=== PATIENT | male | born 1945 | race Caucasian/White ===

== ENCOUNTER 2022-12-30 13:59 | Outpatient (CLI) | payer MEDICARE, BC, SELFPAY | END 2022-12-30 14:00 | disposition home or self-care (01) | LOC: AMB 01-01 11:53 | PROVIDERS: PCP Family Medicine; Visit Provider Family Medicine | DX: R53.1 Weakness (principal) | CPT/HCPCS: A0425; A0429 ==

== ENCOUNTER 2022-12-30 14:53 | Inpatient (IN) | payer MEDICARE, BC, SELFPAY ==
[2022-12-30 15:09] VITALS: BP 126/63; PULSE 71; RESP 20; TEMP 37.1; O2SAT 97; BMI 76.0
[2022-12-30 15:23] VITALS: BP 126/63; PULSE 71; RESP 20; TEMP 37.1; O2SAT 97
--- NOTE | 2022-12-30 15:40 | ED.GENADULT ---
HPI - General Adult General Date Seen: 12/30/22 Chief complaint: Weakness Stated complaint: Weakness Time Seen by Provider: 12/30/22 15:21 Source: patient and EMS Mode of arrival: EMS Limitations: no limitations History of Present Illness HPI narrative: Patient is a 77-year-old male who really was not able to get out of bed by himself today. He called a couple of friends to help him when they were not able to get him out of bed 911 was called. He says he was feeling generally weak, did not feel like his legs would support him. He denies any recent illness or injury. He lives independently in a house he built a couple of years ago which is fairly well specialized for him. His weight is 227 kilos. He notes that he is able to walk short distances with his walker but does not get any other exercise. He says he has been having difficulty losing weight. He denies chest pain, difficulty breathing, fevers, vomiting, diarrhea. He does note that he has a little rash underneath his left thigh and gets a rash recurrently underneath his armpits. He notes more frequent urination although no dysuria. Denies prior history of diabetes. Related Data Home Medications Medication Instructions Recorded Confirmed amlodipine 5 mg tablet 5 mg PO DAILY 12/30/22 12/30/22 losartan 100 mg tablet 100 mg PO DAILY 12/30/22 12/30/22 naproxen sodium 220 mg capsule 440 mg PO BID PRN 12/30/22 12/30/22 (Aleve) Review of Systems Status of ROS: Reports: 10 or more systems reviewed and unremarkable except as noted in History and below [facility] Medical History (Updated 12/30/22 @ 19:35 by Natali Velazquez MD) Elevated blood uric acid level ?E79.0 - Hyperuricemia without signs of inflammatory arthritis and tophaceous disease (ICD-10) Impaired fasting glucose ?R73.01 - Impaired fasting glucose (ICD-10) Gout ?M10.9 - Gout, unspecified (ICD-10) Adenomatous colon polyp (~2015) ?D12.6 - Benign neoplasm of colon, unspecified (ICD-10) Ventral hernia ?K43.9 - Ventral hernia without obstruction or gangrene (ICD-10) Incarcerated umbilical hernia (~2014) ?K42.0 - Umbilical hernia with obstruction, without gangrene (ICD-10) Dyslipidemia ?E78.5 - Hyperlipidemia, unspecified (ICD-10) Morbid obesity ?E66.01 - Morbid (severe) obesity due to excess calories (ICD-10) Hernia ?K46.9 - Unspecified abdominal hernia without obstruction or gangrene (ICD-10) Gallbladder attack ?K82.9 - Disease of gallbladder, unspecified (ICD-10) HTN (hypertension) ?I10 - Essential (primary) hypertension (ICD-10) Surgical History (Updated 12/30/22 @ 19:26 by Jennifer Conner MD) H/O hernia repair (~2014) ?Z98.890 - Other specified postprocedural states (ICD-10) ?Z87.19 - Personal history of other diseases of the digestive system (ICD-10) Hx of cholecystectomy (~1985) ?Z90.49 - Acquired absence of other specified parts of digestive tract (ICD-10) H/O colonoscopy ?Z98.890 - Other specified postprocedural states (ICD-10) Family History (Updated 12/30/22 @ 19:27 by Jennifer Conner MD) Father Cardiovascular disease Myocardial infarction Mother High blood pressure Sister Sarcoma Social History Smoking Status: Never smoker How often do you have a drink containing alcohol: never AUDIT-C Alcohol total score: 0 Non-prescribed substance use: denies use service: No Exam Narrative: Exam Narrative: Vital signs as noted above. In general, an alert, nontoxic male. He is significantly overweight. Head: Normocephalic, atraumatic. Eyes: Pupils are equal reactive. Extraocular movements are full. Conjunctivae are normal. ENT: Mucous membranes are moist. Throat is normal. Neck: Supple without lymphadenopathy. Heart: Regular rate and rhythm. No murmur or rub. Lungs: Clear anteriorly. No increased work of breathing, crackles or wheezes. Abdomen: Nontender, exam is significantly limited by body habitus. Extremities: Well perfused. No edema. No calf tenderness. Pulses intact. Neurologic: Patient is alert and oriented to person and place. Speech is fluent. Face is symmetric. Moves all extremities equally. Affect: Normal. Skin: Warm and dry. Well perfused. Underneath both armpits he has bright red erythema and some mild maceration of the skin. This extends out onto the surrounding skin to some degree, is sharply demarcated. On the back of the left thigh there is an area of rash with small patches of erythema, I do not see blistering or hives. At this time it does not look specifically consistent with shingles, though it is possible that with the weight of his leg any blistering would be worn away. He is unsure how long that rash has been there. Const: Vital Signs, click to edit/add: Vital Signs - 24 hr 12/30/22 15:09 12/30/22 15:23 12/30/22 17:30 Temperature 98.7 F 98.7 F Pulse Rate [Right Radial] 71 71 67 Respiratory Rate 20 20 18 Blood Pressure [Ri ght Forearm] 126/63 126/63 135/60 Pulse Oximetry 97 97 97 Oxygen Delivery Me thod Room Air Room Air Room Air Course Reevaluation(s) Reevaluation #1: Patient had an IV established here, had an EKG which was unremarkable, [place] a [place] [address]. Looking back at his records at least from the last time he was here which granted was 810 years ago, his white blood cell count was normal at that time. Hemoglobin is 12.6. He has a left shift with 86% neutrophils. Metabolic panel is notably normal, blood sugar is 114, BUN is 22, creatinine 1. LFTs also normal. CRP is elevated at 6.7. BNP is mildly elevated at 658. TSH was normal. O'clock procalcitonin was added on later and was 0.08. Overall, patient presents with acute on chronic weakness, likely in part due to his weight, but he feels there has been a telephone exchange operator the past couple of days. He does have significant erythema under his armpits, which looks to be primarily fungal, but a superimposed bacterial infection cannot be ruled out. He also has this rash on the back of his leg which at this point I think is indeterminate but shingles could be a possibility. In any case, I think it is reasonable to treat him for possible cellulitis, he will be admitted for observation, antibiotics, PT OT and a determination as to whether not he can return home verses needing group home care. Given 2 g of Ancef here, blood cultures drawn. Vital Signs Vital signs: Initial Vital Signs Temperature 98.7 F 12/30/22 15:09 Temperature Source Temporal Artery Scan 12/30/22 15:09 Pulse Rate 71 12/30/22 15:09 Pulse Rhythm Regular 12/30/22 15:09 Pulse Strength 3+ Normal 12/30/22 15:09 Respiratory Rate 20 12/30/22 15:09 Blood Pressure 126/63 12/30/22 15:09 Blood Pressure Mean 84 12/30/22 15:09 Blood Pressure Position Supine 12/30/22 15:09 Pulse Oximetry 97 12/30/22 15:09 Oxygen Delivery Method Room Air 12/30/22 15:09 Vital Signs Temperature 98.7 F 12/30/22 15:09 Pulse Rate 71 12/30/22 15:09 Respiratory Rate 20 12/30/22 15:09 Blood Pressure 126/63 12/30/22 15:09 Pulse Oximetry 97 12/30/22 15:09 Oxygen Delivery Method Room Air 12/30/22 15:09 Temperature 98.7 F 12/30/22 15:23 Pulse Rate 66 12/30/22 19:12 Respiratory Rate 18 12/30/22 19:12 Blood Pressure 130/64 12/30/22 19:12 Pulse Oximetry 98 12/30/22 19:12 Oxygen Delivery Method Room Air 12/30/22 19:12 Medical Decision Making Lab Data Labs: Lab Results 12/30/22 12/30/22 Range/Units 15:53 15:55 WBC 15.35 H (4.50-11.00) K/uL RBC 4.52 (4.30-5.90) m/uL Hgb 12.6 L (13.5-17.5) gm/dL Hct 40.0 (37.0-53.0) % MCV 89 (80-100) fL MCH 28 (26-34) pg MCHC 32 (32-36) gm/dL RDW Coeff of Rosalee 15.1 (11.5-15.5) % Plt Count 252 (140-440) K/uL Neut % (Auto) 86.6 H (42.0-72.0) % Lymph % (Auto) 5.6 L (20-44) % [place] % (Auto) 6.8 (0.0-11.0) % Eos % (Auto) 0.7 (0.0-7.0) % Baso % (Auto) 0.1 (0.0-3.0) % Neut # (Auto) 13.30 H (1.7-7.0) K/uL Lymph # (Auto) 0.90 (0.90-2.90) K/uL [place] # (Auto) 1.00 H (0.00-0.90) K/UL Eos # (Auto) 0.10 (0.00-0.50) K/uL Baso # (Auto) 0.00 (0.00-0.30) K/uL Sodium 144 (135-149) mmol/L Potassium 3.9 (3.6-5.1) mmol/L Chloride 108 (96-114) mmol/L Carbon Dioxide 29 (20-32) mmol/L BUN 22 (7-30) mg/dL Creatinine 1.0 (0.5-1.5) mg/dL Estimated Creat Clear 60.80 Estimated GFR 78 ml/min Glucose 114 (60-115) mg/dL Lactate 1.4 (0.5-1.9) mmol/L Calcium 9.0 (8.4-10.6) mg/dL Total Bilirubin 1.1 (0.1-1.5) mg/dL Direct Bilirubin 0.2 (0.0-0.5) mg/dL AST 32 (12-35) U/L ALT 22 (4-50) U/L Alkaline Phosphatase 123 (40-150) U/L C-Reactive Protein 6.7 H (0.5-1.0) mg/dL NT-Pro-B Natriuret Pep 658 pg/mL Total Protein 7.6 (6.0-8.3) g/dL Albumin 3.6 (3.3-5.0) g/dL Procalcitonin 0.08 (<0.50) ng/mL TSH 1.150 (0.270-4.200) uIU/mL SARS-CoV-2 (PCR) Negative SARS-CoV-2 (Negative) Influenza Type A (PCR) Negative PCR FLU A (Negative) Influenza Type B (PCR) Negative PCR FLU B (Negative) RSV (PCR) Negative PCR RSV (Negative) POC Troponin I 0.00 L (0.01-0.04) ng/ml Discharge Plan Discharge Clinical Impression: Weakness, Morbid obesity, Cellulitis Patient Disposition: Admitted As Observation
--- NOTE | 2022-12-30 15:49 | PC.NURSE ---
here and Lab. pt has been on the phone since adnit
[2022-12-30 16:05] LABS: Lactate* 1.4 mmol/L (0.5-1.9)
[2022-12-30 16:06] LABS: Basophils Percent Auto 0.1 % (0.0-3.0); Eosinophils Percent Auto 0.7 % (0.0-7.0); Hemoglobin* 12.6 gm/dL (13.5-17.5); Immature Granulocytes Pct Auto 0.2 %; Lymphocytes Percent Auto 5.6 % (20-44); Mean Corpuscular HGB Conc 32 gm/dL (32-36); Mean Corpuscular Hemoglobin 28 pg (26-34); Mean Corpuscular Volume 89 fL (80-100); Monocytes Percent Auto 6.8 % (0.0-11.0); Neutrophils Percent Auto 86.6 % (42.0-72.0); Platelet Count* 252 K/uL (140-440); RDW Coefficient of Variation % 15.1 % (11.5-15.5); Red Blood Count 4.52 m/uL (4.30-5.90); White Blood Count* 15.35 K/uL (4.50-11.00)
[2022-12-30 16:15] LABS: Slide Review Reflex No
[2022-12-30 16:21] LABS: Albumin* 3.6 g/dL (3.3-5.0); Chloride* 108 mmol/L (96-114)
[2022-12-30 16:22] LABS: Potassium* 3.9 mmol/L (3.6-5.1); Sodium* 144 mmol/L (135-149)
[2022-12-30 16:24] LABS: Estimated Glomerular Filt Rate 78 ml/min
[2022-12-30 16:25] LABS: Alanine Aminotransferase* 22 U/L (4-50); Alkaline Phosphatase* 123 U/L (40-150); Aspartate Amino Transferase* 32 U/L (12-35); Bilirubin Direct* 0.2 mg/dL (0.0-0.5); Bilirubin Total* 1.1 mg/dL (0.1-1.5); Blood Urea Nitrogen* 22 mg/dL (7-30); Carbon Dioxide* 29 mmol/L (20-32); Glucose* 114 mg/dL (60-115); Total Protein* 7.6 g/dL (6.0-8.3)
[2022-12-30 16:28] LABS: C Reactive Protein* 6.7 mg/dL (0.5-1.0)
[2022-12-30 16:38] LABS: NT Pro B Type NatriureticPept* 658 pg/mL
[2022-12-30 16:45] LABS: PCR FLU A Negative PCR FLU A (Negative); PCR FLU B Negative PCR FLU B (Negative); PCR RSV Negative PCR RSV (Negative)
[2022-12-30 16:46] LABS: SARS PCR* Negative SARS-CoV-2 (Negative)
[2022-12-30 17:30] VITALS: BP 135/60; PULSE 67; RESP 18; O2SAT 97
[2022-12-30] MEDS: CEFAZOLIN 2 GM in 0.9 % SODIUM CHLORIDE Mini-bag 100 ML IVPB (18:16)
[2022-12-30 18:44] LABS: Procalcitonin* 0.08 ng/mL (<0.50)
--- NOTE | 2022-12-30 18:53 | ED.NURSE ---
given report to M/S and will transfer to room CCU 2 via cart.
[2022-12-30 19:07] VITALS: BP 138/68; PULSE 62; RESP 18; RESP 20; TEMP 36.2; O2SAT 97; O2SAT 98; BMI 77.0
[2022-12-30 19:12] VITALS: BP 130/64; PULSE 66; RESP 18; O2SAT 98
--- NOTE | 2022-12-30 19:45 | P.IMHP_ITS ---
Hospitalist- H&P: HPI History of Present Illness Time Seen by Provider: 19:35 Date Seen: 12/30/22 Chief complaint: Weakness Narrative: Xavier Damon is a 77 year old male who is morbidly obese had difficulty getting out of bed this morning. He weighs just under 500 lbs. Every day sits on side of bed with walker and pushes himself up. This morning he couldn't do it, and he was afraid he'd fall on the floor, so he called a friend to come over. They tried together for several hours, but he was getting worn out, so they ended up calling the police and paramedics around 13:30 to help out. EMS got him standing up, but he couldn't move his legs to walk, so he sat down on the bed. They recommended going to the hospital. A few days ago he hurt his left leg by plopping down into a chair. He felt that this stretched out the muscle of the lower leg. He says his friend noticed he's been having a harder time getting into his truck for the last 3 months. This winter he has been moving less than usual. He says he's been incontinent of urine for the past 3 months or so. He gets the urge to urinate and can control it. He tries to hold it, but it has gotten so difficult to get out of bed or get out of his truck or chair to get to the bathroom, that he ultimately decides to just let the urine flow. He says the incontinence never catches him off guard or is out of his control. He can''t get into the bathtub anymore, for about 5 years. Has been using the walk in shower, but he feels he doesn't get as clean. Review of Systems Status of ROS: Reports: 10 or more systems reviewed and unremarkable except as noted in History and below Integ/Breast: Reports: rash PFSH [facility] Medical History (Updated 12/30/22 @ 21:29 by Jennifer Conner MD) Elevated blood uric acid level ?E79.0 - Hyperuricemia without signs of inflammatory arthritis and tophaceous disease (ICD-10) Impaired fasting glucose ?R73.01 - Impaired fasting glucose (ICD-10) Gout ?M10.9 - Gout, unspecified (ICD-10) Adenomatous colon polyp (~2015) ?D12.6 - Benign neoplasm of colon, unspecified (ICD-10) Ventral hernia ?K43.9 - Ventral hernia without obstruction or gangrene (ICD-10) Incarcerated umbilical hernia (~2014) ?K42.0 - Umbilical hernia with obstruction, without gangrene (ICD-10) Dyslipidemia ?E78.5 - Hyperlipidemia, unspecified (ICD-10) Morbid obesity ?E66.01 - Morbid (severe) obesity due to excess calories (ICD-10) Hernia ?K46.9 - Unspecified abdominal hernia without obstruction or gangrene (ICD- 10) Gallbladder attack ?K82.9 - Disease of gallbladder, unspecified (ICD-10) HTN (hypertension) ?I10 - Essential (primary) hypertension (ICD-10) Surgical History (Updated 12/30/22 @ 19:26 by Jennifer Conner MD) H/O hernia repair (~2014) ?Z98.890 - Other specified postprocedural states (ICD-10) ?Z87.19 - Personal history of other diseases of the digestive system (ICD-10) Hx of cholecystectomy (~1985) ?Z90.49 - Acquired absence of other specified parts of digestive tract (ICD- 10) H/O colonoscopy ?Z98.890 - Other specified postprocedural states (ICD-10) Family History (Updated 12/30/22 @ 19:27 by Jennifer Conner MD) Father Cardiovascular disease Myocardial infarction Mother High blood pressure Sister Sarcoma Social History (Updated 12/30/22 @ 19:58 by Jennifer Conner MD) Narrative: Lives in a newly built house that is accessible. Was in the [employer] business. Worked for [employer] (f. [employer]). Retired 10 years ago. Smoking Status: Never smoker How often do you have a drink containing alcohol: never AUDIT-C Alcohol total score: 0 Non-prescribed substance use: denies use service: No Meds Home Medications and Allergies Home Medications Medication Instructions Recorded Confirmed Type amlodipine 5 mg tablet 5 mg PO DAILY 12/30/22 12/30/22 History losartan 100 mg tablet 100 mg PO DAILY 12/30/22 12/30/22 History naproxen sodium 220 mg capsule 440 mg PO BID PRN 12/30/22 12/30/22 History (Aleve) Exam Narrative: Exam Narrative: General: There is an overwhelmingly pungent yeast odor in the room. Morbidly obese with a massive pannus. No acute distress. Awake alert oriented x3. Pleasant. HEENT: Normocephalic atraumatic, pupils equally round and reactive to light and accommodation. Thick neck and large fatty chin and cheeks which hanging over his neck. Oropharynx clear. Mucous membranes are moist. No cervical lymphadenopathy, thyromegaly or carotid bruits. No JVD. Cardiovascular: Regular rate and rhythm. No murmurs, gallops, or rubs. Chest: No increased work of breathing. Clear to auscultation bilaterally. No crackles or wheezes. Abdomen: Bowel sounds present. Soft, nondistended, nontender. Due to body habitus it is difficult to appreciate if there are any hepatosplenomegaly or masses. Genitourinary: Large scrotum that does not have rash or edema. Due to the size of the pannus, I was unable to visualize his penis. I had 4 nurses holding up the pannus as best they could, but we were unable to visualize under there completely. Extremities: Lymphedema bilaterally, no cyanosis or clubbing. Skin: Left axilla is bright red and raw. Right axilla has a light macular rash consistent with an appearance of tinea. Pannus moist and gooey with beige creamy substance in skin fold. Raw erythema with 2 ulcerations inside the pannus, 1 on the left pannus and 1 on the right pannus. Each ulceration is dime- sized without purulent drainage. He also has folliculitis of the upper inner thighs and what looks like a vasculitis on the left posterior thigh. No jaundice, no pallor. Neuro: There are no focal deficits. Romberg is negative. Unable to ambulate or turn himself in bed. Cranial nerves 2-12 are intact. Extraocular movements are full. No nystagmus. No facial asymmetry. Tongue is midline. Peripheral vision and vision are grossly intact. Strength is 5/5 in upper extremities and 4/5 in both lower extremities. Light touch sensation is intact in face body and extremities. Const: Vital Signs, click to edit/add: Vital Signs - 24 hr 12/30/22 15:09 12/30/22 15:23 12/30/22 17:30 Temperature 98.7 F 98.7 F Pulse Rate [Right Radial] 71 71 67 Respiratory Rate 20 20 18 Blood Pressure [Ri ght Forearm] 126/63 126/63 135/60 Pulse Oximetry 97 97 97 Oxygen Delivery Me thod Room Air Room Air Room Air 12/30/22 19:12 Temperature Pulse Rate [Right Radial] 66 Respiratory Rate 18 Blood Pressure [Ri ght Forearm] 130/64 Pulse Oximetry 98 Oxygen Delivery Me thod Room Air Documenting provider has reviewed patient's vital signs: yes Hospitalist - H&P: Result Labs Labs: Short CBC 12/30/22 Range/Units 15:55 WBC 15.35 H (4.50-11.00) K/uL Hgb 12.6 L (13.5-17.5) gm/dL Hct 40.0 (37.0-53.0) % Plt Count 252 (140-440) K/uL BMP 12/30/22 15:55 Sodium 144 Potassium 3.9 Chloride 108 Carbon Dioxide 29 BUN 22 Creatinine 1.0 Glucose 114 Calcium 9.0 Liver Function 12/30/22 Range/Units 15:55 Total Bilirubin 1.1 (0.1-1.5) mg/dL Direct Bilirubin 0.2 (0.0-0.5) mg/dL AST 32 (12-35) U/L ALT 22 (4-50) U/L Alkaline Phosphatase 123 (40-150) U/L Albumin 3.6 (3.3-5.0) g/dL 12/30/2022 EKG: Normal sinus rhythm, 67 beats per minute, left axis deviation, right bundle- branch block. Assessment and Plan Assessment and plan (1) Weakness: Status: Acute (2) Intertrigo: Status: Acute (3) Leukocytosis: Status: Acute (4) Cellulitis: Status: Acute (5) Impaired fasting glucose: Status: Acute (6) HTN (hypertension): Status: Chronic (7) Morbid obesity: Status: Chronic Plan I suspect this is acute on chronic. It sounds like he has been having difficulty especially over the winter that has gotten worse in last 3 months to the point where he is unable to get to the bathroom and just urinates, rather than true incontinence. Today he is weak enough that he is unable to ambulate. He does have an elevated white count and CRP, but procalcitonin is unremarkable. He has not been febrile and his vital signs are stable, there is no evidence of sepsis. Blood cultures were obtained in the emergency department. He has no other symptoms to direct further investigation. The only identifiable source of infection is the skin folds which have candidal intertrigo and the left axilla may also have an early cellulitis. He was started on Ancef in the emergency department, which I will continue. Treat intertrigo with nystatin cream, daily cleansing and aeration. I have spoken with him about weight loss and he is agreeable, in fact would prefer it. Will start him on a calorie restricted diabetic diet and obtain an hemoglobin A1c. Also have consulted Nutrition. Consult PT and OT to work with him for weakness and consult social work as he may need placement for rehab. This will be challenging given his weight since he me way too much for the equipment available in local nursing homes. Continue home medications.
[2022-12-30] MEDS: NYSTATIN CREAM 30 GM 1 APPLIC TOPICAL (21:27)
[2022-12-30] MEDS: ENOXAPARIN 40 MG/0.4 ML INJ SUBCUT (21:27)
[2022-12-30] MEDS: SODIUM CHLORIDE 0.9 % (FLUSH) 10 ML SYRINGE 5 ML IVF (21:27)
[2022-12-30 22:14] LABS: Appearance Urine Cloudy (Clear); Bilirubin Urine 1+ (Negative); Blood Urine 3+ (Negative); Color Urine Brown (Yellow); Glucose Urine Negative (Negative); Ketones Urine Trace (Negative); Leukocyte Esterase Urine Negative (Negative); Nitrite Urine Negative (Negative); Protein Urine 2+ (Negative); Specific Gravity Urine >= 1.030 (1.000-1.030); pH Urine 5.5 (5.0-8.5)
[2022-12-30 22:38] LABS: Bacteria Urine Many; RBC Urine 0-2 (0-2); WBC Urine >100 (0-5)
[2022-12-30 22:39] LABS: Amorphous Sediment Urine Moderate
[2022-12-30 23:00] VITALS: BP 129/64; PULSE 68; RESP 18; TEMP 35.7; O2SAT 97
[2022-12-30] MEDS: CEFAZOLIN 1 GM in 0.9 % SODIUM CHLORIDE Mini-bag 100 ML IVPB (23:31)
[2022-12-31] VITALS (8 sets, daily range): BP systolic 126–149; BP diastolic 65–80; PULSE 60–77; RESP 16–98; TEMP 36–36.3; O2SAT 94–100; BMI 77.0
[2022-12-31] MEDS: LOSARTAN POTASSIUM 50 MG TABLET 100 MG PO ×2 (00:12→21:20)
[2022-12-31] MEDS: AMLODIPINE 5 MG TABLET PO ×2 (00:13→21:20)
--- NOTE | 2022-12-31 05:48 | PC.NURSE ---
Admitted to unit at 1900 with primary diagnosis of weakness. Patient is alert and oriented x 4. Currently bedbound due to increased weakness/fatigue, at baseline patient is able to ambulate short distances with walker. Denies any chest pain, shortness of breath or dyspnea. Pain to left leg on admission but resolved by end of shift. Lung sounds clear anteriorly, denies cough. Bowel sounds active x 4 quadrants. Requires maximum assist of 2-3 with turning in bed. Left armpit, bilateral groin, posterior left leg and posterior testicles red and excoriated. Several small open areas to left groin which were observed by hospitalist upon admission. Health Services Information Specialist and KANDI completed bed bath and nystatin cream applied to rash areas, patient denies any pain or tenderness to rashes. Voids using a urinal with staff assistance for placement, urine tea colored, cloudy and strong odor present. Specimen obtained and sent for UA. Patient requesting SW visit to discuss health care directive as he feels he may have completed his one on file incorrectly. Patient currently lives alone in his own home, retired.
[2022-12-31 06:32] LABS: Basophils Absolute Auto 0.01 K/uL (0.00-0.30); Basophils Percent Auto 0.1 % (0.0-3.0); Eosinophils Absolute Auto 0.27 K/uL (0.00-0.50); Eosinophils Percent Auto 2.9 % (0.0-7.0); Hematocrit 37.5 % (37.0-53.0); Hemoglobin* 11.7 gm/dL (13.5-17.5); Immature Granulocytes Abs Auto 0.02 K/uL (0.00-0.30); Immature Granulocytes Pct Auto 0.2 %; Lymphocytes Percent Auto 12.1 % (20-44); Mean Corpuscular HGB Conc 31 gm/dL (32-36); Mean Corpuscular Hemoglobin 28 pg (26-34); Mean Corpuscular Volume 90 fL (80-100); Monocytes Percent Auto 7.3 % (0.0-11.0); Neutrophils Percent Auto 77.4 % (42.0-72.0); Platelet Count* 248 K/uL (140-440); RDW Coefficient of Variation % 15.2 % (11.5-15.5); Red Blood Count 4.19 m/uL (4.30-5.90); White Blood Count* 9.28 K/uL (4.50-11.00)
[2022-12-31 06:34] LABS: Slide Review Reflex No
[2022-12-31 06:42] LABS: Chloride* 109 mmol/L (96-114)
[2022-12-31 06:43] LABS: Potassium* 3.9 mmol/L (3.6-5.1); Sodium* 144 mmol/L (135-149)
[2022-12-31 06:44] LABS: Hemoglobin A1C* 5.39 % (0-5.6)
[2022-12-31 06:45] LABS: Creatinine* 0.9 mg/dL (0.5-1.5); Estimated Glomerular Filt Rate 89 ml/min
[2022-12-31 06:46] LABS: Blood Urea Nitrogen* 21 mg/dL (7-30); Carbon Dioxide* 29 mmol/L (20-32); Glucose* 99 mg/dL (60-115)
[2022-12-31 06:47] LABS: Calcium* 8.7 mg/dL (8.4-10.6)
[2022-12-31] MEDS: CEFAZOLIN 1 GM in 0.9 % SODIUM CHLORIDE Mini-bag 100 ML IVPB (06:48)
[2022-12-31 06:49] LABS: C Reactive Protein* 6.9 mg/dL (0.5-1.0)
[2022-12-31] MEDS: NYSTATIN POWDER 1 APPLIC TOPICAL ×2 (10:00→21:21)
[2022-12-31] MEDS: FLUCONAZOLE 100 MG TABLET 200 MG PO (10:36)
[2022-12-31] MEDS: SODIUM CHLORIDE 0.9 % (FLUSH) 10 ML SYRINGE 5 ML IVF ×2 (10:37→21:21)
[2022-12-31] MEDS: ACETAMINOPHEN 325 MG TABLET 650 MG PO ×2 (12:06→21:20)
--- NOTE | 2022-12-31 13:03 | PM.IMPN1 ---
Progress Note: A&P Assessment and plan (1) Cellulitis: Problem details: Fairly severe cellulitis under his abdominal pannus in and in his groin associated with substantial skin ulceration. With leukocytosis this is likely explanation for his acute on chronic weakness and inability to walk. Continue treatment for candidiasis and bacterial cellulitis with IV antibiotics, nystatin and Diflucan. Good skin hygiene will be needed as well. Status: Acute (2) Intertrigo: Problem details: Diflucan and nystatin Status: Acute (3) Weakness: Problem details: Due to acute illness. Assess for ability to return to independent living. Status: Acute (4) Morbid obesity: Problem details: Discussed approach to weight loss. Status: Chronic Plan Admit to the hospital for management of cellulitis and skin breakdown. Assess mobility. Assess for ability to return home. Time Spent With Patient Total time spent: Total time spent today is 45 minutes, 30 minutes in coordination of care discussing with patient and other providers management of cellulitis and skin problems. Subjective Date Seen: 12/31/22 Interval history: 77-year-old morbidly obese male admitted to the hospital with profound weakness. Patient has had longstanding obesity and progressive decline in his ability to ambulate. He reports over the last month he has had increasing troubles ambulating due to a feeling of leg weakness. He does get some dyspnea but reports leg weakness is primary limiting factor. He otherwise does not know knee significant symptoms of illness. Yesterday he fell and was unable to get up. He called his neighbor who could not get him up. The police came and were unable to get him up. EMS was called and they were able to get him to standing but he was too weak to walk so they brought him to the emergency room. In the emergency room he was found to have marked ulcerations and erythema under his abdominal pannus, involving his scrotum and in his left axilla. He had elevated white blood count as well. He was started on treatment for cellulitis with Ancef and intertrigo from [place] with nystatin. Patient lives independently in his own home. This is a new home for him which she has been designed to be assessable for him with his walker. He has a walk-in shower with a bench. He is unable to do personal hygiene in his skin folds. Previously he had a bathtub in his home but he found it very difficult to get in and out so now he is taking his shower while he is sitting on the bench. He is normally able to get around with a walker with gradual worsening of his mobility over the last month. Yesterday's profound weakness was an acute change for him. He is not aware of having a fever. Nursing staff note that he still too weak to stand on his own today. He reports generally feeling better but acknowledges his leg weakness. Exam Narrative: Exam Narrative: He is alert and appears in no distress. Speech is normal. Oropharynx with small airway. Neck is supple without mass or adenopathy. Respirations are clear to auscultation. Cardiovascular: S1, S2, regular rate and rhythm. No murmur gallop or rub. Abdomen: Bowel sounds are active. Abdomen is soft without tenderness. Large abdominal pannus noted. Underneath his abdominal pannus he has fairly severe erythema which is can fluent over the entire underside of the pannus extending into the inguinal folds involving the entire scrotum and associated with numerous skin ulcers proximally 1 cm in size. Left axilla has moderate erythema without ulceration. Right axilla is unremarkable. No other skin rashes. Moderate lower extremity edema. Intact capillary refill in his feet. Const: Vital Signs, click to edit/add: Vital Signs - 24 hr 12/30/22 15:09 12/30/22 15:23 12/30/22 17:30 Temperature 98.7 F 98.7 F Pulse Rate [Left P ulse Oximeter] Pulse Rate [Right Radial] 71 71 67 Respiratory Rate 20 20 18 Blood Pressure [Le ft Arm] Blood Pressure [Ri ght Forearm] 126/63 126/63 135/60 Pulse Oximetry 97 97 [address] [facility] Room Air 12/30/22 19:07 12/30/22 19:07 12/30/22 19:12 Temperature 97.1 F L Pulse Rate [Left P ulse Oximeter] 62 Pulse Rate [Right Radial] 66 Respiratory Rate 20 18 18 Blood Pressure [Le ft Arm] 138/68 Blood Pressure [Ri ght Forearm] 130/64 Pulse Oximetry [address] thod Room Air Room Air Room Air 12/30/22 23:00 12/31/22 03:00 12/31/22 07:00 Temperature 96.2 F L 97.3 F L 96.8 F L Pulse Rate [Left P ulse Oximeter] 68 60 64 Pulse Rate [Right Radial] Respiratory Rate 18 18 18 Blood Pressure [Le ft Arm] 129/64 126/66 137/73 Blood Pressure [Ri ght Forearm] Pulse Oximetry 97 95 99 Oxygen Delivery Me thod Room Air Room Air Room Air 12/31/22 10:00 12/31/22 11:00 Temperature 96.8 F L Pulse Rate [Left P ulse Oximeter] 63 63 Pulse Rate [Right Radial] Respiratory Rate 18 18 Blood Pressure [Le ft Arm] 144/65 H Blood Pressure [Ri ght Forearm] Pulse Oximetry 97 Oxygen Delivery Me thod Room Air Documenting provider has reviewed patient's vital signs: yes Labs Labs: Laboratory Results - last 24 hr 12/30/22 12/30/22 12/30/22 15:53 15:55 22:08 WBC 15.35 H RBC 4.52 Hgb 12.6 L Hct 40.0 MCV 89 MCH 28 MCHC 32 RDW Coeff of [place] 15.1 Plt Count 252 Neut % (Auto) 86.6 H Lymph % (Auto) 5.6 L [place] % (Auto) 6.8 Eos % (Auto) 0.7 Baso % (Auto) 0.1 Neut # (Auto) 13.30 H Lymph # (Auto) 0.90 [place] # (Auto) 1.00 H Eos # (Auto) 0.10 Baso # (Auto) 0.00 Sodium 144 Potassium 3.9 Chloride 108 Carbon Dioxide 29 BUN 22 Creatinine 1.0 Estimated Creat Clear 60.80 Estimated GFR 78 Glucose 114 Hemoglobin A1c Lactate 1.4 Calcium 9.0 Total Bilirubin 1.1 Direct Bilirubin 0.2 AST 32 ALT 22 Alkaline Phosphatase 123 C-Reactive Protein 6.7 H NT-Pro-B Natriuret Pep 658 Total Protein 7.6 Albumin 3.6 Procalcitonin 0.08 TSH 1.150 Urine Color Brown A Urine Appearance Cloudy A Urine pH 5.5 Ur Specific [place] >= 1.030 Urine Protein 2+ A Urine Glucose (UA) Negative Urine Ketones Trace A Urine Blood 3+ A Urine Nitrite Negative Urine Bilirubin 1+ A Urine Urobilinogen 2.0 A Ur Leukocyte Esterase Negative Urine RBC 0-2 Urine WBC >100 A Ur Squamous Epith Cells None Amorphous Sediment Moderate A Urine Bacteria Many A SARS-CoV-2 (PCR) Negative SARS-CoV-2 Influenza Type A (PCR) Negative PCR FLU A Influenza Type B (PCR) Negative PCR FLU B RSV (PCR) Negative PCR RSV POC Troponin I 0.00 L 12/31/22 06:10 WBC 9.28 RBC 4.19 L Hgb 11.7 L Hct 37.5 MCV 90 MCH 28 MCHC 31 L RDW Coeff of [place] 15.2 Plt Count 248 Neut % (Auto) 77.4 H Lymph % (Auto) 12.1 L [place] % (Auto) 7.3 Eos % (Auto) 2.9 Baso % (Auto) 0.1 Neut # (Auto) 7.20 H Lymph # (Auto) 1.10 [place] # (Auto) 0.70 Eos # (Auto) 0.27 Baso # (Auto) 0.01 Sodium 144 Potassium 3.9 Chloride 109 Carbon Dioxide 29 BUN 21 Creatinine 0.9 Estimated Creat Clear 60.80 Estimated GFR 89 Glucose 99 Hemoglobin A1c 5.39 Lactate Calcium 8.7 Total Bilirubin Direct Bilirubin AST ALT Alkaline Phosphatase C-Reactive Protein 6.9 H NT-Pro-B Natriuret Pep Total Protein Albumin Procalcitonin TSH Urine Color Urine Appearance Urine pH Ur Specific [place] Urine Protein Urine Glucose (UA) Urine Ketones Urine Blood Urine Nitrite Urine Bilirubin Urine Urobilinogen Ur Leukocyte Esterase Urine RBC Urine WBC Ur Squamous Epith Cells Amorphous Sediment Urine Bacteria SARS-CoV-2 (PCR) Influenza Type A (PCR) Influenza Type B (PCR) RSV (PCR) POC Troponin I
--- NOTE | 2022-12-31 14:33 | PC.SOCIAL ---
Met with pt. to discuss discharge plans. Pt. agrees he needs a SNF for rehab and understands due to his weight no local nursing homes can accept. [facility] SNF can only accept under 450lb. data services developer will work on finding a SNF for rehab that can accommodate pt.'s weight. Pt. states he has a HCD on file he wants to update. No HCD can be found inpt.'s chart. Will complete a new HCD with pt. during this hospital stay.
[2022-12-31] MEDS: CEFAZOLIN 2 GM in 0.9 % SODIUM CHLORIDE Mini-bag 100 ML IVPB ×2 (14:51→23:06)
--- NOTE | 2022-12-31 18:06 | PC.NURSE ---
[id number] Shift Summary? CCU2 D.R. 76 STATUS UNKNOWN Cellulitis (Weakness, Intertrigo, Leukocytosis)? Hx: Obesity, Elevated blood uric acid level, Gout, Adenomatous colon polyp, Ventral hernia, Incarcerated umbilical hernia, Gallbladder attack, HTN, cholecystectomy? Very busy day for pt and did not sleep much last evening. Not diabetic, A1c= 5.39. Diabetic diet to restrict calories. Good appetit with no nausea. WBCs trending down 15.35 -> 9.28. UA cultures pending but signs of UTI. Pt stated that at home he urinates himself while sitting in his car and in bed without cleaning for hours. Education provided on UTIs, araseli cares, prevention etc. Needs AO2 to void in urinal for placement.?Washed reddened folds with wound cleanser, applied nystatin powder, and placed interdry to groin, pannus, scrotum, and L axilla. Culture swab done of scrotum wounds.?BM x2 soft formed incontinent d/t urgency and function. Worked with therapies but unable to stand at EOB. Bariatric commode and recliner in room. Utilizing ceiling lift for wound cleansing and is recommended for transferring.? On room air. IV SLed, IV abx given. C/o 3/10 pain to scrotum and L leg, given Tylenol with no relief. Pt stated he feels motivated to lose weight (quit drinking pop) and improve araseli-care habits. Pt explained he used to utilize a bathtub but now just uses his shower head without soap to cleanse daily. Digital Director and health and social care teacher also came by. ??
[2022-12-31] MEDS: ENOXAPARIN 40 MG/0.4 ML INJ SUBCUT (21:19)
[2022-12-31] MEDS: MELATONIN 3 MG TABLET PO (21:20)
[2023-01-01] VITALS (8 sets, daily range): BP systolic 134–158; BP diastolic 59–80; PULSE 56–66; RESP 16–26; TEMP 35.9–36.3; O2SAT 94–97
--- NOTE | 2023-01-01 06:21 | PC.NURSE ---
Pleasant and cooperative with cares. Pain to left lower extremity reported, discomfort well managed with PRN tylenol. Continent of urine with urinal and staff assist. Left armpit, bilateral groin, under pannus and scrotum cleansed and nystatin applied. Denies any shortness of breath or cough. Bowel sounds active x 4.
[2023-01-01 07:11] LABS: Basophils Absolute Auto 0.02 K/uL (0.00-0.30); Basophils Percent Auto 0.2 % (0.0-3.0); Eosinophils Absolute Auto 0.38 K/uL (0.00-0.50); Eosinophils Percent Auto 4.6 % (0.0-7.0); Hematocrit 37.6 % (37.0-53.0); Hemoglobin* 11.6 gm/dL (13.5-17.5); Immature Granulocytes Abs Auto 0.02 K/uL (0.00-0.30); Immature Granulocytes Pct Auto 0.2 %; Mean Corpuscular HGB Conc 31 gm/dL (32-36); Mean Corpuscular Hemoglobin 28 pg (26-34); Mean Corpuscular Volume 90 fL (80-100); Neutrophils Absolute Auto 5.96 K/uL (1.7-7.0); Platelet Count* 243 K/uL (140-440); RDW Coefficient of Variation % 14.9 % (11.5-15.5); White Blood Count* 8.29 K/uL (4.50-11.00)
[2023-01-01] MEDS: CEFAZOLIN 2 GM in 0.9 % SODIUM CHLORIDE Mini-bag 100 ML IVPB ×3 (07:15→22:14)
[2023-01-01 07:18] LABS: Slide Review Reflex No
[2023-01-01 07:23] LABS: Albumin* 3.3 g/dL (3.3-5.0)
[2023-01-01 07:26] LABS: Bilirubin Total* 0.5 mg/dL (0.1-1.5)
[2023-01-01 07:27] LABS: Alanine Aminotransferase* 16 U/L (4-50); Alkaline Phosphatase* 105 U/L (40-150); Aspartate Amino Transferase* 28 U/L (12-35); Total Protein* 7.1 g/dL (6.0-8.3)
[2023-01-01 07:29] LABS: C Reactive Protein* 5.4 mg/dL (0.5-1.0)
[2023-01-01] MEDS: SODIUM CHLORIDE 0.9 % (FLUSH) 10 ML SYRINGE 5 ML IVF (07:57)
[2023-01-01] MEDS: FLUCONAZOLE 100 MG TABLET 200 MG PO (07:58)
[2023-01-01] MEDS: NYSTATIN POWDER 1 APPLIC TOPICAL ×2 (10:24→21:33)
[2023-01-01] MEDS: ACETAMINOPHEN 325 MG TABLET 650 MG PO ×2 (11:49→17:45)
--- NOTE | 2023-01-01 14:02 | PC.SOCIAL ---
Completed a POLST form and an [employer] short-form with pt. Sent to Medical Records to be scanned.
--- NOTE | 2023-01-01 14:12 | PC.SOCIAL ---
[facility]ursing [facility] Called for ST rehab for pt. 1. [facility]- [phone], Declined, Takes 500 lb but only if pt. does not require a lift 2. [facility] @ [phone], - No bariatric bed available 3. [facility]- Wt. Limit is 450lb 4. [facility] @ [phone]- Declined wt limit is 350lb 5. [facility] @ [phone] wt limit is 450lb 6. [facility]- [phone]- Wt. limit is 500lb and would consider pt. if goes under 500lb. 7. [facility] @ [phone] Wt limit is 500lb-Message left on availability 8. [facility]-@ [phone]. Wt limit is 500lb. Message left on availability 9. [facility]-@ [phone]. Wt. limit is 500lb. Message left on availability. 10. [facility] [place]-Wt Limit is 450lb [facility]. [facility] @ [phone]. Message left on availability. 12. [facility] @ [phone]. Message left on availability.
--- NOTE | 2023-01-01 14:57 | P.IMPN_ITS ---
Progress Note: A&P Assessment and plan (1) Cellulitis: Problem details: Fairly severe cellulitis under his abdominal pannus in and in his groin associated with substantial skin ulceration. With leukocytosis this is likely explanation for his acute on chronic weakness and inability to walk. Continue treatment for candidiasis and bacterial cellulitis with IV antibiotics, nystatin and Diflucan. Good skin hygiene will be needed as well. Will need assistance of 2 to provide skin care and hygiene under his abdominal pannus in the future Status: Acute (2) Intertrigo: Problem details: Diflucan and nystatin Status: Acute (3) Weakness: Problem details: Due to acute illness. Ongoing assessment and treatment of disability/immobility Status: Acute (4) Morbid obesity: Problem details: Discussed approach to weight loss. Recommend outpatient semaglutide Status: Chronic Plan Continue in-hospital for IV antibiotics, skin care, therapy to address mobility. Probably will need residential facility for rehab. Time Spent With Patient Total time spent: Total time spent today is 40 minutes, 30 minutes in coordination of care discussing with patient, other providers management of disability, obesity and cellulitis Subjective Date Seen: 01/01/23 Interval history: 77-year-old morbidly obese male admitted to the hospital with profound weakness. Patient has had longstanding obesity and progressive decline in his ability to ambulate. He reports over the last month he has had increasing troubles ambulating due to a feeling of leg weakness. He does get some dyspnea but reports leg weakness is primary limiting factor. He otherwise does not know knee significant symptoms of illness. Yesterday he fell and was unable to get up. He called his neighbor who could not get him up. The police came and were unable to get him up. EMS was called and they were able to get him to standing but he was too weak to walk so they brought him to the emergency room. In the emergency room he was found to have marked ulcerations and erythema under his abdominal pannus, involving his scrotum and in his left axilla. He had elevated white blood count as well. He was started on treatment for cellulitis with Ancef and intertrigo from [place] with nystatin. Patient lives independently in his own home. This is a new home for him which she has been designed to be assessable for him with his walker. He has a walk- in shower with a bench. He is unable to do personal hygiene in his skin folds. Previously he had a bathtub in his home but he found it very difficult to get in and out so now he is taking his shower while he is sitting on the bench. He is normally able to get around with a walker with gradual worsening of his mobility over the last month. Yesterday's profound weakness was an acute change for him. He is not aware of having a fever. Nursing staff note that he still too weak to stand on his own today. He reports generally feeling better but acknowledges his leg weakness. Patient reports generally feeling well but still indicates his legs he too weak and he has not yet been able to ambulate or even stand on his feet. Exam Narrative: Exam Narrative: He is alert and appears in no distress. He gives his own history. Breathing is unlabored. He has not yet been able to stand on his feet. Abdomen is soft without tenderness. Inspection under his pannus shows moderate improvement in the erythema. Ulcerations are still present. Lower extremities without obvious infection or trauma. Const: Vital Signs, click to edit/add: Vital Signs - 24 hr 12/31/22 15:00 12/31/22 19:00 12/31/22 23:00 Temperature 97.4 F L 97.2 F L Pulse Rate [Left P ulse Oximeter] 60 77 61 Respiratory Rate 20 16 18 Blood Pressure [Le ft Arm] 143/80 H 146/71 H Pulse Oximetry 94 95 Oxygen Delivery Me thod Room Air Room Air 01/01/23 03:00 01/01/23 07:00 01/01/23 08:02 Temperature 97.1 F L 96.8 F L Pulse Rate [Left P ulse Oximeter] 60 63 63 Respiratory Rate 18 18 18 Blood Pressure [Le ft Arm] 138/80 151/66 H Pulse Oximetry 96 94 Oxygen Delivery Me thod Room Air Room Air 01/01/23 11:00 01/01/23 11:41 Temperature 97.0 F L Pulse Rate [Left P ulse Oximeter] 66 Respiratory Rate 20 Blood Pressure [Le ft Arm] 158/59 H 156/67 H Pulse Oximetry 97 Oxygen Delivery Me od Room Air Documenting provider has reviewed patient's vital signs: yes Labs Labs: Laboratory Results - last 24 hr 01/01/23 06:51 WBC 8.29 RBC 4.20 L Hgb 11.6 L Hct 37.6 MCV 90 MCH 28 MCHC 31 L RDW Coeff of Rosalee 14.9 Plt Count 243 Neut % (Auto) 72.0 Lymph % (Auto) 16.0 L [place] % (Auto) 7.0 Eos % (Auto) 4.6 Baso % (Auto) 0.2 Neut # (Auto) 5.96 Lymph # (Auto) 1.30 [place] # (Auto) 0.60 Eos # (Auto) 0.38 Baso # (Auto) 0.02 Total Bilirubin 0.5 Direct Bilirubin 0.0 AST 28 ALT 16 Alkaline Phosphatase 105 C-Reactive Protein 5.4 H Total Protein 7.1 Albumin 3.3
--- NOTE | 2023-01-01 15:17 | CRLHL7_ITS ---
For Patients: As a result of the Century Cures Act, medical imaging exams and procedure reports are released immediately into your electronic medical record. You may view this report before your referring provider. If you have questions, please contact your health care provider. Indication: Trauma. Technique: Two views left knee Comparison: None. Findings: Bones and joint: Advanced arthrosis with severe narrowing of the medial femorotibial compartment joint space with chronic appearing osseous remodeling of the near femoral condyle. Ossific density projecting over the anterior recess, likely a chronic intra-articular body. Advanced patellofemoral arthrosis. Small joint effusion. Soft tissues: Unremarkable. Impression: Advanced knee arthrosis with chronic appearing osseous remodeling of the medial femoral condyle and chronic appearing ossification projecting over the anterior joint recess. No definite superimposed acute fracture. However, if there is persistent concern, consider CT. Dictated by Bossman Da Silva MD @ 01/02/2023 7:27:28 AM (Electronically Signed)
--- NOTE | 2023-01-01 15:17 | CRLHL7_ITS ---
For Patients: As a result of the Century Cures Act, medical imaging exams and procedure reports are released immediately into your electronic medical record. You may view this report before your referring provider. If you have questions, please contact your health care provider. Indication: Trauma. Technique: Two views left tibia and fibula Comparison: None. Findings: Bones: Alignment is normal. No fractures or bone lesions. Joint spaces: Advanced knee arthrosis, partially included in the imaging field of view. Soft tissues: Soft tissue calcifications appears associated with the skin. Impression: No sign of acute injury. Dictated by Bossman Da Silva MD @ 01/02/2023 7:29:09 AM (Electronically Signed)
[2023-01-01] MEDS: TORSEMIDE 20 MG TABLET PO (17:03)
--- NOTE | 2023-01-01 19:41 | PC.NURSE ---
[id number] Shift Summary? CCU2 D.R. 76 STATUS UNKNOWN Cellulitis (Weakness, Intertrigo, Leukocytosis)? Hx: Obesity, Elevated blood uric acid level, Gout, Adenomatous colon polyp, Ventral hernia, Incarcerated umbilical hernia, Gallbladder attack, HTN, cholecystectomy? Pt worked with therapies today. OT did oral cares. PT stood at edge of recliner with walker and AO2for several seconds. Ceiling lifted to recliner for several hours. XRay done to L leg d/t consistent pain to extremity while weight bearing. Given Tylenol with relief. Voiding light yellow/clear frequently by end of shift (diuretics given). Needs AO2 for using urinal. Cleaned abdomen, scrotum, and L axillary with cleanser, applied powder nystatin, and interdry. Sup aware we are out of interdry. Nystatin in pt basked (out of powder). SW working on placement. Patent Prosecution Paralegal came by to answer questions. On 1500 kcal restriction. Sheets for meals filled out, on chart for chassis wirer. On room air. No nausea/vomiting. PIV to R hand SLed, IV abx given.?
[2023-01-01] MEDS: ENOXAPARIN 40 MG/0.4 ML INJ SUBCUT (21:32)
[2023-01-01] MEDS: LOSARTAN POTASSIUM 50 MG TABLET 100 MG PO (21:32)
[2023-01-01] MEDS: AMLODIPINE 5 MG TABLET PO (21:32)
[2023-01-01] MEDS: MELATONIN 3 MG TABLET PO (22:13)
[2023-01-02 03:00] VITALS: BP 138/68; PULSE 61; RESP 20; TEMP 36.3; O2SAT 93
--- NOTE | 2023-01-02 06:26 | PC.NURSE ---
Pleasant and cooperative with cares. Denies any pain this shift. Left armpit, bilateral groin, left thigh and scrotum cleansed well, dried and nystatin applied. Areas remain dark pink in color, left groin has multiple open areas. Utilized urinal in bed, coninues to have large amount of output due to torsemide. Urine is clear, pale yellow with moderate odor. Denies any chest pain or dyspnea. Turns with assist of 2, able to hold himself onto his side with assist.
[2023-01-02] MEDS: CEFAZOLIN 2 GM in 0.9 % SODIUM CHLORIDE Mini-bag 100 ML IVPB ×3 (06:37→22:49)
[2023-01-02 07:00] VITALS: BP 141/67; PULSE 61; RESP 20; TEMP 36.3; O2SAT 93
[2023-01-02] MEDS: TORSEMIDE 20 MG TABLET PO (07:50)
[2023-01-02] MEDS: FLUCONAZOLE 100 MG TABLET 200 MG PO (08:37)
[2023-01-02] MEDS: NYSTATIN POWDER 1 APPLIC TOPICAL ×2 (08:37→21:48)
--- NOTE | 2023-01-02 10:47 | P.IMPN_ITS ---
Progress Note: A&P Assessment and plan (1) Cellulitis: Problem details: Fairly severe cellulitis under his abdominal pannus in and in his groin associated with substantial skin ulceration. With leukocytosis this is likely explanation for his acute on chronic weakness and inability to walk. Continue treatment for candidiasis and bacterial cellulitis with IV antibiotics, nystatin and Diflucan. Good skin hygiene will be needed as well. Will need assistance of 2 to provide skin care and hygiene under his abdominal pannus in the future. Status: Acute (2) Intertrigo: Problem details: Diflucan and nystatin Status: Acute (3) Weakness: Problem details: Due to acute illness. Ongoing assessment and treatment of disability/immobility Status: Acute (4) Morbid obesity: Problem details: Discussed approach to weight loss. Recommend outpatient semaglutide. In the hospital will initiate calorie restricted diet. Status: Chronic (5) HTN (hypertension): Problem details: Add torsemide for hypertension and edema. Follow electrolytes closely Status: Chronic (6) Anasarca: Problem details: Generalized edema. Initiate torsemide and follow electrolytes closely Status: Acute (7) Arthritis of knee, left: Problem details: Chronic knee arthritis with acute on chronic injury prior to admission. Status: Acute (8) Urinary retention: Problem details: Postvoid residual of 450 mL. Catheter placed to help with hygiene and healing of groin wounds. Start Flomax with a goal of removing catheter. Status: Acute (9) Advanced directives, counseling/discussion: Problem details: Patient has clarified his POLST. He is DNR and DNI but would like aggressive treatment and hospitalization for other medical illnesses short of cardiac arrest or respiratory failure. Status: Acute Plan Continue in hospital for treatment of cellulitis, urinary retention, morbid obesity, disabilities. Pending plan for intermediate facility Time Spent With Patient Total time spent: Total time spent today is 40 minutes, 30 minutes in coordination of care discussing with patient other providers ongoing evaluation management of multiple medical problems. Subjective Date Seen: 01/02/23 Interval history: 77-year-old morbidly obese male admitted to the hospital with profound weakness. Patient has had longstanding obesity and progressive decline in his ability to ambulate. He reports over the last month he has had increasing troubles ambulating due to a feeling of leg weakness. He does get some dyspnea but reports leg weakness is primary limiting factor. He otherwise does not know knee significant symptoms of illness. The day prior to admission he fell and was unable to get up. He called his neighbor who could not get him up. The police came and were unable to get him up. EMS was called and they were able to get him to standing but he was too weak to walk so they brought him to the emergency room. In the emergency room he was found to have marked ulcerations and erythema under his abdominal pannus, involving his scrotum and in his left axilla. He had elevated white blood count as well. He was started on treatment for cellulitis with Ancef and intertrigo from [facility] with nystatin. Patient lives independently in his own home. This is a new home for him which she has been designed to be assessable for him with his walker. He has a walk- in shower with a bench. He is unable to do personal hygiene in his skin folds. Previously he had a bathtub in his home but he found it very difficult to get in and out so now he is taking his shower while he is sitting on the bench. He is normally able to get around with a walker with gradual worsening of his mobility over the last month. The profound weakness on admission was an acute change for him. He is not aware of having a fever. Nursing staff note that he still too weak to stand on his own. He reports generally feeling better but acknowledges his leg weakness. He fell a week prior to admission and hurt his left knee and calf. Radiographs of those were obtained and show advanced degenerative changes in the left knee. Patient reports generally feeling well but still indicates his legs he too weak and he has not yet been able to ambulate or even stand on his feet. Urinary incontinence has been a problem. He has skin breakdown in the groin area so Sanders catheter was placed. He had 450 ml postvoid residual. Exam Narrative: Exam Narrative: He is alert and appears in no distress. Skin under the abdominal pannus continues to improve with diminishing erythema. Multiple ulcers are still present. Significant problems with moisture and odor are improved. Catheter draining a relatively clear urine is noted. Const: Vital Signs, click to edit/add: Vital Signs - 24 hr 01/01/23 11:00 01/01/23 11:41 01/01/23 15:00 Temperature 97.0 F L 96.6 F L Pulse Rate [Left P ulse Oximeter] 66 56 L Respiratory Rate 20 26 H Blood Pressure [Le ft Arm] 158/59 H 156/67 H 152/61 H Pulse Oximetry 97 96 Oxygen Delivery Me thod Room Air Room Air 01/01/23 15:00 01/01/23 19:00 01/01/23 23:00 Temperature 97.4 F L 97.0 F L Pulse Rate [Left P ulse Oximeter] 56 L 62 59 L Respiratory Rate 24 18 16 Blood Pressure [Le ft Arm] 154/66 H 134/60 Pulse Oximetry 95 94 Oxygen Delivery Me thod Room Air Room Air 01/02/23 03:00 01/02/23 07:00 01/02/23 07:00 Temperature 97.3 F L 97.3 F L Pulse Rate [Left P ulse Oximeter] 61 61 61 Respiratory Rate 20 20 20 Blood Pressure [Le ft Arm] 138/68 141/67 H Pulse Oximetry 93 93 Oxygen Delivery Me thod Room Air Room Air Documenting provider has reviewed patient's vital signs: yes
[2023-01-02 11:00] VITALS: BP 142/64; PULSE 63; RESP 20; TEMP 36.3; O2SAT 95
[2023-01-02] MEDS: SODIUM CHLORIDE 0.9 % (FLUSH) 10 ML SYRINGE 5 ML IVF ×2 (15:24→21:48)
--- NOTE | 2023-01-02 15:29 | PC.NURSE ---
End of Shift note: Patient is pleasant and cooperative with cares.? Alert and oriented x4. Patient denies any pain this shift.? Left armpit, bilateral groin, left thigh and scrotum cleansed well, dried and nystatin powder applied.? Areas remain dark pink in color, left groin has multiple open areas as well as underside of scrotum.? Utilized urinal in bed this morning but groin area and folds stayed wet and moist, patient is getting Torsemide and urinates quite frequently. Supervisor Maintenance discussed the need for a temp Sanders catheter and the benefits of keeping the area dry while trying to heal and suspicion of bladder not fully emptying d/t his obesity and possible pressure on his bladder from Pannus, and his inability to stand to urinate. okayed catheter use for this purpose. Inserted successfully at 1000. Urine is clear, pale yellow with moderate odor.? Denies any chest pain or dyspnea.? Turns with assist of 3, able to hold himself onto his side with assist of 2.
[2023-01-02 15:31] VITALS: BP 139/57; PULSE 62; RESP 18; TEMP 36.2; O2SAT 94
[2023-01-02] MEDS: ACETAMINOPHEN 325 MG TABLET 650 MG PO (17:33)
[2023-01-02 19:01] VITALS: BP 137/55; PULSE 64; RESP 18; TEMP 36.6; O2SAT 95
[2023-01-02] MEDS: TAMSULOSIN HCL 0.4 MG CAPSULE PO (21:47)
[2023-01-02] MEDS: AMLODIPINE 5 MG TABLET PO (21:47)
[2023-01-02] MEDS: LOSARTAN POTASSIUM 50 MG TABLET 100 MG PO (21:47)
[2023-01-02] MEDS: ENOXAPARIN 40 MG/0.4 ML INJ SUBCUT (21:47)
[2023-01-02] MEDS: MELATONIN 3 MG TABLET PO (22:48)
[2023-01-02] MEDS: NAPROXEN 250 MG TABLET 220 MG PO (22:48)
--- NOTE | 2023-01-02 22:59 | PC.NURSE ---
Shift [id number]- Patient in bed- repositioned. He declines to get back up to chair. He complains of leg pain this evening, reports relief from PRN pain medication. Pericares provided for incontinent stool episodes, patient states he was unaware of urge before it was too late. Patient is also washed and dried, nystatin applied under pannus, appears healing. Appetite intact.
[2023-01-02 23:00] VITALS: BP 143/61; PULSE 64; RESP 20; TEMP 36.8; O2SAT 92
[2023-01-03 03:00] VITALS: BP 135/57; PULSE 58; RESP 18; TEMP 36.4; O2SAT 92
[2023-01-03] MEDS: SODIUM CHLORIDE 0.9 % (FLUSH) 10 ML SYRINGE 5 ML IVF ×2 (06:34→21:30)
[2023-01-03] MEDS: CEFAZOLIN 2 GM in 0.9 % SODIUM CHLORIDE Mini-bag 100 ML IVPB (06:34)
[2023-01-03 07:00] VITALS: BP 114/58; PULSE 66; RESP 20; TEMP 36.6; O2SAT 93
[2023-01-03 08:02] LABS: Chloride* 102 mmol/L (96-114); Sodium* 143 mmol/L (135-149)
[2023-01-03 08:03] LABS: Potassium* 3.9 mmol/L (3.6-5.1)
[2023-01-03 08:05] LABS: Estimated Glomerular Filt Rate 78 ml/min
[2023-01-03 08:06] LABS: Blood Urea Nitrogen* 25 mg/dL (7-30); Calcium* 8.8 mg/dL (8.4-10.6); Carbon Dioxide* 35 mmol/L (20-32); Glucose* 107 mg/dL (60-115)
[2023-01-03] MEDS: LACTOBACILLUS ACIDOPHILUS 1 TABLET 1 TAB PO ×3 (08:34→20:24)
[2023-01-03] MEDS: FLUCONAZOLE 100 MG TABLET 200 MG PO (08:34)
[2023-01-03] MEDS: TORSEMIDE 20 MG TABLET PO (08:35)
[2023-01-03] MEDS: NYSTATIN POWDER 1 APPLIC TOPICAL ×2 (08:35→21:30)
[2023-01-03] MEDS: NAPROXEN 250 MG TABLET PO ×2 (08:37→20:24)
--- NOTE | 2023-01-03 09:48 | NUTR.NU ---
Pt with questions follow-up to RD visit on 01/01. Pt now on kcal restricted diet 1500 kcal for purposes of weight loss. Pt in agreement. Pt asked questions about best strategies to lose weight and he suggested his ideas. Pt has had success in past losing weight when stopped all soda and decreased portion size of fast food purchases. Those ideas were affirmed as good strategy to return to. Also, encouraged pt to increase protein. Pt will consider adding a hard boiled egg to his diet regularly, or 1 cup 1% milk. Discussed measuring portions and tracking his calorie and protein intake. Pt open to this. Also, suggested follow-up with weight loss program for additional support. Phone number provided for nutrition outpatient follow-up.
[2023-01-03 11:00] VITALS: BP 110/54; PULSE 73; RESP 18; TEMP 36.7; O2SAT 91
[2023-01-03] MEDS: cephALEXin 500 MG CAPSULE PO ×3 (12:55→21:29)
[2023-01-03 15:00] VITALS: BP 143/63; PULSE 62; RESP 18; TEMP 36.6; O2SAT 92
--- NOTE | 2023-01-03 15:04 | P.IMPN_ITS ---
Progress Note: A&P Assessment and plan (1) Cellulitis: Problem details: Fairly severe cellulitis under his abdominal pannus in and in his groin associated with substantial skin ulceration. With leukocytosis this is likely explanation for his acute on chronic weakness and inability to walk. Has been treated for candidiasis and bacterial cellulitis with IV antibiotics, nystatin and Diflucan. Discontinue Ancef and Diflucan. Continue good skin care with nystatin and good hygiene. Will need assistance of 2 to provide skin care and hygiene under his abdominal pannus in the future. Status: Acute (2) Intertrigo: Problem details: Continue nystatin. Stop Diflucan. Status: Acute (3) Weakness: Problem details: Due to acute illness. Ongoing assessment and treatment of disability/immobility with therapy Status: Acute (4) Morbid obesity: Problem details: Discussed approach to weight loss. Recommend outpatient semaglutide. In the hospital will initiate calorie restricted diet. Status: Chronic (5) HTN (hypertension): Problem details: Add torsemide for hypertension and edema. Follow electrolytes closely Status: Chronic (6) Anasarca: Problem details: Generalized edema. Initiate torsemide and follow electrolytes closely. He is developing a contraction alkalosis so will reduce his torsemide dose from 20-10 mg Status: Acute (7) Arthritis of knee, left: Problem details: Chronic knee arthritis with acute on chronic injury prior to admission. Status: Acute (8) Urinary retention: Problem details: Postvoid residual of 450 mL. Catheter placed to help with hygiene and healing of groin wounds. Start Flomax with a goal of removing catheter. Status: Acute (9) Advanced directives, counseling/discussion: Problem details: Patient has clarified his POLST. He is DNR and DNI but would like aggressive treatment and hospitalization for other medical illnesses short of cardiac arrest or respiratory failure. Status: Acute (10) Lymphedema: Status: Acute Plan Continue in-hospital for therapy to improve strength and mobility. Continue to provide good wound care and temporarily Sanders catheter for skin care. Continue to look for facility to take patient for ongoing rehabilitation and skin care. Time Spent With Patient Total time spent: Total time spent today is 30 minutes, 20 minutes in coordination of care dis cussing with patient and other providers management of edema, skin care, mobility Subjective Date Seen: 01/03/23 Interval history: 77-year-old morbidly obese male admitted to the hospital with profound weakness. Patient has had longstanding obesity and progressive decline in his ability to ambulate. He reports over the last month he has had increasing troubles ambulating due to a feeling of leg weakness. He does get some dyspnea but reports leg weakness is primary limiting factor. He otherwise does not know knee significant symptoms of illness. The day prior to admission he fell and was unable to get up. He called his neighbor who could not get him up. The police came and were unable to get him up. EMS was called and they were able to get him to standing but he was too weak to walk so they brought him to the emergency room. In the emergency room he was found to have marked ulcerations and erythema under his abdominal pannus, involving his scrotum and in his left axilla. He had elevated white blood count as well. He was started on treatment for cellulitis with Ancef and intertrigo from [facility] with nystatin. Patient lives independently in his own home. This is a new home for him which she has been designed to be assessable for him with his walker. He has a walk- in shower with a bench. He is unable to do personal hygiene in his skin folds. Previously he had a bathtub in his home but he found it very difficult to get in and out so now he is taking his shower while he is sitting on the bench. He is normally able to get around with a walker with gradual worsening of his mobility over the last month. The profound weakness on admission was an acute change for him. He is not aware of having a fever. Nursing staff note that he still too weak to stand on his own. He reports generally feeling better but acknowledges his leg weakness. He fell a week prior to admission and hurt his left knee and calf. Radiographs of those were obtained and show advanced degenerative changes in the left knee. Patient reports generally feeling well but still indicates his legs he too weak and he has not yet been able to ambulate or even stand on his feet. Urinary incontinence has been a problem. He has skin breakdown in the groin area so Sanders catheter was placed. He had 450 ml postvoid residual. Patient made modest progress with standing with a specially designed lift for bariatric patients. He is able to bear partial weight and transfer bed to chair. He reports otherwise feeling well. He did have an episode of diarrhea last night but has not subsequently had a more diarrhea. C diff test was ordered but not yet completed. He is not have any abdominal pain. He is tolerating his calorie restricted diet reporting that is not particularly hungry. Exam Narrative: Exam Narrative: Abdomen is soft without tenderness. The skin under his abdominal pannus continues to improve. Still has small ulcers that are slowly healing. Malodorous discharge is much better. Lower extremities still with prominent edema as well as edema in the pannus. Const: Vital Signs, click to edit/add: Vital Signs - 24 hr 01/02/23 15:31 01/02/23 19:01 01/02/23 23:00 Temperature 97.2 F L 98 F Pulse Rate [Left P ulse Oximeter] 62 64 Respiratory Rate 18 18 20 Blood Pressure [Le ft Arm] 139/57 L 137/55 L Pulse Oximetry 94 95 Oxygen Delivery Me thod Room Air 01/02/23 23:00 01/03/23 03:00 01/03/23 07:00 Temperature 98.2 F 97.5 F L Pulse Rate [Left P ulse Oximeter] 64 58 L 66 Respiratory Rate 20 18 20 Blood Pressure [Le ft Arm] 143/61 H 135/57 L Pulse Oximetry 92 92 Oxygen Delivery Me thod Room Air Room Air 01/03/23 07:00 01/03/23 11:00 Temperature 97.8 F 98.1 F Pulse Rate [Left P ulse Oximeter] 66 73 Respiratory Rate 20 18 Blood Pressure [Le ft Arm] 114/58 L 110/54 L Pulse Oximetry 93 91 Oxygen Delivery Me thod Room Air Room Air Documenting provider has reviewed patient's vital signs: yes Labs Labs: Laboratory Results - last 24 hr 01/03/23 07:09 Sodium 143 Potassium 3.9 Chloride 102 Carbon Dioxide 35 H BUN 25 Creatinine 1.0 Estimated Creat Clear 60.80 Estimated GFR 78 Glucose 107 Calcium 8.8
[2023-01-03 19:00] VITALS: BP 130/65; PULSE 67; RESP 18; TEMP 36.8; O2SAT 93
--- NOTE | 2023-01-03 19:40 | PC.NURSE ---
Nursing Care Hours: 8415-2020 Pt this shift calm and cooperative with cares. Attempt to use walking pants to get up to chair but was not able to bear weight through legs and arms. Pt feels encouraged by staff to keep trying and pt states feeling motivated to stick to healthy diet and increasing activity. Wounds on L and R stomach folds open to air, towel used between skin folds for moisture wicking. No redness or yeast noted. Sanders patent, clear light yellow. No BM. VSS, afebrile. C/o generalized ache relieved per eMAR and bilat LE pain in morning and evening but stated they felt fine during the day.
[2023-01-03] MEDS: ENOXAPARIN 40 MG/0.4 ML INJ SUBCUT (21:29)
[2023-01-03] MEDS: TAMSULOSIN HCL 0.4 MG CAPSULE PO (21:29)
[2023-01-03] MEDS: AMLODIPINE 5 MG TABLET PO (21:30)
[2023-01-03] MEDS: LOSARTAN POTASSIUM 50 MG TABLET 100 MG PO (21:30)
--- NOTE | 2023-01-03 22:23 | PC.NURSE ---
End of Shift ([id number]): Patient pleasant and cooperative. Afebrile. Rating pain in bilateral legs 3/10, PRN Naproxen given x1. Sanders patent. 2-3 assist to turn and reposition in bed and provide hygiene cares.
[2023-01-04] VITALS (7 sets, daily range): BP systolic 120–144; BP diastolic 54–67; PULSE 65–76; RESP 16–18; TEMP 36.6–36.8; O2SAT 92–96
--- NOTE | 2023-01-04 06:51 | PC.NURSE ---
Shift note: The pt has been pleasant and cooperative. Denied chest pain and short of breath. Spo2 has been in the 90s in RA. Redness noted to the groin area, lower abdominal folds, and under the breast folds. Sanders is patent and draining dark mateus urine. The Pt C/O mild pain - stated the pain was not bothersome. No BM this shift. No fever noted. The pt had uneventful night.
[2023-01-04 08:13] LABS: Hematocrit 41.3 % (37.0-53.0); Hemoglobin* 12.8 gm/dL (13.5-17.5); Mean Corpuscular HGB Conc 31 gm/dL (32-36); Mean Corpuscular Hemoglobin 27 pg (26-34); Mean Corpuscular Volume 88 fL (80-100); Platelet Count* 257 K/uL (140-440); Red Blood Count 4.68 m/uL (4.30-5.90); White Blood Count* 8.75 K/uL (4.50-11.00)
[2023-01-04 08:16] LABS: Slide Review Reflex No
[2023-01-04 08:27] LABS: Albumin* 1.9 g/dL (3.3-5.0); Chloride* 100 mmol/L (96-114)
[2023-01-04 08:28] LABS: Sodium* 139 mmol/L (135-149)
[2023-01-04 08:30] LABS: Blood Urea Nitrogen* 27 mg/dL (7-30); Carbon Dioxide* 35 mmol/L (20-32); Estimated Glomerular Filt Rate 78 ml/min
[2023-01-04 08:31] LABS: Calcium* 8.9 mg/dL (8.4-10.6); Glucose* 115 mg/dL (60-115); Phosphorus* 3.4 mg/dL (2.5-4.5)
[2023-01-04] MEDS: LACTOBACILLUS ACIDOPHILUS 1 TABLET 1 TAB PO ×3 (09:39→20:35)
[2023-01-04] MEDS: cephALEXin 500 MG CAPSULE PO ×4 (09:39→20:35)
[2023-01-04] MEDS: NAPROXEN 250 MG TABLET PO ×2 (09:45→20:43)
[2023-01-04] MEDS: TORSEMIDE 20 MG TABLET 10 MG PO (09:45)
[2023-01-04 11:36] LABS: C.Difficile Negative (Negative); CDIFFEPI 027 PRESUMPTIVE NEGATIVE (Negative)
--- NOTE | 2023-01-04 12:31 | PM.IMPN1 ---
Progress Note: A&P Assessment and plan (1) Cellulitis: Problem details: Fairly severe cellulitis under his abdominal pannus and in his groin associated with substantial skin ulceration. With leukocytosis this is likely explanation for his acute on chronic weakness and inability to walk. Has been treated for candidiasis and bacterial cellulitis with IV antibiotics, nystatin and Diflucan. Discontinue Ancef and Diflucan. Continue good skin care with nystatin and good hygiene. Will need assistance of 2 to provide skin care and hygiene under his abdominal pannus in the future. Status: Acute Assessment and Plan: Continue with current efforts. (2) Intertrigo: Problem details: Continue nystatin. Stop Diflucan. Status: Acute Assessment and Plan: Continue with current efforts. (3) Weakness: Problem details: Due to acute illness. Ongoing assessment and treatment of disability/immobility with therapy, PT and OT Status: Acute (4) Morbid obesity: Problem details: Discussed approach to weight loss. Recommend outpatient semaglutide. In the hospital will initiate calorie restricted diet. Status: Chronic Assessment and Plan: In-hospital has already lost over 10 kilos, over 20 lb. (5) HTN (hypertension): Problem details: Add torsemide for hypertension and edema. Follow electrolytes closely Status: Chronic (6) Anasarca: Problem details: Generalized edema. Initiate torsemide and follow electrolytes closely. He is developing a contraction alkalosis so will reduce his torsemide dose from 20-10 mg Status: Acute Assessment and Plan: Continue current efforts. (7) Arthritis of knee, left: Problem details: Chronic knee arthritis with acute on chronic injury prior to admission. Status: Acute Assessment and Plan: Continue current efforts. (8) Urinary retention: Problem details: Postvoid residual of 450 mL. Catheter placed to help with hygiene and healing of groin wounds. Start Flomax with a goal of removing catheter. Status: Acute Assessment and Plan: Consider trial of removing catheter as early as tomorrow. (9) Advanced directives, counseling/discussion: Problem details: Patient has clarified his POLST. He is DNR and DNI but would like aggressive treatment and hospitalization for other medical illnesses short of cardiac arrest or respiratory failure. Status: Acute (10) Lymphedema: Problem details: Improving. Status: Acute Plan 1. Reviewed impression with patient. 2. Answered his questions. 3. Continue with plans as specified above. 4. Continue with discharge disposition planning. For now where anticipating if at all possible a transitional care unit may be needed. Time Spent With Patient Total time spent: 40 minutes Subjective Time Seen by Provider: 07:30 Date Seen: 01/04/23 Interval history: 77-year-old morbidly obese man admitted to the hospital with profound weakness. Patient has longstanding obesity and progressive decline in his ability to ambulate. Over the last month he has had increasing troubles ambulating due to a feeling of bilateral leg weakness. He does report some dyspnea with exertion but indicates that leg weakness is the primary limiting factor. He otherwise denies significant symptoms of illness. He fell a week prior to admission and hurt his left knee and calf - radiographs of those were obtained during this hospitalization and show advanced degenerative changes in the left knee. The day prior to current admission he fell and was unable to get up on his own. He called his neighbor who could not get him up. The police came and were unable to get him up. EMS was called and they were able to get him to standing but he was too weak to walk so they brought him to the emergency room. Patient lives independently in his own new single level, accessible home. He has a walk-in shower with a bench. He is unable to do personal hygiene in his skin folds. Previously he had a bathtub in his home but he found it very difficult to get in and out so now he is taking his shower while he is sitting on the bench. He is normally able to get around with a walker with gradual worsening of his mobility over the last month. The profound weakness on admission was an acute change for him. He is not aware of having a fever. In the emergency room he was found to have marked ulcerations and erythema under his abdominal pannus, involving his scrotum and in his left axilla. He had elevated white blood count as well. He was started on treatment for cellulitis with Ancef and intertrigo from [facility] with nystatin. Nursing staff note that he still too weak to stand on his own. A ceiling lift is required to transfer him. He reports generally feeling better but acknowledges his leg weakness. Patient reports generally feeling well but still indicates his legs he too weak and he has not yet been able to ambulate or even stand on his feet. Urinary incontinence has been a problem. He has skin breakdown in the groin area so Sanders catheter was placed. He had 450 ml postvoid residual. Patient made modest progress with standing with a specially designed lift for bariatric patients. He is able to bear partial weight and transfer bed to chair. He reports otherwise feeling generally improved. He did have an episode of diarrhea but has not subsequently had a more diarrhea. C diff test was ordered but not yet completed. He is not have any abdominal pain. He is tolerating his calorie restricted diet reporting that is not particularly hungry. Exam Narrative: Exam Narrative: Laying in his bed he appears comfortable and in no acute distress. Alert and oriented times 3 and to situation. Friendly, articulate, cooperative. Mood and affect are congruent. Vision and hearing are grossly normal. Buccal mucosa is moist. Dentition in fair repair. Appears morbidly obese. Weight today is 218.4 kg (480.5 lb), 172.72 cm tall, BMI 73.2 kg per meters squared. On admission his weight was 229.8 kg (505 lb). No adenopathy in head and neck. Lungs are clear to auscultation. Heart tones with regular rhythm. Abdomen is morbidly obese with active bowel sounds. Large abdominal wall pannus. Trace edema pretibially bilaterally still. Palpable pulses upper extremities and lower extremities. Capillary refill less than 3 seconds in upper and lower extremities. Const: Vital Signs, click to edit/add: Vital Signs - 24 hr 01/03/23 15:00 01/03/23 15:00 01/03/23 19:00 Temperature 98 F 98.3 F Pulse Rate [Left P ulse Oximeter] 62 62 67 Respiratory Rate 18 18 18 Blood Pressure [Le ft Arm] 143/63 H 130/65 Pulse Oximetry 92 93 Oxygen Delivery Me thod Room Air Room Air 01/04/23 00:00 01/04/23 00:00 01/04/23 03:00 Temperature 98 F 97.9 F Pulse Rate [Left P ulse Oximeter] 67 65 66 Respiratory Rate 18 18 18 Blood Pressure [Le ft Arm] 122/54 L 120/54 L Pulse Oximetry 92 95 Oxygen Delivery Me thod Room Air Room Air 01/04/23 07:00 Temperature Pulse Rate [Left P ulse Oximeter] 76 Respiratory Rate 18 Blood Pressure [Le ft Arm] Pulse Oximetry Oxygen Delivery Me thod Documenting provider has reviewed patient's vital signs: yes Labs Labs: Laboratory Results - last 24 hr 01/02/23 01/04/23 21:30 08:04 WBC 8.75 RBC 4.68 Hgb 12.8 L Hct 41.3 MCV 88 MCH 27 MCHC 31 L Plt Count 257 Sodium 139 Potassium 4.0 Chloride 100 Carbon Dioxide 35 H BUN 27 Creatinine 1.0 Estimated Creat Clear 60.80 Estimated GFR 78 Glucose 115 Calcium 8.9 Phosphorus 3.4 Albumin 1.9 L Stl C. diff Tox B Gene Negative Stl C. diff [id number] PRESUMPTIVE NEGATIVE
[2023-01-04] MEDS: NYSTATIN POWDER 1 APPLIC TOPICAL ×2 (14:11→20:40)
[2023-01-04] MEDS: SODIUM CHLORIDE 0.9 % (FLUSH) 10 ML SYRINGE 5 ML IVF ×2 (14:11→20:37)
--- NOTE | 2023-01-04 19:30 | PC.NURSE ---
Nursing Care Hours: 1157-2140 Pt this shift calm and cooperative, alert and oriented. BM x2 on BSC, first soft and second was loose. Stool sample sent to lab. Eating and drinking sufficiently. VSS. Redness noted under L breast. Nystatin applied. Wounds under stomach fold remain open and clear from SS of infection. Wound on scrotum slightly more pink from yesterday. No drainage. IV patent.
[2023-01-04] MEDS: TAMSULOSIN HCL 0.4 MG CAPSULE PO (20:35)
[2023-01-04] MEDS: ENOXAPARIN 40 MG/0.4 ML INJ SUBCUT (20:36)
[2023-01-04] MEDS: LOSARTAN POTASSIUM 50 MG TABLET 100 MG PO (22:10)
[2023-01-04] MEDS: AMLODIPINE 5 MG TABLET PO (22:10)
[2023-01-05 05:30] VITALS: BP 138/58; PULSE 57; RESP 16; TEMP 36.4; O2SAT 93
--- NOTE | 2023-01-05 05:42 | PC.NURSE ---
Shift note: The pt has been pleasant and cooperative. The redness to the lower abdominal folds, groin, and under left breast folds were washed with soapy water at HS and Nystatin powder was applied at the site. Denied chest pain and short of breath at rest; Spo2 has been in the 90s in RA. Sandres is patent and draining light mateus urine. The pt stated that he slept well without any acute distress.
[2023-01-05 07:01] LABS: Chloride* 98 mmol/L (96-114); Potassium* 4.2 mmol/L (3.6-5.1); Sodium* 139 mmol/L (135-149)
[2023-01-05 07:04] LABS: Blood Urea Nitrogen* 30 mg/dL (7-30); Carbon Dioxide* 36 mmol/L (20-32); Creatinine* 1.1 mg/dL (0.5-1.5); Est. Creatinine Clearance* 55.27; Estimated Glomerular Filt Rate 70 ml/min; Glucose* 105 mg/dL (60-115)
[2023-01-05 07:05] LABS: Calcium* 8.8 mg/dL (8.4-10.6)
[2023-01-05] MEDS: LACTOBACILLUS ACIDOPHILUS 1 TABLET 1 TAB PO ×3 (08:15→17:46)
[2023-01-05 08:18] VITALS: BP 129/66; PULSE 65; RESP 14; TEMP 36.6; O2SAT 95
[2023-01-05] MEDS: NYSTATIN POWDER 1 APPLIC TOPICAL ×2 (08:54→20:51)
[2023-01-05] MEDS: cephALEXin 500 MG CAPSULE PO ×4 (08:55→21:08)
[2023-01-05] MEDS: SODIUM CHLORIDE 0.9 % (FLUSH) 10 ML SYRINGE 5 ML IVF ×2 (08:55→21:10)
[2023-01-05 11:00] VITALS: BP 123/61; PULSE 64; RESP 16; TEMP 36.6; O2SAT 92
[2023-01-05 11:34] LABS: Appearance Urine Clear (Clear); Bilirubin Urine Negative (Negative); Blood Urine 2+ (Negative); Color Urine Yellow (Yellow); Glucose Urine Negative (Negative); Ketones Urine Negative (Negative); Leukocyte Esterase Urine Trace (Negative); Nitrite Urine Negative (Negative); Protein Urine 1+ (Negative); Urobilinogen Urine 0.2 (0.2-1.0)
[2023-01-05 11:45] LABS: Bacteria Urine Few; Mucus Urine Few; RBC Urine 25-50 (0-2); Squamous Epithelial Cell Urine Few (None-Few)
--- NOTE | 2023-01-05 12:30 | P.IMPN_ITS ---
Progress Note: A&P Assessment and plan (1) Cellulitis: Problem details: Fairly severe cellulitis under his abdominal pannus and in his groin associated with substantial skin ulceration. With leukocytosis this is likely explanation for his acute on chronic weakness and inability to walk. Has been treated for candidiasis and bacterial cellulitis with IV antibiotics, nystatin and Diflucan. Discontinue Ancef and Diflucan. Continue good skin care with nystatin and good hygiene. Will need assistance of 2 to provide skin care and hygiene under his abdominal pannus in the future. Status: Acute (2) Intertrigo: Problem details: Continue nystatin. Stop Diflucan. Status: Acute (3) Weakness: Problem details: Due to acute illness and longstanding inactivity. Ongoing assessment and treatment of disability/immobility with therapy, PT and OT Status: Acute (4) Morbid obesity: Problem details: Discussed approach to weight loss. Did discuss the possibility of outpatient semaglutide. In the hospital will initiate calorie restricted diet. Status: Chronic (5) HTN (hypertension): Problem details: Early in hospital [facility] we did add torsemide for hypertension and edema. Presently he is trending toward pre renal azotemia. Will hold torsemide at this juncture and monitor weight, pressures, and renal function biomarkers. Status: Chronic (6) Anasarca: Problem details: Generalized edema. Initiate torsemide and follow electrolytes closely. He developed a contraction alkalosis, thus we reduced his torsemide dose from 20-10 mg, and now I will hold the torsemide altogether. Status: Acute (7) Arthritis of knee, left: Problem details: Chronic knee arthritis with acute on chronic injury prior to admission. Status: Acute (8) Urinary retention: Problem details: Postvoid residual of 450 mL. Catheter placed to help with hygiene and healing of groin wounds. Flomax was initiated with a goal of removing catheter. Consider possibly removing the catheter in the next 1-2 days and monitor his ability to void without catheter. Status: Acute (9) Advanced directives, counseling/discussion: Problem details: Patient has clarified his POLST. He is DNR and DNI but would like aggressive treatment and hospitalization for other medical illnesses short of cardiac arrest or respiratory failure. Status: Acute (10) Lymphedema: Problem details: Improving. Status: Acute Plan 1. Reviewed my impression and plans with the patient. 2. Answered his questions. 3. Patient continues to agree to moved to [facility] at this juncture when such services become available in our community. 4. Encourage patient to continue to work with physical and occupational therapy. Time Spent With Patient Total time spent: 40 minutes Subjective Time Seen by Provider: 07:30 Date Seen: 01/05/23 Interval history: 77-year-old morbidly obese man admitted to the hospital with profound weakness. Patient has longstanding obesity and progressive decline in his ability to ambulate. Over the last month he has had increasing troubles ambulating due to a feeling of bilateral leg weakness. He does report some dyspnea with exertion but indicates that leg weakness is the primary limiting factor. He otherwise denies significant symptoms of illness. He fell a week prior to admission and hurt his left knee and calf - radiographs of those were obtained during this hospitalization and show advanced degenerative changes in the left knee. The day prior to current admission he fell and was unable to get up on his own. He called his neighbor who could not get him up. The police came and were unable to get him up. EMS was called and they were able to get him to standing but he was too weak to walk so they brought him to the emergency room. Patient lives independently in his own new single level, accessible home. He has a walk-in shower with a bench. He is unable to do personal hygiene in his skin folds. Previously he had a bathtub in his home but he found it very difficult to get in and out so now he is taking his shower while he is sitting on the bench. He is normally able to get around with a walker with gradual worsening of his mobility over the last month. The profound weakness on admission was an acute change for him. He is not aware of having a fever. In the emergency room he was found to have marked ulcerations and erythema under his abdominal pannus, involving his scrotum and in his left axilla. He had elevated white blood count as well. He was started on treatment for cellulitis with Ancef and intertrigo from [facility] with nystatin. Nursing and physical therapy staff note that he still too weak to stand on his own. Not only is a ceiling lift is required to transfer him, but he is still not able to stand without the harness to support his weight. He reports generally feeling better but acknowledges his ongoing bilateral leg weakness. Patient reports generally feeling well but still indicates his legs he too weak and he has not yet been able to ambulate or even stand on his feet. Urinary incontinence has been a problem, which he acknowledges predates his current admission to the hospital by several weeks. He presented with skin breakdown in the groin area so Sanders catheter was placed. He had 450 ml postvoid residual. Patient has made only modest progress with standing with a specially designed lift for bariatric patients. He is able to bear partial weight and transfer bed to chair. He reports otherwise feeling generally improved. He has had no more diarrhea. C diff test was ordered but not yet completed because the diarrhea has resolved. He is not have any abdominal pain. He is tolerating his calorie restricted diet and reports that he is not hungry. Exam Narrative: Exam Narrative: He appears comfortable and in no acute distress, laying in his bariatric bed with head of bed elevated about 45?. Alert, oriented to self, place, time, situation. Anxious, but friendly, cooperative, articulate. Mood and affect are congruent. He tells me he wishes he could get stronger faster. Upon my very direct questioning he acknowledges that he has been exerting himself only minimally 4 months in his home, only sufficiently to get up and move about in his home and then sit or lay down again. Vision and hearing are grossly normal. Heart tones with regular rhythm, normal S1-S2, without murmur, gallop, rub. Lungs are clear to auscultation without wheezing, rhonchi, or rales. Abdomen is obese with active bowel sounds, soft, nontender nondistended. Only trace bilateral pretibial edema. Const: Vital Signs, click to edit/add: Vital Signs - 24 hr 01/04/23 16:50 01/04/23 16:50 01/04/23 19:40 Temperature 97.9 F Pulse Rate [Left P ulse Oximeter] 65 65 73 Respiratory Rate 16 16 16 Blood Pressure [Le ft Arm] 144/67 H 135/61 Blood Pressure [Le ft forearm] Pulse Oximetry 96 94 Oxygen Delivery Me thod Room Air Room Air 01/04/23 23:00 01/04/23 23:00 01/05/23 05:30 Temperature 98.2 F 97.6 F Pulse Rate [Left P ulse Oximeter] 70 72 57 L Respiratory Rate 16 16 16 Blood Pressure [Le ft Arm] 132/61 138/58 L Blood Pressure [Le ft forearm] Pulse Oximetry 92 93 Oxygen Delivery Me thod Room Air Room Air 01/05/23 08:18 01/05/23 08:18 01/05/23 11:00 Temperature 97.8 F 98 F Pulse Rate [Left P ulse Oximeter] 65 65 64 Respiratory Rate 14 14 16 Blood Pressure [Le ft Arm] Blood Pressure [Le ft forearm] 129/66 123/61 Pulse Oximetry 95 92 Oxygen Delivery Me thod Room Air Room Air Documenting provider has reviewed patient's vital signs: yes Labs Labs: Laboratory Results - last 24 hr 01/05/23 01/05/23 06:25 10:26 Sodium 139 Potassium 4.2 Chloride 98 Carbon Dioxide 36 H BUN 30 Creatinine 1.1 Estimated Creat Clear 55.27 Estimated GFR 70 Glucose 105 Calcium 8.8 Urine Color Yellow Urine Appearance Clear Urine pH 7.0 Ur Specific [place] 1.020 Urine Protein 1+ A Urine Glucose (UA) Negative Urine Ketones Negative Urine Blood 2+ A Urine Nitrite Negative Urine Bilirubin Negative Urine Urobilinogen 0.2 Ur Leukocyte Esterase Trace A Urine RBC 25-50 A Urine WBC 2-5 Ur Squamous Epith Cells Few Urine Bacteria Few A Urine Mucus Few A
[2023-01-05 16:05] VITALS: BP 133/67; PULSE 60; RESP 14; TEMP 36.6; O2SAT 93
--- NOTE | 2023-01-05 18:04 | PC.NURSE ---
End of Shift: Patient pleasant and cooperative. Patient vitally stable, lungs clear, BS WNL, IV intact. Patient rates pain in right arm and legs 3-4/10 but tolerable, no pain medication given. Patient washed with soapy water this morning and nystatin applied. Affected areas are improving well. Patient has been up to the chair x3 today. Patient vital intact and draining. Patient tolerating regular diet.
[2023-01-05 19:30] VITALS: BP 142/57; PULSE 68; RESP 16; TEMP 36.6; O2SAT 95
[2023-01-05] MEDS: TAMSULOSIN HCL 0.4 MG CAPSULE PO (21:08)
[2023-01-05] MEDS: ENOXAPARIN 40 MG/0.4 ML INJ SUBCUT (21:08)
[2023-01-05] MEDS: AMLODIPINE 5 MG TABLET PO (22:26)
[2023-01-05] MEDS: LOSARTAN POTASSIUM 50 MG TABLET 100 MG PO (22:26)
[2023-01-05] MEDS: ACETAMINOPHEN 325 MG TABLET 650 MG PO (23:19)
[2023-01-05 23:35] VITALS: BP 138/60; PULSE 60; RESP 16; TEMP 36.7; O2SAT 96
[2023-01-06] VITALS (7 sets, daily range): BP systolic 119–146; BP diastolic 52–66; PULSE 61–67; RESP 12–20; TEMP 36.4–36.8; O2SAT 91–95
[2023-01-06] MEDS: NAPROXEN 250 MG TABLET PO (03:21)
[2023-01-06] MEDS: ACETAMINOPHEN 325 MG TABLET 650 MG PO ×3 (05:09→22:44)
[2023-01-06 06:29] LABS: Creatinine* 0.9 mg/dL (0.5-1.5); Estimated Glomerular Filt Rate 89 ml/min
--- NOTE | 2023-01-06 06:49 | PC.NURSE ---
Pt alert and oriented x3. Afebrile. Pt reports 6/10 pain in both legs, pain managed with PRN medications and elevation of legs. Pt denies chest pain, SOB, N/V. Pt has vital catheter that is patent and draining. Pt received bed bath, pt stated the areas under his folds ?feel better?. Pt?s skin fold wounds under pannus and sides of pannus are clean with scant amount of?serosanguinous drainage, pt?s scrotum wound is open to air, CDI, with no drainage. Pt is up with ceiling lift.?Pt tolerating a 1.5K calorie?diet. Pt slept throughout most of night.
[2023-01-06] MEDS: LACTOBACILLUS ACIDOPHILUS 1 TABLET 1 TAB PO ×3 (09:38→18:31)
[2023-01-06] MEDS: NYSTATIN POWDER 1 APPLIC TOPICAL ×2 (09:38→22:16)
[2023-01-06] MEDS: SODIUM CHLORIDE 0.9 % (FLUSH) 10 ML SYRINGE 5 ML IVF ×2 (09:38→22:17)
--- NOTE | 2023-01-06 13:18 | P.IMPN_ITS ---
Progress Note: A&P Assessment and plan (1) Cellulitis: Problem details: Fairly severe cellulitis under his abdominal pannus and in his groin associated with substantial skin ulceration. With leukocytosis this is likely explanation for his acute on chronic weakness and inability to walk. Has been treated for candidiasis and bacterial cellulitis with IV antibiotics, nystatin and Diflucan. Discontinue Ancef and Diflucan. Continue good skin care with nystatin and good hygiene. Will need assistance of 2 to provide skin care and hygiene under his abdominal pannus in the future. Status: Acute (2) Intertrigo: Problem details: Continue nystatin. Stop Diflucan. Status: Acute (3) Weakness: Problem details: Due to acute illness and longstanding inactivity. Ongoing assessment and treatment of disability/immobility with therapy, PT and OT Status: Acute (4) Morbid obesity: Problem details: Discussed approach to weight loss. Did discuss the possibility of outpatient semaglutide. In the hospital he is tolerating a calorie restricted diet. Status: Chronic (5) HTN (hypertension): Problem details: Early in hospital course, we did add torsemide for hypertension and edema. Presently he is trending toward pre renal azotemia. Will continue to hold torsemide at this juncture and monitor weight, pressures, and renal function biomarkers. Status: Chronic (6) Anasarca: Problem details: Generalized edema on presentation to the hospital. Initiated torsemide and following electrolytes. He developed a contraction alkalosis, thus we reduced his torsemide dose from 20-10 mg, and are now holding torsemide altogether. Status: Acute (7) Arthritis of knee, left: Problem details: Chronic knee arthritis with acute on chronic injury prior to admission. Status: Acute (8) Urinary retention: Problem details: Postvoid residual of 450 mL. Catheter placed to help with hygiene and healing of groin wounds. Flomax was initiated with a goal of removing catheter. Given his known urinary incontinence and cellulitis of his abdominal pannus unfolds, will continue with catheter for now to allow for continued healing of the skin. Status: Acute (9) Advanced directives, counseling/discussion: Problem details: Patient has clarified his POLST. He is DNR and DNI but would like aggressive treatment and hospitalization for other medical illnesses short of cardiac arrest or respiratory failure. Status: Acute (10) Lymphedema: Problem details: Improving. Status: Acute Plan 1. Reviewed impression with patient. 2. Patient agreeable with above stated plans and recommendations. 3. Continue with efforts to try to find a nursing home facility that is willing to accept him. 4. Continue to work with physical therapy and occupational therapy. Time Spent With Patient Total time spent: 35 minutes Subjective Time Seen by Provider: 07:30 Date Seen: 01/06/23 Interval history: Admision date: 12/30/2022 (12/31/2022) Hospital day #: 8 (7) 77-year-old morbidly obese man admitted to the hospital with profound weakness. Patient has longstanding obesity and progressive decline in his ability to ambulate. Over the last month he has had increasing troubles ambulating due to a feeling of bilateral leg weakness. He does report some dyspnea with exertion but indicates that leg weakness is the primary limiting factor. He otherwise denies significant symptoms of illness. He fell a week prior to admission and hurt his left knee and calf - radiographs of those were obtained during this hospitalization and show advanced degenerative changes in the left knee. The day prior to current admission he fell and was unable to get up on his own. He called his neighbor who could not get him up. The police came and were unable to get him up. EMS was called and they were able to get him to standing but he was too weak to walk so they brought him to the emergency room. Patient lives independently in his own new single level, accessible home. He has a walk-in shower with a bench. He is unable to do personal hygiene in his skin folds. Previously he had a bathtub in his home but he found it very difficult to get in and out so now he is taking his shower while he is sitting on the bench. He is normally able to get around with a walker with gradual worsening of his mobility over the last month. The profound weakness on admission was an acute change for him. He is not aware of having a fever. In the emergency room he was found to have marked ulcerations and erythema under his abdominal pannus, involving his scrotum and in his left axilla. He had elevated white blood count as well. He was started on treatment for cellulitis with Ancef and intertrigo from [facility] with nystatin. Nursing and physical therapy staff note that he still too weak to stand on his own. Not only is a ceiling lift is required to transfer him, but he is still not able to stand without the harness to support his weight. He reports generally feeling better but acknowledges his ongoing bilateral leg weakness. Patient reports generally feeling well but still indicates his legs he too weak and he has not yet been able to ambulate or even stand on his feet. Urinary incontinence has been a problem, which he acknowledges predates his current admission to the hospital by several weeks. He presented with skin breakdown in the groin area so Sanders catheter was placed. He had 450 ml postvoid residual. Patient has made only modest progress with standing efforts with the use of a specially designed lift for bariatric patients. He is only able to bear partial weight and transfer bed to chair. He reports otherwise feeling generally improved. He has had no more diarrhea. C diff test was ordered but not completed because the diarrhea resolved. He denies abdominal pain. He is tolerating his calorie restricted diet and reports that he is not hungry. More than anything, he seems anxious about not gaining his strength as he desires. Exam Narrative: Exam Narrative: Weight 217.7 kg today, 219 kg yesterday, 229.8 kg on admission. Alert, oriented to self, place, time, situation. Vision and hearing are grossly normal. Friendly, cooperative, articulate. Anxious disposition. Mood and affect are congruent. Neck is supple. Lungs are clear to auscultation, without wheezing, rhonchi, or rales. Heart tones with regular rhythm, normal S1-S2, without murmur, gallop, or rub. Abdomen is obese with active bowel sounds, soft, nontender. Can move his toes, ankles, knees, hips. Can even straight leg raise both legs. No focal motor neurologic deficits. Const: Vital Signs, click to edit/add: Vital Signs - 24 hr 01/05/23 16:05 01/05/23 16:05 01/05/23 19:30 Temperature 98 F 97.9 F Pulse Rate [Left P ulse Oximeter] 60 60 68 Respiratory Rate 14 14 16 Blood Pressure [Le ft Arm] 142/57 H Blood Pressure [Le ft forearm] 133/67 Pulse Oximetry 93 95 Oxygen Delivery Me thod Room Air Room Air 01/05/23 23:35 01/05/23 23:35 01/06/23 03:15 Temperature 98.0 F 98.2 F Pulse Rate [Left P ulse Oximeter] 60 60 63 Respiratory Rate 16 16 12 Blood Pressure [Le ft Arm] Blood Pressure [Le ft forearm] 138/60 146/66 H Pulse Oximetry 96 94 Oxygen Delivery Me thod Room Air Room Air 01/06/23 08:32 01/06/23 11:18 Temperature 98.0 F 97.6 F Pulse Rate [Left P ulse Oximeter] 61 64 Respiratory Rate 18 20 Blood Pressure [Le ft Arm] 119/58 L Blood Pressure [Le ft forearm] 137/57 L Pulse Oximetry 91 93 Oxygen Delivery Me thod Room Air Room Air Documenting provider has reviewed patient's vital signs: yes Labs Labs: Laboratory Results - last 24 hr 01/06/23 05:40 Creatinine 0.9 Estimated Creat Clear 60.80 Estimated GFR 89
--- NOTE | 2023-01-06 18:57 | PC.NURSE ---
VSS on RA, Pt has been motivated to do therapies, up to the chair 2x this shift, doing exercises in the chair/bed as well. PRN tylenol given 1x for pain rating of 2/10 for LLE pain, and R shoulder pain. Two large BM this shift, prior to 2nd BM patient was nauseous, but after BM felt better. 2nd BM had mucus in it and some undigested food in it as well. Skin folds were washed with water and soap, with nystatin applied. 1500 [address] restriction remains in place.
[2023-01-06] MEDS: ENOXAPARIN 40 MG/0.4 ML INJ SUBCUT (22:14)
[2023-01-06] MEDS: LOSARTAN POTASSIUM 50 MG TABLET 100 MG PO (22:15)
[2023-01-06] MEDS: TAMSULOSIN HCL 0.4 MG CAPSULE PO (22:15)
[2023-01-06] MEDS: AMLODIPINE 5 MG TABLET PO (22:16)
[2023-01-07 04:30] VITALS: BP 134/59; PULSE 59; RESP 18; TEMP 36.6
--- NOTE | 2023-01-07 05:10 | PC.NURSE ---
Pt pleasant and cooperative. VSS. LSCTA, BT+, ceiling lift used to move pt out of bed. Used the inflatable slider to reposition in bed. Sanders is patent and draining well within normal limits. Sanders with clear yellow urine. Had 1400 out on evening shift and has 600 out this shift. underneath panus is red with some small open areas, Area cleansed and nystatin applied along with disposible wash clothes to keep skin from touching., Pt did complain of pain in his left calf. He had taken tylenol a little earlier so raised calf up on a pillow. He is doing his exercises.
[2023-01-07 07:30] VITALS: BP 133/64; PULSE 61; RESP 18; TEMP 36.5; O2SAT 94
[2023-01-07] MEDS: LACTOBACILLUS ACIDOPHILUS 1 TABLET 1 TAB PO ×3 (08:06→18:05)
--- NOTE | 2023-01-07 09:35 | P.IMPN_ITS ---
Progress Note: A&P Assessment and plan (1) Cellulitis: Problem details: Fairly severe cellulitis under his abdominal pannus and in his groin associated with substantial skin ulceration. With leukocytosis this is likely explanation for his acute on chronic weakness and inability to walk. Was treated for concurrent candidiasis and bacterial cellulitis with IV antibiotics, nystatin and Diflucan. Discontinued Ancef and Diflucan. Continue good skin care with nystatin and good hygiene. Will need assistance of 2 to provide skin care and hygiene under his abdominal pannus for the foreseeable future. Status: Acute (2) Intertrigo: Problem details: Continue nystatin. Status: Acute (3) Weakness: Problem details: Due to acute illness and longstanding inactivity. Ongoing assessment and treatment of disability/immobility with therapy, PT and OT. Unable to live independently at this juncture. Requires care home support. Status: Acute (4) Morbid obesity: Problem details: Discussed approach to weight loss. Did discuss the possibility of outpatient semaglutide. In the hospital he is tolerating a calorie restricted diet. Admission weight 229.5 kg. Today's weight 214.1 kg. Status: Chronic (5) HTN (hypertension): Problem details: Early in hospital course, we did add torsemide for hypertension and edema. Was trending toward pre renal azotemia. Torsemide dose initially decreased and then subsequently stopped. Status: Chronic (6) Anasarca: Problem details: Generalized edema on presentation to the hospital. Initiated torsemide and following electrolytes. He developed a contraction alkalosis, thus we reduced his torsemide dose from 20-10 mg, and are now holding torsemide altogether. Status: Acute (7) Arthritis of knee, left: Problem details: Chronic knee arthritis with acute on chronic injury prior to admission. Status: Acute (8) Urinary retention: Problem details: Postvoid residual of 450 mL. Catheter placed to help with hygiene and healing of groin wounds. Flomax was initiated with a goal of removing catheter. Given his known urinary incontinence and cellulitis of his abdominal pannus unfolds, will continue with catheter for now to allow for continued healing of the skin. Status: Acute (9) Advanced directives, counseling/discussion: Problem details: Patient has clarified his POLST. He is DNR and DNI but would like aggressive treatment and hospitalization for other medical illnesses short of cardiac arrest or respiratory failure. Status: Acute (10) Lymphedema: Problem details: Improving. Status: Acute (11) Acute diarrhea: Problem details: In hospitalize setting on antibiotics for cellulitis, will check for C diff. Status: Acute Plan 1. Reviewed above with patient. 2. Patient agreeable. 3. Continue to work toward discharge to care home facility. 4. Should C diff come back positive then will initiate oral vancomycin. Time Spent With Patient Total time spent: 30 minutes Subjective Time Seen by Provider: 07:30 Date Seen: 01/07/23 Interval history: Admision date: 12/30/2022 (12/31/2022) Hospital day #: 9 (8) 77-year-old morbidly obese man (on admission 229.5 kg/505 lb/BMI 76.9) admitted to the hospital with profound weakness. Patient has longstanding obesity and progressive decline in his ability to ambulate over months and years. Over the last month he has had increasing troubles ambulating due to a feeling of bilateral leg weakness. He does report some dyspnea with exertion but indicates that leg weakness is the primary limiting factor. He otherwise denies significant symptoms of illness. He fell a week prior to admission and hurt his left knee and calf - radiographs of those were obtained during this hospitalization and show advanced degenerative changes in the left knee. The day prior to current admission he fell and was unable to get up on his own. He called his neighbor who could not get him up. The police came and were unable to get him up. EMS was called and they were able to get him to standing but he was too weak to walk so they brought him to the emergency room. Patient lives independently in his own new single level, accessible home. He has a walk-in shower with a bench. He is unable to do personal hygiene in his skin folds. Previously he had a bathtub in his home but he found it very difficult to get in and out so now he is taking his shower while he is sitting on the bench. He is normally able to get around with a walker with gradual worsening of his mobility over the last month. The profound weakness on admission was an acute change for him. He is not aware of having a fever. In the emergency room he was found to have marked ulcerations and erythema under his abdominal pannus, involving his scrotum and in his left axilla. He had elevated white blood count as well. He was started on treatment for cellulitis with Ancef and intertrigo from [facility] with nystatin. Nursing and physical therapy staff note that he still too weak to stand on his own. Not only is a ceiling lift is required to transfer him, but he is still not able to stand without the harness to support his weight. He reports generally feeling better but acknowledges ongoing bilateral leg weakness. Patient has made only modest progress with standing efforts. With use of EZ stand yesterday he was able to bear weight for an entire minute. This is a marked improvement for him. Urinary incontinence has been a problem, which he acknowledges predates his current admission to the hospital by several months. He presented with skin breakdown in the groin area so Sanders catheter was placed. He had 450 ml postvoid residual. Early in hospitalization he had transient diarrhea. C diff test was ordered but not completed because the diarrhea resolved. Today he has had a couple of diarrhea episodes. C Diff test ordered again. He denies abdominal pain. He is tolerating his calorie restricted diet and reports that he is not hungry. More than anything, he continues to be anxious about not gaining his strength as he desires. We continue to wait for social science professor to find suitable care home facility for him to transfer to from the hospital at this time. Presently he is not in a position to safely move back to his private residence. Exam Narrative: Exam Narrative: Appears comfortable in his bed. No acute distress. Vision and hearing are grossly normal. Alert, oriented to self, place, time, situation. Anxious. Talkative and cooperative. Weight today 214.1 kg. Yesterday was weight was 217.7 kg. He has been off of diuretics now for the last couple of days. Admission weight 229.5 kg. Initially weight loss was occurring in consequence of diuresis. Lungs remain clear to auscultation. Heart tones with regular rhythm, normal S1-S2. Abdomen obese with active bowel sounds, soft, nontender. Skin in pannus is much improved. Still has Sanders catheter in place, mainly because he has urinary incontinence in association with his urinary retention and is not able to care for his skin. Only trace pretibial edema bilaterally. Moves all 4 extremities. Const: Vital Signs, click to edit/add: Vital Signs - 24 hr 01/06/23 11:18 01/06/23 16:15 07/03/23 19:07 Temperature 97.6 F 98.1 F 97.6 F Pulse Rate [Left P ulse Oximeter] 64 67 62 Respiratory Rate 20 18 20 Blood Pressure [Le ft Arm] 119/58 L Blood Pressure [Le ft forearm] 125/60 125/60 Pulse Oximetry 93 94 95 Oxygen Delivery Me thod Room Air Room Air Room Air 01/06/23 23:00 01/06/23 23:29 01/07/23 04:30 Temperature 97.7 F 97.8 F Pulse Rate [Left P ulse Oximeter] 65 65 59 L Respiratory Rate 20 18 Blood Pressure [Le ft Arm] Blood Pressure [Le ft forearm] 128/52 L 134/59 L Pulse Oximetry 95 Oxygen Delivery Me thod Room Air Documenting provider has reviewed patient's vital signs: yes
[2023-01-07] MEDS: ACETAMINOPHEN 325 MG TABLET 650 MG PO ×2 (09:37→18:03)
[2023-01-07] MEDS: NYSTATIN POWDER 1 APPLIC TOPICAL ×2 (09:37→21:15)
[2023-01-07] MEDS: SODIUM CHLORIDE 0.9 % (FLUSH) 10 ML SYRINGE 5 ML IVF ×2 (09:37→21:13)
[2023-01-07 10:49] LABS: C.Difficile Negative (Negative); CDIFFEPI 027 PRESUMPTIVE NEGATIVE (Negative)
[2023-01-07 12:00] VITALS: BP 131/78; PULSE 67; RESP 20; TEMP 36.8; O2SAT 94
[2023-01-07] MEDS: LOPERAMIDE HCL 2 MG CAPSULE PO (13:05)
[2023-01-07 15:00] VITALS: BP 129/88; PULSE 61; PULSE 70; RESP 18; RESP 20; TEMP 36.6; O2SAT 93
--- NOTE | 2023-01-07 18:51 | PC.NURSE ---
VSS AND AFEBRILE. PATIENT DOES REPORT INTERMITTENT PAIN TO LEFT CALF AND RIGHT SHOULDER THAT IS WORSE WITH ACTIVITY AND IMPROVED WITH TYLENOL. PATIENT STATES THIS IS CHRONIC PAIN. PATIENT HAD 2 INCONTINENT LOOSE STOOLS IN BED AFTER BREAKFAST. C-DIFF SAMPLE SENT AGAIN WHICH WAS NEGATIVE. LOPERAMIDE ADMINISTERED AT LUNCH TIME. PATIENT TOLERATING REGULAR DIET WITH NO C/O N/V. CLEANSED ABDOMINAL FOLDS AND GROIN THIS AM AND NYSTATIN POWDER APPLIED. UP WITH CEILING LIFT TO RECLINER AND TOLERATED ACTIVITY WELL. ROQUE IN PLACE AND DRAINING ADEQUATE URINE. PATIENT PLEASANT AND COOPERATIVE.
[2023-01-07 19:00] VITALS: BP 120/74; PULSE 67; RESP 18; TEMP 36.6; O2SAT 94
[2023-01-07] MEDS: NAPROXEN 250 MG TABLET PO (21:14)
[2023-01-07] MEDS: LOSARTAN POTASSIUM 50 MG TABLET 100 MG PO (21:14)
[2023-01-07] MEDS: ENOXAPARIN 40 MG/0.4 ML INJ SUBCUT (21:14)
[2023-01-07] MEDS: TAMSULOSIN HCL 0.4 MG CAPSULE PO (21:14)
[2023-01-07] MEDS: AMLODIPINE 5 MG TABLET PO (21:15)
[2023-01-08] VITALS (8 sets, daily range): BP systolic 130–155; BP diastolic 59–67; PULSE 55–71; RESP 18–20; TEMP 36.4–36.7; O2SAT 93–95
--- NOTE | 2023-01-08 05:40 | PC.NURSE ---
Pt pleasant and cooperative. Needs assist with T&R, going to the BR. Area under pannis is improving. It is not so red and excoriated. Needs short term rehab. SS assisting with this.
[2023-01-08 07:21] LABS: Hematocrit 39.7 % (37.0-53.0); Hemoglobin* 12.2 gm/dL (13.5-17.5); Mean Corpuscular HGB Conc 31 gm/dL (32-36); Mean Corpuscular Hemoglobin 28 pg (26-34); Mean Corpuscular Volume 89 fL (80-100); Platelet Count* 274 K/uL (140-440); Red Blood Count 4.44 m/uL (4.30-5.90); White Blood Count* 7.29 K/uL (4.50-11.00)
[2023-01-08 07:25] LABS: Slide Review Reflex No
[2023-01-08 07:39] LABS: Albumin* 3.4 g/dL (3.3-5.0); Chloride* 102 mmol/L (96-114); Potassium* 4.4 mmol/L (3.6-5.1); Sodium* 139 mmol/L (135-149)
[2023-01-08 07:42] LABS: Estimated Glomerular Filt Rate 78 ml/min
[2023-01-08 07:43] LABS: Blood Urea Nitrogen* 27 mg/dL (7-30); Calcium* 9.1 mg/dL (8.4-10.6); Carbon Dioxide* 34 mmol/L (20-32); Glucose* 107 mg/dL (60-115); Phosphorus* 3.9 mg/dL (2.5-4.5)
[2023-01-08 07:46] LABS: C Reactive Protein* 2.2 mg/dL (0.5-1.0)
[2023-01-08] MEDS: SODIUM CHLORIDE 0.9 % (FLUSH) 10 ML SYRINGE 5 ML IVF ×2 (08:28→22:00)
[2023-01-08] MEDS: LACTOBACILLUS ACIDOPHILUS 1 TABLET 1 TAB PO ×3 (08:28→17:14)
[2023-01-08] MEDS: NYSTATIN POWDER 1 APPLIC TOPICAL ×2 (11:11→22:00)
--- NOTE | 2023-01-08 11:19 | PC.NURSE ---
Was in with assistance of nursing informatics clinical analyst. Helped with holding over the pannus so she was able to wash the area thoroughly. Did note a couple of small open areas. Right side looks good only pink did apply soft cloths in the area to keep dry. Left side and scrotum is more red and applied nystatin powder to areas and applied soft cloths. Did note a small odor but after washing up its better.
--- NOTE | 2023-01-08 13:43 | P.IMPN_ITS ---
Progress Note: A&P Assessment and plan (1) Cellulitis: Problem details: Fairly severe cellulitis under his abdominal pannus and in his groin associated with substantial skin ulceration. With leukocytosis this is likely explanation for his acute on chronic weakness and inability to walk. Was treated for concurrent candidiasis and bacterial cellulitis with IV antibiotics, nystatin and Diflucan. Discontinued Ancef and Diflucan. Continue good skin care with nystatin and good hygiene. Will need assistance of 2 to provide skin care and hygiene under his abdominal pannus for the foreseeable future. Status: Acute (2) Intertrigo: Problem details: Continue nystatin. Status: Acute (3) Weakness: Problem details: Due to acute illness and longstanding inactivity. Ongoing assessment and treatment of disability/immobility with therapy, PT and OT. Unable to live independently at this juncture. Requires fpc support. Modest improvement Status: Acute (4) Morbid obesity: Problem details: Discussed approach to weight loss. Did discuss the possibility of outpatient semaglutide. In the hospital he is tolerating a calorie restricted diet. Admission weight 229.5 kg. Today's weight 214.1 kg. Status: Chronic (5) HTN (hypertension): Problem details: Early in hospital course, we did add torsemide for hypertension and edema. Was trending toward pre renal azotemia. Continued low-dose torsemide 5 mg for blood pressure and volume control Status: Chronic (6) Anasarca: Problem details: Generalized edema on presentation to the hospital. Initiated torsemide and following electrolytes. He developed a contraction alkalosis, torsemide decreased to 5 mg daily for blood pressure and volume control Status: Acute (7) Arthritis of knee, left: Problem details: Chronic knee arthritis with acute on chronic injury prior to admission. Status: Acute (8) Urinary retention: Problem details: Postvoid residual of 450 mL. Catheter placed to help with hygiene and healing of groin wounds. Flomax was initiated with a goal of removing catheter. Given his known urinary incontinence and cellulitis of his abdominal pannus unfolds, will continue with catheter for now to allow for continued healing of the skin. Once his ulcers have healed would like to try discontinuing the catheter to see if he can better manage his urinary function. Status: Acute (9) Advanced directives, counseling/discussion: Problem details: Patient has clarified his POLST. He is DNR and DNI but would like aggressive treatment and hospitalization for other medical illnesses short of cardiac arrest or respiratory failure. Status: Acute (10) Lymphedema: Problem details: Improving. Low-dose torsemide, elevation and compression as tolerated Status: Acute (11) Acute diarrhea: Problem details: In hospitalize setting on antibiotics for cellulitis, will check for C diff. Status: Acute Plan Continue in hospital with plan for therapy to manage his weakness and immobility. Continue good skin hygiene and wound care under his abdominal pannus. Discharge to group home when available bed. Time Spent With Patient Total time spent: Total time spent today is 40 minutes, 25 minutes in coordination of care and discussing with patient other providers ongoing evaluation management of weakness, disability, hypertension, urinary incontinence, wound care Subjective Date Seen: 01/08/23 Interval history: Admision date: 12/30/2022 (12/31/2022) Hospital day #: 9 (8) 77-year-old morbidly obese man (on admission 229.5 kg/505 lb/BMI 76.9) admitted to the hospital with profound weakness. Patient has longstanding obesity and progressive decline in his ability to ambulate over months and years. Over the last month he has had increasing troubles ambulating due to a feeling of bilateral leg weakness. He does report some dyspnea with exertion but indicates that leg weakness is the primary owens iting factor. He otherwise denies significant symptoms of illness. He fell a week prior to admission and hurt his left knee and calf - radiographs of those were obtained during this hospitalization and show advanced degenerative changes in the left knee. The day prior to current admission he fell and was unable to get up on his own. He called his neighbor who could not get him up. The police came and were unable to get him up. EMS was called and they were able to get him to standing but he was too weak to walk so they brought him to the emergency room. Patient lives independently in his own new single level, accessible home. He has a walk-in shower with a bench. He is unable to do personal hygiene in his skin folds. Previously he had a bathtub in his home but he found it very dif ficult to get in and out so now he is taking his shower while he is sitting on the bench. He is normally able to get around with a walker with gradual worsening of his mobility over the last month. The profound weakness on admission was an acute change for him. He is not aware of having a fever. In the emergency room he was found to have marked ulcerations and erythema under his abdominal pannus, involving his scrotum and in his left axilla. He had elevated white blood count as well. He was started on treatment for cellulitis with Ancef and intertrigo from [facility] with nystatin. Nursing and physical therapy staff note that he still too weak to stand on his own. Not only is a ceiling lift is required to transfer him, but he is still not able to stand without the harness to support his weight. He reports generally feeling better but acknowledges ongoing bilateral leg weakness. Patient has made only modest progress with standing efforts. With use of EZ stand yesterday he was able to bear weight for an entire minute. This is a marked improvement for him. Urinary incontinence has been a problem, which he acknowledges predates his current admission to the hospital by several months. He presented with skin breakdown in the groin area so Sanders catheter was placed. He had 450 ml postvoid residual. Early in hospitalization he had transient diarrhea. C diff test was ordered but not completed because the diarrhea resolved. Today he has had a couple of diarrhea episodes. C Diff test ordered again. He denies abdominal pain. He is tolerating his calorie restricted diet and reports that he is not hungry. More than anything, he continues to be anxious about not gaining his strength as he desires. We continue to wait for social media analyst to find suitable skilled n ursing facility for him to transfer to from the hospital at this time. Presently he is not in a position to safely move back to his private residence. Exam Narrative: Exam Narrative: He is alert and appears in no distress. Breathing is unlabored. Skin under the abdominal pannus is examined. He continues to have improvement. Still significant small ulcers which are healing including a 1 x 2 and 0.5 cm ulcer on his scrotum and multiple other less than 1 cm ulcers. Legs are examined. No redness or tenderness to palpation. Const: Vital Signs, click to edit/add: Vital Signs - 24 hr 01/07/23 15:00 01/07/23 15:00 01/07/23 19:00 Temperature 97.9 F 98 F Pulse Rate [Left P ulse Oximeter] 70 61 67 Respiratory Rate 20 18 18 Blood Pressure [Le ft Arm] 129/88 Blood Pressure [Le ft forearm] 120/74 Pulse Oximetry 93 94 Oxygen Delivery Me thod Room Air Room Air 01/08/23 00:47 01/08/23 01:06 01/08/23 04:12 Temperature 97.9 F 97.6 F Pulse Rate [Left P ulse Oximeter] 63 63 55 L Respiratory Rate 18 18 Blood Pressure [Le ft Arm] Blood Pressure [Le ft forearm] 155/63 H 140/62 H Pulse Oximetry 95 93 Oxygen Delivery Me thod Room Air Room Air 01/08/23 07:00 01/08/23 07:00 01/08/23 11:00 Temperature 97.7 F 98.1 F Pulse Rate [Left P ulse Oximeter] 64 64 66 Respiratory Rate 20 20 Blood Pressure [Le ft Arm] Blood Pressure [Le ft forearm] 137/67 142/59 H Pulse Oximetry 95 94 Oxygen Delivery Me thod Room Air Room Air Documenting provider has reviewed patient's vital signs: yes Labs Labs: Laboratory Results - last 24 hr 01/08/23 06:52 WBC 7.29 RBC 4.44 Hgb 12.2 L Hct 39.7 MCV 89 MCH 28 MCHC 31 L Plt Count 274 Sodium 139 Potassium 4.4 Chloride 102 Carbon Dioxide 34 H BUN 27 Creatinine 1.0 Estimated Creat Clear 60.80 Estimated GFR 78 Glucose 107 Calcium 9.1 Phosphorus 3.9 C-Reactive Protein 2.2 H Albumin 3.4
--- NOTE | 2023-01-08 14:11 | PC.SOCIAL ---
[facility] has a bed and is assessing pt.
--- NOTE | 2023-01-08 16:43 | PC.NURSE ---
End of Shift Note: Patient has had a good day. Was up in the chair x2 so far this shift using the ceiling lift. Did have am cares in bed and were able to get his pannus washed well nystatin power applied to left side and scrotum area. Have strongly enc him to drink fluids as he has only 200 cc up to 3 pm. Had no complaints of pain did state this am that he had a leg cramp during the night but that has resolved. Will continue to monitor until next shift takes over.
[2023-01-08] MEDS: TORSEMIDE 5 MG TABLET PO (17:14)
[2023-01-08] MEDS: TAMSULOSIN HCL 0.4 MG CAPSULE PO (21:58)
[2023-01-08] MEDS: ENOXAPARIN 40 MG/0.4 ML INJ SUBCUT (21:59)
[2023-01-08] MEDS: LOSARTAN POTASSIUM 50 MG TABLET 100 MG PO (21:59)
[2023-01-08] MEDS: ACETAMINOPHEN 325 MG TABLET 650 MG PO (21:59)
[2023-01-08] MEDS: AMLODIPINE 5 MG TABLET PO (21:59)
[2023-01-09 03:00] VITALS: BP 135/55; PULSE 61; RESP 16; TEMP 36.6; O2SAT 94
--- NOTE | 2023-01-09 06:40 | PC.NURSE ---
Alert and oriented x 4, pleasant and cooperative with cares. Pain reported to left leg, prn tylenol administered at 2200 and was effective. Bowel sounds active x 4 quadrants. Denies any shortness of breath or cough. Sanders catheter patent draining clear, pale yellow urine.
[2023-01-09 07:00] VITALS: BP 125/56; PULSE 61; RESP 16; TEMP 36.8; O2SAT 96
[2023-01-09] MEDS: LACTOBACILLUS ACIDOPHILUS 1 TABLET 1 TAB PO ×3 (08:34→17:35)
[2023-01-09] MEDS: TORSEMIDE 5 MG TABLET PO (08:35)
[2023-01-09 11:00] VITALS: BP 123/64; PULSE 67; RESP 16; TEMP 36.2; O2SAT 96
[2023-01-09] MEDS: NYSTATIN POWDER 1 APPLIC TOPICAL ×2 (11:00→22:08)
[2023-01-09] MEDS: SODIUM CHLORIDE 0.9 % (FLUSH) 10 ML SYRINGE 5 ML IVF ×2 (14:52→22:06)
[2023-01-09 15:00] VITALS: BP 117/66; PULSE 67; PULSE 68; RESP 16; TEMP 36.4; O2SAT 95
--- NOTE | 2023-01-09 15:19 | P.IMPN_ITS ---
Progress Note: A&P Assessment and plan (1) Cellulitis: Problem details: Fairly severe cellulitis under his abdominal pannus and in his groin associated with substantial skin ulceration on admission. With leukocytosis this is likely explanation for his acute on chronic weakness and inability to walk. Was treated for concurrent candidiasis and bacterial cellulitis with IV antibiotics, nystatin and Diflucan. Much improved. Discontinued Ancef and Diflucan. Continue good skin care with nystatin and good hygiene. Will need assistance of 2 to provide skin care and hygiene under his abdominal pannus for the foreseeable future. Status: Acute (2) Intertrigo: Problem details: Continue nystatin. Status: Acute (3) Weakness: Problem details: Due to acute illness and longstanding inactivity. Ongoing assessment and treatment of disability/immobility with therapy, PT and OT. Unable to live independently at this juncture. Requires jail support. Modest improvement Status: Acute (4) Morbid obesity: Problem details: Discussed approach to weight loss. Did discuss the possibility of outpatient semaglutide. In the hospital he is tolerating a calorie restricted diet. Admission weight 229.5 kg. Today's weight 214.1 kg. Status: Chronic (5) HTN (hypertension): Problem details: Early in hospital course, we did add torsemide for hypertension and edema. Was trending toward pre renal azotemia. Continued low-dose torsemide 5 mg for blood pressure and volume control Status: Chronic (6) Anasarca: Problem details: Generalized edema on presentation to the hospital. Initiated torsemide and fol lowing electrolytes. He developed a contraction alkalosis, torsemide decreased to 5 mg daily for blood pressure and volume control Status: Acute (7) Arthritis of knee, left: Problem details: Chronic knee arthritis with acute on chronic injury prior to admission. Status: Acute (8) Urinary retention: Problem details: Postvoid residual of 450 mL. Catheter placed to help with hygiene and healing of groin wounds. Flomax was initiated with a goal of removing catheter. Given his known urinary incontinence and cellulitis of his abdominal pannus unfolds, will continue with catheter for now to allow for continued healing of the skin. Once his ulcers have healed would like to try discontinuing the catheter to see if he can better manage his urinary function. Status: Acute (9) Advanced directives, counseling/discussion: Problem details: Patient has clarified his POLST. He is DNR and DNI but would like aggressive treatment and hospitalization for other medical illnesses short of cardiac arrest or respiratory failure. Status: Acute (10) Lymphedema: Problem details: Improving. Low-dose torsemide, elevation and compression as tolerated Status: Acute (11) Acute diarrhea: Problem details: In hospitalize setting on antibiotics for cellulitis, will check for C diff. Status: Acute Plan Continue in hospital pending discharge plan. Time Spent With Patient Total time spent: Total time spent today is 25 minutes, 20 minutes in coordination of care with other providers about discharge planning and discussing with patient ongoing plan of care Subjective Date Seen: 01/09/23 Interval history: Admision date: 12/30/2022 (12/31/2022) Hospital day #: 9 (8) 77-year-old morbidly obese man (on admission 229.5 kg/505 lb/BMI 76.9) admitted to the hospital with profound weakness. Patient has longstanding obesity and progressive decline in his ability to ambulate over months and years. Over the last month he has had increasing troubles ambulating due to a feeling of bilateral leg weakness. He does report some dyspnea with exertion but indicates that leg weakness is the primary limiting factor. He otherwise denies significant symptoms of illness. He fell a week prior to admission and hurt his left knee and calf - radiographs of those were obtained during this hospitalization and show advanced degenerative changes in the left knee. The day prior to current admission he fell and was unable to get up on his own. He called his neighbor who could not get him up. The police came and were unable to get him up. EMS was called and they were able to get him to standing but he was too weak to walk so they brought him to the emergency room. Patient lives independently in his own new single level, accessible home. He has a walk-in shower with a bench. He is unable to do personal hygiene in his skin folds. Previously he had a bathtub in his home but he found it very difficult to get in and out so now he is taking his shower while he is sitting on the bench. He is normally able to get around with a walker with gradual worsening of his mobility over the last month. The profound weakness on admission was an acute change for him. He is not aware of having a fever. In the emergency room he was found to have marked ulcerations and erythema under his abdominal pannus, involving his scrotum and in his left axilla. He had elevated white blood count as well. He was started on treatment for cellulitis with Ancef and intertrigo from [facility] with nystatin. Nursing and physical therapy staff note that he still too weak to stand on his own. Not only is a ceiling lift is required to transfer him, but he is still not able to stand without the harness to support his weight. He reports generally feeling better but acknowledges ongoing bilateral leg weakness. Patient has made only modest progress with standing efforts. With use of EZ st and yesterday he was able to bear weight for an entire minute. This is a marked improvement for him. Urinary incontinence has been a problem, which he acknowledges predates his current admission to the hospital by several months. He presented with skin breakdown in the groin area so Sanders catheter was placed. He had 450 ml postvoid residual. Early in hospitalization he had transient diarrhea. C diff test was ordered but not completed because the diarrhea resolved. Today he has had a couple of diarrhea episodes. C Diff test ordered again. He denies abdominal pain. He is tolerating his calorie restricted diet and reports that he is not hungry. More than anything, he continues to be anxious about not gaining his strength as he desires. We continue to wait for high school social studies teacher to find suitable jail facility for him to transfer to from the hospital at this time. Presently he is not in a position to safely move back to his private residence. No noon concerns today. Restarted low-dose diuresis which he is tolerating. No diarrhea for 2 days. Exam Narrative: Exam Narrative: He is alert and appears in no distress. Inspection under the abdominal pannus shows continued improvement of the diffuse erythema and maceration of the skin. Multiple small ulcers over the inguinal folds and scrotum are not significantly changed from yesterday. Const: Vital Signs, click to edit/add: Vital Signs - 24 hr 01/08/23 19:00 01/08/23 23:00 01/09/23 03:00 Temperature 97.8 F 97.9 F 97.9 F Pulse Rate [Left P ulse Oximeter] 71 68 61 Respiratory Rate 20 18 16 Blood Pressure [Le ft Arm] 130/62 Blood Pressure [Le ft forearm] 134/63 135/55 L Pulse Oximetry 94 93 94 Oxygen Delivery Me thod Room Air Room Air Room Air 01/09/23 07:00 01/09/23 07:00 01/09/23 11:00 Temperature 98.2 F 97.2 F L Pulse Rate [Left P ulse Oximeter] 61 61 67 Respiratory Rate 16 16 16 Blood Pressure [Le ft Arm] 125/56 L 123/64 Blood Pressure [Le ft forearm] Pulse Oximetry 96 96 Oxygen Delivery Me thod Room Air Room Air Documenting provider has reviewed patient's vital signs: yes
[2023-01-09 19:00] VITALS: BP 134/74; PULSE 66; RESP 18; TEMP 36.4; O2SAT 95
[2023-01-09] MEDS: AMLODIPINE 5 MG TABLET PO (22:06)
[2023-01-09] MEDS: LOSARTAN POTASSIUM 50 MG TABLET 100 MG PO (22:06)
[2023-01-09] MEDS: ACETAMINOPHEN 325 MG TABLET 650 MG PO (22:06)
[2023-01-09] MEDS: TAMSULOSIN HCL 0.4 MG CAPSULE PO (22:06)
[2023-01-09] MEDS: ENOXAPARIN 40 MG/0.4 ML INJ SUBCUT (22:07)
[2023-01-09 23:00] VITALS: BP 117/59; PULSE 59; RESP 18; TEMP 36.4; O2SAT 92
[2023-01-10] VITALS (7 sets, daily range): BP systolic 109–145; BP diastolic 61–71; PULSE 58–74; RESP 16–20; TEMP 36.2–36.6; O2SAT 94–97; BMI 72.5
[2023-01-10] MEDS: ACETAMINOPHEN 325 MG TABLET 650 MG PO ×3 (03:54→21:56)
--- NOTE | 2023-01-10 06:00 | PC.NURSE ---
Left armpit, bilateral groin cleansed and powder applied. Left groin continues to have several small open areas, no drainage noted. Posterior scrotum open area cleansed and barrier cream applied. While marketing copywriter was cleaning area there was 2 more small open areas identified, both are superior to known open area and appear to be due to pressure from catheter tubing. Areas cleansed and barrier cream applied, catheter tubing adjusted to help prevent pressure. Xavier reporting pain to right shoulder, pain well managed with PRN tylenol. Slept well this shift. Sanders catheter patent and draining clear, yellow urine with moderate odor.
[2023-01-10 07:08] LABS: Chloride* 102 mmol/L (96-114); Potassium* 4.3 mmol/L (3.6-5.1); Sodium* 139 mmol/L (135-149)
[2023-01-10 07:11] LABS: Blood Urea Nitrogen* 28 mg/dL (7-30); Carbon Dioxide* 32 mmol/L (20-32); Creatinine* 0.9 mg/dL (0.5-1.5); Estimated Glomerular Filt Rate 89 ml/min; Glucose* 106 mg/dL (60-115)
[2023-01-10 07:12] LABS: Calcium* 9.1 mg/dL (8.4-10.6)
[2023-01-10] MEDS: TORSEMIDE 5 MG TABLET PO (08:44)
[2023-01-10] MEDS: SODIUM CHLORIDE 0.9 % (FLUSH) 10 ML SYRINGE 5 ML IVF ×2 (08:44→20:41)
[2023-01-10] MEDS: LACTOBACILLUS ACIDOPHILUS 1 TABLET 1 TAB PO ×3 (08:44→18:01)
[2023-01-10] MEDS: NYSTATIN POWDER 1 APPLIC TOPICAL ×2 (09:24→20:41)
--- NOTE | 2023-01-10 14:50 | PC.SOCIAL ---
Discharge Plan: As suggested by team in med/surg morning meeting, this screen writer [phone] to see if they would have any openings for patient. [place] did call back and stated TCU is not an option for him, however they may consider him for acute Rehab and could possibly have openings mid week. They will look at his paperwork on Saturday 01/13 and get back to us. This screen writer will fax information to . This screen writer met with patient to update plan. Patient in good spirits feeling he is progressing everyday. He feels his biggest barrier to getting up was in his head and now he is past that. Social work to follow up.
--- NOTE | 2023-01-10 15:23 | P.IMPN_ITS ---
Progress Note: A&P Assessment and plan (1) Cellulitis: Problem details: - Fairly severe cellulitis under his abdominal pannus and in his groin associated with substantial skin ulceration on admission. With leukocytosis this is likely explanation for his acute on chronic weakness and inability to walk. Was treated for concurrent candidiasis and bacterial cellulitis with IV antibiotics, nystatin and Diflucan. Much improved. Discontinued Ancef and Diflucan. Continue good skin care with nystatin and good hygiene. Will need assistance of 2 to provide skin care and hygiene under his abdominal pannus for the foreseeable future. Status: Resolved (2) Intertrigo: Problem details: Continue nystatin and skin cares. Status: Acute (3) Weakness: Problem details: Due to acute illness and longstanding inactivity. Ongoing assessment and treatment of disability/immobility with therapy, PT and OT. Unable to live independently at this juncture. [facility]quires [place] [facility] support. Modest improvement. Seeking SNF placement or possibly LTAC for intensive rehab, if available. Status: Acute (4) Morbid obesity: Problem details: (Tyson) discussed approach to weight loss. Did discuss the possibility of out patient semaglutide. In the hospital he is tolerating a calorie restricted diet. Admission weight 229.5 kg. Today's weight 216.4 kg. Status: Chronic (5) HTN (hypertension): Problem details: - Early in hospital course, we did add torsemide for hypertension and edema. Was trending toward pre renal azotemia. Continued low-dose torsemide 5 mg for blood pressure and volume control. - Cr stable at 0.9-1. Continue current low-dose torsemide blood pressure and volume control. Status: Chronic (6) Anasarca: Problem details: Generalized edema on presentation to the hospital. Initiated torsemide and following electrolytes. He developed a contraction alkalosis, torsemide decreased to 5 mg daily for blood pressure and volume control Status: Acute (7) Arthritis of knee, left: Problem details: Chronic knee arthritis with acute on chronic injury prior to admission. Status: Acute (8) Urinary retention: Problem details: Postvoid residual of 450 mL. Catheter placed to help with hygiene and healing of groin wounds. Flomax was initiated with a goal of removing catheter. Given his known urinary incontinence and cellulitis of his abdominal pannus unfolds, will continue with catheter for now to allow for continued healing of the skin. Once his ulcers have healed would like to try discontinuing the catheter to see if he can better manage his urinary function. Status: Acute (9) Advanced directives, counseling/discussion: Problem details: Patient has clarified his POLST. He is DNR and DNI but would like aggressive treatment and hospitalization for other medical illnesses short of cardiac arrest or respiratory failure. Status: Acute (10) Lymphedema: Problem details: Improving. Continue low-dose torsemide, elevation and compression as tolerated Status: Acute (11) Acute diarrhea: Problem details: C diff negative 01/07/23, use Imodium as needed Status: Acute Plan Continue in hospital pending discharge plan. Subjective Time Seen by Provider: 13:25 Date Seen: 01/10/23 Interval history: Royce remembered me from his admission. He said he has been doing well and feels much better than when I last saw him. He notes that he was able to ambulate with the walker about 10 ft this morning. He says he's lost about 20 lbs, but wishes it were more. He remains motivated to lose weight. Exam Narrative: Exam Narrative: General: No acute distress. Awake, alert, oriented. No pallor. No jaundice. Oropharynx: Clear. Mucous membranes moist. Cardiovascular: Regular rate and rhythm. No murmurs, gallops, or rubs. Respiratory: Clear to auscultation bilaterally. No wheezes or crackles. Abdomen: Bowel sounds present. Inspection under the sides of the pannus show improvement of diffuse erythema and maceration from when I saw him on admission. Multiple small ulcers remain, but are improving from admission. I was unable to see directly under the pannus due to the massive weight of his pannus while he was sitting in his WC. Extremities: Trace bilateral pretibial edema. Skin: Dry. Const: Vital Signs, click to edit/add: Vital Signs - 24 hr 01/09/23 19:00 01/09/23 23:00 01/10/23 03:00 Temperature 97.6 F 97.6 F 97.5 F L Pulse Rate [Left P ulse Oximeter] 66 59 L 64 Respiratory Rate 18 18 16 Blood Pressure [Le ft forearm] 134/74 117/59 L 143/66 H Pulse Oximetry 95 92 97 Oxygen Delivery Me thod Room Air Room Air Room Air 01/10/23 07:00 01/10/23 07:00 01/10/23 11:00 Temperature 97.2 F L 97.9 F Pulse Rate [Left P ulse Oximeter] 64 58 L 71 Respiratory Rate 16 16 16 Blood Pressure [Le ft forearm] 145/65 H 109/71 Pulse Oximetry 94 94 Oxygen Delivery Me thod Room Air Room Air Documenting provider has reviewed patient's vital signs: yes Labs Labs: Laboratory Results - last 24 hr 01/10/23 06:35 Sodium 139 Potassium 4.3 Chloride 102 Carbon Dioxide 32 BUN 28 Creatinine 0.9 Estimated Creat Clear 60.80 Estimated GFR 89 Glucose 106 Calcium 9.1
--- NOTE | 2023-01-10 18:52 | PC.NURSE ---
[id number]: Patient had an uneventful day. Patient worked hard with PT/OT today. Per PT, patient was able to ambulate 10 feet in room. Patient remains a cody lift with nursing staff. Patient remains vitally stable. Patient continues with sores to scrotum, abdominal folds, and folds of back of leg are discolored. Patient with great appetite. Denies n/v. Patient able to verbalize needs. Patient with no incontinent episodes today and has 1 BM that was soft and formed. Patient remains with vital in place. Patient able to turn in bed with minimal assist and using trapeze well to mobilize self in bed.
[2023-01-10] MEDS: ENOXAPARIN 40 MG/0.4 ML INJ SUBCUT (20:41)
[2023-01-10] MEDS: TAMSULOSIN HCL 0.4 MG CAPSULE PO (20:42)
[2023-01-10] MEDS: AMLODIPINE 5 MG TABLET PO (21:56)
[2023-01-10] MEDS: LOSARTAN POTASSIUM 50 MG TABLET 100 MG PO (21:56)
[2023-01-11] VITALS (10 sets, daily range): BP systolic 116–140; BP diastolic 63–78; PULSE 78–85; RESP 16–18; TEMP 36.6–36.9; O2SAT 91–95
--- NOTE | 2023-01-11 05:55 | PC.NURSE ---
[id number] Pt pleasant and cooperative, slept well during night.
[2023-01-11] MEDS: TORSEMIDE 5 MG TABLET PO (09:30)
[2023-01-11] MEDS: LACTOBACILLUS ACIDOPHILUS 1 TABLET 1 TAB PO ×3 (09:30→19:16)
[2023-01-11] MEDS: SODIUM CHLORIDE 0.9 % (FLUSH) 10 ML SYRINGE 5 ML IVF (09:31)
[2023-01-11] MEDS: NYSTATIN POWDER 1 APPLIC TOPICAL ×2 (09:32→21:53)
--- NOTE | 2023-01-11 14:47 | PM.IMPN1 ---
Progress Note: A&P Assessment and plan (1) Cellulitis: Problem details: - Fairly severe cellulitis under his abdominal pannus and in his groin associated with substantial skin ulceration on admission. With leukocytosis this is likely explanation for his acute on chronic weakness and inability to walk. Was treated for concurrent candidiasis and bacterial cellulitis with IV antibiotics, nystatin and Diflucan. Much improved. Discontinued Ancef and Diflucan. Continue good skin care with nystatin and good hygiene. Will need assistance of 2 to provide skin care and hygiene under his abdominal pannus for the foreseeable future. Status: Resolved (2) Intertrigo: Problem details: Continue nystatin and skin cares. Status: Acute (3) Weakness: Problem details: Due to acute illness and longstanding inactivity. Ongoing assessment and treatment of disability/immobility with therapy, PT and OT. Unable to live independently at this juncture. Requires retirement support. Modest improvement. Seeking SNF placement or possibly LTAC for intensive rehab. Status: Acute (4) Morbid obesity: Problem details: (Tyson) discussed approach to weight loss. Did discuss the possibility of outpatient semaglutide. In the hospital he is tolerating a calorie restricted diet. Admission weight 229.5 kg. Today's weight 217 kg. Check BMP in am and may need to increase torsemide again. Status: Chronic (5) HTN (hypertension): Problem details: - Early in hospital course, we did add torsemide for hypertension and edema. Was trending toward pre renal azotemia. Continued low-dose torsemide 5 mg for blood pressure and volume control. - Cr stable at 0.9-1. Continue current low-dose torsemide blood pressure and volume control. Status: Chronic (6) Anasarca: Problem details: Generalized edema on presentation to the hospital. Initiated torsemide and following electrolytes. He developed a contraction alkalosis, torsemide decreased to 5 mg daily for blood pressure and volume control Status: Acute (7) Arthritis of knee, left: Problem details: Chronic knee arthritis with acute on chronic injury prior to admission. Status: Acute (8) Urinary retention: Problem details: Postvoid residual of 450 mL. Catheter placed to help with hygiene and healing of groin wounds. Flomax was initiated with a goal of removing catheter. Given his known urinary incontinence and cellulitis of his abdominal pannus unfolds, will continue with catheter for now to allow for continued healing of the skin. Once his ulcers have healed would like to try discontinuing the catheter to see if he can better manage his urinary function. Status: Acute (9) Lymphedema: Problem details: Improving. Continue low-dose torsemide, elevation and compression as tolerated Status: Acute (10) Acute diarrhea: Problem details: C diff negative 01/07/23, use Imodium as needed Status: Acute Plan No safe discharge plan at present. Subjective Time Seen by Provider: 12:12 Date Seen: 01/11/23 Interval history: Royce is doing well. His friend, Yo, was in the room when I arrived. Yo left before Royce and I started talking. Royce celebrated that he was able to walk with his walker around the room today. He is still unable to transfer without significants amount of help. We discussed other barriers to homegoing which include ability to get to the bathroom to urinate, bathing and skin cares. Exam Narrative: Exam Narrative: General: No acute distress. Awake, alert, oriented. Oropharynx: Clear. Mucous membranes moist. Abdomen: Inspection under the sides of the pannus show improvement of diffuse erythema and maceration. Multiple small ulcers remain, but are improving. Today he was laying down and I was able to live his pannus enough to visualize his scrotum. There is a 3mm diameter weepy ulcer on the anterior left scrotum without erythema or inflammation. Const: Vital Signs, click to edit/add: Vital Signs - 24 hr 01/10/23 15:00 01/10/23 15:00 01/10/23 19:00 Temperature 97.7 F 97.4 F L Pulse Rate [Left P ulse Oximeter] 71 64 74 Respiratory Rate 16 16 20 Blood Pressure [Le ft Arm] 125/69 Blood Pressure [Le ft forearm] 131/61 Pulse Oximetry 96 95 Oxygen Delivery Me thod Room Air Room Air 01/10/23 23:00 01/10/23 23:00 01/10/23 23:30 Temperature Pulse Rate [Left P ulse Oximeter] Respiratory Rate 20 18 18 Blood Pressure [Le ft Arm] Blood Pressure [Le ft forearm] Pulse Oximetry Oxygen Delivery Me thod 01/11/23 02:08 01/11/23 05:54 01/11/23 07:00 Temperature Pulse Rate [Left P ulse Oximeter] Respiratory Rate 16 18 18 Blood Pressure [Le ft Arm] Blood Pressure [Le ft forearm] Pulse Oximetry Oxygen Delivery Me thod 01/11/23 07:00 Temperature 97.8 F Pulse Rate [Left P ulse Oximeter] 82 Respiratory Rate 18 Blood Pressure [Le ft Arm] 136/63 Blood Pressure [Le ft forearm] Pulse Oximetry 92 Oxygen Delivery Me thod Room Air Documenting provider has reviewed patient's vital signs: yes
[2023-01-11] MEDS: ACETAMINOPHEN 325 MG TABLET 650 MG PO (14:51)
[2023-01-11] MEDS: TAMSULOSIN HCL 0.4 MG CAPSULE PO (21:09)
[2023-01-11] MEDS: ENOXAPARIN 40 MG/0.4 ML INJ SUBCUT (21:09)
[2023-01-11] MEDS: LOSARTAN POTASSIUM 50 MG TABLET 100 MG PO (21:09)
[2023-01-11] MEDS: AMLODIPINE 5 MG TABLET PO (21:09)
[2023-01-11] MEDS: NAPROXEN 250 MG TABLET PO (21:11)
[2023-01-11] MEDS: MELATONIN 3 MG TABLET PO (21:11)
[2023-01-12] VITALS (8 sets, daily range): BP systolic 120–128; BP diastolic 61–64; PULSE 61–79; RESP 16–18; TEMP 36.1–36.7; O2SAT 93–96
--- NOTE | 2023-01-12 06:26 | PC.NURSE ---
Pt rested comfortably this night. Remains confused, Up A2 to Commode and Chair. Incontinent of urine. Complains of leg pain. Pleasant
--- NOTE | 2023-01-12 06:29 | PC.NURSE ---
Pt rested well this night. Sanders patent and draining. Pt able to assist with repo in bed.
[2023-01-12 07:06] LABS: Chloride* 101 mmol/L (96-114); Sodium* 138 mmol/L (135-149)
[2023-01-12 07:09] LABS: Blood Urea Nitrogen* 30 mg/dL (7-30); Carbon Dioxide* 33 mmol/L (20-32); Estimated Glomerular Filt Rate 78 ml/min
[2023-01-12 07:10] LABS: Calcium* 9.1 mg/dL (8.4-10.6); Glucose* 105 mg/dL (60-115)
[2023-01-12] MEDS: TORSEMIDE 5 MG TABLET PO (07:55)
[2023-01-12] MEDS: NAPROXEN 250 MG TABLET PO (07:56)
[2023-01-12] MEDS: NYSTATIN POWDER 1 APPLIC TOPICAL ×2 (07:56→21:16)
[2023-01-12] MEDS: LACTOBACILLUS ACIDOPHILUS 1 TABLET 1 TAB PO ×3 (07:56→18:36)
--- NOTE | 2023-01-12 12:01 | PM.IMPN1 ---
Progress Note: A&P Assessment and plan (1) Weakness: Problem details: Due to acute illness (cellulitis, now resolved) and longstanding inactivity. Ongoing assessment and treatment of disability/immobility with therapy, PT and OT. Unable to live independently at this juncture. Requires fpc support. Modest improvement. Seeking SNF placement or possibly LTAC for intensive rehab. Status: Acute (2) Intertrigo: Problem details: Continue nystatin and skin cares. Status: Acute (3) Morbid obesity: Problem details: (Tyson) discussed approach to weight loss. Did discuss the possibility of outpatient semaglutide. In the hospital he is tolerating a calorie restricted diet. Admission weight 229.5 kg. Today's weight 216.3kg. Cr stable. K stable. Increase torsemide, add KCl, and recheck BMP in 3 days. Status: Chronic (4) HTN (hypertension): Problem details: - Early in hospital course, we did add torsemide for hypertension and edema. Was trending toward pre renal azotemia. Continued low-dose torsemide 5 mg for blood pressure and volume control. Status: Chronic (5) Anasarca: Problem details: Generalized edema on presentation to the hospital. Initiated torsemide and following electrolytes. He developed a contraction alkalosis, torsemide decreased to 5 mg daily for blood pressure and volume control - Wt fluctuating and increased over last few days. Increase torsemide to 10mg/day and recheck BMP in 3 days. Status: Acute (6) Arthritis of knee, left: Problem details: Chronic knee arthritis with acute on chronic injury prior to admission. Status: Acute (7) Urinary retention: Problem details: Postvoid residual of 450 mL. Catheter placed to help with hygiene and healing of groin wounds. Flomax was initiated with a goal of removing catheter. Given his known urinary incontinence and cellulitis of his abdominal pannus unfolds, will continue with catheter for now to allow for continued healing of the skin. Once his ulcers have healed would like to try discontinuing the catheter to see if he can better manage his urinary function. Status: Acute (8) Lymphedema: Problem details: Improving. Continue low-dose torsemide, elevation and compression as tolerated Status: Acute (9) Acute diarrhea: Problem details: C diff negative 01/07/23, use Imodium as needed Status: Acute (10) Right shoulder pain: Problem details: Suspect rotator cuff strain/injury. Not a surgical candidate at present due to weight. Would not fit in our MRI scanner. Monitor. Continue PT/OT. Status: Acute Plan No safe discharge plan at present. Subjective Time Seen by Provider: 08:30 Date Seen: 01/12/23 Interval history: Royce is doing well and happily notes that he ambulated with a walker 6 times yesterday. He continues to have pain his anterior right shoulder. This pain occurs when he is using that arm to shift in the bed or get up from the bed. Using the walker does not exacerbate his pain. He complains of restless legs and cramping at night, this is gone by morning. Exam Narrative: Exam Narrative: General: No acute distress. Awake, alert, oriented. He was balancing his checkbook and paying bills when I walked in. No pallor. No jaundice. Oropharynx: Clear. Mucous membranes moist. Right shoulder: tender to palpation in anterior shoulder. Yergason test negative. Endorsed pain at insertion of deltoid on upper arm with abduction of right arm after completing cross adduction test. Cardiovascular: Regular rate and rhythm. No murmurs, gallops, or rubs. Respiratory: Clear to auscultation bilaterally. No wheezes or crackles. Const: Vital Signs, click to edit/add: Vital Signs - 24 hr 01/11/23 15:00 01/11/23 15:00 01/11/23 15:31 Temperature 98.3 F 98 F Pulse Rate [Left P ulse Oximeter] 82 78 Respiratory Rate 18 18 Blood Pressure [Le ft Arm] 136/78 Blood Pressure [Le ft forearm] Pulse Oximetry 92 Oxygen Delivery Me thod Room Air 01/11/23 21:00 01/11/23 22:28 01/11/23 22:30 Temperature 98 F 98.4 F Pulse Rate [Left P ulse Oximeter] 85 84 84 Respiratory Rate 16 16 16 Blood Pressure [Le ft Arm] Blood Pressure [Le ft forearm] 125/66 116/78 Pulse Oximetry 95 91 Oxygen Delivery Me thod Room Air 01/11/23 22:31 01/12/23 02:42 01/12/23 05:25 Temperature Pulse Rate [Left P ulse Oximeter] Respiratory Rate 16 18 18 Blood Pressure [Le ft Arm] Blood Pressure [Le ft forearm] Pulse Oximetry Oxygen Delivery Me thod 01/12/23 07:00 01/12/23 07:00 Temperature 97.7 F Pulse Rate [Left P ulse Oximeter] 61 61 Respiratory Rate 16 16 Blood Pressure [Le ft Arm] Blood Pressure [Le ft forearm] 126/64 Pulse Oximetry 93 Oxygen Delivery Co thod Room Air Documenting provider has reviewed patient's vital signs: yes Labs Labs: Laboratory Results - last 24 hr 01/12/23 06:30 Sodium 138 Potassium 4.0 Chloride 101 Carbon Dioxide 33 H BUN 30 Creatinine 1.0 Estimated Creat Clear 60.80 Estimated GFR 78 Glucose 105 Calcium 9.1
--- NOTE | 2023-01-12 17:44 | PC.NURSE ---
End of Shift: Patient pleasant and cooperative. Afebrile. C/o pain in right arm, PRN Naproxen given x1. Up to chair and commode with 1-2 assist, walker and gait belt. Tolerating regular diet with no nausea. Sanders patent, draining dark mateus urine with some sediment at the start of shift, updated MD, cleared to straw color by the end of the shift.
[2023-01-12] MEDS: ENOXAPARIN 40 MG/0.4 ML INJ SUBCUT (21:15)
[2023-01-12] MEDS: MAGNESIUM OXIDE 400 MG TABLET PO (21:15)
[2023-01-12] MEDS: TAMSULOSIN HCL 0.4 MG CAPSULE PO (21:17)
[2023-01-12] MEDS: AMLODIPINE 5 MG TABLET PO (21:32)
[2023-01-12] MEDS: LOSARTAN POTASSIUM 50 MG TABLET 100 MG PO (21:32)
[2023-01-12] MEDS: ACETAMINOPHEN 325 MG TABLET 650 MG PO (21:34)
[2023-01-13] VITALS (8 sets, daily range): BP systolic 110–142; BP diastolic 55–78; PULSE 66–75; RESP 16–18; TEMP 36.6–36.7; O2SAT 92–97
--- NOTE | 2023-01-13 05:03 | PC.NURSE ---
End of Shift: Pt pleasant and cooperative throughout shift, AOx3. Ambulatory in room with SBA, walker, and gait belt. Pt reports not knowing he was ordering beyond the caloric restriction and requested he be informed if his meal is beyond the MD order. HS cares carried out by RN, abdominal folds appear to be healing well, nystatin powder applied, pt tolerated well, denied pain. Sanders catheter draining dark and mateus in color. Pt brought larger water mug and encouraged to drink fluids. No BM.
[2023-01-13] MEDS: NYSTATIN POWDER 1 APPLIC TOPICAL ×2 (07:49→21:44)
[2023-01-13] MEDS: TORSEMIDE 5 MG TABLET 10 MG PO (07:49)
[2023-01-13] MEDS: LACTOBACILLUS ACIDOPHILUS 1 TABLET 1 TAB PO ×3 (07:49→17:58)
[2023-01-13] MEDS: NAPROXEN 250 MG TABLET PO (08:54)
[2023-01-13] MEDS: POTASSIUM CHLORIDE 10 MEQ CAPSULE ER PO (09:41)
--- NOTE | 2023-01-13 11:43 | NUTR.NU ---
RDN met with patient to discuss his concerns regarding diet order. RDN reviewed menu and went over lower calorie/healthier menu items. RDN provided menu with crossed off items that are not recommended for weight loss. Patient in agreement with this plan. RDN also reviewed the [employer]. Handouts were previously given. Patient's questions and concerns were addressed. RDN will discuss diet order with kitchen staff. RDN will provide a copy of the menu with items crossed off to culinary services. Patient encouraged to call RDN with any questions or concerns. RDN will continue to monitor PRN.
--- NOTE | 2023-01-13 12:36 | PM.IMPN1 ---
Progress Note: A&P Assessment and plan (1) Weakness: Problem details: Due to acute illness (cellulitis, now resolved) and longstanding inactivity. Ongoing assessment and treatment of disability/immobility with therapy, PT and OT. Unable to live independently at this juncture. Requires group home support. Modest improvement. Seeking SNF placement or possibly LTAC for intensive rehab. Status: Acute (2) Intertrigo: Problem details: Continue nystatin and skin cares. Status: Acute (3) Morbid obesity: Problem details: (Tyson) discussed approach to weight loss. Did discuss the possibility of outpatient semaglutide. In the hospital he is tolerating a calorie restricted diet. Admission weight 229.5 kg. Today's weight 216.9kg. Increased torsemide, add KCl, and recheck BMP in 3 days. - calorie restricted diet: I spoke with Nutrition who will go in see him talk with him about his diet further and nursing staff will help him understand the calorie restriction at his meals. Status: Chronic (4) HTN (hypertension): Problem details: - Early in hospital course, we did add torsemide for hypertension and edema. Was trending toward pre renal azotemia. Continued low-dose torsemide 10 mg for blood pressure and volume control. Blood pressure now fairly well controlled. Status: Chronic (5) Anasarca: Problem details: Generalized edema on presentation to the hospital. Initiated torsemide and following electrolytes. He developed a contraction alkalosis, torsemide decreased to 5 mg daily for blood pressure and volume control - Wt fluctuating and increased over last few days. Increased torsemide to 10mg/day 01/12/23. Status: Acute (6) Arthritis of knee, left: Problem details: Chronic knee arthritis with acute on chronic injury prior to admission. Status: Acute (7) Urinary retention: Problem details: Postvoid residual of 450 mL. Catheter placed to help with hygiene and healing of groin wounds. Flomax was initiated with a goal of removing catheter. Given his known urinary incontinence and cellulitis of his abdominal pannus unfolds, will continue with catheter for now to allow for continued healing of the skin. Once his ulcers have healed would like to try discontinuing the catheter to see if he can better manage his urinary function. Status: Acute (8) Lymphedema: Problem details: Improving. Continue low-dose torsemide, elevation and compression as tolerated Status: Acute (9) Acute diarrhea: Problem details: C diff negative 01/07/23, use Imodium as needed Status: Acute (10) Right shoulder pain: Problem details: Suspect rotator cuff strain/injury. Not a surgical candidate at present due to weight. Would not fit in our MRI scanner. Monitor. Continue PT/OT. Status: Acute Plan No safe discharge plan at present. Subjective Time Seen by Provider: 07:55 Date Seen: 01/13/23 Interval history: Royce tells me that he has been doing shoulder exercises with PT, but is having trouble doing them when PT is gone because he can not do them from bed and cannot sit in the chair to do them. I spoke with PT about this and they had previously recommended to him that he do these from his wheelchair and will recommend that to him again. Royce also complains of about understanding are calorie restriction. He wants to follow it, but is not clear how many calories are in the food that he orders. Exam Narrative: Exam Narrative: General: No acute distress. Awake, alert, oriented. Oropharynx: Clear. Mucous membranes moist. Abdomen: Skin and ulcers under pannus unchanged from my exam 2 days ago. Const: Vital Signs, click to edit/add: Vital Signs - 24 hr 01/12/23 15:00 01/12/23 15:00 01/12/23 19:00 Temperature 98.0 F 97 F L Pulse Rate [Left P ulse Oximeter] 65 65 79 Respiratory Rate 18 18 18 Blood Pressure [Le ft forearm] 127/62 128/61 Pulse Oximetry 96 96 Oxygen Delivery Me thod Room Air Room Air 01/12/23 23:00 01/12/23 23:30 01/13/23 03:00 Temperature 98.1 F Pulse Rate [Left P ulse Oximeter] 68 Respiratory Rate 18 16 18 Blood Pressure [Le ft forearm] 110/69 Pulse Oximetry 92 Oxygen Delivery Me thod Room Air 01/13/23 05:59 01/13/23 07:00 01/13/23 07:00 Temperature 97.8 F Pulse Rate [Left P ulse Oximeter] 66 66 Respiratory Rate 18 16 16 Blood Pressure [Le ft forearm] 134/67 Pulse Oximetry 96 Oxygen Delivery Me thod Room Air Documenting provider has reviewed patient's vital signs: yes
--- NOTE | 2023-01-13 13:18 | PC.SOCIAL ---
Addendum entered by ERIN De Leon 01/13/23 15:35: 4. [facility] [phone]-Another message left on availability. 5. [facility]-[phone] Another message left on availability. 6. [phone]-Another message left on availability. 7. [facility]- email sent to [email or web address] on their sites availability. 8. [facility] declined pt. again, even though pt. is not requiring a lift, due to their lifts not being large enough if pt. fell. 9. [facility] [phone]. Still has no bariatric bed available. 10. [facility] declined [facility] for [facility] program due to pt. being a SBA. All other nursing homes that take bariatric weights are 350-450lb. Original Note: 1.[facility] is unable to take pt. as they filled with ten of their own at their hospital. They may have another bed at the end of the week if pt. still needs rehab. 2. A message was left with [facility] to see if they can accept pt. with his weight and a referral was sent. , fax#[phone] 3. Another message and updated notes was sent to the [facility] for rehab. ,
--- NOTE | 2023-01-13 14:02 | PC.SOCIAL ---
[facility] declined pt. since they do not accept anyone who is a SBA for ambulation unless he has two other therapies he needs.
[2023-01-13] MEDS: ACETAMINOPHEN 325 MG TABLET 650 MG PO ×2 (14:36→22:02)
--- NOTE | 2023-01-13 18:58 | PC.NURSE ---
Nursing Care Hours: [id number] Pt this shift calm and cooperative, alert and oriented. VSS. C/o not sleeping well NOC, for unknown reason. Rates pain to R shoulder/arm 6/10, treated per eMAR. Decline heat or ice. SB assist with walker. Pt nervous and requests 2 person assist but has shown to only require 1 assist. BM after dinner on BSC. Pt heard straining aggressively. Passed a medium, very hard formed stool. Appeared to be building up aeb stool looking like a bunch of small formed large pebble sized stools clumped together to form one medium. Computer Applications Engineer advised pt throughout day to drink plenty of fluids, keep increasing activity, and eat fiber rich foods to promote easy BM. Also recommend stool softener for next couple days until desired consistency is met. Barrier cream applied to upper bilat glutes d/t redness. No wounds observed to R abdomen fold, healing on the left. Open sore to scrotum pink, no drainage. Sanders patent, sediment and blood clots noted.
[2023-01-13] MEDS: MAGNESIUM OXIDE 400 MG TABLET PO (21:44)
[2023-01-13] MEDS: AMLODIPINE 5 MG TABLET PO (21:44)
[2023-01-13] MEDS: LOSARTAN POTASSIUM 50 MG TABLET 100 MG PO (21:44)
[2023-01-13] MEDS: ENOXAPARIN 40 MG/0.4 ML INJ SUBCUT (21:44)
[2023-01-13] MEDS: TAMSULOSIN HCL 0.4 MG CAPSULE PO (21:44)
[2023-01-13] MEDS: SENNOSIDES/DOCUSATE TABLET 1 TAB PO (22:00)
[2023-01-14 02:55] VITALS: RESP 18
--- NOTE | 2023-01-14 04:59 | PC.NURSE ---
End of Shift: Pt AOx3 throughout shift, reports pain between 4-6/10 in right shoulder, well-controlled with tylenol. Pt requested stool softener d/t hard stool requiring straining yesterday, senna administered with HS meds. Abdominal folds cleaned, dried, and nystatin powder applied. Pt slept well throughout the night. Sanders catheter remained in place, patent and draining well.
[2023-01-14] MEDS: ACETAMINOPHEN 325 MG TABLET 650 MG PO ×2 (08:38→21:26)
[2023-01-14] MEDS: LACTOBACILLUS ACIDOPHILUS 1 TABLET 1 TAB PO ×3 (08:39→17:59)
[2023-01-14] MEDS: POTASSIUM CHLORIDE 10 MEQ CAPSULE ER PO (08:39)
[2023-01-14] MEDS: TORSEMIDE 5 MG TABLET 10 MG PO (08:39)
[2023-01-14] MEDS: NYSTATIN POWDER 1 APPLIC TOPICAL ×2 (08:41→21:27)
[2023-01-14 08:42] VITALS: BP 146/57; PULSE 61; RESP 20; TEMP 36.5; O2SAT 99
[2023-01-14 11:00] VITALS: BP 110/58; PULSE 81; RESP 20; TEMP 36.7; O2SAT 93
--- NOTE | 2023-01-14 12:42 | P.IMPN_ITS ---
Progress Note: A&P Assessment and plan (1) Weakness: Problem details: - 2/2 acute illness (cellulitis on admission, now resolved) longstanding inactivity - continue working with therapies - will require SNF upon discharge; appreciate assistance from SW regarding placement Status: Acute (2) Intertrigo: Problem details: - continue nystatin and skin cares, also has catheter in place to limit mo isture in groin Status: Acute (3) Morbid obesity: Problem details: - admission weight 229.5; down to 216-218 at this time - calorie restricted diet: working with multidisciplinary team regarding this Status: Chronic (4) HTN (hypertension): Problem details: - Has been on Torsemide for this (held for a few days 2/2 contraction alkalosis, restarted given stability) - currently tolerating Torsemide 10 mg for blood pressure and volume control, follow BMP Status: Chronic (5) Anasarca: Problem details: Generalized edema on presentation to the hospital. Initiated torsemide and following electrolytes. He developed a contraction alkalosis, torsemide decreased to 5 mg daily for blood pressure and volume control - Wt fluctuating and increased over last few days. Increased torsemide to 10mg/day 01/12/23. Status: Acute (6) Arthritis of knee, left: Problem details: Chronic knee arthritis with acute on chronic injury prior to admission. Status: Acute (7) Urinary retention: Problem details: Postvoid residual of 450 mL. Catheter placed to help with hygiene and healing of groin wounds. Flomax was initiated with a goal of removing catheter. Given his known urinary incontinence and cellulitis of his abdominal pannus unfolds, will continue with catheter for now to allow for continued healing of the skin. Once his ulcers have healed would like to try discontinuing the catheter to see if he can better manage his urinary function. Status: Acute (8) Lymphedema: Problem details: Improving. Continue low-dose torsemide, elevation and compression as tolerated Status: Acute (9) Acute diarrhea: Problem details: C diff negative 01/07/23, use Imodium as needed Status: Acute (10) Right shoulder pain: Problem details: Suspect rotator cuff strain/injury. Not a surgical candidate at present due to weight. Would not fit in our MRI scanner. Monitor. Continue PT/OT. Status: Acute Plan - per above - Lovenox for ppx - await SNF availability Subjective Date Seen: 01/14/23 Interval history: Royce has no concerns for hospitalist team. He is working with therapies, awaiting SNF placement. He is tolerating diuresis and working on calorie restriction, down 10+ pounds from admission. No further diarrhea, normal BM today. Exam Narrative: Exam Narrative: Gen: Alert and oriented, sitting in bedside chair HEENT: EOMIs bilaterally, oropharynx moist and clear CV: RRR, no concerning murmurs R: LCTA bilaterally without wheezing Skin: cellulitis/pannus not formally examined today Neuro: no focal deficits Const: Vital Signs, click to edit/add: Vital Signs - 24 hr 01/13/23 15:00 01/13/23 15:00 01/13/23 19:00 Temperature 97.8 F Pulse Rate [Left P ulse Oximeter] 66 75 66 Respiratory Rate 18 18 18 Blood Pressure [Le ft Arm] 136/78 Blood Pressure [Le ft forearm] 129/68 131/58 L Pulse Oximetry 95 97 Oxygen Delivery Me thod Room Air Room Air 01/13/23 23:00 01/13/23 23:23 01/14/23 02:55 Temperature Pulse Rate [Left P ulse Oximeter] Respiratory Rate 16 18 18 Blood Pressure [Le ft Arm] Blood Pressure [Le ft forearm] Pulse Oximetry Oxygen Delivery Me thod 01/14/23 08:42 01/14/23 08:42 01/14/23 11:00 Temperature 97.7 F 98.1 F Pulse Rate [Left P ulse Oximeter] 61 61 81 Respiratory Rate 20 20 20 Blood Pressure [Le ft Arm] 146/57 H Blood Pressure [Le ft forearm] 110/58 L Pulse Oximetry 99 93 Oxygen Delivery Ut thod Room Air Room Air
[2023-01-14 15:00] VITALS: BP 145/61; PULSE 60; RESP 24; TEMP 36.7; O2SAT 97
[2023-01-14 19:42] VITALS: BP 138/53; PULSE 70; RESP 20; TEMP 36.9; O2SAT 97
--- NOTE | 2023-01-14 19:53 | PC.NURSE ---
End of Shift: Patient pleasant and cooperative. Patient vitally stable, lungs clear, BS WNL, IV intact and SL. Patient had 1 large formed BM, vital intact and draining. Patient SBA/walker. Patient rates right shoulder/arm pain at most 6/10, tylenol given. Patient walked with therapies in the plasencia and spent a little more time up in the chair today. Patient tolerating regular diet.
[2023-01-14] MEDS: TAMSULOSIN HCL 0.4 MG CAPSULE PO (21:26)
[2023-01-14] MEDS: ENOXAPARIN 40 MG/0.4 ML INJ SUBCUT (21:26)
[2023-01-14] MEDS: LOSARTAN POTASSIUM 50 MG TABLET 100 MG PO (21:26)
[2023-01-14] MEDS: AMLODIPINE 5 MG TABLET PO (21:27)
[2023-01-14] MEDS: MAGNESIUM OXIDE 400 MG TABLET PO (21:27)
[2023-01-14 22:44] VITALS: RESP 20
[2023-01-15] VITALS (7 sets, daily range): BP systolic 119–136; BP diastolic 54–72; PULSE 58–72; RESP 16–20; TEMP 36.6–36.8; O2SAT 92–98
--- NOTE | 2023-01-15 06:22 | PC.NURSE ---
[id number]: Patient talkative and cooperative during shift. A1/walker. Tylenol administered for R. shoulder discomfort. Sanders cath patient. Appeared to rest well during noc.
[2023-01-15] MEDS: POTASSIUM CHLORIDE 10 MEQ CAPSULE ER PO (07:54)
[2023-01-15] MEDS: LACTOBACILLUS ACIDOPHILUS 1 TABLET 1 TAB PO ×3 (07:54→18:23)
[2023-01-15] MEDS: TORSEMIDE 5 MG TABLET 10 MG PO (07:54)
[2023-01-15] MEDS: ACETAMINOPHEN 325 MG TABLET 650 MG PO ×2 (11:42→18:23)
[2023-01-15] MEDS: NYSTATIN POWDER 1 APPLIC TOPICAL ×2 (11:43→21:23)
--- NOTE | 2023-01-15 12:30 | P.IMPN_ITS ---
Progress Note: A&P Assessment and plan (1) Weakness: Problem details: - 2/2 acute illness (cellulitis on admission, now resolved) longstanding inactivity - working with therapies - will require SNF upon discharge; appreciate assistance from SW regarding placement Status: Acute (2) Intertrigo: Problem details: - continue nystatin and skin cares, also has catheter in place to limit moisture in groin Status: Acute (3) Morbid obesity: Problem details: - admission weight 229.5; down to 216-218 at this time - calorie restricted diet: working with multidisciplinary team regarding this Status: Chronic (4) HTN (hypertension): Problem details: - Has been on Torsemide for this (held for a few days 2/2 contraction alkalosis, restarted given stability) - currently tolerating Torsemide 10 mg for blood pressure and volume control, follow BMP Status: Chronic (5) Anasarca: Problem details: - noted upon presentation to the hospital, improved with Torsemide dosing Status: Acute (6) Arthritis of knee, left: Problem details: - chronic knee arthritis with acute on chronic injury prior to admission, no acute findings on imaging Status: Acute (7) Urinary retention: Problem details: - Flomax has been initiated with a goal of removing catheter - given urinary incontinence and cellulitis of his abdominal pannus continue vital for now to allow for continued healing of the skin - once ulcers have healed, try to discontinue catheter to see if he can better manage his urinary function Status: Acute (8) Lymphedema: Problem details: - improving; continue low-dose torsemide, elevation and compression as tolerat ed Status: Acute (9) Right shoulder pain: Problem details: - suspect rotator cuff strain/injury, not a surgical candidate at present due to weight. Would not fit in our MRI scanner. Monitor. Continue PT/OT. Status: Acute Time Spent With Patient Total time spent: - per above - Lovenox for ppx Subjective Date Seen: 01/15/23 Interval history: Royce has no concerns for hospitalist team today - we discussed diet changes, weight loss, calorie restriction. He is working with therapies, awaiting SNF placement. Exam Narrative: Exam Narrative: Gen: Alert and oriented, sitting in bedside chair and speaking in full sentences HEENT: EOMIs bilaterally, oropharynx moist and clear CV: Pulse palpates and RRR R: LCTA bilaterally Skin: No skin concerns from patient, pannus not formally examined Neuro: No focal deficits, no resting tremor Psych: Normal affect Const: Vital Signs, click to edit/add: Vital Signs - 24 hr 01/14/23 15:00 01/14/23 15:00 01/14/23 19:42 Temperature 98.1 F 98.5 F Pulse Rate [Left P ulse Oximeter] 60 60 70 Respiratory Rate 24 24 20 Blood Pressure [Le ft Arm] Blood Pressure [Le ft forearm] 145/61 H 138/53 L Pulse Oximetry 97 97 Oxygen Delivery Me thod Room Air Room Air 01/14/23 22:44 01/15/23 06:00 01/15/23 07:00 Temperature 97.8 F Pulse Rate [Left P ulse Oximeter] 58 L Respiratory Rate 20 16 20 Blood Pressure [Le ft Arm] Blood Pressure [Le ft forearm] 123/62 Pulse Oximetry 98 Oxygen Delivery Me thod Room Air 01/15/23 07:00 01/15/23 11:45 Temperature 97.9 F Pulse Rate [Left P ulse Oximeter] 58 L 72 Respiratory Rate 20 20 Blood Pressure [Le ft Arm] 135/72 Blood Pressure [Le ft forearm] Pulse Oximetry 92 Oxygen Delivery Me thod Room Air
--- NOTE | 2023-01-15 16:17 | NUTR.NU ---
RDN visited with patient in room to discuss calorie restriction per MD and patient's request. Patient is on a 1500 calorie restricted diet per MD order. Calorie counts initiated today per MD order. RDN went through menu for supper this evening and all 3 meals for tomorrow. RDN planned balanced meals that fit within his diet order. Culinary services is aware of the planned meals for the patient. Patient was accepting of trying this plan. RDN will continue to monitor and follow-up tomorrow.
--- NOTE | 2023-01-15 18:39 | PC.NURSE ---
End of Shift: Patient pleasant and cooperative. Patient vitally stable, lungs clear, BS WNL, IV SL. Patient rates right arm/shoulder pain 6-7/10, tylenol given twice. Patient SBA/walker. Patient vital intact and draining, no BM. Patient's body fold washed today. Patient tolerating regular diet. Patient up in chair today and walked the halls with therapy.
[2023-01-15] MEDS: LOSARTAN POTASSIUM 50 MG TABLET 100 MG PO (21:22)
[2023-01-15] MEDS: NAPROXEN 250 MG TABLET PO (21:22)
[2023-01-15] MEDS: TAMSULOSIN HCL 0.4 MG CAPSULE PO (21:22)
[2023-01-15] MEDS: MAGNESIUM OXIDE 400 MG TABLET PO (21:22)
[2023-01-15] MEDS: ENOXAPARIN 40 MG/0.4 ML INJ SUBCUT (21:22)
[2023-01-15] MEDS: AMLODIPINE 5 MG TABLET PO (21:23)
[2023-01-16] VITALS (8 sets, daily range): BP systolic 122–140; BP diastolic 58–69; PULSE 58–84; RESP 16–28; TEMP 36.5–36.7; O2SAT 91–98
--- NOTE | 2023-01-16 06:23 | PC.NURSE ---
End of shift: Pt A&O, pleasant and cooperative. VSS w/ sats >90% on RA. Complained of 6/10 shoulder pain, PRN Naproxen given w/ stated relief. Sanders patent and draining. Nystatin powered placed in left arm pit and body folds. Restful vitals overnight.
[2023-01-16] MEDS: LACTOBACILLUS ACIDOPHILUS 1 TABLET 1 TAB PO ×3 (07:34→17:56)
[2023-01-16] MEDS: TORSEMIDE 5 MG TABLET 10 MG PO (07:34)
[2023-01-16 07:36] LABS: Chloride* 100 mmol/L (96-114); Potassium* 3.8 mmol/L (3.6-5.1); Sodium* 137 mmol/L (135-149)
[2023-01-16 07:39] LABS: Blood Urea Nitrogen* 27 mg/dL (7-30); Carbon Dioxide* 31 mmol/L (20-32); Creatinine* 0.9 mg/dL (0.5-1.5); Estimated Glomerular Filt Rate 89 ml/min; Glucose* 94 mg/dL (60-115)
[2023-01-16] MEDS: POTASSIUM CHLORIDE 10 MEQ CAPSULE ER PO (08:53)
[2023-01-16] MEDS: NYSTATIN POWDER 1 APPLIC TOPICAL ×2 (08:53→21:44)
--- NOTE | 2023-01-16 10:48 | NUTR.NU ---
RDN followed up with patient to discuss calorie restriction and planning meals. Patient is currently on a 1500 calorie restricted diet per MD order. Calorie counts initiated yesterday per MD order. RDN went through menu for all meals tomorrow (Friday, January 16). RDN planned balanced meals that fit within his diet order. RDN plans to visit with patient tomorrow to plan meals through weekend. Patient is in agreement to this plan and reported that he is very interested in following his current diet. Culinary services is aware of the planned meals for the patient. Patient did express desire to have dessert more often - RDN encouraged patient to talk with this to MD. RDN will continue to monitor and follow-up tomorrow.
--- NOTE | 2023-01-16 11:44 | PM.IMPN1 ---
Progress Note: A&P Assessment and plan (1) Weakness: Problem details: - 2/2 acute illness (cellulitis on admission, now resolved) longstanding inactivity - working with therapies - will require SNF upon discharge; appreciate assistance from SW regarding placement Status: Acute (2) Intertrigo: Problem details: - continue nystatin and skin cares, also has catheter in place to limit moisture in groin Status: Acute (3) Morbid obesity: Problem details: - admission weight 229.5; down to 216 at this time (01/16) - calorie restricted diet: working with multidisciplinary team regarding this Status: Chronic (4) HTN (hypertension): Problem details: - Has been on Torsemide for this (held for a few days 2/2 contraction alkalosis, restarted given stability) - currently tolerating Torsemide 10 mg for blood pressure and volume control, BMPs stable Status: Chronic (5) Anasarca: Problem details: - noted upon presentation to the hospital, significantly improved with Torsemide dosing Status: Acute (6) Arthritis of knee, left: Problem details: - chronic knee arthritis with acute on chronic injury prior to admission, no acute findings on imaging Status: Acute (7) Urinary retention: Problem details: - Flomax has been initiated with a goal of removing catheter - given urinary incontinence and cellulitis of his abdominal pannus continue vital for now to allow for continued healing of the skin - when medically appropriate, will remove catheter to see if he can better manage his urinary function Status: Acute (8) Lymphedema: Problem details: - improving; continue low-dose torsemide, elevation and compression as tolerated Status: Acute (9) Right shoulder pain: Problem details: - suspect rotator cuff strain/injury, not a surgical candidate at present due to weight. Would not fit in our MRI scanner. Monitor. Continue PT/OT. Status: Acute Plan - per above - Lovenox for ppx - to SNF when bed available Subjective Date Seen: 01/16/23 Interval history: Xavier was admitted on 12/30 for weakness in the setting of cellulitis/yeast dermatitis. He has lost >10 kg since admission, continues to work with Nutrition and therapy teams. We continue to await SNF placement for rehab - bed availability is limited at this time. Exam Narrative: Exam Narrative: GEN: Alert and oriented, speaking in full sentences without dyspnea HEENT: Normal external ears, EOMIs bilaterally, no scleral icterus CV: RRR, No concerning murmurs R: LCTA bilaterally without concerning wheezing, rales, or rhonchi Ab: No erythema noted, some skin changes noted of distal pannus, multiple open comedones noted. No ttp Ext: No concerning edema Skin: Intertrigo in abdominal skin folds, improved from admission Neuro: No focal deficits, no resting tremor Psych: Appropriate Const: Vital Signs, click to edit/add: Vital Signs - 24 hr 01/15/23 11:45 01/15/23 15:49 01/15/23 15:49 Temperature 97.9 F 97.9 F Pulse Rate [Left P ulse Oximeter] 72 62 62 Respiratory Rate 20 20 20 Blood Pressure [Le ft Arm] 135/72 Blood Pressure [Le ft forearm] 131/54 L Pulse Oximetry 92 96 Oxygen Delivery Me thod Room Air Room Air 01/15/23 20:18 01/15/23 23:10 01/15/23 23:30 Temperature 98.3 F 97.9 F Pulse Rate [Left P ulse Oximeter] 64 62 Respiratory Rate 20 18 18 Blood Pressure [Le ft Arm] Blood Pressure [Le ft forearm] 136/61 119/57 L Pulse Oximetry 95 96 Oxygen Delivery Ri thod Room Air Room Air 01/16/23 03:00 01/16/23 06:23 01/16/23 07:36 Temperature 97.7 F Pulse Rate [Left P ulse Oximeter] 59 L Respiratory Rate 18 20 Blood Pressure [Le ft Arm] Blood Pressure [Le ft forearm] 126/65 Pulse Oximetry 96 Oxygen Delivery Ri thod Room Air 01/16/23 07:36 01/16/23 11:39 Temperature 97.8 F Pulse Rate [Left P ulse Oximeter] 59 L 84 Respiratory Rate 20 28 H Blood Pressure [Le ft Arm] Blood Pressure [Le ft forearm] 122/69 Pulse Oximetry 91 Oxygen Delivery Me thod Room Air Labs Labs: Laboratory Results - last 24 hr 01/16/23 06:19 Sodium 137 Potassium 3.8 Chloride 100 Carbon Dioxide 31 BUN 27 Creatinine 0.9 Estimated Creat Clear 60.80 Estimated GFR 89 Glucose 94 Calcium 9.0
[2023-01-16] MEDS: NAPROXEN 250 MG TABLET PO (14:13)
[2023-01-16] MEDS: ACETAMINOPHEN 325 MG TABLET 650 MG PO ×2 (14:13→21:43)
--- NOTE | 2023-01-16 19:45 | PC.NURSE ---
End of Shift: Patient pleasant and cooperative. Patient vitally stable, lungs clear, BS WNL, IV intact, No IV. Patient reports right arm/shoulder pain 6-7/10, tylenol and naproxen given. Patient SBA/walker, up in chair for meal. Patient tolerating regular diet. Sanders intact and draining. Patient had 2 BMs today. Patient skin folds cleaned and Nystatin applied. Patient meals are organized by nutrition and are ordered in advanced.
[2023-01-16] MEDS: TAMSULOSIN HCL 0.4 MG CAPSULE PO (21:43)
[2023-01-16] MEDS: LOSARTAN POTASSIUM 50 MG TABLET 100 MG PO (21:43)
[2023-01-16] MEDS: MAGNESIUM OXIDE 400 MG TABLET PO (21:43)
[2023-01-16] MEDS: AMLODIPINE 5 MG TABLET PO (21:43)
[2023-01-16] MEDS: ENOXAPARIN 40 MG/0.4 ML INJ SUBCUT (21:44)
[2023-01-17] VITALS (7 sets, daily range): BP systolic 121–136; BP diastolic 54–70; PULSE 59–77; RESP 17–18; TEMP 36.5–36.9; O2SAT 92–96
--- NOTE | 2023-01-17 05:11 | PC.NURSE ---
Shift note: Pt has been in bed throughout the shift. Abdominal skin folds were cleaned and nystatin powder applied. Redness at the groin has subsided. Alert and oriented. Vitally stable.Minimal pain of 4 reported and managed with tylenol.
[2023-01-17] MEDS: TORSEMIDE 5 MG TABLET 10 MG PO (07:42)
[2023-01-17] MEDS: NAPROXEN 250 MG TABLET PO (07:43)
[2023-01-17] MEDS: LACTOBACILLUS ACIDOPHILUS 1 TABLET 1 TAB PO ×3 (07:43→18:27)
[2023-01-17] MEDS: NYSTATIN POWDER 1 APPLIC TOPICAL ×2 (08:48→20:58)
[2023-01-17] MEDS: POTASSIUM CHLORIDE 10 MEQ CAPSULE ER PO (08:48)
--- NOTE | 2023-01-17 11:12 | PC.SOCIAL ---
Discharge planning: Called [facility] [phone] that now states that they are experiencing some bed opening issues but might have something available next mid week. They suggest calling back on , 01/22/2023.
--- NOTE | 2023-01-17 11:35 | P.IMPN_ITS ---
Progress Note: A&P Assessment and plan (1) Weakness: Problem details: - 2/2 acute illness (cellulitis on admission, now resolved) longstanding inactivity - working with therapies - will require SNF upon discharge; appreciate assistance from SW regarding placement Status: Acute (2) Intertrigo: Problem details: - continue nystatin and skin cares, also has catheter in place to limit moisture in groin Status: Acute (3) Morbid obesity: Problem details: - admission weight 229.5; down to 215 at this time (01/17) - calorie restricted diet: working with multidisciplinary team regarding this Status: Chronic (4) HTN (hypertension): Problem details: - Has been on Torsemide for this (held for a few days 2/2 contraction alkalosis, restarted given stability) - currently tolerating Torsemide 10 mg for blood pressure and volume control, BMPs stable Status: Chronic (5) Anasarca: Problem details: - noted upon presentation to the hospital, significantly improved with Torsemide dosing Status: Acute (6) Arthritis of knee, left: Problem details: - chronic knee arthritis with acute on chronic injury prior to admission, no acute findings on imaging Status: Acute (7) Urinary retention: Problem details: - Flomax has been initiated with a goal of removing catheter - given urinary incontinence and cellulitis of his abdominal pannus continue vital for now to allow for continued healing of the skin - when medically appropriate, will remove catheter to see if he can better manage his urinary function (patient not ready as of 01/17) Status: Acute (8) Lymphedema: Problem details: - improving; continue low-dose torsemide, elevation and compression as tolerated Status: Acute (9) Right shoulder pain: Problem details: - suspect rotator cuff strain/injury, not a surgical candidate at present due to weight. Would not fit in our MRI scanner. Monitor. Continue PT/OT. Status: Acute Plan - per above - Lovenox for prophylaxis Subjective Date Seen: 01/17/23 Interval history: Xavier was admitted on 12/30 for weakness in the setting of cellulitis/yeast dermatitis. He continues to work with Nutrition and therapy teams, ambulating further dis tances daily. We discussed his diet, weight loss, and progress. He is not yet ready to remove his Vital given history of incontinence and fear of cellulitis recurrence. We continue to await SNF placement for rehab. Exam Narrative: Exam Narrative: Patient is sitting comfortably in bedside chair. He is alert and oriented, nontoxic in appearance. Formal exam deferred today given stability. Const: Vital Signs, click to edit/add: Vital Signs - 24 hr 01/16/23 11:39 01/16/23 15:40 01/16/23 15:40 Temperature 97.8 F 97.9 F Pulse Rate [Left P ulse Oximeter] 84 65 65 Respiratory Rate 28 H 16 16 Blood Pressure [Le ft Arm] 127/62 Blood Pressure [Le ft forearm] 122/69 Pulse Oximetry 91 98 Oxygen Delivery Me thod Room Air Room Air 01/16/23 19:00 01/16/23 23:00 01/16/23 23:30 Temperature 97.9 F 98.1 F Pulse Rate [Left P ulse Oximeter] 60 58 L Respiratory Rate 16 16 18 Blood Pressure [Le ft Arm] Blood Pressure [Le ft forearm] 140/60 H 127/58 L Pulse Oximetry 97 93 Oxygen Delivery Me thod Room Air Room Air 01/17/23 05:42 01/17/23 07:35 01/17/23 11:29 Temperature 97.8 F 97.8 F Pulse Rate [Left P ulse Oximeter] 59 L 77 Respiratory Rate 18 18 18 Blood Pressure [Le ft Arm] Blood Pressure [Le ft forearm] 121/54 L 136/70 Pulse Oximetry 96 92 Oxygen Delivery Me thod Room Air Room Air
--- NOTE | 2023-01-17 14:13 | PC.NURSE ---
shift note: pt up to recliner and ambulated in plasencia 1/walker. pt received prn naproxen for rt shoulder pain /10 and stated relief an hour after admin. pt tolerated diet. groin creases flesh color with small breaks in the skin. Area cleansed with warm/soup water then nystantin applied with dry cloth applied into creases. scrotum with small open area. araseli care preformed with soap/warm water. Dr. Brito updated on pt's skin/wounds. LS clr. vss stable.
--- NOTE | 2023-01-17 14:29 | NUTR.NU ---
Nutrition follow up: Patient is currently on a 1500 calorie restricted diet per MD order. Patient reports that he feels like his diet plan is going well. He is not feeling hungry. We reviewed his menu through Saturday 01/20. We were able to balance in some small portions of desserts within his calorie level. He also had questions regarding fat and how this plays a role in his diet. He was educated on the different types of fat including animal fat sources. Discussed importance of choosing plant fats (unsaturated fats) most often. Calorie counts were initiated on 01/15 per MD order. RDN reviewed these today. Patient is eating 100% of a calorie controlled diet. Recommend to D/C calorie counts at this time. Patient continues to be in agreement with this diet plan. Culinary services is aware of the planned meals for the patient. RDN will continue to monitor and follow up on 01/20.
[2023-01-17] MEDS: LOSARTAN POTASSIUM 50 MG TABLET 100 MG PO (20:57)
[2023-01-17] MEDS: TAMSULOSIN HCL 0.4 MG CAPSULE PO (20:57)
[2023-01-17] MEDS: MAGNESIUM OXIDE 400 MG TABLET PO (20:57)
[2023-01-17] MEDS: AMLODIPINE 5 MG TABLET PO (20:57)
[2023-01-17] MEDS: ACETAMINOPHEN 325 MG TABLET 650 MG PO (20:57)
[2023-01-17] MEDS: ENOXAPARIN 40 MG/0.4 ML INJ SUBCUT (20:58)
[2023-01-18 03:00] VITALS: RESP 18
[2023-01-18 06:00] VITALS: RESP 18
--- NOTE | 2023-01-18 06:53 | PC.NURSE ---
Shift note: Pt has been in bed throughout the shift. Alert and oriented and denied any pain. Groin and abdominal folds cleaned, mild redness not at the right groin. Urinary catheter patent with sediment in urine. Normal urine odor.
[2023-01-18 07:46] VITALS: BP 119/62; PULSE 55; RESP 18; TEMP 36.7; O2SAT 99
[2023-01-18] MEDS: LACTOBACILLUS ACIDOPHILUS 1 TABLET 1 TAB PO ×3 (08:15→17:24)
[2023-01-18] MEDS: TORSEMIDE 5 MG TABLET 10 MG PO (08:15)
[2023-01-18] MEDS: NAPROXEN 250 MG TABLET PO (08:15)
[2023-01-18] MEDS: POTASSIUM CHLORIDE 10 MEQ CAPSULE ER PO (09:01)
[2023-01-18] MEDS: NYSTATIN POWDER 1 APPLIC TOPICAL ×2 (11:51→20:33)
--- NOTE | 2023-01-18 12:34 | PM.IMPN1 ---
Progress Note: A&P Assessment and plan (1) Weakness: Problem details: - 2/2 acute illness (cellulitis on admission, now resolved) longstanding inactivity - completed course of IV Ancef for cellulitis - working with therapies - will require SNF upon discharge; appreciate assistance from TIFFANIE regarding placement Status: Acute (2) Intertrigo: Problem details: - continue nystatin and skin cares, also has catheter in place to limit moisture in groin Status: Acute (3) Morbid obesity: Problem details: - admission weight 229.5; down to 215-216 - calorie restricted diet: working with multidisciplinary team regarding this Status: Chronic (4) HTN (hypertension): Problem details: - Has been on Torsemide for this (held for a few days 2/2 contraction alkalosis, restarted given stability) - currently tolerating Torsemide 10 mg for blood pressure and volume control, following BMPs Status: Chronic (5) Anasarca: Problem details: - noted upon presentation to the hospital, significantly improved with Torsemide dosing Status: Acute (6) Arthritis of knee, left: Problem details: - chronic knee arthritis with acute on chronic injury prior to admission, no acute findings on imaging Status: Acute (7) Urinary retention: Problem details: - Flomax has been initiated with a goal of removing catheter - given urinary incontinence and cellulitis of his abdominal pannus continue vital for now to allow for continued healing of the skin - when medically appropriate, will remove catheter to see if he can better manage his urinary function (patient not ready as of 01/18) Status: Acute (8) Lymphedema: Problem details: - improving; continue low-dose torsemide, elevation and compression as tolerated Status: Acute (9) Right shoulder pain: Problem details: - suspect rotator cuff strain/injury, not a surgical candidate at present due to weight. Would not fit in our MRI scanner. Monitor. Continue PT/OT. Status: Acute (10) Neck mass: Problem details: - will obtain ultrasound to better characterize - no red flag symptoms Status: Acute Plan - per above - Lovenox for ppx - dispo: to SNF when bed available; may be able to discharge home with [facility] next week if we are still unable to place Subjective Date Seen: 01/18/23 Interval history: Xavier was admitted on 12/30 for weakness in the setting of cellulitis/yeast dermatitis. His wound culture grew E Coli and he has completed a course of IV Ancef. He continues to work with Nutrition and therapy teams and is following a 1500 mateusz/d diet. Today, he notes a lump in his R neck. No significant ttp, no trismus, no ear pain. We continue to await SNF placement for rehab. Exam Narrative: Exam Narrative: GEN: Alert and oriented, nontoxic, sitting comfortably in bed HEENT: Normal external ears, EOMIs bilaterally, no scleral icterus. Mass R cervical region, firm and nontender, >1cm in diameter R: Breathing comfortably without tachypnea Ext: LE edema continues to improve Skin: Formal exam of perineum not performed today Neuro: Nonfocal Psych: Appropriate Const: Vital Signs, click to edit/add: Vital Signs - 24 hr 01/17/23 15:00 01/17/23 19:00 01/17/23 23:00 Temperature 98.5 F 97.9 F 97.7 F Pulse Rate [Left P ulse Oximeter] 67 67 63 Respiratory Rate 18 17 18 Blood Pressure [Le ft forearm] 128/68 125/59 L 133/59 L Pulse Oximetry 96 95 92 Oxygen Delivery Me thod Room Air Room Air Room Air 01/17/23 23:30 01/18/23 03:00 01/18/23 06:00 Temperature Pulse Rate [Left P ulse Oximeter] Respiratory Rate 18 18 18 Blood Pressure [Le ft forearm] Pulse Oximetry Oxygen Delivery Me thod 01/18/23 07:46 Temperature 98.1 F Pulse Rate [Left P ulse Oximeter] 55 L Respiratory Rate 18 Blood Pressure [Le ft forearm] 119/62 Pulse Oximetry 99 Oxygen Delivery Me thod
--- NOTE | 2023-01-18 15:06 | PC.NURSE ---
shift note: pt up 1/walker amb in plasencia x2. pt medicated for 5/10 rt shoulder pain this a.m with relief. vital patent. Urine cloudy and light mateus. LS clr. HR reg. vss stable. No redness in groin. area cleaned with soap & water then nystantin applied.
[2023-01-18 15:38] VITALS: BP 117/52; PULSE 62; RESP 18; TEMP 36.8; O2SAT 95
[2023-01-18] MEDS: ACETAMINOPHEN 325 MG TABLET 650 MG PO ×2 (15:42→22:01)
[2023-01-18] MEDS: ENOXAPARIN 40 MG/0.4 ML INJ SUBCUT (20:32)
[2023-01-18] MEDS: MAGNESIUM OXIDE 400 MG TABLET PO (20:33)
[2023-01-18] MEDS: TAMSULOSIN HCL 0.4 MG CAPSULE PO (20:33)
[2023-01-18 20:50] VITALS: RESP 18
[2023-01-18] MEDS: LOSARTAN POTASSIUM 50 MG TABLET 100 MG PO (21:59)
[2023-01-18] MEDS: AMLODIPINE 5 MG TABLET PO (22:00)
[2023-01-19 06:00] VITALS: RESP 20
--- NOTE | 2023-01-19 06:51 | PC.NURSE ---
END OF SHIFT NOTE: PT PLEASANT AND COOPERATIVE WITH CARES. A&Ox4. DENIES CP, SOB, N/V. PT DID NOT AMBULATE THIS SHIFT. PT WAS OFFLOADED WITH PILLOWS PRN. VSS ON RA; AFEBRILE. PT RATED PAIN TO RIGHT SHOULDER/ARM 5/10 WITH RELIEF FROM PRN TYLENOL. ROQUE INTACT AND DRAINING SHANNON COLORED URINE. RESTFUL NIGHT VS IN PLACE. PT SLEPT WELL. UNEVENTFUL SHIFT. CALL LIGHT WITHIN PT?S REACH.?
[2023-01-19 07:56] LABS: Chloride* 101 mmol/L (96-114)
[2023-01-19 07:57] LABS: Potassium* 3.7 mmol/L (3.6-5.1); Sodium* 138 mmol/L (135-149)
[2023-01-19 07:59] LABS: Estimated Glomerular Filt Rate 78 ml/min
[2023-01-19 08:00] LABS: Blood Urea Nitrogen* 27 mg/dL (7-30); Carbon Dioxide* 33 mmol/L (20-32); Glucose* 92 mg/dL (60-115)
[2023-01-19 08:28] VITALS: BP 140/74; PULSE 68; RESP 18; TEMP 36.4; O2SAT 96
[2023-01-19] MEDS: TORSEMIDE 5 MG TABLET 10 MG PO (09:06)
[2023-01-19] MEDS: POTASSIUM CHLORIDE 10 MEQ CAPSULE ER PO (09:06)
[2023-01-19] MEDS: LACTOBACILLUS ACIDOPHILUS 1 TABLET 1 TAB PO ×3 (09:07→17:25)
[2023-01-19] MEDS: NYSTATIN POWDER 1 APPLIC TOPICAL ×2 (09:07→20:17)
--- NOTE | 2023-01-19 14:11 | PM.IMPN1 ---
Progress Note: A&P Assessment and plan (1) Weakness: Problem details: - 2/2 acute illness (cellulitis on admission, now resolved) longstanding inactivity - completed course of IV Ancef for cellulitis - working with therapies - will require SNF upon discharge; appreciate assistance from SW regarding placement Status: Acute (2) Intertrigo: Problem details: - continue nystatin and skin cares, also has catheter in place to limit moisture in groin Status: Acute (3) Morbid obesity: Problem details: - admission weight 229.5; down to 215-216. 24 lb. - calorie restricted diet: working with multidisciplinary team regarding this Status: Chronic (4) HTN (hypertension): Problem details: - Has been on Torsemide for this (held for a few days 2/2 contraction alkalosis, restarted given stability) - currently tolerating Torsemide 10 mg for blood pressure and volume control, following BMPs Status: Chronic (5) Anasarca: Problem details: - noted upon presentation to the hospital, significantly improved with Torsemide dosing Status: Acute (6) Arthritis of knee, left: Problem details: - chronic knee arthritis with acute on chronic injury prior to admission, no acute findings on imaging Status: Acute (7) Urinary retention: Problem details: - Flomax has been initiated with a goal of removing catheter - given urinary incontinence and cellulitis of his abdominal pannus continue vital for now to allow for continued healing of the skin - when medically appropriate, will remove catheter to see if he can better manage his urinary function (patient not ready as of 01/18) Status: Acute (8) Lymphedema: Problem details: - improving; continue low-dose torsemide, elevation and compression as tolerated Status: Acute (9) Right shoulder pain: Problem details: - suspect rotator cuff strain/injury, not a surgical candidate at present due to weight. Would not fit in our MRI scanner. Monitor. Continue PT/OT. Status: Acute (10) Neck mass: Problem details: - will obtain ultrasound to better characterize - no red flag symptoms Status: Acute Subjective Date Seen: 01/19/23 Interval history: Daily Progress Note - Hospital Medicine Day #: 21 CC: cellulitis, morbid obesity, poor self care OVERNIGHT UPDATES FROM STAFF & MED, LAB, IMAGING UPDATES Medically stable. No new concerns from hospital medicine staff. Continues to work with PT/OT. weight loss 24.2lbs. Transitioned from IV antibiotics on oral abx and topical yeast care for massive panniculitis. His wound culture grew E Coli and he has completed a course of IV Ancef. He continues to work with Nutrition and therapy teams and is following a 1500 mateusz/d diet. Today, he notes a lump in his R neck. No significant ttp, no trismus, no ear pain. We continue to await SNF placement for rehab. Objective: Alert. Interactive. Vitals: see above Lungs: Clear. Cardiac: S1S2. Pannus not directly observed today Disposition/Potential discharge - Likely to return to previous living situation. Exam Const: Vital Signs, click to edit/add: Vital Signs - 24 hr 01/18/23 15:38 01/18/23 20:50 01/19/23 06:00 Temperature 98.2 F Pulse Rate [Left P ulse Oximeter] 62 Respiratory Rate 18 18 20 Blood Pressure [Le ft forearm] 117/52 L Pulse Oximetry 95 Oxygen Delivery Me thod Room Air 01/19/23 08:28 Temperature 97.5 F L Pulse Rate [Left P ulse Oximeter] 68 Respiratory Rate 18 Blood Pressure [Le ft forearm] 140/74 H Pulse Oximetry 96 Oxygen Delivery Me thod Room Air Labs Labs: Laboratory Results - last 24 hr 01/19/23 06:42 Sodium 138 Potassium 3.7 Chloride 101 Carbon Dioxide 33 H BUN 27 Creatinine 1.0 Estimated Creat Clear 60.80 Estimated GFR 78 Glucose 92 Calcium 9.0
[2023-01-19] MEDS: ACETAMINOPHEN 325 MG TABLET 650 MG PO (16:09)
[2023-01-19] MEDS: ENOXAPARIN 40 MG/0.4 ML INJ SUBCUT (20:15)
[2023-01-19] MEDS: NAPROXEN 250 MG TABLET PO (20:16)
[2023-01-19] MEDS: MAGNESIUM OXIDE 400 MG TABLET PO (20:16)
[2023-01-19] MEDS: TAMSULOSIN HCL 0.4 MG CAPSULE PO (20:16)
[2023-01-19 21:30] VITALS: BP 123/59; PULSE 64; RESP 18; TEMP 36.7; O2SAT 94
[2023-01-19] MEDS: LOSARTAN POTASSIUM 50 MG TABLET 100 MG PO (22:05)
[2023-01-19] MEDS: AMLODIPINE 5 MG TABLET PO (22:06)
[2023-01-20] VITALS (7 sets, daily range): BP systolic 125–134; BP diastolic 51–60; PULSE 58–61; RESP 16–20; TEMP 36.5–36.7; O2SAT 93–96
--- NOTE | 2023-01-20 05:39 | PC.NURSE ---
END OF SHIFT NOTE: PT PLEASANT AND COOPERATIVE WITH CARES. A&Ox4. ON RESTFUL NIGHT VS. DENIES CP, SOB, N/V. PT REMAINED IN BED THIS SHIFT. VSS ON RA; AFEBRILE. PT RATES RIGHT ARM/SHOULDER PAIN 5/10 WITH RELIEF FROM NAPROXEN. CALL LIGHT WITHIN PT?S REACH. PT AWAITING PLACEMENT OR ALL CLEAR BY PT TO RETURN HOME.
--- NOTE | 2023-01-20 07:00 | CRLHL7_ITS ---
For Patients: As a result of the Century Cures Act, medical imaging exams and procedure reports are released immediately into your electronic medical record. You may view this report before your referring provider. If you have questions, please contact your health care provider. INDICATION: Palpable lump inferior to the right mandible. TECHNIQUE: Directed soft tissue ultrasound of the superior lateral right neck inferior to the mandibular angle. FINDINGS: There is a well-circumscribed slightly lobulated 1.5 x 1.2 x 1.4 cm hypoechoic solid nodule with increased through transmission of sound with only minimal vascularity at one edge. While this is in a location typical for lymph nodes, this is not a normal-appearing lymph node. It is uncertain if this is within or adjacent to the parotid gland or not. Its appearance is indeterminate. Consider a contrast enhanced CT of the neck as a first step. Fine-needle aspiration/biopsy may be required depending on the results of those additional images. IMPRESSION: Lobulated solid hypoechoic 1.5 x 1.2 x 1.4 cm nodule near the right mandibular angle for which additional imaging is recommended. Dictated by Alex Love MD @ 01/20/2023 8:54:32 AM (Electronically Signed)
[2023-01-20] MEDS: TORSEMIDE 5 MG TABLET 10 MG PO (08:13)
[2023-01-20] MEDS: LACTOBACILLUS ACIDOPHILUS 1 TABLET 1 TAB PO ×3 (08:13→17:59)
[2023-01-20] MEDS: NYSTATIN POWDER 1 APPLIC TOPICAL ×2 (09:03→21:08)
[2023-01-20] MEDS: POTASSIUM CHLORIDE 10 MEQ CAPSULE ER PO (09:03)
--- NOTE | 2023-01-20 09:24 | CRLHL7_ITS ---
For Patients: As a result of the Century Cures Act, medical imaging exams and procedure reports are released immediately into your electronic medical record. You may view this report before your referring provider. If you have questions, please contact your health care provider. INDICATION: Right neck mass seen on ultrasound TECHNIQUE: CT of the neck with 150 ml iodinated contrast agent. Coronal and sagittal reconstructions are included. COMPARISON: Soft tissue neck ultrasound from same day, CT neck 07/10/2012 FINDINGS: There is an ovoid enhancing soft tissue structure along the lateral aspect of the superficial lobe right parotid gland, measuring approximately 1.5 cm maximal dimension. This appears to correspond to the abnormality noted on earlier same-day ultrasound. On review of the 07/10/2012 exam, multiple nodular foci are present throughout the bilateral parotid glands, typical of intra parotid lymph nodes, including the above-noted ovoid nodule which measured 1.0 cm at that time. No pathologically enlarged cervical chain lymph nodes identified. The oral cavity, pharyngeal mucosal spaces, and laryngeal structures are unremarkable. Visualized airway is grossly patent. Bilateral parotid and submandibular glands are otherwise unremarkable. Thyroid gland is unremarkable. Vascular structures of the neck opacify normally with contrast. Scattered spondylosis, with bulky anterolateral projecting osteophytes/bridging syndesmophytes throughout the cervical and included upper thoracic spine. No suspicious lytic or blastic osseous lesions identified. Degenerative changes are noted at the bilateral sternoclavicular and glenohumeral joints. Included orbits and intracranial structures are unremarkable for technique. No focal mass or consolidation identified within the included lung apices. IMPRESSION: 1. Nonspecific 1.5 cm ovoid enhancing nodule within the superficial lobe of the right parotid gland. Multiple small ovoid nodules were present in the bilateral parotid glands on a 2013 CT neck exam, suggestive of incidental intra parotid lymph nodes. However the above-noted nodule has increased in size over the interval. Clinical correlation and potential soft tissue sampling advised for further characterization. 2. No other focal neck mass or suspicious cervical lymphadenopathy identified. No evidence of airway compromise. Please note that all CT scans at this facility use dose modulation, iterative reconstruction, and/or weight-based dosing when appropriate to reduce radiation dose to as low as reasonably achievable. Dictated by Mili Avitia MD @ 01/20/2023 12:41:15 PM (Electronically Signed)
--- NOTE | 2023-01-20 10:28 | PM.IMPN1 ---
Progress Note: A&P Assessment and plan (1) Weakness: Problem details: - 2/2 acute illness (cellulitis on admission, now resolved) longstanding inactivity - completed course of IV Ancef for cellulitis - working with therapies - will require SNF upon discharge vs home with HH; appreciate assistance from SW regarding placement Status: Acute (2) Intertrigo: Problem details: - continue nystatin and skin cares - will remove Vital on 01/20 Status: Acute (3) Morbid obesity: Problem details: - admission weight 229.5; down to 209kg on 01/20 - calorie restricted diet: working with multidisciplinary team regarding this Status: Chronic (4) HTN (hypertension): Problem details: - Continue home doses of Amlodipine and Losartan - Torsemide added (held for a few days 2/2 contraction alkalosis, restarted given stability) - currently tolerating Torsemide 10 mg for blood pressure and volume control, BMPs have been stable Status: Chronic (5) Anasarca: Problem details: - noted upon presentation to the hospital, significantly improved with Torsemide dosing Status: Acute (6) Arthritis of knee, left: Problem details: - chronic knee arthritis with acute on chronic injury prior to admission, no acute findings on imaging Status: Acute (7) Urinary retention: Problem details: - given urinary incontinence and cellulitis of his abdominal pannus, vital placed on admission to assist with skin healing and therapies - Flomax initiated upon admission with goal of removing Vital - Patient amenable to removal of Vital on 01/20 Status: Acute (8) Lymphedema: Problem details: - improving; continue low-dose torsemide, elevation and compression as tolerated Status: Acute (9) Right shoulder pain: Problem details: - suspect rotator cuff strain/injury, not a surgical candidate at present due to weight. Would not fit in our MRI scanner. Monitor. Continue PT/OT. Status: Acute (10) Neck mass: Problem details: - no red flag symptoms - Ultrasound nondiagnostic, CT neck recommended and ordered 01/20 Status: Acute Plan - per above - Lovenox for ppx - dispo: pending SNF availability Subjective Date Seen: 01/20/23 Interval history: Xavier was admitted on 12/30 for acute on chronic weakness in the setting of cellulitis and severe intertrigo. He has completed a course of IV Ancef and is medically stable at this time, working with nutrition for weight loss (tolerating calorie restriction and continues to lose weight). Therapies and Social Work are assisting in discharge planning; we continue to await a SNF bed. 2 days ago, he noted a mass in his R neck; ultrasound completed this morning and CT recommended to further characterize mass. He is amenable to removal of Vital catheter today, as continence and araseli care will be a large part of his discharge plan. Exam Narrative: Exam Narrative: GEN: Alert, oriented, answering questions appropriately HEENT: EOMIs bilaterally, no scleral icterus CV: RRR, No concerning murmurs R: No tachypnea, no wheezing Ext: No concerning edema Skin: No concerning skin lesions or rashes on exposed skin, pannus not formally examined today Neuro: Nonfocal Psych: Appropriate Const: Vital Signs, click to edit/add: Vital Signs - 24 hr 01/19/23 21:30 01/19/23 21:30 01/20/23 05:37 Temperature 98.0 F Pulse Rate [Left P ulse Oximeter] 64 Respiratory Rate 18 18 20 Blood Pressure [Le ft forearm] 123/59 L Pulse Oximetry 94 Oxygen Delivery Me thod Room Air 01/20/23 08:29 01/20/23 08:30 Temperature 98.0 F Pulse Rate [Left P ulse Oximeter] 58 L 58 L Respiratory Rate 20 20 Blood Pressure [Le ft forearm] 127/60 Pulse Oximetry 96 Oxygen Delivery Me thod Room Air
--- NOTE | 2023-01-20 10:40 | NUTR.NU ---
Nutrition follow up: Patient is currently on a 1500 calorie restricted diet per MD order. Patient reports that he feels like his diet plan is going well and has no questions or concerns at this time. He continues to not feel hungry. RDN and patient reviewed his menu through Friday01/22/23. We were able to balance in some small portions of desserts within his calorie level. Per molecular genetic pathologist, patient has been eating 100% of meals the past ~3 days. Patient continues to be in agreement with this diet plan. Culinary services is aware of the planned meals for the patient. RDN will continue to monitor and follow up on 01/22.
--- NOTE | 2023-01-20 14:24 | PC.SOCIAL ---
Met with pt. again to discuss discharge plans. The [facility] that can accept pt.'s weight still do not have openings except for [facility] at fax# [phone]. [facility] has been attempted 2x before for pt. and they never respond back after a referral is sent. Spoke with admissions again at [facility] and they have bariatric bed openings and requested pt.'s information be sent. Gave pt. a list of area home management supervisor agencies to call and get prices and availability from if SNF' continue to not have beds. Pt. will then discharge home with home care and home management supervisor care.
[2023-01-20] MEDS: ACETAMINOPHEN 325 MG TABLET 650 MG PO (17:02)
--- NOTE | 2023-01-20 18:27 | PC.NURSE ---
End of shift: patient pleasant and cooperative w/cares. Patient alert and oriented x4. Patient c/o right arm pain from working w/Therapy all day, PRN tylenol administered. Sanders catheter DC'd today at 1030. Tip intact, patient tolerated well and has been ambulating to bedside commode Q2 hrs to retrain bladder. Patient up to chair for meals. VSS on RA, afebrile this shift. Plan for patient is DC home with homecare and home visits nurse.
[2023-01-20] MEDS: ENOXAPARIN 40 MG/0.4 ML INJ SUBCUT (21:06)
[2023-01-20] MEDS: TAMSULOSIN HCL 0.4 MG CAPSULE PO (21:07)
[2023-01-20] MEDS: NAPROXEN 250 MG TABLET PO (21:07)
[2023-01-20] MEDS: MAGNESIUM OXIDE 400 MG TABLET PO (21:07)
[2023-01-20] MEDS: LOSARTAN POTASSIUM 50 MG TABLET 100 MG PO (21:59)
[2023-01-20] MEDS: AMLODIPINE 5 MG TABLET PO (21:59)
--- NOTE | 2023-01-20 22:41 | PC.NURSE ---
End of shift nursing note, care provided from [id number]: Pt alert and oriented x4, pleasant and conversational. Vitals checked prior to scheduled BP meds at HS, vitals stable. WOC completed per order, pt assisted with elevating pannus and tolerated well. Using urinal about q1hr while in bed during NOC to promote more restful night, but pt is in agreement during the day he will need to walk to commode, not use urinal in bed. PRN Naproxen admin for continued known R shoulder discomfort, pt comfortable at rest, states discomfort with certain movements, declines further need for additional PRN at this time. Pt takes meds whole with water. 20g IV to R hand patent, flushed and saline locked. Pt has call light within reach and able to make needs known appropriately.
[2023-01-21] MEDS: ACETAMINOPHEN 325 MG TABLET 650 MG PO (02:26)
[2023-01-21 05:46] VITALS: RESP 18
--- NOTE | 2023-01-21 06:03 | PC.NURSE ---
End of shift: Pt A&O, pleasant and cooperative. VSS w/ sats >90% on RA. Tylenol givenx1 for right shoulder pain. Pt resting and appears comfortable in bed. Pt using urinal in bed overnight with assist.
[2023-01-21] MEDS: TORSEMIDE 5 MG TABLET 10 MG PO (08:55)
[2023-01-21] MEDS: NYSTATIN POWDER 1 APPLIC TOPICAL (08:55)
[2023-01-21] MEDS: POTASSIUM CHLORIDE 10 MEQ CAPSULE ER PO (08:55)
[2023-01-21] MEDS: LACTOBACILLUS ACIDOPHILUS 1 TABLET 1 TAB PO ×2 (08:55→11:46)
[2023-01-21 09:00] VITALS: PULSE 60; RESP 18
[2023-01-21 09:11] VITALS: BP 136/69; PULSE 72; RESP 20; TEMP 36.6; O2SAT 96
--- NOTE | 2023-01-21 09:40 | PM.IMPN1 ---
Progress Note: A&P Assessment and plan (1) Weakness: Problem details: - 2/2 acute illness (cellulitis on admission, now resolved) and deconditioning - has completed course of IV Ancef for cellulitis - working with therapies - will require SNF upon discharge vs home with HH; appreciate assistance from SW regarding placement Status: Acute (2) Intertrigo: Problem details: - continue nystatin and skin cares - Vital removed 01/20 Status: Acute (3) Morbid obesity: Problem details: - admission weight 229.5; down to 209kg on 01/20 - calorie restricted diet: working with multidisciplinary team regarding this Status: Chronic (4) HTN (hypertension): Problem details: - Continue home doses of Amlodipine and Losartan - Torsemide added (held for a few days 2/2 contraction alkalosis, restarted given stability) - currently tolerating Torsemide 10 mg for blood pressure and volume control, BMPs have been stable Status: Chronic (5) Anasarca: Problem details: - noted upon presentation to the hospital, significantly improved with Torsemide dosing Status: Acute (6) Arthritis of knee, left: Problem details: - chronic knee arthritis with acute on chronic injury prior to admission, no acute findings on imaging Status: Acute (7) Urinary retention: Problem details: - given urinary incontinence and cellulitis of his abdominal pannus, vital placed on admission to assist with skin healing and therapies - Flomax initiated upon admission with goal of removing Vital - Vital removed on 01/20, working on Status: Acute (8) Lymphedema: Problem details: - improving; continue low-dose torsemide, elevation and compression as tolerated Status: Acute (9) Right shoulder pain: Problem details: - suspect rotator cuff strain/injury, not a surgical candidate at present due to weight. Would not fit in our MRI scanner. Monitor. Continue PT/OT. Status: Acute (10) Neck mass: Problem details: - no red flag symptoms - Ultrasound nondiagnostic, CT neck recommended and ordered 01/20 Status: Acute Subjective Interval history: Xavier was admitted on 12/30 for acute on chronic weakness in the setting of cellulitis and severe intertrigo. He has completed a course of IV Ancef and is medically stable at this time, working with nutrition for weight loss (tolerating calorie restriction and continues to lose weight). Therapies and Social Work are assisting in discharge planning; we continue to await a SNF bed. 2 days ago, he noted a mass in his R neck; ultrasound completed this morning and CT recommended to further characterize mass. He is amenable to removal of Vital catheter today, as continence and araseli care will be a large part of his discharge plan. Exam Const: Vital Signs, click to edit/add: Vital Signs - 24 hr 01/20/23 21:10 01/20/23 21:58 01/20/23 23:11 Temperature 97.7 F 97.7 F Pulse Rate [Left P ulse Oximeter] 61 60 Respiratory Rate 16 18 Blood Pressure [Le ft forearm] 125/51 L 134/60 133/55 L Pulse Oximetry 94 93 Oxygen Delivery Me thod Room Air Room Air 01/20/23 23:43 01/21/23 05:46 01/21/23 09:00 Temperature Pulse Rate [Left P ulse Oximeter] 60 Respiratory Rate 18 18 18 Blood Pressure [Le ft forearm] Pulse Oximetry Oxygen Delivery Me thod 01/21/23 09:11 Temperature 97.9 F Pulse Rate [Left P ulse Oximeter] 72 Respiratory Rate 20 Blood Pressure [Le ft forearm] 136/69 Pulse Oximetry 96 Oxygen Delivery Me thod Room Air
--- NOTE | 2023-01-21 09:49 | PM.DS1 ---
DS: Providers Provider Date Seen: 01/21/23 Date of admission: 12/31/22 09:44 Primary care physician: Maile Fuentes MD Admitting Clinician: Jennifer Conner MD Consults: PT, OT, Nutrition, Social Work Attending Physician on discharge: Selam Brito MD Date of Discharge: 01/21/23 DS: Diagnosis Discharge Diagnosis (1) Weakness: Status: Acute Problem details: - 2/2 acute illness (cellulitis on admission, now resolved) and deconditioning - has completed course of IV Ancef for cellulitis - working with therapies - will require SNF upon discharge, appreciate assistance from regarding placement. Patient accepted at [facility] on 01/21 (2) Intertrigo: Status: Acute Problem details: - continue nystatin and skin cares - Vital removed 01/20 (3) Morbid obesity: Status: Chronic Problem details: - admission weight 229.5; down to 211kg on 01/21 - 1500/day calorie restricted diet: working with multidisciplinary team regarding this, tolerating well (4) HTN (hypertension): Status: Chronic Problem details: - Continued home doses of Amlodipine and Losartan during stay - Torsemide added (held for a few days 2/2 contraction alkalosis, restarted given stability) - currently tolerating Torsemide 10 mg for blood pressure and volume control, BMPs have been stable (5) Anasarca: Status: Acute Problem details: - noted upon presentation to the hospital, significantly improved with Torsemide dosing (6) Arthritis of knee, left: Status: Acute Problem details: - chronic knee arthritis with acute on chronic injury prior to admission, no acute findings on imaging (7) Urinary retention: Status: Acute Problem details: - given urinary incontinence and cellulitis of his abdominal pannus, vital placed on admission to assist with skin healing and therapies - Flomax initiated upon admission with goal of removing Vital - Ivtal removed on 01/20 (8) Lymphedema: Status: Acute Problem details: - improving; continue low-dose torsemide, elevation and compression as tolerated (9) Right shoulder pain: Status: Acute Problem details: - suspect rotator cuff strain/injury, not a surgical candidate at present due to weight. Would not fit in our MRI scanner. Monitor. Continue PT/OT, outpatient Ortho f/u (10) Neck mass: Status: Acute Problem details: - palpated during stay - Ultrasound performed, CT followup with results below: - patient will f/u with Dr. Barron (ENT) as an outpatient IMPRESSION: 1. Nonspecific 1.5 cm ovoid enhancing nodule within the superficial lobe of the right parotid gland. Multiple small ovoid nodules were present in the bilateral parotid glands on a 2012 CT neck exam, suggestive of incidental intra parotid lymph nodes. However the above-noted nodule has increased in size over the interval. Clinical correlation and potential soft tissue sampling advised for further characterization. 2. No other focal neck mass or suspicious cervical lymphadenopathy identified. No evidence of airway compromise. Please note that all CT scans at this facility use dose modulation, iterative reconstruction, and/or weight-based dosing when appropriate to reduce radiation dose to as low as reasonably achievable. Dictated by Mili Avitia MD @ 01/20/2023 12:41:15 PM DS: Summary Hospital Course Hospital Course: Xavier is a pleasant 77-year-old male who was admitted to the hospital after a fall at home. He had been having progressive weakness and upon admission, was noted to have cellulitis of his abdominal pannus in addition to fungal dermatitis. Notable findings and comorbidities with details above. He completed a course of IV Ancef and intertrigo was treated with topical Nystatin. He worked with therapies for his weakness, expressed interest in losing weight and met with our nutrition team, tolerated a 1500 calorie per day diet. He had a Vital placed for skin integrity and moisture upon admission; removed 01/20. Therapy teams recommended SNF stay upon discharge; he was medically appropriate for discharge to [facility] on 01/21. Status at Discharge Functional status at discharge: uses cane/walker Time Spent with Patient Time attestation: Total time spent providing and/or coordinating discharge services: Time spent: Greater than 30 minutes Specific discharge activities: Care coordination, appt and f/u recommendations, medication reconciliation Exam Narrative: Exam Narrative: GEN: Alert and oriented, sitting comfortably in bedside chair and nontoxic in appearance CV: RRR, No concerning murmurs R: No tachypnea or wheezing, breathing comfortably Ab: No tenderness to palpation Ext: wwp, edema from admission is much Neuro: Nonfocal Psych: Appropriate Const: Vital Signs, click to edit/add: Vital Signs - 24 hr 01/20/23 21:10 01/20/23 21:58 01/20/23 23:11 Temperature 97.7 F 97.7 F Pulse Rate [Left P ulse Oximeter] 61 60 Respiratory Rate 16 18 Blood Pressure [Le ft forearm] 125/51 L 134/60 133/55 L Pulse Oximetry 94 93 Oxygen Delivery Me thod Room Air Room Air 01/20/23 23:43 01/21/23 05:46 01/21/23 09:00 Temperature Pulse Rate [Left P ulse Oximeter] 60 Respiratory Rate 18 18 18 Blood Pressure [Le ft forearm] Pulse Oximetry Oxygen Delivery Me thod 01/21/23 09:11 Temperature 97.9 F Pulse Rate [Left P ulse Oximeter] 72 Respiratory Rate 20 Blood Pressure [Le ft forearm] 136/69 Pulse Oximetry 96 Oxygen Delivery Me thod Room Air Discharge Plan Discharge Disposition: [facility] Date of Admission: 12/31/22 09:44 Attending Provider on Discharge: Selam Brito Primary Care Provider: Maile Fuentes Condition: Stable Anticipated Discharge Date/Time: 01/21/23 09:50 Discharge Medications: New potassium chloride 10 mEq Capsule, Extended Release 10 meq PO DAILY Qty: 30 0RF sennosides-docusate sodium [Stool Softener-Laxative] 8.6-50 mg Tablet 1 tab PO DAILY PRNQty: 60 0RF naproxen 250 mg Tablet 250 mg PO BID PRNQty: 60 0RF melatonin 3 mg Tablet 3 mg PO HS PRNQty: 30 0RF magnesium oxide 400 mg (241.3 mg magnesium) Tablet 400 mg PO HS Qty: 30 0RF tamsulosin 0.4 mg Capsule 0.4 mg PO HS Qty: 30 0RF torsemide 5 mg Tablet 10 mg PO DAILY@0800 Qty: 60 0RF nystatin 100,000 unit/gram Powder 1 applic topical BID Qty: 60 0RF Lactobacillus acidophilus 0.5 mg (100 million cell) Tablet 1,000 mmu cells PO TIDWM Qty: 90 0RF Continued amlodipine 5 mg tablet 5 mg PO DAILY losartan 100 mg tablet 100 mg PO DAILY naproxen sodium [Aleve] 220 mg capsule 440 mg PO BID PRN Discharge Orders: Discharge Order (Routine); Ordered 01/21/23 Ordered By: Selam Brito Additional Instructions: After your rehab stay, here are the appointments you'll need: 1. Dr. Barron of ENT to discuss your PAROTID GLAND mass (1.5cm) - this may need a biopsy. 2. Primary care at [facility]: consider Dr. Narayanan or Dr. Michaels for followup. Activity Level: Activity as Tolerated Discharge Diet: Regular Diet Detail: 1500 mateusz diet has been tolerated well while inpatient Follow Up Appointments: Maile Fuentes MD [Primary Care Provider] - Wound Care: skin checks daily for intertrigo Ostomy Care: n/a Admit to: SNF Discharge Potential: Good Length of Stay: 30-90 days Can use facility standing orders?: Yes Code Status: DNR/DNI TEDs: N/A Rehab Potential: Good Therapy: Physical Therapy and Occupational Therapy Therapy Orders: Evaluate and Treat and Gait Training Oxygen: No Urinary Catheter: No Glucose Checks: n/a Next INR: n/a Lab Orders: BMP on Friday, January 27 Orders are good >30 days: Yes Signature: Selam Brito MD
--- NOTE | 2023-01-21 11:08 | PC.SOCIAL ---
Spoke with Lexii in admissions at the [facility] in [place] @ [phone], they can accept pt. today for rehab and want pt. to arrive at 4pm. Non-emergency EMS has been set up for 3pm transport. PAS completed# [id number].
--- NOTE | 2023-01-21 12:13 | PC.NURSE ---
Patient will be discharging to the [facility] later this afternoon. Called [phone] gave nurse to nurse report all questions have been answered.
--- NOTE | 2023-01-21 13:50 | PC.NURSE ---
End of Shift Note: Patient has been accepted to the [facility] for continued rehab. He is doing better since admission but need to continue to work with PT & OT before he can go home. He has not had any complaints today. Did call and gave nurse to nurse report and EMS should be here between 2:15-3:00 for his depature.
== END 2023-01-21 14:50 | DRG 603 ==
LOC: ED 16:26 → MEDSURG 19:03
PROVIDERS: Family Medicine; Internal Medicine; Admitting Provider Family Medicine; Emergency Provider Emergency Medicine; PCP Family Medicine; Visit Provider Family Medicine
DX: L03.311 Cellulitis of abdominal wall (principal); Z68.45 Body mass index [BMI] 70 or greater, adult; L03.112 Cellulitis of left axilla; L03.314 Cellulitis of groin; I89.0 Lymphedema, not elsewhere classified; L98.499 Non-pressure chronic ulcer of skin of other sites with unspecified severity; R53.1 Weakness; M79.3 Panniculitis, unspecified; B37.2 Candidiasis of skin and nail; E66.01 Morbid (severe) obesity due to excess calories; L30.4 Erythema intertrigo; L73.8 Other specified follicular disorders; R19.7 Diarrhea, unspecified; D37.030 Neoplasm of uncertain behavior of the parotid salivary glands; R26.2 Difficulty in walking, not elsewhere classified; Z91.81 History of falling; R32 Unspecified urinary incontinence; I10 Essential (primary) hypertension; M25.511 Pain in right shoulder; I45.10 Unspecified right bundle-branch block; M10.9 Gout, unspecified; R73.01 Impaired fasting glucose; M17.12 Unilateral primary osteoarthritis, left knee
CPT/HCPCS: 36415; 51701; 70491; 73560; 73590; 76536; 80048; 80069; 80076; 81001; 82565; 83036; 83605; 83880; 84145; 84443; 84484; 85025; 85027; 86140; 87040; 87070; 87077; 87086; 87186; 87493; 87631; 93005; 94761; 97110; 97112; 97116; 97162; 97165; 97530; 97535; 99284; A9270; G0378; J0690; J1650; Q9967

== ENCOUNTER 2023-01-21 14:28 | Outpatient (CLI) | payer MEDICARE, BC, SELFPAY | END 2023-01-21 14:29 | disposition home or self-care (01) | LOC: AMB 02-02 19:21 | PROVIDERS: PCP Family Medicine; Visit Provider Student in an Organized Health Care Education/Training Program | DX: M79.601 Pain in right arm (principal) | CPT/HCPCS: A0425; A0428 ==

== ENCOUNTER 2023-06-10 02:17 | Outpatient (CLI) | payer MEDICARE, BC, SELFPAY | END 2023-06-10 02:18 | disposition home or self-care (01) | LOC: AMB 06-11 11:20 | PROVIDERS: PCP Student in an Organized Health Care Education/Training Program; Visit Provider Family Medicine | DX: R53.1 Weakness (principal) | CPT/HCPCS: A0998 ==

== ENCOUNTER 2023-06-10 09:47 | Inpatient (IN) | payer MEDICARE, BC, SELFPAY ==
[2023-06-10] VITALS (49 sets, daily range): BP systolic 93–154; BP diastolic 34–104; PULSE 83–125; RESP 20–26; TEMP 36.9–38.9; O2SAT 71–99; BMI 68.9; BMI 67.7
--- NOTE | 2023-06-10 10:20 | ED_ITS ---
HPI - General Adult General Time Seen by Provider: 10:20 <Marry Ybarra Filed: 06/10/23 13:43> Date Seen: 06/10/23 <Marry Ybarra Filed: 06/10/23 13:43> Chief complaint: Unspecified Complaint, Adult <Marry Ybarra Filed: 06/10/23 13:43> Stated complaint: low blood pressure,chills <Marry Ybarra Filed: 06/10/23 13:43> Time Seen by Provider: 06/10/23 10:01 <Marry Ybarra Filed: 06/10/23 13:43> Source: patient <Marry Ybarra Filed: 06/10/23 13:43> Mode of arrival: ambulatory <Marry Ybarra Filed: 06/10/23 13:43> Limitations: no limitations <Marry Ybarra Filed: 06/10/23 13:43> History of Present Illness HPI narrative: Patient presents via EMS with intermittent chills beginning approximately 3 weeks ago, which has since worsened with fatigue and left-sided intermittent flank pain beginning 2-3 days ago. He rates this flank pain as a 3/10 and notes it is waxing and waning in nature. Patient has had urinary incontinence for many months. Patient explains last night he was attempting to get into bed when he slipped and fell onto his bottom. He did not hit his head or lose consciousness. He states he did not injure himself during this fall. Due to patient's body habitus he was unable to get up off of the floor for multiple hours and had to call EMS for assistance. Upon EMS arrival they took his vitals and noted patient's blood pressure to be approximately 70/50. They urged the patient to come in to the ED last night, but patient wanted to spend the night at home. Patient is now here to have his blood pressure assessed and this ongoing flank pain. He has not taken anything for his pain. He has shortness of breath with exertion at baseline. Patient denies any chest pain, fevers, abdominal pain, nausea, vomiting, hematuria, hematochezia, diarrhea, constipation, lower extremity swelling, or any other complaints at this time. No known ill contacts. Patient takes losartan, tamsulosin, amlodipine. Patient was recently seen by his PCP at [facility] a a month or 2 ago and all of his labs were unremarkable, per patient. Patient denies any personal history of kidney stones, but notes his sister has had them. <Marry Uri Last Filed: 06/10/23 13:43> Related Data Home medications: Home Medications Medication Instructions Recorded Confirmed amlodipine 5 mg tablet 5 mg PO DAILY 12/30/22 06/10/23 losartan 100 mg tablet 100 mg PO DAILY 12/30/22 06/10/23 naproxen sodium 220 mg capsule 440 mg PO BID PRN 12/30/22 06/10/23 (Aleve) mupirocin 2 % topical ointment 1 applic topical 3XD 06/10/23 06/10/23 magnesium oxide 400 mg PO HS 06/11/23 06/11/23 melatonin 3 mg tablet 3 mg PO HS PRN 06/11/23 06/11/23 sennosides 8.6 mg-docusate sodium 1 tab-cap PO DAILY PRN 06/11/23 06/11/23 50 mg tablet (Senna-S) Previous Rx's Medication Instructions Recorded Lactobacillus acidophilus 0.5 mg 1,000 mmu cells PO TIDWM #90 tabs 01/21/23 (100 million cell) tablet nystatin 100,000 unit/gram topical 1 applic topical BID #60 grams 01/21/23 powder potassium chloride 10 mEq 10 meq PO DAILY #30 caps 01/21/23 capsule,extended release tamsulosin 0.4 mg capsule 0.4 mg PO HS #30 caps 01/21/23 torsemide 5 mg tablet 10 mg (2 x 5 mg) PO DAILY@0800 #60 01/21/23 tabs <Marry Uri Filed: 06/10/23 13:43> Allergies/adverse reactions: Allergies Allergy/AdvReac Type Severity Reaction Status Date / Time No Known Drug Allergies Allergy Verified 06/10/23 10:00 <Marry Uri Proformative Filed: 06/10/23 13:43> Review of Systems Status of ROS: Reports: 10 or more systems reviewed and unremarkable except as noted in History and below <Marry Uri Last Filed: 06/10/23 13:43> Const: Reports: chills and fatigue; Denies: fever, change in weight, night sweats or change in sleep pattern <Marry Vastari Last Filed: 06/10/23 13:43> Eyes: Denies: change in vision or blurry vision <Marry [facility] Last Filed: 06/10/23 13:43> ENMT: Denies: throat pain, neck pain, throat swelling, difficulty swallowing or nasal congestion <[facility] Last Filed: 06/10/23 13:43> Cardio: Reports: shortness of breath with exertion (at baseline); Denies: chest pain, palpitations, edema, swelling of feet/ankles, lightheadedness, shortness of breath when lying down or leg pain with exertion <Marry [facility] Last Filed: 06/10/23 13:43> Resp: Reports: shortness of breath (at baseline); Denies: cough, wheezing, pain on inspiration, coughing up blood or chest congestion <[facility] Last Filed: 06/10/23 13:43> GI: Denies: difficulty swallowing <Marry Vastari Last Filed: 06/10/23 13:43> : Reports: difficulty urinating (incontinence); Denies: painful urination, urinary frequency, urinary urgency, blood in urine or decreased urine ouput <Marry Vastari Filed: 06/10/23 13:43> Musculo: Reports: back pain (L flank pain) and limited range of motion; Denies: neck pain, extremity pain, extremity swelling, joint pain, joint swelling or muscle weakness <Marry Vastari Last Filed: 06/10/23 13:43> Integ/Breast: Denies: rash <Marry Vastari Filed: 06/10/23 13:43> Neuro: Denies: headache, numbness in extremities or weakness in extremities <Marry Joroto Last Filed: 06/10/23 13:43> Endo: Reports: fatigue <Marry Joroto Last Filed: 06/10/23 13:43> Allergy/Immuno: Denies: throat swelling or wheezing <Marry Joroto Last Filed: 06/10/23 13:43> [facility] Medical History: Medical History (Updated 06/11/23 @ 11:26 by Silvina Gamez MD) Advanced directives, counseling/discussion ?Z71.89 - Other specified counseling (ICD-10) Morbid obesity ?E66.01 - Morbid (severe) obesity due to excess calories (ICD-10) Right shoulder pain ?M25.511 - Pain in right shoulder (ICD-10) Leukocytosis ?D72.829 - Elevated white blood cell count, unspecified (ICD-10) Intertrigo ?L30.4 - Erythema intertrigo (ICD-10) Weakness ?R53.1 - Weakness (ICD-10) Lymphedema ?I89.0 - Lymphedema, not elsewhere classified (ICD-10) Urinary retention ?R33.9 - Retention of urine, unspecified (ICD-10) Arthritis of knee, left ?M17.12 - Unilateral primary osteoarthritis, left knee (ICD-10) Anasarca ?R60.1 - Generalized edema (ICD-10) Durable power of deputy attorney general for healthcare POLST (Physician Orders for Life-Sustaining Treatment) ?Z78.9 - Other specified health status (ICD-10) BRANDY (obstructive sleep apnea) ?G47.33 - Obstructive sleep apnea (adult) (pediatric) (ICD-10) Elevated blood uric acid level ?E79.0 - Hyperuricemia without signs of inflammatory arthritis and tophaceous disease (ICD-10) Impaired fasting glucose ?R73.01 - Impaired fasting glucose (ICD-10) Gout ?M10.9 - Gout, unspecified (ICD-10) Adenomatous colon polyp (~2015) ?D12.6 - Benign neoplasm of colon, unspecified (ICD-10) Ventral hernia ?K43.9 - Ventral hernia without obstruction or gangrene (ICD-10) Incarcerated umbilical hernia (~2014) ?K42.0 - Umbilical hernia with obstruction, without gangrene (ICD-10) Dyslipidemia ?E78.5 - Hyperlipidemia, unspecified (ICD-10) Hernia ?K46.9 - Unspecified abdominal hernia without obstruction or gangrene (ICD- 10) Gallbladder attack ?K82.9 - Disease of gallbladder, unspecified (ICD-10) HTN (hypertension) ?I10 - Essential (primary) hypertension (ICD-10) <Marry Uri - Last Filed: 06/10/23 13:43> Surgical History: Surgical History H/O hernia repair (~2014) ?Z98.890 - Other specified postprocedural states (ICD-10) ?Z87.19 - Personal history of other diseases of the digestive system (ICD-10) Hx of cholecystectomy (~1985) ?Z90.49 - Acquired absence of other specified parts of digestive tract (ICD- 10) H/O colonoscopy ?Z98.890 - Other specified postprocedural states (ICD-10) <Marry Grewal - Last Filed: 06/10/23 13:43> Family History: Family History Father Cardiovascular disease Myocardial infarction Mother High blood pressure Sister Sarcoma <Marry Grewal - Last Filed: 06/10/23 13:43> Social History: Social History Narrative: Lives in a newly built house that is accessible. Was in the [employer] business. Worked for [employer]. Retired 10 years ago. What is your current living situation?: I presently have a place to live Problems where you live: no known problems Problems where you live details: NA In the past 12 months, utilities in danger of being shut off: no In past 12 months, lack of transportation kept you from medical appts, meetings, work, or getting things needed for daily living: yes In the past 12 mos, have been you worried that your food would run out before you had money to buy more?: never true In the past 12 mos, the food you bought just didn't last and you didn't have money to buy more?: never true Highest level of school completed/degree received: Associate degree: occupational, technical, vocational program Smoking Status: Never smoker Do you use any of these nicotine containing products: None Second hand tobacco smoke exposure: No How often do you have a drink containing alcohol: never How often do you have six or more drinks on one occasion: Never AUDIT-C Alcohol total score: 0 Non-prescribed substance use: denies use Caffeine: No How often does anyone, including family, friends and others, physically hurt you : rarely How often does anyone, including family, friends and others, insult or talk down to you: rarely How often does anyone, including family, friends and others, threaten you with harm: rarely How often does anyone, including family, friends and others, scream or curse at you: rarely service: No <Marry Ybarra Filed: 06/10/23 13:43> Exam Narrative: Exam Narrative: General: Ill-appearing, obese (BMI 68.9), in no apparent distress. Answers questions appropriately and without difficulty. HENMT: Normocephalic, atraumatic. Moist mucous membranes. Eye: PERRL. EOMs intact bilaterally. Conjunctivae normal. Neck: Supple, no lymphadenopathy. Chest/cardio: Inspection normal. No tenderness to palpation. Regular rate and rhythm, S1-S2. No clicks, gallops, or murmurs. Lung: Symmetric rise bilaterally. Lungs clear to auscultation bilaterally. Increased effort and tachypneic, could be due to patient's body habitus. No use of accessory muscles. GI: Normoactive bowel sounds. Soft, obese, nontender. No rebound tenderness or guarding. : Unknown CVA tenderness, unable to perform due to patient's body habitus. Extremities: Limited range of motion due to physical disability due to weight. Decreased capillary refill. No calf tenderness. Neuro: Alert and oriented x3. No focal motor or sensory deficits noted. Psych: Cooperative. Thought process is normal. Insight and judgment good. <Marry Ybarra Filed: 06/10/23 13:43> Const: Vital Signs, click to edit/add: Vital Signs - 24 hr 06/10/23 09:52 06/10/23 10:06 06/10/23 10:07 Temperature 99.3 F Pulse Rate 83 85 Pulse Rate [Right Pulse Oximeter] 98 Respiratory Rate 26 H Blood Pressure 110/46 L Blood Pressure [Le ft Upper Arm] 145/49 H Pulse Oximetry 99 94 95 Oxygen Delivery Me thod Room Air 06/10/23 10:15 06/10/23 10:30 06/10/23 10:32 Temperature Pulse Rate 84 84 86 Pulse Rate [Right Pulse Oximeter] Respiratory Rate Blood Pressure 98/83 Blood Pressure [Le ft Upper Arm] Pulse Oximetry 96 94 71 L Oxygen Delivery Me thod 06/10/23 10:45 06/10/23 11:00 06/10/23 11:04 Temperature Pulse Rate 85 125 H 83 Pulse Rate [Right Pulse Oximeter] Respiratory Rate Blood Pressure Blood Pressure [Le ft Upper Arm] Pulse Oximetry 96 84 L 97 Oxygen Delivery Md thod 06/10/23 11:26 06/10/23 11:30 06/10/23 11:32 Temperature Pulse Rate 86 83 83 Pulse Rate [Right Pulse Oximeter] Respiratory Rate Blood Pressure 119/51 L Blood Pressure [Le ft Upper Arm] Pulse Oximetry 95 94 93 Oxygen Delivery Md thod 06/10/23 12:05 06/10/23 12:15 06/10/23 12:31 Temperature Pulse Rate 86 90 87 Pulse Rate [Right Pulse Oximeter] Respiratory Rate Blood Pressure Blood Pressure [Le ft Upper Arm] Pulse Oximetry 94 94 94 Oxygen Delivery Md thod 06/10/23 12:43 06/10/23 12:45 06/10/23 13:00 Temperature Pulse Rate 87 89 83 Pulse Rate [Right Pulse Oximeter] Respiratory Rate Blood Pressure 138/67 Blood Pressure [Le ft Upper Arm] Pulse Oximetry 93 94 92 Oxygen Delivery Md thod 06/10/23 13:02 06/10/23 13:05 06/10/23 13:06 Temperature Pulse Rate 91 91 92 Pulse Rate [Right Pulse Oximeter] Respiratory Rate Blood Pressure 122/76 Blood Pressure [Le ft Upper Arm] Pulse Oximetry 93 94 [facility] 06/10/23 13:15 06/10/23 13:30 06/10/23 13:31 Temperature Pulse Rate 91 89 90 Pulse Rate [Right Pulse Oximeter] Respiratory Rate Blood Pressure 154/77 H Blood Pressure [Le ft Upper Arm] Pulse Oximetry 93 95 94 Oxygen Delivery Md thod 06/10/23 13:45 06/10/23 14:00 06/10/23 14:02 Temperature Pulse Rate 90 87 89 Pulse Rate [Right Pulse Oximeter] Respiratory Rate Blood Pressure 153/85 H Blood Pressure [Le ft Upper Arm] Pulse Oximetry 92 94 91 Oxygen Delivery Md thod 06/10/23 14:03 06/10/23 14:15 06/10/23 14:30 Temperature Pulse Rate 91 92 91 Pulse Rate [Right Pulse Oximeter] Respiratory Rate Blood Pressure Blood Pressure [Le ft Upper Arm] Pulse Oximetry 92 90 91 Oxygen Delivery Md thod 06/10/23 14:32 06/10/23 14:33 06/10/23 15:17 Temperature Pulse Rate 94 94 Pulse Rate [Right Pulse Oximeter] Respiratory Rate Blood Pressure 120/104 H Blood Pressure [Le ft Upper Arm] Pulse Oximetry 96 93 80 L Oxygen Delivery Me thod 06/10/23 15:18 06/10/23 15:18 06/10/23 15:32 Temperature 101.3 F H Pulse Rate Pulse Rate [Right Pulse Oximeter] Respiratory Rate Blood Pressure 119/40 L 127/55 L Blood Pressure [Le ft Upper Arm] Pulse Oximetry Oxygen Delivery Me thod 06/10/23 16:01 06/10/23 16:04 06/10/23 16:16 Temperature 101.3 F H Pulse Rate 93 Pulse Rate [Right Pulse Oximeter] Respiratory Rate Blood Pressure 114/61 Blood Pressure [Le ft Upper Arm] Pulse Oximetry 89 Oxygen Delivery Me thod 06/10/23 16:17 06/10/23 16:31 06/10/23 17:01 Temperature Pulse Rate 89 Pulse Rate [Right Pulse Oximeter] Respiratory Rate Blood Pressure 106/45 L 100/39 L 105/87 Blood Pressure [Le ft Upper Arm] Pulse Oximetry 90 Oxygen Delivery Me thod 06/10/23 17:31 06/10/23 18:01 06/10/23 18:01 Temperature 98.5 F Pulse Rate Pulse Rate [Right Pulse Oximeter] 83 Respiratory Rate 20 Blood Pressure 96/40 L 93/34 L Blood Pressure [Le ft Upper Arm] 105/87 Pulse Oximetry 91 Oxygen Delivery Me thod Room Air 06/10/23 18:28 06/10/23 18:32 06/10/23 19:29 Temperature 98.8 F Pulse Rate Pulse Rate [Right Pulse Oximeter] Respiratory Rate Blood Pressure 130/47 L 123/34 L Blood Pressure [Le ft Upper Arm] Pulse Oximetry Oxygen Delivery Me thod 06/10/23 23:10 06/10/23 23:11 Temperature Pulse Rate 100 Pulse Rate [Right Pulse Oximeter] 100 Respiratory Rate 20 Blood Pressure Blood Pressure [Le ft Upper Arm] 106/48 L Pulse Oximetry 86 L 97 Oxygen Delivery Me thod <Marry Grewal - Last Filed: 06/10/23 13:43> Vital Signs, click to edit/add: Vital Signs - 24 hr 06/10/23 09:52 06/10/23 10:06 06/10/23 10:07 Temperature 99.3 F Pulse Rate 83 85 Pulse Rate [Right Pulse Oximeter] 98 Respiratory Rate 26 H Blood Pressure 110/46 L Blood Pressure [Le ft Upper Arm] 145/49 H Pulse Oximetry 99 94 95 Oxygen Delivery Me thod Room Air 06/10/23 10:15 06/10/23 10:30 06/10/23 10:32 Temperature Pulse Rate 84 84 86 Pulse Rate [Right Pulse Oximeter] Respiratory Rate Blood Pressure 98/83 Blood Pressure [Le ft Upper Arm] Pulse Oximetry 96 94 71 L Oxygen Delivery Me thod 06/10/23 10:45 06/10/23 11:00 06/10/23 11:04 Temperature Pulse Rate 85 125 H 83 Pulse Rate [Right Pulse Oximeter] Respiratory Rate Blood Pressure Blood Pressure [Le ft Upper Arm] Pulse Oximetry 96 84 L 97 Oxygen Delivery Me thod 06/10/23 11:26 06/10/23 11:30 06/10/23 11:32 Temperature Pulse Rate 86 83 83 Pulse Rate [Right Pulse Oximeter] Respiratory Rate Blood Pressure 119/51 L Blood Pressure [Le ft Upper Arm] Pulse Oximetry 95 94 93 Oxygen Delivery Me thod 06/10/23 12:05 06/10/23 12:15 06/10/23 12:31 Temperature Pulse Rate 86 90 87 Pulse Rate [Right Pulse Oximeter] Respiratory Rate Blood Pressure Blood Pressure [Le ft Upper Arm] Pulse Oximetry 94 94 94 Oxygen Delivery Me thod 06/10/23 12:43 06/10/23 12:45 06/10/23 13:00 Temperature Pulse Rate 87 89 83 Pulse Rate [Right Pulse Oximeter] Respiratory Rate Blood Pressure 138/67 Blood Pressure [Le ft Upper Arm] Pulse Oximetry 93 94 92 Oxygen Delivery Me thod 06/10/23 13:02 06/10/23 13:05 06/10/23 13:06 Temperature Pulse Rate 91 91 92 Pulse Rate [Right Pulse Oximeter] Respiratory Rate Blood Pressure 122/76 Blood Pressure [Le ft Upper Arm] Pulse Oximetry 93 94 92 Oxygen Delivery Me thod 06/10/23 13:15 06/10/23 13:30 06/10/23 13:31 Temperature Pulse Rate 91 89 90 Pulse Rate [Right Pulse Oximeter] Respiratory Rate Blood Pressure 154/77 H Blood Pressure [Le ft Upper Arm] Pulse Oximetry 93 95 94 Oxygen Delivery Me thod 06/10/23 13:45 06/10/23 14:00 06/10/23 14:02 Temperature Pulse Rate 90 87 89 Pulse Rate [Right Pulse Oximeter] Respiratory Rate Blood Pressure 153/85 H Blood Pressure [Le ft Upper Arm] Pulse Oximetry 92 94 91 Oxygen Delivery Me thod 06/10/23 14:03 06/10/23 14:15 06/10/23 14:30 Temperature Pulse Rate 91 92 91 Pulse Rate [Right Pulse Oximeter] Respiratory Rate Blood Pressure Blood Pressure [Le ft Upper Arm] Pulse Oximetry 92 90 91 Oxygen Delivery Me thod 06/10/23 14:32 06/10/23 14:33 06/10/23 15:17 Temperature Pulse Rate 94 94 Pulse Rate [Right Pulse Oximeter] Respiratory Rate Blood Pressure 120/104 H Blood Pressure [Le ft Upper Arm] Pulse Oximetry 96 93 80 L Oxygen Delivery Me thod 06/10/23 15:18 06/10/23 15:18 06/10/23 15:32 Temperature 101.3 F H Pulse Rate Pulse Rate [Right Pulse Oximeter] Respiratory Rate Blood Pressure 119/40 L 127/55 L Blood Pressure [Le ft Upper Arm] Pulse Oximetry Oxygen Delivery Me thod 06/10/23 16:01 06/10/23 16:04 06/10/23 16:16 Temperature 101.3 F H Pulse Rate 93 Pulse Rate [Right Pulse Oximeter] Respiratory Rate Blood Pressure 114/61 Blood Pressure [Le ft Upper Arm] Pulse Oximetry 89 Oxygen Delivery Me thod 06/10/23 16:17 06/10/23 16:31 06/10/23 17:01 Temperature Pulse Rate 89 Pulse Rate [Right Pulse Oximeter] Respiratory Rate Blood Pressure 106/45 L 100/39 L 105/87 Blood Pressure [Le ft Upper Arm] Pulse Oximetry 90 Oxygen Delivery Me thod 06/10/23 17:31 06/10/23 18:01 06/10/23 18:01 Temperature 98.5 F Pulse Rate Pulse Rate [Right Pulse Oximeter] 83 Respiratory Rate 20 Blood Pressure 96/40 L 93/34 L Blood Pressure [Le ft Upper Arm] 105/87 Pulse Oximetry 91 Oxygen Delivery Me thod Room Air 06/10/23 18:28 06/10/23 18:32 06/10/23 19:29 Temperature 98.8 F Pulse Rate Pulse Rate [Right Pulse Oximeter] Respiratory Rate Blood Pressure 130/47 L 123/34 L Blood Pressure [Le ft Upper Arm] Pulse Oximetry Oxygen Delivery Me thod 06/10/23 23:10 06/10/23 23:11 Temperature Pulse Rate 100 Pulse Rate [Right Pulse Oximeter] 100 Respiratory Rate 20 Blood Pressure Blood Pressure [Le ft Upper Arm] 106/48 L Pulse Oximetry 86 L 97 Oxygen Delivery Me thod <Hector Blackman MD - Last Filed: 06/11/23 23:58> Vital Signs, click to edit/add: Vital Signs - 24 hr 06/10/23 09:52 06/10/23 10:06 06/10/23 10:07 Temperature 99.3 F Pulse Rate 83 85 Pulse Rate [Right Pulse Oximeter] 98 Respiratory Rate 26 H Blood Pressure 110/46 L Blood Pressure [Le ft Upper Arm] 145/49 H Pulse Oximetry 99 94 95 Oxygen Delivery Me thod Room Air 06/10/23 10:15 06/10/23 10:30 06/10/23 10:32 Temperature Pulse Rate 84 84 86 Pulse Rate [Right Pulse Oximeter] Respiratory Rate Blood Pressure 98/83 Blood Pressure [Le ft Upper Arm] Pulse Oximetry 96 94 71 L Oxygen Delivery Me thod 06/10/23 10:45 06/10/23 11:00 06/10/23 11:04 Temperature Pulse Rate 85 125 H 83 Pulse Rate [Right Pulse Oximeter] Respiratory Rate Blood Pressure Blood Pressure [Le ft Upper Arm] Pulse Oximetry 96 84 L 97 Oxygen Delivery Me thod 06/10/23 11:26 06/10/23 11:30 06/10/23 11:32 Temperature Pulse Rate 86 83 83 Pulse Rate [Right Pulse Oximeter] Respiratory Rate Blood Pressure 119/51 L Blood Pressure [Le ft Upper Arm] Pulse Oximetry 95 94 93 Oxygen Delivery Me thod 06/10/23 12:05 06/10/23 12:15 06/10/23 12:31 Temperature Pulse Rate 86 90 87 Pulse Rate [Right Pulse Oximeter] Respiratory Rate Blood Pressure Blood Pressure [Le ft Upper Arm] Pulse Oximetry 94 94 94 Oxygen Delivery Me thod 06/10/23 12:43 06/10/23 12:45 06/10/23 13:00 Temperature Pulse Rate 87 89 83 Pulse Rate [Right Pulse Oximeter] Respiratory Rate Blood Pressure 138/67 Blood Pressure [Le ft Upper Arm] Pulse Oximetry 93 94 92 Oxygen Delivery Me thod 06/10/23 13:02 06/10/23 13:05 06/10/23 13:06 Temperature Pulse Rate 91 91 92 Pulse Rate [Right Pulse Oximeter] Respiratory Rate Blood Pressure 122/76 Blood Pressure [Le ft Upper Arm] Pulse Oximetry 93 94 92 Oxygen Delivery Me thod 06/10/23 13:15 06/10/23 13:30 06/10/23 13:31 Temperature Pulse Rate 91 89 90 Pulse Rate [Right Pulse Oximeter] Respiratory Rate Blood Pressure 154/77 H Blood Pressure [Le ft Upper Arm] Pulse Oximetry 93 95 94 Oxygen Delivery Me thod 06/10/23 13:45 06/10/23 14:00 06/10/23 14:02 Temperature Pulse Rate 90 87 89 Pulse Rate [Right Pulse Oximeter] Respiratory Rate Blood Pressure 153/85 H Blood Pressure [Le ft Upper Arm] Pulse Oximetry 92 94 91 Oxygen Delivery Me thod 06/10/23 14:03 06/10/23 14:15 06/10/23 14:30 Temperature Pulse Rate 91 92 91 Pulse Rate [Right Pulse Oximeter] Respiratory Rate Blood Pressure Blood Pressure [Le ft Upper Arm] Pulse Oximetry 92 90 91 Oxygen Delivery Md thod 06/10/23 14:32 06/10/23 14:33 06/10/23 15:17 Temperature Pulse Rate 94 94 Pulse Rate [Right Pulse Oximeter] Respiratory Rate Blood Pressure 120/104 H Blood Pressure [Le ft Upper Arm] Pulse Oximetry 96 93 80 L Oxygen Delivery Md thod 06/10/23 15:18 06/10/23 15:18 06/10/23 15:32 Temperature 101.3 F H Pulse Rate Pulse Rate [Right Pulse Oximeter] Respiratory Rate Blood Pressure 119/40 L 127/55 L Blood Pressure [Le ft Upper Arm] Pulse Oximetry Oxygen Delivery Me thod 06/10/23 16:01 06/10/23 16:04 06/10/23 16:16 Temperature 101.3 F H Pulse Rate 93 Pulse Rate [Right Pulse Oximeter] Respiratory Rate Blood Pressure 114/61 Blood Pressure [Le ft Upper Arm] Pulse Oximetry 89 Oxygen Delivery Me thod 06/10/23 16:17 06/10/23 16:31 06/10/23 17:01 Temperature Pulse Rate 89 Pulse Rate [Right Pulse Oximeter] Respiratory Rate Blood Pressure 106/45 L 100/39 L 105/87 Blood Pressure [Le ft Upper Arm] Pulse Oximetry 90 Oxygen Delivery Me thod 06/10/23 17:31 06/10/23 18:01 06/10/23 18:01 Temperature 98.5 F Pulse Rate Pulse Rate [Right Pulse Oximeter] 83 Respiratory Rate 20 Blood Pressure 96/40 L 93/34 L Blood Pressure [Le ft Upper Arm] 105/87 Pulse Oximetry 91 Oxygen Delivery Me thod Room Air 06/10/23 18:28 06/10/23 18:32 06/10/23 19:29 Temperature 98.8 F Pulse Rate Pulse Rate [Right Pulse Oximeter] Respiratory Rate Blood Pressure 130/47 L 123/34 L Blood Pressure [Le ft Upper Arm] Pulse Oximetry Oxygen Delivery Me thod 06/10/23 23:10 06/10/23 23:11 Temperature Pulse Rate 100 Pulse Rate [Right Pulse Oximeter] 100 Respiratory Rate 20 Blood Pressure Blood Pressure [Le ft Upper Arm] 106/48 L Pulse Oximetry 86 L 97 Oxygen Delivery Me thod <Natali Velazquez MD - Last Filed: 06/11/23 00:01> Documenting provider has reviewed patient's vital signs: yes <Marry Ybarra Filed: 06/10/23 13:43> Course Reevaluation(s) Time of Reevaluation #1: 13:10 <Marry Ybarra Filed: 06/10/23 13:43> Reevaluation #1: Patient is still feeling chilled and diaphoretic at this point in time. Updated the patient on lab and imaging results. Discussed the possibility of needing admission. However, patient's pain is well controlled and he rates it as a 3/10 at this point in time. <Marry Ybarra Filed: 06/10/23 13:43> Reevaluation #2: Patient was signed out to me primarily for disposition. I made multiple phone calls relating to his care, ultimately was able to talk to Dr. Vincent at the [facility], who was on-call for Urology. Patient remained he modynamically stable here. I gave him an additional g of Rocephin, repeated labs which were largely unchanged, [place] [address] down from 32,000 two thousand, lactate was stable at 2, procalcitonin significantly elevated at 37. Urology felt that given the absence of hydronephrosis and large size of the stone patient did not need a procedure today. He recommended admission for IV antibiotics for 2-3 days and then 2 weeks of oral antibiotics. Recommended urology follow-up within 1-2 weeks for discussion of removal of the stone. Patient will be admitted to the hospitalist service. <Natali Velazquez MD - Last Filed: 06/11/23 00:01> Vital Signs Vital signs: Initial Vital Signs Temperature 99.3 F 06/10/23 09:52 Temperature Source Temporal Artery Scan 06/10/23 09:52 Pulse Rate 98 06/10/23 09:52 Pulse Rhythm Regular 06/10/23 09:52 Respiratory Rate 26 H 06/10/23 09:52 Blood Pressure 145/49 H 06/10/23 09:52 Blood Pressure Mean 81 06/10/23 09:52 Blood Pressure Position Supine 06/10/23 09:52 Pulse Oximetry 99 06/10/23 09:52 Oxygen Delivery Method Room Air 06/10/23 09:52 Vital Signs Temperature 99.3 F 06/10/23 09:52 Pulse Rate 98 06/10/23 09:52 Respiratory Rate 26 H 06/10/23 09:52 Blood Pressure 145/49 H 06/10/23 09:52 Pulse Oximetry 99 06/10/23 09:52 Oxygen Delivery Method Room Air 06/10/23 09:52 Temperature 99.2 F 06/11/23 19:57 Pulse Rate 80 06/11/23 19:57 Respiratory Rate 28 H 06/11/23 19:57 Blood Pressure 107/53 L 06/11/23 19:57 Pulse Oximetry 94 06/11/23 19:57 Oxygen Delivery Method Nasal Cannula 06/11/23 19:57 Oxygen Flow Rate 1 06/11/23 19:57 <Marry Grewal - Last Filed: 06/10/23 13:43> Initial Vital Signs Temperature 99.3 F 06/10/23 09:52 Temperature Source Temporal Artery Scan 06/10/23 09:52 Pulse Rate 98 06/10/23 09:52 Pulse Rhythm Regular 06/10/23 09:52 Respiratory Rate 26 H 06/10/23 09:52 Blood Pressure 145/49 H 06/10/23 09:52 Blood Pressure Mean 81 06/10/23 09:52 Blood Pressure Position Supine 06/10/23 09:52 Pulse Oximetry 99 06/10/23 09:52 Oxygen Delivery Method Room Air 06/10/23 09:52 Vital Signs Temperature 99.3 F 06/10/23 09:52 Pulse Rate 98 06/10/23 09:52 Respiratory Rate 26 H 06/10/23 09:52 Blood Pressure 145/49 H 06/10/23 09:52 Pulse Oximetry 99 06/10/23 09:52 Oxygen Delivery Method Room Air 06/10/23 09:52 Temperature 99.2 F 06/11/23 19:57 Pulse Rate 80 06/11/23 19:57 Respiratory Rate 28 H 06/11/23 19:57 Blood Pressure 107/53 L 06/11/23 19:57 Pulse Oximetry 94 06/11/23 19:57 Oxygen Delivery Method Nasal Cannula 06/11/23 19:57 Oxygen Flow Rate 1 06/11/23 19:57 <Hector Blackman MD - Last Filed: 06/11/23 23:58> Initial Vital Signs Temperature 99.3 F 06/10/23 09:52 Temperature Source Temporal Artery Scan 06/10/23 09:52 Pulse Rate 98 06/10/23 09:52 Pulse Rhythm Regular 06/10/23 09:52 Respiratory Rate 26 H 06/10/23 09:52 Blood Pressure 145/49 H 06/10/23 09:52 Blood Pressure Mean 81 06/10/23 09:52 Blood Pressure Position Supine 06/10/23 09:52 Pulse Oximetry 99 06/10/23 09:52 Oxygen Delivery Method Room Air 06/10/23 09:52 Vital Signs Temperature 99.3 F 06/10/23 09:52 Pulse Rate 98 06/10/23 09:52 Respiratory Rate 26 H 06/10/23 09:52 Blood Pressure 145/49 H 06/10/23 09:52 Pulse Oximetry 99 06/10/23 09:52 Oxygen Delivery Method Room Air 06/10/23 09:52 Temperature 99.2 F 06/11/23 19:57 Pulse Rate 80 06/11/23 19:57 Respiratory Rate 28 H 06/11/23 19:57 Blood Pressure 107/53 L 06/11/23 19:57 Pulse Oximetry 94 06/11/23 19:57 Oxygen Delivery Method Nasal Cannula 06/11/23 19:57 Oxygen Flow Rate 1 06/11/23 19:57 <Natali Velazquez MD - Last Filed: 06/11/23 00:01> Medications Administered Medications: Generic Name Dose Route Start Last Admin Trade Name Freq PRN Reason Stop Dose Admin Acetaminophen 650 mg 06/11/23 00:37 06/11/23 09:04 Acetaminophen 325 Mg Tablet PO 650 mg Q6H PRN Administration Amlodipine Besylate 5 mg 06/11/23 09:00 06/11/23 09:02 Amlodipine 5 Mg Tablet PO 5 mg DAILY CLARE Administration Enoxaparin Sodium 30 mg 06/11/23 09:00 06/11/23 09:03 Enoxaparin 30 Mg/0.3ml Inj SUBCUT 30 mg DAILY CLARE Administration Piperacillin Sod/Tazobactam 100 mls @ 200 mls/hr 06/11/23 02:00 06/11/23 21:29 Sod 2.25 gm/ Sodium Chloride IVPB Infused Q6H CLARE Infusion Lactobacillus Acidophilus 1 tab 06/11/23 08:00 06/11/23 17:46 Lactobacillus Acidophilus 1 Tablet PO 1 tab TIDWM CLARE Administration Losartan Potassium 100 mg 06/11/23 09:00 06/11/23 09:03 Losartan Potassium 50 Mg Tablet PO 100 mg DAILY CLARE Administration Magnesium Oxide 400 mg 06/11/23 21:00 06/11/23 21:26 Magnesium Oxide 400 Mg Tablet PO 400 mg HS CLARE Administration Mupirocin 1 applic 06/11/23 00:37 06/11/23 21:26 Mupirocin 1 Gm Packet TOPICAL 1 applic TID CLARE Administration Nystatin 1 applic 06/11/23 00:37 06/11/23 21:27 Nystatin Powder TOPICAL Not Given BID CLARE Nystatin 1 applic 06/11/23 21:00 06/11/23 21:26 Nystatin Cream 30 Gm TOPICAL 1 applic BID CLARE Administration Oxycodone HCl 2.5 - 5 mg 06/11/23 00:37 06/11/23 09:05 Oxycodone 5 Mg Tablet PO 5 mg Q4H PRN Administration MODERATE Pain Potassium Chloride 10 meq 06/11/23 09:00 06/11/23 09:08 Potassium Chloride 10 Meq Capsule Er PO 10 meq DAILY CLARE Administration Sodium Chloride 5 ml 06/11/23 00:37 06/11/23 21:27 Sodium Chloride 0.9 % (Flush) 10 Ml Syringe IVF 5 ml BID CLARE Administration Sodium Chloride 250 ml 06/11/23 01:00 06/11/23 01:58 0.9 % Sodium Chloride 250 Ml IV 250 ml Q24H CLARE Administration Tamsulosin HCl 0.4 mg 06/11/23 00:37 06/11/23 21:26 Tamsulosin Hcl 0.4 Mg Capsule PO 0.4 mg HS CLARE Administration Torsemide 10 mg 06/11/23 08:00 06/11/23 09:01 Torsemide 5 Mg Tablet PO 10 mg DAILY@0800 CLARE Administration Discontinued Medications Generic Name Dose Route Start Last Admin Trade Name Freq PRN Reason Stop Dose Admin Acetaminophen 1,000 mg 06/10/23 15:51 06/10/23 16:04 Acetaminophen 500 Mg Tablet PO 06/10/23 15:52 1,000 mg ONCE ONE Administration Ceftriaxone Sodium 1 gm/ 100 mls @ 200 mls/hr 06/10/23 12:09 06/10/23 14:01 Sodium Chloride IVPB 06/10/23 12:10 Infused ONCE ONE Infusion Sodium Chloride 1,000 mls @ 1,000 mls/hr 06/10/23 16:00 06/10/23 17:04 0.9 % Sodium Chloride 1000 Ml IV 06/10/23 16:59 Infused .Q1H CLARE Infusion Sodium Chloride 1,000 mls @ 1,000 mls/hr 06/10/23 16:00 06/10/23 19:29 0.9 % Sodium Chloride 1000 Ml IV 06/10/23 16:59 Infused .Q1H CLARE Infusion Ceftriaxone Sodium 1 gm/ 100 mls @ 200 mls/hr 06/10/23 17:15 06/10/23 19:30 Sodium Chloride IVPB 06/10/23 17:16 Infused ONCE ONE Infusion Piperacillin Sod/Tazobactam 100 mls @ 200 mls/hr 06/11/23 00:37 06/11/23 10:01 Sod 3.375 gm/ Sodium Chloride IVPB Not Given Q6H CLARE Piperacillin Sod/Tazobactam 100 mls @ 200 mls/hr 06/11/23 01:24 06/11/23 10:01 Sod 2.25 gm/ Sodium Chloride IVPB Not Given Q6H CLARE Sodium Chloride 1,000 mls @ 500 mls/hr 06/11/23 11:30 06/11/23 15:10 0.9 % Sodium Chloride 1000 Ml IV 06/11/23 13:29 Infused .Q2H CLARE Infusion Sodium Chloride 1,000 mls @ 125 mls/hr 06/11/23 11:28 06/11/23 20:22 0.9 % Sodium Chloride 1000 Ml IV Not Given .Q8H CLARE <Marry Uri - Last Filed: 06/10/23 13:43> Generic Name Dose Route Start Last Admin Trade Name Freq PRN Reason Stop Dose Admin Acetaminophen 650 mg 06/11/23 00:37 06/11/23 09:04 Acetaminophen 325 Mg Tablet PO 650 mg Q6H PRN Administration Amlodipine Besylate 5 mg 06/11/23 09:00 06/11/23 09:02 Amlodipine 5 Mg Tablet PO 5 mg DAILY CLARE Administration Enoxaparin Sodium 30 mg 06/11/23 09:00 06/11/23 09:03 Enoxaparin 30 Mg/0.3ml Inj SUBCUT 30 mg DAILY CLARE Administration Piperacillin Sod/Tazobactam 100 mls @ 200 mls/hr 06/11/23 02:00 06/11/23 21:29 Sod 2.25 gm/ Sodium Chloride IVPB Infused Q6H CLARE Infusion Lactobacillus Acidophilus 1 tab 06/11/23 08:00 06/11/23 17:46 Lactobacillus Acidophilus 1 Tablet PO 1 tab TIDWM CLARE Administration Losartan Potassium 100 mg 06/11/23 09:00 06/11/23 09:03 Losartan Potassium 50 Mg Tablet PO 100 mg DAILY CLARE Administration Magnesium Oxide 400 mg 06/11/23 21:00 06/11/23 21:26 Magnesium Oxide 400 Mg Tablet PO 400 mg HS CLARE Administration Mupirocin 1 applic 06/11/23 00:37 06/11/23 21:26 Mupirocin 1 Gm Packet TOPICAL 1 applic TID CLARE Administration Nystatin 1 applic 06/11/23 00:37 06/11/23 21:27 Nystatin Powder TOPICAL Not Given BID CLARE Nystatin 1 applic 06/11/23 21:00 06/11/23 21:26 Nystatin Cream 30 Gm TOPICAL 1 applic BID CLARE Administration Oxycodone HCl 2.5 - 5 mg 06/11/23 00:37 06/11/23 09:05 Oxycodone 5 Mg Tablet PO 5 mg Q4H PRN Administration MODERATE Pain Potassium Chloride 10 meq 06/11/23 09:00 06/11/23 09:08 Potassium Chloride 10 Meq Capsule Er PO 10 meq DAILY CLARE Administration Sodium Chloride 5 ml 06/11/23 00:37 06/11/23 21:27 Sodium Chloride 0.9 % (Flush) 10 Ml Syringe IVF 5 ml BID CLARE Administration Sodium Chloride 250 ml 06/11/23 01:00 06/11/23 01:58 0.9 % Sodium Chloride 250 Ml IV 250 ml Q24H CLARE Administration Tamsulosin HCl 0.4 mg 06/11/23 00:37 06/11/23 21:26 Tamsulosin Hcl 0.4 Mg Capsule PO 0.4 mg HS CLARE Administration Torsemide 10 mg 06/11/23 08:00 06/11/23 09:01 Torsemide 5 Mg Tablet PO 10 mg DAILY@0800 CLARE Administration Discontinued Medications Generic Name Dose Route Start Last Admin Trade Name Freq PRN Reason Stop Dose Admin Acetaminophen 1,000 mg 06/10/23 15:51 06/10/23 16:04 Acetaminophen 500 Mg Tablet PO 06/10/23 15:52 1,000 mg ONCE ONE Administration Ceftriaxone Sodium 1 gm/ 100 mls @ 200 mls/hr 06/10/23 12:09 06/10/23 14:01 Sodium Chloride IVPB 06/10/23 12:10 Infused ONCE ONE Infusion Sodium Chloride 1,000 mls @ 1,000 mls/hr 06/10/23 16:00 06/10/23 17:04 0.9 % Sodium Chloride 1000 Ml IV 06/10/23 16:59 Infused .Q1H CL[facility] Infusion Sodium Chloride 1,000 mls @ 1,000 mls/hr 06/10/23 16:00 06/10/23 19:29 0.9 % Sodium Chloride 1000 Ml IV 06/10/23 16:59 Infused .Q1H [facility] Infusion Ceftriaxone Sodium 1 gm/ 100 mls @ 200 mls/hr 06/10/23 17:15 06/10/23 19:30 Sodium Chloride IVPB 06/10/23 17:16 Infused ONCE ONE Infusion Piperacillin Sod/Tazobactam 100 mls @ 200 mls/hr 06/11/23 00:37 06/11/23 10:01 Sod 3.375 gm/ Sodium Chloride IVPB Not Given Q6H CLARE Piperacillin Sod/Tazobactam 100 mls @ 200 mls/hr 06/11/23 01:24 06/11/23 10:01 Sod 2.25 gm/ Sodium Chloride IVPB Not Given Q6H CLARE Sodium Chloride 1,000 mls @ 500 mls/hr 06/11/23 11:30 06/11/23 15:10 0.9 % Sodium Chloride 1000 Ml IV 06/11/23 13:29 Infused .Q2H CL[facility] Infusion Sodium Chloride 1,000 mls @ 125 mls/hr 06/11/23 11:28 06/11/23 20:22 0.9 % Sodium Chloride 1000 Ml IV Not Given .Q8H CLARE <Hector Blackman MD - Last Filed: 06/11/23 23:58> Generic Name Dose Route Start Last Admin Trade Name Freq PRN Reason Stop Dose Admin Acetaminophen 650 mg 06/11/23 00:37 06/11/23 09:04 Acetaminophen 325 Mg Tablet PO 650 mg Q6H PRN Administration Amlodipine Besylate 5 mg 06/11/23 09:00 06/11/23 09:02 Amlodipine 5 Mg Tablet PO 5 mg DAILY CLARE Administration Enoxaparin Sodium 30 mg 06/11/23 09:00 06/11/23 09:03 Enoxaparin 30 Mg/0.3ml Inj SUBCUT 30 mg DAILY CLARE Administration Piperacillin Sod/Tazobactam 100 mls @ 200 mls/hr 06/11/23 02:00 06/11/23 21:29 Sod 2.25 gm/ Sodium Chloride IVPB Infused Q6H CL[facility] Infusion Lactobacillus Acidophilus 1 tab 06/11/23 08:00 06/11/23 17:46 Lactobacillus Acidophilus 1 Tablet PO 1 tab TIDWM CLARE Administration Losartan Potassium 100 mg 06/11/23 09:00 06/11/23 09:03 Losartan Potassium 50 Mg Tablet PO 100 mg DAILY CLARE Administration Magnesium Oxide 400 mg 06/11/23 21:00 06/11/23 21:26 Magnesium Oxide 400 Mg Tablet PO 400 mg HS CLARE Administration Mupirocin 1 applic 06/11/23 00:37 06/11/23 21:26 Mupirocin 1 Gm Packet TOPICAL 1 applic TID CLARE Administration Nystatin 1 applic 06/11/23 00:37 06/11/23 21:27 Nystatin Powder TOPICAL Not Given BID CLARE Nystatin 1 applic 06/11/23 21:00 06/11/23 21:26 Nystatin Cream 30 Gm TOPICAL 1 applic BID CLARE Administration Oxycodone HCl 2.5 - 5 mg 06/11/23 00:37 06/11/23 09:05 Oxycodone 5 Mg Tablet PO 5 mg Q4H PRN Administration MODERATE Pain Potassium Chloride 10 meq 06/11/23 09:00 06/11/23 09:08 Potassium Chloride 10 Meq Capsule Er PO 10 meq DAILY CLARE Administration Sodium Chloride 5 ml 06/11/23 00:37 06/11/23 21:27 Sodium Chloride 0.9 % (Flush) 10 Ml Syringe IVF 5 ml BID CLARE Administration Sodium Chloride 250 ml 06/11/23 01:00 06/11/23 01:58 0.9 % Sodium Chloride 250 Ml IV 250 ml Q24H CLARE Administration Tamsulosin HCl 0.4 mg 06/11/23 00:37 06/11/23 21:26 Tamsulosin Hcl 0.4 Mg Capsule PO 0.4 mg HS CLARE Administration Torsemide 10 mg 06/11/23 08:00 06/11/23 09:01 Torsemide 5 Mg Tablet PO 10 mg DAILY@0800 CLARE Administration Discontinued Medications Generic Name Dose Route Start Last Admin Trade Name Freq PRN Reason Stop Dose Admin Acetaminophen 1,000 mg 06/10/23 15:51 06/10/23 16:04 Acetaminophen 500 Mg Tablet PO 06/10/23 15:52 1,000 mg ONCE ONE Administration Ceftriaxone Sodium 1 gm/ 100 mls @ 200 mls/hr 06/10/23 12:09 06/10/23 14:01 Sodium Chloride IVPB 06/10/23 12:10 Infused ONCE ONE Infusion Sodium Chloride 1,000 mls @ 1,000 mls/hr 06/10/23 16:00 06/10/23 17:04 0.9 % Sodium Chloride 1000 Ml IV 06/10/23 16:59 Infused .Q1H [facility] Infusion Sodium Chloride 1,000 mls @ 1,000 mls/hr 06/10/23 16:00 06/10/23 19:29 0.9 % Sodium Chloride 1000 Ml IV 06/10/23 16:59 Infused .Q1H CL[facility] Infusion Ceftriaxone Sodium 1 gm/ 100 mls @ 200 mls/hr 06/10/23 17:15 06/10/23 19:30 Sodium Chloride IVPB 06/10/23 17:16 Infused ONCE ONE Infusion Piperacillin Sod/Tazobactam 100 mls @ 200 mls/hr 06/11/23 00:37 06/11/23 10:01 Sod 3.375 gm/ Sodium Chloride IVPB Not Given Q6H CLARE Piperacillin Sod/Tazobactam 100 mls @ 200 mls/hr 06/11/23 01:24 06/11/23 10:01 Sod 2.25 gm/ Sodium Chloride IVPB Not Given Q6H CLARE Sodium Chloride 1,000 mls @ 500 mls/hr 06/11/23 11:30 06/11/23 15:10 0.9 % Sodium Chloride 1000 Ml IV 06/11/23 13:29 Infused .Q2H CLARE Infusion Sodium Chloride 1,000 mls @ 125 mls/hr 06/11/23 11:28 06/11/23 20:22 0.9 % Sodium Chloride 1000 Ml IV Not Given .Q8H CLARE <Natali Velazquez MD - Last Filed: 06/11/23 00:01> Medical Decision Making MDM Narrative Medical decision making narrative: Patient is a pleasant 77-year-old male presenting with ongoing chills for the past 3 weeks, which has since worsened with intermittent left-sided flank pain beginning 2-3 days ago. He also notes associated fatigue and shortness of breath with exertion at baseline. Patient has had urinary incontinence for many weeks, but denies any hematuria or dysuria. Last night patient was attempting to get into bed when he slipped and fell landing on his bottom. He notes he did not injure himself during this fall. He did not hit his head or lose consciousness. Due to patient's body habitus he was unable to get up off of the floor for multiple hours. He ended up calling EMS to help assist him. On exam patient is afebrile and tachypneic, no hypoxia. Regular rate and rhythm. Increased effort, but no retractions or use of accessory muscles. Lungs are clear to auscultation bilaterally. Moist mucous membranes. Abdomen is obese, soft, nontender. Unable to perform CVA tenderness due to patient's body habitus. Workup will include UA, CBC, BMP, creatinine kinase, UA, COVID/flu/RSV, and CT abdomen without contrast. Differential diagnosis includes, but is not limited to, upper respiratory infection, rhabdomyolysis, muscle strain, urinary tract infection, pyelonephritis, renal colic, nephrolithiasis, or testicular torsion. Patient notes he has spoiled himself. Nurse is aware and they will change him at this time and collect/send urine. IV placed. UA is significant with positive nitrites and 3+ leukocyte esterase with >100 WBCs. There is also urine blood 3+ and 5-10 RBCs. There is an obvious urinary tract infection, will treat with IV Rochepin. CBC is remarkable for white count of 32, elevated neutrophils and decrease lymphocytes. Patient's hemoglobin is decreased at 11.5. Metabolic panel shows a mildly elevated potassium, an elevated nonfasting glucose, and a creatinine of 2.7. Patient's creatinine kinase is at 698, therefore low suspicion for rhabdomyolysis. CT pelvis does show a large radio-opaque stone in the left renal pelvis. Trouble swab is negative. On repeat exam, patient is still feeling chilled and he is now diaphoretic. Patient is pallor. Repeat vitals show patient is still tachypneic. His blood pressure has returned to 122/76. He is not tachycardic, but he is mildly febrile with a low-grade fever of 99.3. O2 saturation on room air is 94 which is slightly lower than his original O2 sat at 99, which could be a result of the patient lying nearly flat in the hospital bed. Patient's pain is well controlled at this time with no pain management. <Marry Ybarra Filed: 06/10/23 13:43> Medical Records Medical records reviewed: Yes I reviewed the patient's medical records <Marry Ybarra Filed: 06/10/23 13:43> Lab Data Lab results reviewed: Yes I reviewed the patient's lab results <Marry Ybarra Filed: 06/10/23 13:43> Labs: Lab Results 06/10/23 06/10/23 06/10/23 Range/Units 12:05 14:00 15:15 WBC 32.03 H* 20.06 H (4.50-11.00) K/uL RBC 4.29 L 3.78 L (4.30-5.90) m/uL Hgb 11.5 L 10.2 L (13.5-17.5) gm/dL Hct 37.8 33.0 L (37.0-53.0) % MCV 88 87 (80-100) fL MCH 27 27 (26-34) pg MCHC 30 L 31 L (32-36) gm/dL RDW Coeff of Rosalee 14.4 14.4 (11.5-15.5) % Plt Count 352 297 (140-440) K/uL Neut % (Auto) 92.1 H 92.3 H (42.0-72.0) % Lymph % (Auto) 2.1 L 3.4 L (20-44) % Coles % (Auto) 4.1 3.7 (0.0-11.0) % Eos % (Auto) 0.0 0.1 (0.0-7.0) % Baso % (Auto) 0.0 0.0 (0.0-3.0) % Neut # (Auto) 29.50 H 18.50 H (1.7-7.0) K/uL Lymph # (Auto) 0.70 L 0.70 L (0.90-2.90) K/uL Coles # (Auto) 1.30 H 0.70 (0.00-0.90) K/UL Eos # (Auto) 0.00 0.00 (0.00-0.50) K/uL Baso # (Auto) 0.00 0.00 (0.00-0.30) K/uL Abs Immat Gran (auto) 0.50 H 0.10 (0.00-0.30) K/uL Imm/Tot Granulo (auto) 1.7 0.5 % Diff Slide Review Acceptable Review (Acceptable) Sodium 139 139 (135-149) mmol/L Potassium 5.3 H 4.2 (3.6-5.1) mmol/L Chloride 105 108 (96-114) mmol/L Carbon Dioxide 26 25 (20-32) mmol/L Anion Gap 8 6 L (7-15) mEq/L BUN 24 25 (7-30) mg/dL Creatinine 2.7 H 2.5 H (0.5-1.5) mg/dL Estimated Creat Clear 21.76 23.50 Estimated GFR 24 26 ml/min Glucose 157 H 123 H (60-115) mg/dL Lactate 1.9 2.1 H (0.5-1.9) mmol/L Calcium 8.7 7.7 L (8.4-10.6) mg/dL Total Creatine Kinase 698 H (54-186) U/L Procalcitonin 37.70 H (<0.50) ng/mL Urine Color (Yellow) Urine Appearance (Clear) Urine pH (5.0-8.5) Ur Specific [place] (1.000-1.030) Urine Protein (Negative) Urine Glucose (UA) (Negative) Urine Ketones (Negative) Urine Blood (Negative) Urine Nitrite (Negative) Urine Bilirubin (Negative) Urine Urobilinogen (0.2-1.0) Ur Leukocyte Esterase (Negative) Urine RBC (0-2) Urine WBC (0-5) Ur Squamous Epith Cells (None-Few) Urine Bacteria (None) SARS-CoV-2 (PCR) Negative SARS-CoV-2 (Negative) Influenza Type A (PCR) Negative PCR FLU A (Negative) Influenza Type B (PCR) Negative PCR FLU B (Negative) RSV (PCR) Negative PCR RSV (Negative) 06/10/23 06/10/23 Range/Units 20:41 Unknown WBC (4.50-11.00) K/uL RBC (4.30-5.90) m/uL Hgb (13.5-17.5) gm/dL Hct (37.0-53.0) % MCV (80-100) fL MCH (26-34) pg MCHC (32-36) gm/dL RDW Coeff of Rosalee (11.5-15.5) % Plt Count (140-440) K/uL Neut % (Auto) (42.0-72.0) % Lymph % (Auto) (20-44) % Coles % (Auto) (0.0-11.0) % Eos % (Auto) (0.0-7.0) % Baso % (Auto) (0.0-3.0) % Neut # (Auto) (1.7-7.0) K/uL Lymph # (Auto) (0.90-2.90) K/uL Coles # (Auto) (0.00-0.90) K/UL Eos # (Auto) (0.00-0.50) K/uL Baso # (Auto) (0.00-0.30) K/uL Abs Immat Gran (auto) (0.00-0.30) K/uL Imm/Tot Granulo (auto) % Diff Slide Review (Acceptable) Sodium (135-149) mmol/L Potassium (3.6-5.1) mmol/L Chloride (96-114) mmol/L Carbon Dioxide (20-32) mmol/L Anion Gap (7-15) mEq/L BUN (7-30) mg/dL Creatinine (0.5-1.5) mg/dL Estimated Creat Clear Estimated GFR ml/min Glucose (60-115) mg/dL Lactate 1.7 (0.5-1.9) mmol/L Calcium (8.4-10.6) mg/dL Total Creatine Kinase (54-186) U/L Procalcitonin (<0.50) ng/mL Urine Color Yellow (Yellow) Urine Appearance Cloudy A (Clear) Urine pH 5.0 (5.0-8.5) Ur Specific [place] 1.020 (1.000-1.030) Urine Protein 2+ A (Negative) Urine Glucose (UA) Negative (Negative) Urine Ketones Negative (Negative) Urine Blood 3+ A (Negative) Urine Nitrite Positive A (Negative) Urine Bilirubin 1+ A (Negative) Urine Urobilinogen 0.2 (0.2-1.0) Ur Leukocyte Esterase 3+ A (Negative) Urine RBC 5-10 A (0-2) Urine WBC >100 A (0-5) Ur Squamous Epith Cells Few (None-Few) Urine Bacteria Many A (None) SARS-CoV-2 (PCR) (Negative) Influenza Type A (PCR) (Negative) Influenza Type B (PCR) (Negative) RSV (PCR) (Negative) <Marry Grewal - Last Filed: 06/10/23 13:43> Lab Results 06/10/23 06/10/23 06/10/23 Range/Units 12:05 14:00 15:15 WBC 32.03 H* 20.06 H (4.50-11.00) K/uL RBC 4.29 L 3.78 L (4.30-5.90) m/uL Hgb 11.5 L 10.2 L (13.5-17.5) gm/dL Hct 37.8 33.0 L (37.0-53.0) % MCV 88 87 (80-100) fL MCH 27 27 (26-34) pg MCHC 30 L 31 L (32-36) gm/dL RDW Coeff of Rosalee 14.4 14.4 (11.5-15.5) % Plt Count 352 297 (140-440) K/uL Neut % (Auto) 92.1 H 92.3 H (42.0-72.0) % Lymph % (Auto) 2.1 L 3.4 L (20-44) % Coles % (Auto) 4.1 3.7 (0.0-11.0) % Eos % (Auto) 0.0 0.1 (0.0-7.0) % Baso % (Auto) 0.0 0.0 (0.0-3.0) % Neut # (Auto) 29.50 H 18.50 H (1.7-7.0) K/uL Lymph # (Auto) 0.70 L 0.70 L (0.90-2.90) K/uL Coles # (Auto) 1.30 H 0.70 (0.00-0.90) K/UL Eos # (Auto) 0.00 0.00 (0.00-0.50) K/uL Baso # (Auto) 0.00 0.00 (0.00-0.30) K/uL Abs Immat Gran (auto) 0.50 H 0.10 (0.00-0.30) K/uL Imm/Tot Granulo (auto) 1.7 0.5 % Diff Slide Review Acceptable Review (Acceptable) Sodium 139 139 (135-149) mmol/L Potassium 5.3 H 4.2 (3.6-5.1) mmol/L Chloride 105 108 (96-114) mmol/L Carbon Dioxide 26 25 (20-32) mmol/L Anion Gap 8 6 L (7-15) mEq/L BUN 24 25 (7-30) mg/dL Creatinine 2.7 H 2.5 H (0.5-1.5) mg/dL Estimated Creat Clear 21.76 23.50 Estimated GFR 24 26 ml/min Glucose 157 H 123 H (60-115) mg/dL Lactate 1.9 2.1 H (0.5-1.9) mmol/L Calcium 8.7 7.7 L (8.4-10.6) mg/dL Total Creatine Kinase 698 H (54-186) U/L Procalcitonin 37.70 H (<0.50) ng/mL Urine Color (Yellow) Urine Appearance (Clear) Urine pH (5.0-8.5) Ur Specific [place] (1.000-1.030) Urine Protein (Negative) Urine Glucose (UA) (Negative) Urine Ketones (Negative) Urine Blood (Negative) Urine Nitrite (Negative) Urine Bilirubin (Negative) Urine Urobilinogen (0.2-1.0) Ur Leukocyte Esterase (Negative) Urine RBC (0-2) Urine WBC (0-5) Ur Squamous Epith Cells (None-Few) Urine Bacteria (None) SARS-CoV-2 (PCR) Negative SARS-CoV-2 (Negative) Influenza Type A (PCR) Negative PCR FLU A (Negative) Influenza Type B (PCR) Negative PCR FLU B (Negative) RSV (PCR) Negative PCR RSV (Negative) 06/10/23 06/10/23 Range/Units 20:41 Unknown WBC (4.50-11.00) K/uL RBC (4.30-5.90) m/uL Hgb (13.5-17.5) gm/dL Hct (37.0-53.0) % MCV (80-100) fL MCH (26-34) pg MCHC (32-36) gm/dL RDW Coeff of Rosalee (11.5-15.5) % Plt Count (140-440) K/uL Neut % (Auto) (42.0-72.0) % Lymph % (Auto) (20-44) % Coles % (Auto) (0.0-11.0) % Eos % (Auto) (0.0-7.0) % Baso % (Auto) (0.0-3.0) % Neut # (Auto) (1.7-7.0) K/uL Lymph # (Auto) (0.90-2.90) K/uL Coles # (Auto) (0.00-0.90) K/UL Eos # (Auto) (0.00-0.50) K/uL Baso # (Auto) (0.00-0.30) K/uL Abs Immat Gran (auto) (0.00-0.30) K/uL Imm/Tot Granulo (auto) % Diff Slide Review (Acceptable) Sodium (135-149) mmol/L Potassium (3.6-5.1) mmol/L Chloride (96-114) mmol/L Carbon Dioxide (20-32) mmol/L Anion Gap (7-15) mEq/L BUN (7-30) mg/dL Creatinine (0.5-1.5) mg/dL Estimated Creat Clear Estimated GFR ml/min Glucose (60-115) mg/dL Lactate 1.7 (0.5-1.9) mmol/L Calcium (8.4-10.6) mg/dL Total Creatine Kinase (54-186) U/L Procalcitonin (<0.50) ng/mL Urine Color Yellow (Yellow) Urine Appearance Cloudy A (Clear) Urine pH 5.0 (5.0-8.5) Ur Specific [place] 1.020 (1.000-1.030) Urine Protein 2+ A (Negative) Urine Glucose (UA) Negative (Negative) Urine Ketones Negative (Negative) Urine Blood 3+ A (Negative) Urine Nitrite Positive A (Negative) Urine Bilirubin 1+ A (Negative) Urine Urobilinogen 0.2 (0.2-1.0) Ur Leukocyte Esterase 3+ A (Negative) Urine RBC 5-10 A (0-2) Urine WBC >100 A (0-5) Ur Squamous Epith Cells Few (None-Few) Urine Bacteria Many A (None) SARS-CoV-2 (PCR) (Negative) Influenza Type A (PCR) (Negative) Influenza Type B (PCR) (Negative) RSV (PCR) (Negative) <Hector Blackman MD - Last Filed: 06/11/23 23:58> Lab Results 06/10/23 06/10/23 06/10/23 Range/Units 12:05 14:00 15:15 WBC 32.03 H* 20.06 H (4.50-11.00) K/uL RBC 4.29 L 3.78 L (4.30-5.90) m/uL Hgb 11.5 L 10.2 L (13.5-17.5) gm/dL Hct 37.8 33.0 L (37.0-53.0) % MCV 88 87 (80-100) fL MCH 27 27 (26-34) pg MCHC 30 L 31 L (32-36) gm/dL RDW Coeff of Rosalee 14.4 14.4 (11.5-15.5) % Plt Count 352 297 (140-440) K/uL Neut % (Auto) 92.1 H 92.3 H (42.0-72.0) % Lymph % (Auto) 2.1 L 3.4 L (20-44) % Coles % (Auto) 4.1 3.7 (0.0-11.0) % Eos % (Auto) 0.0 0.1 (0.0-7.0) % Baso % (Auto) 0.0 0.0 (0.0-3.0) % Neut # (Auto) 29.50 H 18.50 H (1.7-7.0) K/uL Lymph # (Auto) 0.70 L 0.70 L (0.90-2.90) K/uL Coles # (Auto) 1.30 H 0.70 (0.00-0.90) K/UL Eos # (Auto) 0.00 0.00 (0.00-0.50) K/uL Baso # (Auto) 0.00 0.00 (0.00-0.30) K/uL Abs Immat Gran (auto) 0.50 H 0.10 (0.00-0.30) K/uL Imm/Tot Granulo (auto) 1.7 0.5 % Diff Slide Review Acceptable Review (Acceptable) Sodium 139 139 (135-149) mmol/L Potassium 5.3 H 4.2 (3.6-5.1) mmol/L Chloride 105 108 (96-114) mmol/L Carbon Dioxide 26 25 (20-32) mmol/L Anion Gap 8 6 L (7-15) mEq/L BUN 24 25 (7-30) mg/dL Creatinine 2.7 H 2.5 H (0.5-1.5) mg/dL Estimated Creat Clear 21.76 23.50 Estimated GFR 24 26 ml/min Glucose 157 H 123 H (60-115) mg/dL Lactate 1.9 2.1 H (0.5-1.9) mmol/L Calcium 8.7 7.7 L (8.4-10.6) mg/dL Total Creatine Kinase 698 H (54-186) U/L Procalcitonin 37.70 H (<0.50) ng/mL Urine Color (Yellow) Urine Appearance (Clear) Urine pH (5.0-8.5) Ur Specific [place] (1.000-1.030) Urine Protein (Negative) Urine Glucose (UA) (Negative) Urine Ketones (Negative) Urine Blood (Negative) Urine Nitrite (Negative) Urine Bilirubin (Negative) Urine Urobilinogen (0.2-1.0) Ur Leukocyte Esterase (Negative) Urine RBC (0-2) Urine WBC (0-5) Ur Squamous Epith Cells (None-Few) Urine Bacteria (None) SARS-CoV-2 (PCR) Negative SARS-CoV-2 (Negative) Influenza Type A (PCR) Negative PCR FLU A (Negative) Influenza Type B (PCR) Negative PCR FLU B (Negative) RSV (PCR) Negative PCR RSV (Negative) 06/10/23 06/10/23 Range/Units 20:41 Unknown WBC (4.50-11.00) K/uL RBC (4.30-5.90) m/uL Hgb (13.5-17.5) gm/dL Hct (37.0-53.0) % MCV (80-100) fL MCH (26-34) pg MCHC (32-36) gm/dL RDW Coeff of Rosalee (11.5-15.5) % Plt Count (140-440) K/uL Neut % (Auto) (42.0-72.0) % Lymph % (Auto) (20-44) % Coles % (Auto) (0.0-11.0) % Eos % (Auto) (0.0-7.0) % Baso % (Auto) (0.0-3.0) % Neut # (Auto) (1.7-7.0) K/uL Lymph # (Auto) (0.90-2.90) K/uL Coles # (Auto) (0.00-0.90) K/UL Eos # (Auto) (0.00-0.50) K/uL Baso # (Auto) (0.00-0.30) K/uL Abs Immat Gran (auto) (0.00-0.30) K/uL Imm/Tot Granulo (auto) % Diff Slide Review (Acceptable) Sodium (135-149) mmol/L Potassium (3.6-5.1) mmol/L Chloride (96-114) mmol/L Carbon Dioxide (20-32) mmol/L Anion Gap (7-15) mEq/L BUN (7-30) mg/dL Creatinine (0.5-1.5) mg/dL Estimated Creat Clear Estimated GFR ml/min Glucose (60-115) mg/dL Lactate 1.7 (0.5-1.9) mmol/L Calcium (8.4-10.6) mg/dL Total Creatine Kinase (54-186) U/L Procalcitonin (<0.50) ng/mL Urine Color Yellow (Yellow) Urine Appearance Cloudy A (Clear) Urine pH 5.0 (5.0-8.5) Ur Specific [place] 1.020 (1.000-1.030) Urine Protein 2+ A (Negative) Urine Glucose (UA) Negative (Negative) Urine Ketones Negative (Negative) Urine Blood 3+ A (Negative) Urine Nitrite Positive A (Negative) Urine Bilirubin 1+ A (Negative) Urine Urobilinogen 0.2 (0.2-1.0) Ur Leukocyte Esterase 3+ A (Negative) Urine RBC 5-10 A (0-2) Urine WBC >100 A (0-5) Ur Squamous Epith Cells Few (None-Few) Urine Bacteria Many A (None) SARS-CoV-2 (PCR) (Negative) Influenza Type A (PCR) (Negative) Influenza Type B (PCR) (Negative) RSV (PCR) (Negative) <Natali Velazquez MD - Last Filed: 06/11/23 00:01> Imaging Data CT scan - abdomen: Radiologist's impression: 1. There is an 11 millimeter renal calculus at the interpolar region of the left kidney without appreciable hydronephrosis. <Hector Blackman MD - Last Filed: 06/11/23 23:58> Discharge Plan Discharge Patient Disposition: Admitted As Observation <Marry Grewal - Last Filed: 06/10/23 13:43> Discharge Location: [facility] <Marry Grewal - Last Filed: 06/10/23 13:43>
--- NOTE | 2023-06-10 10:48 | CRLHL7_ITS ---
For Patients: As a result of the Cures Act, medical imaging exams and procedure reports are released immediately into your electronic medical record. You may view this report before your referring provider. If you have questions, please contact your health care provider. INDICATION: Left flank pain TECHNIQUE: CT abdomen and pelvis without contrast. COMPARISON: CT abdomen/pelvis on October 21, 2014 FINDINGS: Visualized lower thorax shows mild cardiomegaly; otherwise, unremarkable. The liver, spleen, pancreas, and bilateral adrenal glands are within normal limits. Status post cholecystectomy. There is an 11 millimeter stone at the interpolar region of the left kidney without appreciable hydronephrosis. The right kidney is unremarkable in appearance. The bladder is decompressed with no appreciable bladder wall masses or lesions. No evidence of bowel obstruction or inflammation. Colonic diverticulosis without CT evidence of acute diverticulitis. No free fluid or free air. No pathologically enlarged lymph nodes throughout the abdomen or pelvis. No abdominal aortic aneurysm. Status post midline hernia repair with likely small chronic seroma. There are multilevel degenerative changes throughout the spine. No suspicious osseous lesions. IMPRESSION: 1. There is an 11 millimeter renal calculus at the interpolar region of the left kidney without appreciable hydronephrosis. 2. Additional incidental findings as detailed above. Please note that all CT scans at this facility use dose modulation, iterative reconstruction, and/or weight-based dosing when appropriate to reduce radiation dose to as low as reasonably achievable. Dictated by Seth Pelletier MD @ 06/10/2023 1:43:46 PM (Electronically Signed)
[2023-06-10 11:35] LABS: Appearance Urine Cloudy (Clear); Bilirubin Urine 1+ (Negative); Blood Urine 3+ (Negative); Color Urine Yellow (Yellow); Glucose Urine Negative (Negative); Ketones Urine Negative (Negative); Leukocyte Esterase Urine 3+ (Negative); Nitrite Urine Positive (Negative); Protein Urine 2+ (Negative); Urobilinogen Urine 0.2 (0.2-1.0)
[2023-06-10 11:48] LABS: Bacteria Urine Many; Squamous Epithelial Cell Urine Few (None-Few); WBC Urine >100 (0-5)
[2023-06-10 12:21] LABS: Hematocrit 37.8 % (37.0-53.0); Hemoglobin* 11.5 gm/dL (13.5-17.5); Immature Granulocytes Pct Auto 1.7 %; Lymphocytes Percent Auto 2.1 % (20-44); Mean Corpuscular HGB Conc 30 gm/dL (32-36); Mean Corpuscular Hemoglobin 27 pg (26-34); Mean Corpuscular Volume 88 fL (80-100); Monocytes Percent Auto 4.1 % (0.0-11.0); Neutrophils Percent Auto 92.1 % (42.0-72.0); Platelet Count* 352 K/uL (140-440); RDW Coefficient of Variation % 14.4 % (11.5-15.5); Red Blood Count 4.29 m/uL (4.30-5.90)
[2023-06-10 12:33] LABS: Chloride* 105 mmol/L (96-114)
[2023-06-10 12:34] LABS: Potassium* 5.3 mmol/L (3.6-5.1); Sodium* 139 mmol/L (135-149)
[2023-06-10 12:36] LABS: Creatine Kinase* 698 U/L (54-186); Creatinine* 2.7 mg/dL (0.5-1.5); Est. Creatinine Clearance* 21.76; Estimated Glomerular Filt Rate 24 ml/min
[2023-06-10 12:37] LABS: Anion Gap 8 mEq/L (7-15); Blood Urea Nitrogen* 24 mg/dL (7-30); Calcium* 8.7 mg/dL (8.4-10.6); Carbon Dioxide* 26 mmol/L (20-32); Glucose* 157 mg/dL (60-115)
[2023-06-10 12:40] LABS: Slide Review Reflex Yes; White Blood Count* 32.03 K/uL (4.50-11.00)
[2023-06-10] MEDS: cefTRIAXone 1 GM in 0.9 % SODIUM CHLORIDE Mini-bag 100 ML IVPB ×2 (12:46→18:00)
[2023-06-10 13:03] LABS: PCR FLU A Negative PCR FLU A (Negative); PCR FLU B Negative PCR FLU B (Negative); PCR RSV Negative PCR RSV (Negative)
[2023-06-10 13:18] LABS: SARS PCR* Negative SARS-CoV-2 (Negative)
[2023-06-10 13:19] LABS: Slide Review Acceptable Review (Acceptable)
[2023-06-10 15:19] LABS: Lactate* 2.1 mmol/L (0.5-1.9)
--- NOTE | 2023-06-10 15:45 | PC.NURSE ---
Pt states he has chills, temp 101.3, blankets removed. Physician informed. Pt. given popsicles and jello per request.
[2023-06-10] MEDS: ACETAMINOPHEN 500 MG TABLET 1000 MG PO (16:04)
[2023-06-10] MEDS: 0.9 % SODIUM CHLORIDE 1000 ml 1,000 ML IV ×2 (16:04→18:01)
--- NOTE | 2023-06-10 18:14 | PC.NURSE ---
Pt resting in room, eating sandwich and popsicles. States he is feeling better, rates left flank pain 2/10. Waiting on possible transfer.
[2023-06-10 19:07] LABS: Lactate* 1.9 mmol/L (0.5-1.9)
[2023-06-10 19:09] LABS: Eosinophils Percent Auto 0.1 % (0.0-7.0); Hemoglobin* 10.2 gm/dL (13.5-17.5); Immature Granulocytes Pct Auto 0.5 %; Lymphocytes Percent Auto 3.4 % (20-44); Mean Corpuscular HGB Conc 31 gm/dL (32-36); Mean Corpuscular Hemoglobin 27 pg (26-34); Mean Corpuscular Volume 87 fL (80-100); Monocytes Percent Auto 3.7 % (0.0-11.0); Neutrophils Percent Auto 92.3 % (42.0-72.0); Platelet Count* 297 K/uL (140-440); RDW Coefficient of Variation % 14.4 % (11.5-15.5); Red Blood Count 3.78 m/uL (4.30-5.90); White Blood Count* 20.06 K/uL (4.50-11.00)
[2023-06-10 19:15] LABS: Slide Review Reflex No
[2023-06-10 19:22] LABS: Chloride* 108 mmol/L (96-114); Potassium* 4.2 mmol/L (3.6-5.1); Sodium* 139 mmol/L (135-149)
[2023-06-10 19:25] LABS: Anion Gap 6 mEq/L (7-15); Blood Urea Nitrogen* 25 mg/dL (7-30); Calcium* 7.7 mg/dL (8.4-10.6); Carbon Dioxide* 25 mmol/L (20-32); Creatinine* 2.5 mg/dL (0.5-1.5); Estimated Glomerular Filt Rate 26 ml/min
[2023-06-10 20:27] LABS: Glucose* 123 mg/dL (60-115)
--- NOTE | 2023-06-10 20:30 | PM.IMHP1 ---
Hospitalist- H&P: HPI History of Present Illness Date Seen: 06/10/23 Chief complaint: Sepsis, complicated UTI, left kidney stone Narrative: Xavier Damon is a 77 year old man presents with 3 week history of intermittent chills and increased fatigue, and more recently intermittent left flank pain for the past 2-3 days. Denies dysuria, urgency, frequency, hematuria. Has longstanding urinary incontinence. Does have a history of scrotal ulcer which has been healed now for several months. No other open wounds. The left flank pain comes and goes, waxes and wanes, at worst it he rates the pain as a 3/10. Reportedly last night he was attempting to get into bed and he slipped and fell on his bottom. Did not strike his head or lose consciousness. Claims not to have sustained an injury in consequence of the same. Because of his large body habitus with a weight of about 200 kg and a BMI of 69, and also in consequence of his physical limitations and debility, he was not able to get off the floor. Remain on the floor for several hours before calling EMS for assistance. They helped him back to bed. Reportedly his blood pressure was measured as 70/50 mmHg. EMS staff urged him to come to the emergency department for further assessment but he declined. He finally comes into the emergency department today for assessment. Review of Systems Status of ROS: Reports: 10 or more systems reviewed and unremarkable except as noted in History and below Narrative: On the 1 hand he states he has had these chills but on the other hand he states he has had no fevers or rigors. Denies chest heaviness, pressure, tightness, or pain. Denies abdominal discomfort, nausea, vomiting. Denies diarrhea or constipation. Denies blood loss of any sort. Again states that his scrotal ulcer which she had in the past has totally resolved and has not recurred since. Denies lower extremity edema. Denies night sweats, weight loss, weight gain. Denies cough or new dyspnea. Acknowledges baseline dyspnea with exertion. Patient receives a lot help to stay in his home. He higher is a woman to help with home care, groceries. He has friends who help with the lot of errands as well. Even so as best as he can tell he has not been exposed to anyone with acute illnesses. Designates his sister, Justine Lehman, as his power of deputy county attorney for health should that be required, cell phone [phone]. Secondary power of deputy county attorney for health is Sid Castañedalouie, nephew, . Patient clearly indicates he wishes a DNR DNI resuscitation status. This is not different than what he has expressed in the past. [facility] Medical History (Updated 06/10/23 @ 20:53 by Jorge Irizarry MD) Advanced directives, counseling/discussion ?Z71.89 - Other specified counseling (ICD-10) Morbid obesity ?E66.01 - Morbid (severe) obesity due to excess calories (ICD-10) Right shoulder pain ?M25.511 - Pain in right shoulder (ICD-10) Leukocytosis ?D72.829 - Elevated white blood cell count, unspecified (ICD-10) Intertrigo ?L30.4 - Erythema intertrigo (ICD-10) Weakness ?R53.1 - Weakness (ICD-10) Lymphedema ?I89.0 - Lymphedema, not elsewhere classified (ICD-10) Urinary retention ?R33.9 - Retention of urine, unspecified (ICD-10) Arthritis of knee, left ?M17.12 - Unilateral primary osteoarthritis, left knee (ICD-10) Anasarca ?R60.1 - Generalized edema (ICD-10) Durable power of deputy county attorney for healthcare POLST (Physician Orders for Life-Sustaining Treatment) ?Z78.9 - Other specified health status (ICD-10) BRANDY (obstructive sleep apnea) ?G47.33 - Obstructive sleep apnea (adult) (pediatric) (ICD-10) Elevated blood uric acid level ?E79.0 - Hyperuricemia without signs of inflammatory arthritis and tophaceous disease (ICD-10) Impaired fasting glucose ?R73.01 - Impaired fasting glucose (ICD-10) Gout ?M10.9 - Gout, unspecified (ICD-10) Adenomatous colon polyp (~2015) ?D12.6 - Benign neoplasm of colon, unspecified (ICD-10) Ventral hernia ?K43.9 - Ventral hernia without obstruction or gangrene (ICD-10) Incarcerated umbilical hernia (~2014) ?K42.0 - Umbilical hernia with obstruction, without gangrene (ICD-10) Dyslipidemia ?E78.5 - Hyperlipidemia, unspecified (ICD-10) Hernia ?K46.9 - Unspecified abdominal hernia without obstruction or gangrene (ICD-10) Gallbladder attack ?K82.9 - Disease of gallbladder, unspecified (ICD-10) HTN (hypertension) ?I10 - Essential (primary) hypertension (ICD-10) Surgical History H/O hernia repair (~2014) ?Z98.890 - Other specified postprocedural states (ICD-10) ?Z87.19 - Personal history of other diseases of the digestive system (ICD-10) Hx of cholecystectomy (~1985) ?Z90.49 - Acquired absence of other specified parts of digestive tract (ICD-10) H/O colonoscopy ?Z98.890 - Other specified postprocedural states (ICD-10) Family History Father Cardiovascular disease Myocardial infarction Mother High blood pressure Sister Sarcoma Social History Narrative: Lives in a newly built house that is accessible. Was in the [employer] business. Worked for [employer]. Retired 10 years ago. What is your current living situation?: I presently have a place to live Problems where you live: no known problems Problems where you live details: na In the past 12 months, utilities in danger of being shut off: no In past 12 months, lack of transportation kept you from medical appts, meetings, work, or getting things needed for daily living: no Highest level of school completed/degree received: Associate degree: occupational, technical, vocational program Smoking Status: Never smoker Do you use any of these nicotine containing products: None Second hand tobacco smoke exposure: No How often do you have a drink containing alcohol: never AUDIT-C Alcohol total score: 0 Non-prescribed substance use: denies use Caffeine: Yes How often does anyone, including family, friends and others, physically hurt you: never How often does anyone, including family, friends and others, insult or talk down to you: never How often does anyone, including family, friends and others, threaten you with harm: never How often does anyone, including family, friends and others, scream or curse at you: never service: No Meds Home Medications and Allergies Home Medications Medication Instructions Recorded Confirmed Type amlodipine 5 mg tablet 5 mg PO DAILY 12/30/22 06/10/23 History losartan 100 mg tablet 100 mg PO DAILY 12/30/22 06/10/23 History naproxen sodium 220 mg capsule 440 mg PO BID PRN 12/30/22 06/10/23 History (Aleve) mupirocin 2 % topical ointment 1 applic topical 3XD 06/10/23 06/10/23 History Allergies Allergy/AdvReac Type Severity Reaction Status Date / Time No Known Drug Allergies Allergy Verified 06/10/23 10:00 Exam Narrative: Exam Narrative: I examined the patient in the emergency department. By the time I see him he appears comfortable and in no acute distress. Vision and hearing are grossly normal. Alert, oriented to self, place, time, situation. Friendly, articulate, cooperative. Tympanic membranes are normal. Midline nasal septum. Dentition in fair repair. Normal buccal mucosa. Neck is full. Neck is supple. Lungs are clear to auscultation without wheezing, rhonchi, or rales. Chest wall excursions are full. Slight discomfort to palpation over left CVA area, not on the right. Abdomen extremities without edema. Male genitalia without ulcers. No focal motor neurologic deficits. Urinalysis is markedly abnormal with positive nitrites and greater than 100 white blood cells per high-power field. Const: Vital Signs, click to edit/add: Vital Signs - 24 hr 06/10/23 09:52 06/10/23 10:06 06/10/23 10:07 Temperature 99.3 F Pulse Rate 83 85 Pulse Rate [Right Pulse Oximeter] 98 Respiratory Rate 26 H Blood Pressure 110/46 L Blood Pressure [Le ft Upper Arm] 145/49 H Pulse Oximetry 99 94 95 Oxygen Delivery Me thod Room Air 06/10/23 10:15 06/10/23 10:30 06/10/23 10:32 Temperature Pulse Rate 84 84 86 Pulse Rate [Right Pulse Oximeter] Respiratory Rate Blood Pressure 98/83 Blood Pressure [Le ft Upper Arm] Pulse Oximetry 96 94 71 L Oxygen Delivery Me thod 06/10/23 10:45 06/10/23 11:00 06/10/23 11:04 Temperature Pulse Rate 85 125 H 83 Pulse Rate [Right Pulse Oximeter] Respiratory Rate Blood Pressure Blood Pressure [Le ft Upper Arm] Pulse Oximetry 96 84 L 97 Oxygen Delivery Me thod 06/10/23 11:26 06/10/23 11:30 06/10/23 11:32 Temperature Pulse Rate 86 83 83 Pulse Rate [Right Pulse Oximeter] Respiratory Rate Blood Pressure 119/51 L Blood Pressure [Le ft Upper Arm] Pulse Oximetry 95 94 93 Oxygen Delivery Me thod 06/10/23 12:05 06/10/23 12:15 06/10/23 12:31 Temperature Pulse Rate 86 90 87 Pulse Rate [Right Pulse Oximeter] Respiratory Rate Blood Pressure Blood Pressure [Le ft Upper Arm] Pulse Oximetry 94 94 94 Oxygen Delivery Me thod 06/10/23 12:43 06/10/23 12:45 06/10/23 13:00 Temperature Pulse Rate 87 89 83 Pulse Rate [Right Pulse Oximeter] Respiratory Rate Blood Pressure 138/67 Blood Pressure [Le ft Upper Arm] Pulse Oximetry 93 94 92 Oxygen Delivery Me thod 06/10/23 13:02 06/10/23 13:05 06/10/23 13:06 Temperature Pulse Rate 91 91 92 Pulse Rate [Right Pulse Oximeter] Respiratory Rate Blood Pressure 122/76 Blood Pressure [Le ft Upper Arm] Pulse Oximetry 93 94 92 Oxygen Delivery Me thod 06/10/23 13:15 06/10/23 13:30 06/10/23 13:31 Temperature Pulse Rate 91 89 90 Pulse Rate [Right Pulse Oximeter] Respiratory Rate Blood Pressure 154/77 H Blood Pressure [Le ft Upper Arm] Pulse Oximetry 93 95 94 Oxygen Delivery Me thod 06/10/23 13:45 06/10/23 14:00 06/10/23 14:02 Temperature Pulse Rate 90 87 89 Pulse Rate [Right Pulse Oximeter] Respiratory Rate Blood Pressure 153/85 H Blood Pressure [Le ft Upper Arm] Pulse Oximetry 92 94 91 Oxygen Delivery Me thod 06/10/23 14:03 06/10/23 14:15 06/10/23 14:30 Temperature Pulse Rate 91 92 91 Pulse Rate [Right Pulse Oximeter] Respiratory Rate Blood Pressure Blood Pressure [Le ft Upper Arm] Pulse Oximetry 92 90 91 Oxygen Delivery Me thod 06/10/23 14:32 06/10/23 15:18 06/10/23 16:04 Temperature 101.3 F H 101.3 F H Pulse Rate 94 Pulse Rate [Right Pulse Oximeter] Respiratory Rate Blood Pressure 120/104 H Blood Pressure [Le ft Upper Arm] Pulse Oximetry 96 Oxygen Delivery Me thod 06/10/23 18:01 06/10/23 19:29 Temperature 98.5 F 98.8 F Pulse Rate Pulse Rate [Right Pulse Oximeter] 83 Respiratory Rate 20 Blood Pressure Blood Pressure [Le ft Upper Arm] 105/87 Pulse Oximetry 91 Oxygen Delivery Pa thod Room Air Hospitalist - H&P: Result Labs Labs: Short CBC 06/10/23 06/10/23 Range/Units 12: 14:00 WBC 32.03 H* 20.06 H (4.50-11.00) K/uL Hgb 11.5 L 10.2 L (13.5-17.5) gm/dL Hct 37.8 33.0 L (37.0-53.0) % Plt Count 352 297 (140-440) K/uL BMP 06/10/23 06/10/23 12:05 14:00 Sodium 139 139 Potassium 5.3 H 4.2 Chloride 105 108 Carbon Dioxide 26 25 BUN 24 25 Creatinine 2.7 H 2.5 H Glucose 157 H Calcium 8.7 7.7 L Cardiac Enzymes 06/10/23 Range/Units 12:05 Total Creatine Kinase 698 H (54-186) U/L Urine 06/10/23 Range/Units Unknown Urine Color Yellow (Yellow) Urine Appearance Cloudy A (Clear) Urine pH 5.0 (5.0-8.5) Ur Specific [place] 1.020 (1.000-1.030) Urine Protein 2+ A (Negative) Urine Glucose (UA) Negative (Negative) Imaging CT scan - abdomen: Attestation: I have reviewed the pertinent imaging results. Radiologist's impression: IMPRESSION: 1. There is an 11 millimeter renal calculus at the interpolar region of the left kidney without appreciable hydronephrosis. 2. Additional incidental findings as detailed above. Assessment and Plan Assessment and plan (1) Complicated urinary tract infection: Problem comment: - markedly abnormal urinalysis with a 1.1 cm in the left renal pelvis - discuss with urologist at [facility] who recommended 2-3 days of IV antibiotics followed by 2 weeks of oral antibiotics, plus see urologist for consultation for elective removal of stone due to stone now being colonized. - received 1 or 2 g of IV ceftriaxone while in the emergency department. - blood culture drawn after patient received 1 g of IV ceftriaxone. Results are pending. Await urine culture ID and sensitivity before considering to change to an oral regimen. - will change to piperacillin with tazobactam 3.375 g IV q.6 hours. Status: Acute (2) Sepsis: Problem comment: - in association with complicated urinary tract infection 06/10/2023 - treat complicated urinary tract infection with IV antibiotics as specified - 2 L normal saline given. Initial lactate mildly elevated at 2.1. Will recheck lactate. Status: Acute (3) Morbid obesity: Problem comment: - admission weight 229.5; down to 211kg on 01/21 - 1500/day calorie restricted diet: working with multidisciplinary team regarding this, tolerating well Status: Acute (4) BRANDY (obstructive sleep apnea): Status: Suspected (5) Advanced directives, counseling/discussion: Problem comment: Patient has clarified his POLST. He is DNR and DNI but would like aggressive treatment and hospitalization for other medical illnesses short of cardiac arrest or respiratory failure. Status: Acute (6) Physical debility: Status: Acute Plan 1. Reviewed impression with patient. Answered his questions. 2. Patient agreeable with above stated plans and recommendations. 3. Continue with all other supportive efforts. 4. Will ask Physical therapy, Occupational therapy, and medical social worker to assist with assessments and discharge disposition planning
--- NOTE | 2023-06-10 20:52 | ED.NURSE ---
removed urinal, pt could not give sample. Rolled pt to left side to adjust pillow on right side.
[2023-06-10 20:53] LABS: Lactate* 1.7 mmol/L (0.5-1.9)
--- NOTE | 2023-06-10 23:09 | ED.NURSE ---
patient nurse to nurse report given to Hector VARMA. patient will be going to CCU 4
[2023-06-11] MEDS: MUPIROCIN 1 GM PACKET 1 APPLIC TOPICAL ×2 (01:19→21:26)
[2023-06-11] MEDS: TAMSULOSIN HCL 0.4 MG CAPSULE PO ×2 (01:19→21:26)
[2023-06-11] MEDS: SODIUM CHLORIDE 0.9 % (FLUSH) 10 ML SYRINGE 5 ML IVF ×3 (01:57→21:27)
[2023-06-11] MEDS: 0.9 % SODIUM CHLORIDE 250 ml IV (01:58)
[2023-06-11] MEDS: PIPERACILLIN/TAZOBACTAM 2.25 GM in 0.9 % SODIUM CHLORIDE Mini-bag 100 ML IVPB ×4 (01:58→20:21)
[2023-06-11 03:00] VITALS: BP 115/53; PULSE 85; RESP 24; TEMP 37.7; O2SAT 91
--- NOTE | 2023-06-11 04:51 | PC.NURSE ---
Shift note: Pt was brought to the unit from ED at 2330 on admission bed. Conscious, Alert and oriented on arrival. Staff had hard time transferring pt from ED bed to unit bed. Fever of 102.1 recorded, and had urine small on arrival. Abdominal folds cleaned, soiled bed linens changed. Pt asked for ice cream which was given at 0010. Pt has been in been throughout the shift and has had adequate sleep. Pt's creatinine level was high (2.5). Pharmacy made suggestion to change abx oreder (Zosin 3.375mg) to 2.25mg. MD notified through [facility] and changes made. Incontinent of bladder.
[2023-06-11 08:00] VITALS: BP 131/64; PULSE 91; RESP 20; RESP 22; TEMP 38.6; O2SAT 95
[2023-06-11 08:38] LABS: HCO3 VBG 24 mmol/L (21-28); Ionized Calcium* 1.07 mmol/L (1.11-1.30); PCO2 VBG 37 mmHG (40-50); PO2 VBG 57.9 mmHG (25-47)
[2023-06-11 08:42] LABS: Eosinophils Percent Auto 0.3 % (0.0-7.0); Hematocrit 31.4 % (37.0-53.0); Hemoglobin* 9.8 gm/dL (13.5-17.5); Immature Granulocytes Pct Auto 0.3 %; Lymphocytes Percent Auto 3.6 % (20-44); Mean Corpuscular HGB Conc 31 gm/dL (32-36); Mean Corpuscular Hemoglobin 27 pg (26-34); Mean Corpuscular Volume 87 fL (80-100); Monocytes Percent Auto 4.5 % (0.0-11.0); Neutrophils Percent Auto 91.3 % (42.0-72.0); Platelet Count* 258 K/uL (140-440); RDW Coefficient of Variation % 14.6 % (11.5-15.5); Red Blood Count 3.61 m/uL (4.30-5.90); White Blood Count* 14.85 K/uL (4.50-11.00)
[2023-06-11 08:47] LABS: Slide Review Reflex No
[2023-06-11 08:56] LABS: Chloride* 109 mmol/L (96-114)
[2023-06-11 08:57] LABS: Albumin* 2.8 g/dL (3.3-5.0); Potassium* 4.3 mmol/L (3.6-5.1); Sodium* 138 mmol/L (135-149)
[2023-06-11 09:00] LABS: Alanine Aminotransferase* 19 U/L (4-50); Alkaline Phosphatase* 185 U/L (40-150); Anion Gap 5 mEq/L (7-15); Aspartate Amino Transferase* 40 U/L (12-35); Bilirubin Direct* 0.1 mg/dL (0.0-0.5); Bilirubin Total* 0.5 mg/dL (0.1-1.5); Blood Urea Nitrogen* 30 mg/dL (7-30); Calcium* 7.8 mg/dL (8.4-10.6); Carbon Dioxide* 24 mmol/L (20-32); Creatinine* 2.4 mg/dL (0.5-1.5); Est. Creatinine Clearance* 25.33; Estimated Glomerular Filt Rate 27 ml/min; Glucose* 147 mg/dL (60-115); Phosphorus* 3.6 mg/dL (2.5-4.5); Total Protein* 6.9 g/dL (6.0-8.3)
[2023-06-11] MEDS: LACTOBACILLUS ACIDOPHILUS 1 TABLET 1 TAB PO ×2 (09:00→17:46)
[2023-06-11 09:01] LABS: INR 1.58 (0.91-1.10); Prothrombin Time 19.9 Seconds
[2023-06-11] MEDS: TORSEMIDE 5 MG TABLET 10 MG PO (09:01)
[2023-06-11] MEDS: AMLODIPINE 5 MG TABLET PO (09:02)
[2023-06-11] MEDS: LOSARTAN POTASSIUM 50 MG TABLET 100 MG PO (09:03)
[2023-06-11] MEDS: ENOXAPARIN 30 MG/0.3ML INJ SUBCUT (09:03)
[2023-06-11 09:04] VITALS: TEMP 38.6
[2023-06-11] MEDS: ACETAMINOPHEN 325 MG TABLET 650 MG PO (09:04)
[2023-06-11] MEDS: OXYCODONE 5 MG TABLET PO (09:05)
[2023-06-11] MEDS: POTASSIUM CHLORIDE 10 MEQ CAPSULE ER PO (09:08)
[2023-06-11 09:09] LABS: NT Pro B Type NatriureticPept* 4440 pg/mL
[2023-06-11 09:11] LABS: Troponin I* 0.02 ng/mL (0.01-0.04)
[2023-06-11 09:14] LABS: C Reactive Protein* 20.2 mg/dL (0.5-1.0)
[2023-06-11 09:21] LABS: Hemoglobin A1C* 5.7 % (0-5.6)
--- NOTE | 2023-06-11 11:14 | PM.IMPN1 ---
Progress Note: A&P Assessment and plan (1) Complicated urinary tract infection: Problem details: - markedly abnormal urinalysis with a 11mm stone in the left renal pelvis - discuss with urologist at [facility] who recommended 2-3 days of IV antibiotics followed by 2 weeks of oral antibiotics, plus see urologist for consultation for elective removal of stone due to stone now being colonized. - received IV ceftriaxone while in the emergency department. - blood culture drawn after patient received 1 g of IV ceftriaxone. Results are pending. Await urine culture ID and sensitivity before considering to change to an oral regimen. - will change to piperacillin with tazobactam 3.375 g IV q.6 hours. Status: Acute (2) Sepsis: Problem details: - in association with complicated urinary tract infection 06/10/2023 - treat complicated urinary tract infection with IV antibiotics as specified - 2 L normal saline given. Initial lactate mildly elevated at 2.1. now normal. Status: Acute (3) LESLI (acute kidney injury): Problem details: Creatinine 2.7 upon presentation. Previous baseline 1.0 This morning, 06/11, creatinine down to 2.4. His BUN is normal. Urinary sediment is bland. Imaging reveals no hydronephrosis Continue to hydrate and treat underlying infection Status: Acute (4) Morbid obesity: Problem details: - admission weight 229.5; down to 211kg on 01/21 - 1500/day calorie restricted diet: working with multidisciplinary team regarding this, tolerating well Status: Acute (5) BRANDY (obstructive sleep apnea): Status: Suspected (6) Advanced directives, counseling/discussion: Problem details: Patient has clarified his POLST. He is DNR and DNI but would like aggressive treatment and hospitalization for other medical illnesses short of cardiac arrest or respiratory failure. Status: Acute (7) Physical debility: Status: Acute Subjective Date Seen: 06/11/23 Interval history: Daily Progress Note - Hospital Medicine Day #: 2 CC: complicated UTI, morbid obesity OVERNIGHT UPDATES FROM STAFF & MED, LAB, IMAGING UPDATES RN note: Shift note: Pt was brought to the unit from ED at 2330 on admission bed. Conscious, Alert and oriented on arrival. Staff had hard time transferring pt from ED bed to unit bed. Fever of 102.1 recorded, and had urine small on arrival. Abdominal folds cleaned, soiled bed linens changed. Pt asked for ice cream which was given at 0010. Pt has been in been throughout the shift and has had adequate sleep. Pt's creatinine level was high (2.5). Pharmacy made suggestion to change abx oreder (Zosin 3.375mg) to 2.25mg. MD notified through [facility] and changes made. Incontinent of bladder. 115/53. Pulse 85. Respiration 24. Temp is currently 101.4?. 91% on room air. Weight is 202 kg. BMI 68. CBC reflects a down trending white blood cell count. Upon arrival 32,000, this morning 14.8 Hemoglobin is down to 9.8 Platelet count 258 PH this morning 7.4 Creatinine 2.4, baseline 1.0. Downtrending upon presentation 2.7 A1c 5.7 CRP 20.2 Down trending pro couch 37 down to 29 Albumin 2.8 Blood cultures x2 are negative to date. Urine culture is growing a Gram-negative olga lidia. Id and sensitivity are pending. 1. There is an 11 millimeter renal calculus at the interpolar region of the left kidney without appreciable hydronephrosis. 2. Additional incidental findings as detailed above. Objective: Vitals: see above Lungs: Clear. Cardiac: S1S2. Disposition/Potential discharge - Likely to return to previous living situation. Today I spent 50minutes seeing the patient, reviewing Expanse and EPIC notes/diagnostics, discussing the care plan with our care time that includes social work, PT/OT, pharmacy, RT, long term and documenting my impressions and plan in the medical record. Prolonged Physician Services [id number] ([facility]) in conjunction with: [id number] (subsequent visit; 50 mins + 15 mins prolonged services = 65 mins total) I then went back for 15 mins to discuss the findings of ..... Alcohol 35359 >30 mins. We went over all the stigmata of alcoholism I see in this patient. I discussed the effects of chronic alcohol on the brain, liver, and heart. I recommended complete abstinence from alcohol and instructed on programs available at discharge from acute care. Smoking/Tobacco 65222 >10 mins. I went over the clinical stigmata of chronic tobacco use on the body. I explained the effect on the vasculature, lungs, heart, skin. I recommended complete abstinence from tobacco products and instructed on programs available at discharge from acute care. ACP first 30 mins [id number] I went over options for care during this current hospitalization and explained the difference between palliative care and hospice care. I described the likelihood of returning to previous functioning and what the options are going forward for care. Exam Const: Vital Signs, click to edit/add: Vital Signs - 24 hr 06/10/23 11:26 06/10/23 11:30 06/10/23 11:32 Temperature Pulse Rate 86 83 83 Pulse Rate [Left P ulse Oximeter] Pulse Rate [Right Pulse Oximeter] Respiratory Rate Blood Pressure 119/51 L Blood Pressure [Le ft Upper Arm] Blood Pressure [Ri ght Arm] Pulse Oximetry 95 94 93 Oxygen Delivery Me thod 06/10/23 12:05 06/10/23 12:15 06/10/23 12:31 Temperature Pulse Rate 86 90 87 Pulse Rate [Left P ulse Oximeter] Pulse Rate [Right Pulse Oximeter] Respiratory Rate Blood Pressure Blood Pressure [Le ft Upper Arm] Blood Pressure [Ri ght Arm] Pulse Oximetry 94 94 [facility] 06[facility]23 12:43 06/10/23 12:45 06/10/23 13:00 Temperature Pulse Rate 87 89 83 Pulse Rate [Left P ulse Oximeter] Pulse Rate [Right Pulse Oximeter] Respiratory Rate Blood Pressure 138/67 Blood Pressure [Le ft Upper Arm] Blood Pressure [Ri ght Arm] Pulse Oximetry 93 94 92 [facility] 06/10/23 13:02 06/10/23 13:05 06/10/23 13:06 Temperature Pulse Rate 91 91 92 Pulse Rate [Left P ulse Oximeter] Pulse Rate [Right Pulse Oximeter] Respiratory Rate Blood Pressure 122/76 Blood Pressure [Le ft Upper Arm] Blood Pressure [Ri ght Arm] Pulse Oximetry 93 94 92 [facility] 06/10/23 13:15 06/10/23 13:30 06/10/23 13:31 Temperature Pulse Rate 91 89 90 Pulse Rate [Left P ulse Oximeter] Pulse Rate [Right Pulse Oximeter] Respiratory Rate Blood Pressure 154/77 H Blood Pressure [Le ft Upper Arm] Blood Pressure [Ri ght Arm] Pulse Oximetry 93 95 94 Oxygen Delivery [place] thod 06/10/23 13:45 06/10/23 14:00 06/10/23 14:02 Temperature Pulse Rate 90 87 89 Pulse Rate [Left P ulse Oximeter] Pulse Rate [Right Pulse Oximeter] Respiratory Rate Blood Pressure 153/85 H Blood Pressure [Le ft Upper Arm] Blood Pressure [Ri ght Arm] Pulse Oximetry 92 94 91 [facility] 06/10/23 14:03 06/10/23 14:15 06/10/23 14:30 Temperature Pulse Rate 91 92 91 Pulse Rate [Left P ulse Oximeter] Pulse Rate [Right Pulse Oximeter] Respiratory Rate Blood Pressure Blood Pressure [Le ft Upper Arm] Blood Pressure [Ri ght Arm] Pulse Oximetry 92 90 91 [facility] 06/10/23 14:32 06/10/23 14:33 06/10/23 15:17 Temperature Pulse Rate 94 94 Pulse Rate [Left P ulse Oximeter] Pulse Rate [Right Pulse Oximeter] Respiratory Rate Blood Pressure 120/104 H Blood Pressure [Le ft Upper Arm] Blood Pressure [Ri ght Arm] Pulse Oximetry 96 93 80 L [facility] 06/10/23 15:18 06/10/23 15:18 06/10/23 15:32 Temperature 101.3 F H Pulse Rate Pulse Rate [Left P ulse Oximeter] Pulse Rate [Right Pulse Oximeter] Respiratory Rate Blood Pressure 119/40 L 127/55 L Blood Pressure [Le ft Upper Arm] Blood Pressure [Ri ght Arm] Pulse Oximetry [facility] 06/10/23 16:01 06/10/23 16:04 06/10/23 16:16 Temperature 101.3 F H Pulse Rate 93 Pulse Rate [Left P ulse Oximeter] Pulse Rate [Right Pulse Oximeter] Respiratory Rate Blood Pressure 114/61 Blood Pressure [Le ft Upper Arm] Blood Pressure [Ri ght Arm] Pulse Oximetry 89 [facility] 06/10/23 16:17 06/10/23 16:31 06/10/23 17:01 Temperature Pulse Rate 89 Pulse Rate [Left P ulse Oximeter] Pulse Rate [Right Pulse Oximeter] Respiratory Rate Blood Pressure 106/45 L 100/39 L 105/87 Blood Pressure [Le ft Upper Arm] Blood Pressure [Ri ght Arm] Pulse Oximetry 90 [facility] 06/10/23 17:31 06/10/23 18:01 06/10/23 18:01 Temperature 98.5 F Pulse Rate Pulse Rate [Left P ulse Oximeter] Pulse Rate [Right Pulse Oximeter] 83 Respiratory Rate 20 Blood Pressure 96/40 L 93/34 L Blood Pressure [Le ft Upper Arm] 105/87 Blood Pressure [Ri ght Arm] Pulse Oximetry 91 Oxygen Delivery [place] thod Room Air 06/10/23 18:28 06/10/23 18:32 06/10/23 19:29 Temperature 98.8 F Pulse Rate Pulse Rate [Left P ulse Oximeter] Pulse Rate [Right Pulse Oximeter] Respiratory Rate Blood Pressure 130/47 L 123/34 L Blood Pressure [Le ft Upper Arm] Blood Pressure [Ri ght Arm] Pulse Oximetry Oxygen Delivery [place] thod 06/10/23 23:10 06/10/23 23:11 06/10/23 23:40 Temperature 102.1 F H Pulse Rate 100 Pulse Rate [Left P ulse Oximeter] 97 Pulse Rate [Right Pulse Oximeter] 100 Respiratory Rate 20 24 Blood Pressure Blood Pressure [Le ft Upper Arm] 106/48 L Blood Pressure [Ri ght Arm] 139/53 L Pulse Oximetry 86 L 97 87 L [facility] 06/10/23 23:40 06/11/23 03:00 06/11/23 09:04 Temperature 100 F H 101.4 F H Pulse Rate Pulse Rate [Left P ulse Oximeter] 85 Pulse Rate [Right Pulse Oximeter] Respiratory Rate 24 24 Blood Pressure Blood Pressure [Le ft Upper Arm] Blood Pressure [Ri ght Arm] 115/53 L Pulse Oximetry 87 L 91 [facility] Room Air Labs Labs: Laboratory Results - last 24 hr 06/10/23 06/10/23 06/10/23 12:05 14:00 15:15 WBC 32.03 H* 20.06 H RBC 4.29 L 3.78 L Hgb 11.5 L 10.2 L Hct 37.8 33.0 L MCV 88 87 MCH 27 27 MCHC 30 L 31 L RDW Coeff of [place] 14.4 14.4 Plt Count 352 297 Neut % (Auto) 92.1 H 92.3 H Lymph % (Auto) 2.1 L 3.4 L [place] % (Auto) 4.1 3.7 Eos % (Auto) 0.0 0.1 Baso % (Auto) 0.0 0.0 Neut # (Auto) 29.50 H 18.50 H Lymph # (Auto) 0.70 L 0.70 L [place] # (Auto) 1.30 H 0.70 Eos # (Auto) 0.00 0.00 Baso # (Auto) 0.00 0.00 Abs Immat Gran (auto) 0.50 H 0.10 Imm/Tot Granulo (auto) 1.7 0.5 Diff Slide Review Acceptable Review INR VBG pH VBG pCO2 VBG pO2 VBG HCO3 Sodium 139 139 Potassium 5.3 H 4.2 Chloride 105 108 Carbon Dioxide 26 25 Anion Gap 8 6 L BUN 24 25 Creatinine 2.7 H 2.5 H Estimated Creat Clear 21.76 23.50 Estimated GFR 24 26 Glucose 157 H 123 H Hemoglobin A1c Lactate 1.9 2.1 H Calcium 8.7 7.7 L Ionized Calcium Best Phosphorus Magnesium Total Bilirubin Direct Bilirubin AST ALT Alkaline Phosphatase Total Creatine Kinase 698 H Troponin I C-Reactive Protein NT-Pro-B Natriuret Pep Total Protein Albumin Procalcitonin 37.70 H Urine Color Urine Appearance Urine pH Ur Specific [place] Urine Protein Urine Glucose (UA) Urine Ketones Urine Blood Urine Nitrite Urine Bilirubin Urine Urobilinogen Ur Leukocyte Esterase Urine RBC Urine WBC Ur Squamous Epith Cells Urine Bacteria SARS-CoV-2 (PCR) Negative SARS-CoV-2 Influenza Type A (PCR) Negative PCR FLU A Influenza Type B (PCR) Negative PCR FLU B RSV (PCR) Negative PCR RSV 06/10/23 06/10/23 06/11/23 20:41 Unknown 08:33 WBC 14.85 H RBC 3.61 L Hgb 9.8 L Hct 31.4 L MCV 87 MCH 27 MCHC 31 L RDW Coeff of [place] 14.6 Plt Count 258 Neut % (Auto) 91.3 H Lymph % (Auto) 3.6 L [place] % (Auto) 4.5 Eos % (Auto) 0.3 Baso % (Auto) 0.0 Neut # (Auto) 13.60 H Lymph # (Auto) 0.50 L [place] # (Auto) 0.70 Eos # (Auto) 0.00 Baso # (Auto) 0.00 Abs Immat Gran (auto) 0.00 Imm/Tot Granulo (auto) 0.3 Diff Slide Review INR 1.58 H VBG pH 7.430 VBG pCO2 37 L VBG pO2 57.9 H VBG HCO3 24 Sodium 138 Potassium 4.3 Chloride 109 Carbon Dioxide 24 Anion Gap 5 L BUN 30 Creatinine 2.4 H Estimated Creat Clear 25.33 Estimated GFR 27 Glucose 147 H Hemoglobin A1c 5.7 H Lactate 1.7 Calcium 7.8 L Ionized Calcium Best 1.07 L Phosphorus 3.6 Magnesium 2.0 Total Bilirubin 0.5 Direct Bilirubin 0.1 AST 40 H ALT 19 Alkaline Phosphatase 185 H Total Creatine Kinase Troponin I 0.02 C-Reactive Protein 20.2 H NT-Pro-B Natriuret Pep 4440 Total Protein 6.9 Albumin 2.8 L Procalcitonin 29.20 H Urine Color Yellow Urine Appearance Cloudy A Urine pH 5.0 Ur Specific [place] 1.020 Urine Protein 2+ A Urine Glucose (UA) Negative Urine Ketones Negative Urine Blood 3+ A Urine Nitrite Positive A Urine Bilirubin 1+ A Urine Urobilinogen 0.2 Ur Leukocyte Esterase 3+ A Urine RBC 5-10 A Urine WBC >100 A Ur Squamous Epith Cells Few Urine Bacteria Many A SARS-CoV-2 (PCR) Influenza Type A (PCR) Influenza Type B (PCR) RSV (PCR)
[2023-06-11] MEDS: 0.9 % SODIUM CHLORIDE 1000 ml 1,000 ML 500 ML IV (12:20)
[2023-06-11 13:00] VITALS: BP 130/71; PULSE 73; RESP 20; TEMP 36.9; O2SAT 93
[2023-06-11 14:56] VITALS: BMI 67.8
[2023-06-11 15:00] VITALS: BP 121/50; PULSE 87; RESP 20; TEMP 36.8; O2SAT 90
[2023-06-11] MEDS: 0.9 % SODIUM CHLORIDE 1000 ml 1,000 ML 125 ML IV (15:15)
--- NOTE | 2023-06-11 15:59 | PC.SOCIAL ---
Discharge planning: Met with pt today to introduce myself and briefly discuss discharge planning. Pt stated that his goal is to go home after his current hospital stay. Pt is motivated to work on mobility and strength while he is in the hospital so he is able to go back home. Pt stated he has an all one level home with no stairs. Pt will continue to work with PT/OT while he is in the hospital. Social work to follow-up as needed.
--- NOTE | 2023-06-11 16:09 | PC.NURSE ---
Pt utilizing bariatric bed. Oral temp of 101.4 treated with tylenol and recheck of temp 98.4 at noon. Pt had a large incontinent BM in his bed at initial assessment this am, he later had a small incontinent bm while up in his w/c during linen change process. Glider inflatable sheet used for position changes. Pt eval by Margaret LOPES and Jacoby LOPES. Nutrition consult. Pt used urinal once and then had a large urinary incontinence just prior to evening shift. [place] and fresh linens provided by 3 CNAs. Report to Deborah VARMA for evening shift. Pt was on r/a for majority of shift, his sats dropped to mid 80's with deep sleep. Sats now 95% on 1L/nc. Pt does get SOB with mild exertion and position changes, SOB when talking on his cell phone throughout the day.
[2023-06-11 19:57] VITALS: BP 107/53; PULSE 80; RESP 28; TEMP 37.3; O2SAT 94
[2023-06-11] MEDS: MAGNESIUM OXIDE 400 MG TABLET PO (21:26)
[2023-06-11] MEDS: NYSTATIN CREAM 30 GM 1 APPLIC TOPICAL (21:26)
--- NOTE | 2023-06-11 23:58 | PC.NURSE ---
Soft BP, increased respiratory rate, slightly warm temp this evening. 1L NC, sats in high 80s, low 90s. Denies pain. LS coarse, expiratory wheeze. Increased work of breathing. IV SL'd. Intermittant abx. Voids using urinal- continent this shift, ~400 cc out. Last BM this AM, 12/6. Tolerating regular diet, drinking well. Up w/ SBA, walker, gait belt. Rolls well back and forth in bed. Skin looks okay, some skin folds red- nystatin cream applied. Will continue to monitor, follow POC and keep pt and family updated. Deborah Mart RN
[2023-06-12] VITALS (7 sets, daily range): BP systolic 105–136; BP diastolic 57–69; PULSE 68–80; RESP 20–24; TEMP 36.9–37.2; O2SAT 93–97
[2023-06-12] MEDS: PIPERACILLIN/TAZOBACTAM 2.25 GM in 0.9 % SODIUM CHLORIDE Mini-bag 100 ML IVPB (02:00)
--- NOTE | 2023-06-12 06:58 | PC.NURSE ---
Shift note: The pt has been pleasant and cooperative. Denied chest pain and short of breath; Spo2 has been in the low 90s on 1L of oxygen via NC. Denied any pain. Redness noted to the lower abdominal folds; the pt was incontinent of urine once this shift. no BM. No fever noted. The pt had unevetful night
[2023-06-12 07:12] LABS: Basophils Absolute Auto 0.01 K/uL (0.00-0.30); Basophils Percent Auto 0.1 % (0.0-3.0); Eosinophils Absolute Auto 0.32 K/uL (0.00-0.50); Eosinophils Percent Auto 3.4 % (0.0-7.0); Hematocrit 32.4 % (37.0-53.0); Hemoglobin* 9.7 gm/dL (13.5-17.5); Immature Granulocytes Abs Auto 0.03 K/uL (0.00-0.30); Immature Granulocytes Pct Auto 0.3 %; Mean Corpuscular HGB Conc 30 gm/dL (32-36); Mean Corpuscular Hemoglobin 27 pg (26-34); Mean Corpuscular Volume 89 fL (80-100); Monocytes Percent Auto 7.9 % (0.0-11.0); Neutrophils Percent Auto 78.3 % (42.0-72.0); Platelet Count* 236 K/uL (140-440); RDW Coefficient of Variation % 14.9 % (11.5-15.5); Red Blood Count 3.65 m/uL (4.30-5.90)
[2023-06-12 07:19] LABS: Slide Review Reflex No
[2023-06-12 07:34] LABS: Albumin* 2.7 g/dL (3.3-5.0); Chloride* 109 mmol/L (96-114); Potassium* 4.1 mmol/L (3.6-5.1); Sodium* 139 mmol/L (135-149)
[2023-06-12 07:36] LABS: Creatine Kinase* 146 U/L (54-186)
[2023-06-12 07:37] LABS: Anion Gap 5 mEq/L (7-15); Carbon Dioxide* 25 mmol/L (20-32); Glucose* 100 mg/dL (60-115)
[2023-06-12 07:38] LABS: Calcium* 7.8 mg/dL (8.4-10.6); Phosphorus* 4.8 mg/dL (2.5-4.5)
[2023-06-12 08:00] LABS: C Reactive Protein* 19.6 mg/dL (0.5-1.0)
[2023-06-12 08:40] LABS: Blood Urea Nitrogen* 31 mg/dL (7-30); Creatinine* 2.4 mg/dL (0.5-1.5); Est. Creatinine Clearance* 25.33; Estimated Glomerular Filt Rate 27 ml/min
[2023-06-12] MEDS: NYSTATIN POWDER 1 APPLIC TOPICAL ×2 (09:00→21:18)
[2023-06-12] MEDS: MUPIROCIN 1 GM PACKET 1 APPLIC TOPICAL ×3 (09:00→21:18)
[2023-06-12] MEDS: SODIUM CHLORIDE 0.9 % (FLUSH) 10 ML SYRINGE 5 ML IVF ×2 (09:30→20:09)
[2023-06-12] MEDS: LACTOBACILLUS ACIDOPHILUS 1 TABLET 1 TAB PO ×3 (09:44→18:30)
[2023-06-12] MEDS: POTASSIUM CHLORIDE 10 MEQ CAPSULE ER PO (09:45)
[2023-06-12] MEDS: TORSEMIDE 5 MG TABLET 10 MG PO (09:45)
[2023-06-12] MEDS: ENOXAPARIN 30 MG/0.3ML INJ SUBCUT (09:46)
[2023-06-12] MEDS: cefTRIAXone 2 GM in 0.9 % SODIUM CHLORIDE Mini-bag 100 ML IVPB (09:46)
[2023-06-12] MEDS: NYSTATIN CREAM 30 GM 1 APPLIC TOPICAL ×2 (09:47→21:18)
--- NOTE | 2023-06-12 14:15 | P.IMPN_ITS ---
Progress Note: A&P Assessment and plan (1) Complicated urinary tract infection: Problem details: - markedly abnormal urinalysis with a 11mm stone in the left renal pelvis - discuss with urologist at [facility] who recommended 2-3 days of IV antibiotics followed by 2 weeks of oral antibiotics, plus see urologist for consultation for elective removal of stone due to stone now being colonized. - received IV ceftriaxone initially while in the ED. This was broadened to Zosyn for 48 hours. He is back to ceftriaxone based on sensitivities. Status: Acute (2) Sepsis: Problem details: - in association with complicated urinary tract infection 06/10/2023 -resolved Status: Acute (3) LESLI (acute kidney injury): Problem details: Creatinine 2.7 upon presentation. Previous baseline 1.0 This morning, 06/12, creatinine down to 2.4. His BUN is normal. Urinary sediment is bland. Imaging reveals no hydronephrosis - could consider repeat imaging or Sanders catheter placement if creatinine is not improving. Continue to hydrate and treat underlying infection Status: Acute (4) Morbid obesity: Problem details: - admission weight 229.5; down to 211kg on 01/21 - 1500/day calorie restricted diet: working with multidisciplinary team regarding this, tolerating well Status: Acute (5) BRANDY (obstructive sleep apnea): Status: Suspected (6) Advanced directives, counseling/discussion: Problem details: Patient has clarified his POLST. He is DNR and DNI but would like aggressive treatment and hospitalization for other medical illnesses short of cardiac arrest or respiratory failure. Status: Acute (7) Physical debility: Status: Acute Subjective Date Seen: 06/12/23 Interval history: Daily Progress Note - Hospital Medicine Day #: 2 CC: complicated UTI, morbid obesity OVERNIGHT UPDATES FROM STAFF & MED, LAB, IMAGING UPDATES 124/62. Pulse 68. Respiratory rate 20. Afebrile. O2 sat 97% on nasal cannula 1 L oxygen. 202.5 up to 204.6 kg BMI 69 Leukocytosis has downtrended nicely. 9.5 this morning. Hemoglobin is 9.7. Platelets are normal. Creatinine remains at 2.4 despite treatment and fluids Inflammatory markers are down trending Blood cultures x2 are negative to date. Urine culture is growing E coli, pansensitive 1. There is an 11 millimeter renal calculus at the interpolar region of the left kidney without appreciable hydronephrosis. 2. Additional incidental findings as detailed above. Objective: Morbidly obese. No acute distress. Vitals: see above Lungs: Clear. Cardiac: S1S2. Disposition/Potential discharge - Likely to return to previous living situation. Today I spent 50minutes seeing the patient, reviewing Expanse and EPIC notes/diagnostics, discussing the care plan with our care time that includes social work, PT/OT, pharmacy, RT, chcf and documenting my impressions and plan in the medical record. Exam Const: Vital Signs, click to edit/add: Vital Signs - 24 hr 06/11/23 15:00 06/11/23 15:00 06/11/23 15:00 Temperature 98.3 F Pulse Rate [Left P ulse Oximeter] 87 87 Respiratory Rate 20 20 20 Blood Pressure [Ri ght Arm] 121/50 L Pulse Oximetry 90 90 Oxygen Delivery Me thod Nasal Cannula Nasal Cannula Oxygen Flow Rate 1 1 06/11/23 19:57 06/12/23 01:00 06/12/23 01:00 Temperature 99.2 F Pulse Rate [Left P ulse Oximeter] 80 79 Respiratory Rate 28 H 24 24 Blood Pressure [Ri ght Arm] 107/53 L Pulse Oximetry 94 94 Oxygen Delivery Me thod Nasal Cannula Nasal Cannula Oxygen Flow Rate 1 1 06/12/23 01:00 06/12/23 05:01 06/12/23 07:45 Temperature 98.8 F 98.8 F Pulse Rate [Left P ulse Oximeter] 80 73 68 Respiratory Rate 24 20 20 Blood Pressure [Ri ght Arm] 108/66 105/60 Pulse Oximetry 94 93 Oxygen Delivery Me thod Nasal Cannula Nasal Cannula Oxygen Flow Rate 1 1 06/12/23 07:45 06/12/23 07:45 Temperature 98.4 F Pulse Rate [Left P ulse Oximeter] 68 Respiratory Rate 20 20 Blood Pressure [Ri ght Arm] 124/62 Pulse Oximetry 97 97 Oxygen Delivery Me thod Nasal Cannula Nasal Cannula Oxygen Flow Rate 1 1 Labs Labs: Laboratory Results - last 24 hr 06/12/23 06:50 WBC 9.50 RBC 3.65 L Hgb 9.7 L Hct 32.4 L MCV 89 MCH 27 MCHC 30 L RDW Coeff of [place]e 14.9 Plt Count 236 Neut % (Auto) 78.3 H Lymph % (Auto) 10.0 L [place] % (Auto) 7.9 Eos % (Auto) 3.4 Baso % (Auto) 0.1 Neut # (Auto) 7.40 H Lymph # (Auto) 1.00 [place] # (Auto) 0.80 Eos # (Auto) 0.32 Baso # (Auto) 0.01 Abs Immat Gran (auto) 0.03 Imm/Tot Granulo (auto) 0.3 Sodium 139 Potassium 4.1 Chloride 109 Carbon Dioxide 25 Anion Gap 5 L BUN 31 H Creatinine 2.4 H Estimated Creat Clear 25.33 Estimated GFR 27 Glucose 100 Calcium 7.8 L Phosphorus 4.8 H Total Creatine Kinase 146 C-Reactive Protein 19.6 H Albumin 2.7 L Procalcitonin 19.60 H
--- NOTE | 2023-06-12 16:43 | PC.NURSE ---
PATIENT AFEBRILE. ABDOMINAL FOLDS AND GROIN FOLDS MOIST AND PINK. SCROTUM ALSO REDDENED. MUPIROCIN AND NYSTATIN CREAM AND POWDER APPLIED. PATIENT OCCASIONALLY INCONTINENT OF URINE BUT ALSO ABLE TO USE URINAL. INCONTINENT OF 1 LOOSE BM THIS AM. NO FURTHER BM. TOLERATING REGULAR DIET WITH NO C/O N/V. UP WITH A1-2 TO EDGE OF BED AND ABLE TO GET SELF TO STANDING AND WALK WITH WALKER TO RECLINER.
[2023-06-12] MEDS: MAGNESIUM OXIDE 400 MG TABLET PO (20:06)
[2023-06-12] MEDS: TAMSULOSIN HCL 0.4 MG CAPSULE PO (20:07)
[2023-06-12] MEDS: ACETAMINOPHEN 325 MG TABLET 650 MG PO (20:07)
[2023-06-13] VITALS (10 sets, daily range): BP systolic 125–177; BP diastolic 41–71; PULSE 62–77; RESP 18–24; TEMP 36.6–37.5; O2SAT 91–94
[2023-06-13 07:04] LABS: White Blood Count* 7.13 K/uL (4.50-11.00)
[2023-06-13 07:20] LABS: Chloride* 109 mmol/L (96-114)
[2023-06-13 07:21] LABS: Albumin* 2.8 g/dL (3.3-5.0); Sodium* 140 mmol/L (135-149)
[2023-06-13 07:24] LABS: Anion Gap 5 mEq/L (7-15); Blood Urea Nitrogen* 28 mg/dL (7-30); Carbon Dioxide* 26 mmol/L (20-32); Creatinine* 2.1 mg/dL (0.5-1.5); Est. Creatinine Clearance* 28.95; Estimated Glomerular Filt Rate 32 ml/min
[2023-06-13 07:25] LABS: Calcium* 8.1 mg/dL (8.4-10.6); Glucose* 97 mg/dL (60-115); Phosphorus* 4.9 mg/dL (2.5-4.5)
[2023-06-13 07:45] LABS: C Reactive Protein* 14.5 mg/dL (0.5-1.0)
[2023-06-13] MEDS: TORSEMIDE 5 MG TABLET 10 MG PO (07:54)
[2023-06-13] MEDS: LACTOBACILLUS ACIDOPHILUS 1 TABLET 1 TAB PO ×3 (07:54→18:57)
[2023-06-13] MEDS: NYSTATIN POWDER 1 APPLIC TOPICAL ×2 (07:55→20:53)
[2023-06-13] MEDS: NYSTATIN CREAM 30 GM 1 APPLIC TOPICAL ×2 (07:56→20:53)
[2023-06-13] MEDS: POTASSIUM CHLORIDE 10 MEQ CAPSULE ER PO (08:29)
[2023-06-13] MEDS: ENOXAPARIN 30 MG/0.3ML INJ SUBCUT (08:29)
[2023-06-13] MEDS: cefTRIAXone 2 GM in 0.9 % SODIUM CHLORIDE Mini-bag 100 ML IVPB (08:30)
[2023-06-13] MEDS: SODIUM CHLORIDE 0.9 % (FLUSH) 10 ML SYRINGE 5 ML IVF (08:30)
[2023-06-13] MEDS: 0.9 % SODIUM CHLORIDE 250 ml IV (08:34)
--- NOTE | 2023-06-13 09:50 | PM.IMPN1 ---
Progress Note: A&P Assessment and plan (1) Complicated urinary tract infection: Problem details: - markedly abnormal urinalysis with a 11mm stone in the left renal pelvis - discuss with urologist at [facility] who recommended 2-3 days of IV antibiotics followed by 2 weeks of oral antibiotics, plus see urologist for consultation for elective removal of stone due to stone now being colonized. - received IV ceftriaxone initially while in the ED. This was broadened to Zosyn for 48 hours. He is back to ceftriaxone based on sensitivities. as of 06/13 on oral Keflex. Status: Acute (2) Sepsis: Problem details: - in association with complicated urinary tract infection 06/10/2023 -resolved Status: Acute (3) LESLI (acute kidney injury): Problem details: Creatinine 2.7 upon presentation. Previous baseline 1.0 This morning, 06/12, creatinine down to 2.4. His BUN is normal. Urinary sediment is bland. Imaging reveals no hydronephrosis - could consider repeat imaging or Sanders catheter placement if creatinine is not improving. Continue to hydrate and treat underlying infection Renal diet; low phosphorus intake. Status: Acute (4) Morbid obesity: Problem details: - admission weight 229.5; down to 211kg on 01/21 - 1500/day calorie restricted diet: working with multidisciplinary team regarding this, tolerating well Status: Acute (5) BRANDY (obstructive sleep apnea): Problem details: -needs outpatient sleep study -NC 1-2L to keep sats at >88% while sleeping. Status: Suspected (6) Advanced directives, counseling/discussion: Problem details: Patient has clarified his POLST. He is DNR and DNI but would like aggressive treatment and hospitalization for other medical illnesses short of cardiac arrest or respiratory failure. Status: Acute (7) Physical debility: Status: Acute Subjective Date Seen: 06/13/23 Interval history: Daily Progress Note - Hospital Medicine Day #: 3 CC: complicated UTI, morbid obesity OVERNIGHT UPDATES FROM STAFF & MED, LAB, IMAGING UPDATES feels a little blah today but otherwise stable. thinks the air is dry here. 124/62. Pulse 68. Respiratory rate 20. Afebrile. O2 sat 97% on nasal cannula 1 L oxygen. weight stable 202kg. WBC is 7.13. down nicely. creat is down to 2.1, GFR is 29. elevated phosphorus, 4.8 and 4.9. CRP downtrending. procal downtrending. Blood cultures x2 are negative to date. Urine culture is growing E coli, pansensitive 1. There is an 11 millimeter renal calculus at the interpolar region of the left kidney without appreciable hydronephrosis. 2. Additional incidental findings as detailed above. Objective: Morbidly obese. No acute distress. Vitals: see above Lungs: Clear. Cardiac: S1S2. No catheter. Disposition/Potential discharge - Likely to return to previous living situation. Today I spent 50minutes seeing the patient, reviewing Expanse and EPIC notes/diagnostics, discussing the care plan with our care time that includes social work, PT/OT, pharmacy, RT, penitentiary and documenting my impressions and plan in the medical record. Exam Const: Vital Signs, click to edit/add: Vital Signs - 24 hr 06/12/23 15:00 06/12/23 15:00 06/12/23 15:00 Temperature 98.4 F Pulse Rate [Left P ulse Oximeter] 68 68 Respiratory Rate 20 20 20 Blood Pressure [Ri ght Arm] 136/63 Pulse Oximetry 95 94 Oxygen Delivery Me thod Nasal Cannula Nasal Cannula Oxygen Flow Rate 1 1 06/12/23 19:58 06/12/23 21:35 06/12/23 21:35 Temperature 99.0 F Pulse Rate [Left P ulse Oximeter] 69 69 Respiratory Rate 24 24 24 Blood Pressure [Ri ght Arm] 125/69 Pulse Oximetry 96 96 Oxygen Delivery Me thod Nasal Cannula Nasal Cannula Oxygen Flow Rate 1 1 06/12/23 23:00 06/13/23 03:00 06/13/23 06:15 Temperature 99.0 F 97.8 F 98.5 F Pulse Rate [Left P ulse Oximeter] 73 62 Respiratory Rate 22 24 Blood Pressure [Ri ght Arm] 136/57 L 125/41 L Pulse Oximetry 94 92 Oxygen Delivery Me thod Room Air Room Air Oxygen Flow Rate 0.5 06/13/23 07:00 06/13/23 07:51 Temperature 98.4 F Pulse Rate [Left P ulse Oximeter] 64 Respiratory Rate 22 22 Blood Pressure [Ri ght Arm] 144/58 H Pulse Oximetry 93 93 Oxygen Delivery Me thod Room Air Room Air Oxygen Flow Rate Labs Labs: Laboratory Results - last 24 hr 06/13/23 06:30 WBC 7.13 Sodium 140 Potassium 4.0 Chloride 109 Carbon Dioxide 26 Anion Gap 5 L BUN 28 Creatinine 2.1 H Estimated Creat Clear 28.95 Estimated GFR 32 Glucose 97 Calcium 8.1 L Phosphorus 4.9 H C-Reactive Protein 14.5 H Albumin 2.8 L Procalcitonin 11.60 H
[2023-06-13] MEDS: cephALEXin 500 MG CAPSULE 1000 MG PO ×2 (10:04→20:54)
[2023-06-13] MEDS: LOPERAMIDE HCL 2 MG CAPSULE 4 MG PO (11:14)
[2023-06-13] MEDS: MUPIROCIN 1 GM PACKET 1 APPLIC TOPICAL (15:47)
--- NOTE | 2023-06-13 19:28 | PC.NURSE ---
shift note: pt 1/walker to chair. pt using strap to assist with lifting pannus to use urinal. groin folds with small separation of skin bilat. backof knees red in creases. LS clr. pt denies pain. IV infiltrated and dc'd
[2023-06-13] MEDS: TAMSULOSIN HCL 0.4 MG CAPSULE PO (20:54)
[2023-06-13] MEDS: MAGNESIUM OXIDE 400 MG TABLET PO (20:54)
[2023-06-14] VITALS (7 sets, daily range): BP systolic 134–144; BP diastolic 57–75; PULSE 63–86; RESP 20–22; TEMP 36.6–37.1; O2SAT 90–95
[2023-06-14 07:02] LABS: HCO3 VBG 27 mmol/L (21-28); PCO2 VBG 41 mmHG (40-50); PO2 VBG 66.8 mmHG (25-47); pH VBG 7.425 (7.32-7.43)
[2023-06-14 07:12] LABS: Hematocrit 35.6 % (37.0-53.0); Hemoglobin* 10.9 gm/dL (13.5-17.5); Mean Corpuscular HGB Conc 31 gm/dL (32-36); Mean Corpuscular Hemoglobin 27 pg (26-34); Mean Corpuscular Volume 87 fL (80-100); Platelet Count* 268 K/uL (140-440); Red Blood Count 4.11 m/uL (4.30-5.90); White Blood Count* 7.38 K/uL (4.50-11.00)
[2023-06-14 07:27] LABS: Slide Review Reflex No
[2023-06-14 07:29] LABS: Albumin* 3.1 g/dL (3.3-5.0)
[2023-06-14 07:30] LABS: Chloride* 105 mmol/L (96-114); Sodium* 138 mmol/L (135-149)
[2023-06-14] MEDS: TORSEMIDE 5 MG TABLET 10 MG PO (07:31)
[2023-06-14] MEDS: LACTOBACILLUS ACIDOPHILUS 1 TABLET 1 TAB PO ×3 (07:31→18:14)
[2023-06-14 07:32] LABS: Alkaline Phosphatase* 218 U/L (40-150); Anion Gap 8 mEq/L (7-15); Aspartate Amino Transferase* 44 U/L (12-35); Bilirubin Total* 0.7 mg/dL (0.1-1.5); Blood Urea Nitrogen* 29 mg/dL (7-30); Carbon Dioxide* 25 mmol/L (20-32); Creatinine* 2.1 mg/dL (0.5-1.5); Est. Creatinine Clearance* 28.95; Estimated Glomerular Filt Rate 32 ml/min; Potassium* 4.6 mmol/L (3.6-5.1); Total Protein* 7.7 g/dL (6.0-8.3)
[2023-06-14 07:33] LABS: Alanine Aminotransferase* 27 U/L (4-50); Calcium* 8.3 mg/dL (8.4-10.6); Glucose* 112 mg/dL (60-115); Lipase* 65 U/L (23-300)
[2023-06-14 07:42] LABS: Procalcitonin* 6.83 ng/mL (<0.50)
--- NOTE | 2023-06-14 07:49 | PC.NURSE ---
End of shift [id number] ? Pt alert, oriented, cooperative and pleasant. Pt in bed at start of shift and stated he ?didn?t feel up to getting out of bed? once more for the evening. Pt up to chair and bedside commode at end of shift. Uses urinal in bed with maximum assistance, incontinent of bladder while sleeping x 1 void. Pt tolerating RA and maintained O2 saturation above 90% with no supplemental oxygen. SOB noted with exertion, pt reported as baseline complaint. Pt denied pain during shift. Redness noted under pannus, L side skin observed to be split in areas. Interdry and skin protectant used per?MAR.? Pt observed to sleep during shift, appears to be resting comfortably at end of shift. ?
[2023-06-14] MEDS: ENOXAPARIN 30 MG/0.3ML INJ SUBCUT (09:06)
[2023-06-14] MEDS: POTASSIUM CHLORIDE 10 MEQ CAPSULE ER PO (09:06)
[2023-06-14] MEDS: AMLODIPINE 5 MG TABLET PO (09:06)
[2023-06-14] MEDS: cephALEXin 500 MG CAPSULE 1000 MG PO ×2 (09:06→21:05)
[2023-06-14] MEDS: MUPIROCIN 1 GM PACKET 1 APPLIC TOPICAL ×3 (09:07→21:04)
[2023-06-14] MEDS: NYSTATIN POWDER 1 APPLIC TOPICAL ×2 (09:07→21:04)
[2023-06-14] MEDS: NYSTATIN CREAM 30 GM 1 APPLIC TOPICAL ×2 (09:07→21:04)
--- NOTE | 2023-06-14 11:48 | P.IMPN_ITS ---
Progress Note: A&P Assessment and plan (1) Complicated urinary tract infection: Problem details: - markedly abnormal urinalysis with a 11mm stone in the left renal pelvis - discuss with urologist at [facility] who recommended 2-3 days of IV antibiotics followed by 2 weeks of oral antibiotics, plus see urologist for consultation for elective removal of stone due to stone now being colonized. - received IV ceftriaxone initially while in the ED. This was broadened to Zosyn for 48 hours. He is back to ceftriaxone based on sensitivities. as of 06/13 on oral Keflex. Today is day 2 of 14 for oral antibiotics. Status: Acute (2) Sepsis: Problem details: - in association with complicated urinary tract infection 06/10/2023 -resolved Status: Resolved (3) LESLI (acute kidney injury): Problem details: Creatinine 2.7 upon presentation. Previous baseline 1.0 Cr 2.1 today, same as yesterday. His BUN is normal. Urinary sediment is bland. Initial imaging showed no hydronephrosis. Repeat imaging today since creatinine is not improving. Will consider Sanders catheter depending on imaging results. Continue to hydrate and treat underlying infection Renal diet; low phosphorus intake. Status: Acute (4) Morbid obesity: Problem details: - admission weight 229.5; was down to 211kg on 01/21; wt 202.3 kg 06/14 - 1500/day calorie restricted diet: working with multidisciplinary team regarding this, tolerating well Status: Chronic (5) BRANDY (obstructive sleep apnea): Problem details: -needs outpatient sleep study -NC 1-2L to keep sats at >88% while sleeping. Status: Suspected (6) Advanced directives, counseling/discussion: Problem details: Patient has clarified his POLST. He is DNR and DNI but would like aggressive treatment and hospitalization for other medical illnesses short of cardiac arrest or respiratory failure. Status: Acute (7) Physical debility: Problem details: Cont PT/OT Status: Acute (8) Hypocalcemia: Problem details: Improving. Status: Acute (9) Anemia: Problem details: Normocytic, stable. Status: Acute (10) HTN (hypertension): Problem details: - Losartan is on hold due to elevated creatinine. - continue amlodipine. Patient is on torsemide as well, which I will hold and recheck creatinine in the morning. Status: Chronic Subjective Time Seen by Provider: 10:39 Date Seen: 06/14/23 Interval history: Xavier is ambulating near baseline, according to him. He no longer feels chilled. Denies pain. Exam Narrative: Exam Narrative: General: No acute distress. Morbidly obese. Awake, alert, oriented x3. No pallor. No jaundice. Oropharynx: Clear. Mucous membranes slightly dry. Cardiovascular: Regular rate and rhythm. No murmurs, gallops, or rubs. Respiratory: Clear to auscultation bilaterally. No wheezes or crackles. Abdomen: Large pannus. Bowel sounds present. Soft, nondistended, nontender. Const: Vital Signs, click to edit/add: Vital Signs - 24 hr 06/13/23 15:30 06/13/23 15:48 06/13/23 19:00 Temperature 98.7 F 99.4 F Pulse Rate [Left P ulse Oximeter] 72 77 Respiratory Rate 20 22 20 Blood Pressure [Ri ght Arm] 177/71 H 148/60 H Pulse Oximetry 94 92 91 Oxygen Delivery Me thod Room Air Room Air Room Air 06/13/23 22:18 06/13/23 23:00 06/14/23 03:00 Temperature 99.5 F Pulse Rate [Left P ulse Oximeter] 74 63 Respiratory Rate 20 20 Blood Pressure [Ri ght Arm] 158/65 H Pulse Oximetry 92 92 92 Oxygen Delivery Me thod Room Air Room Air Room Air 06/14/23 07:25 06/14/23 07:25 Temperature 98.7 F Pulse Rate [Left P ulse Oximeter] 86 Respiratory Rate 22 22 Blood Pressure [Ri ght Arm] 135/69 Pulse Oximetry 92 92 Oxygen Delivery Mn thod Room Air Room Air Labs Labs: Laboratory Results - last 24 hr 06/14/23 06/14/23 06:14 07:44 WBC 7.38 RBC 4.11 L Hgb 10.9 L Hct 35.6 L MCV 87 MCH 27 MCHC 31 L Plt Count 268 VBG pH 7.425 VBG pCO2 41 VBG pO2 66.8 H VBG HCO3 27 Sodium 138 Potassium 4.6 Chloride 105 Carbon Dioxide 25 Anion Gap 8 BUN 29 Creatinine 2.1 H Estimated Creat Clear 28.95 Estimated GFR 32 Glucose 112 Calcium 8.3 L Ionized Calcium Best 1.10 L Total Bilirubin 0.7 AST 44 H ALT 27 Alkaline Phosphatase 218 H Total Protein 7.7 Albumin 3.1 L Lipase 65 Procalcitonin 6.83 H Lab Acknowledgement Test Added
--- NOTE | 2023-06-14 19:58 | PC.NURSE ---
Pt up with 4 wheel walker in room with staff next to pt but pt does not need assistance with getting out of chair and ambulating in room. Pt needing occasional min assist with getting legs into bed, this need decreased throughout the day. Pt continent of bowel and bladder, requesting assistance with urinal.
[2023-06-14] MEDS: TAMSULOSIN HCL 0.4 MG CAPSULE PO (21:04)
[2023-06-14] MEDS: MAGNESIUM OXIDE 400 MG TABLET PO (21:04)
[2023-06-15] VITALS (7 sets, daily range): BP systolic 127–144; BP diastolic 62–75; PULSE 66–74; RESP 20; TEMP 36.1–36.8; O2SAT 91–95
[2023-06-15 07:00] LABS: Chloride* 104 mmol/L (96-114); Potassium* 3.9 mmol/L (3.6-5.1); Sodium* 139 mmol/L (135-149)
[2023-06-15 07:03] LABS: Anion Gap 7 mEq/L (7-15); Carbon Dioxide* 28 mmol/L (20-32); Estimated Glomerular Filt Rate 34 ml/min
[2023-06-15 07:04] LABS: Blood Urea Nitrogen* 26 mg/dL (7-30); Calcium* 8.4 mg/dL (8.4-10.6); Glucose* 100 mg/dL (60-115)
--- NOTE | 2023-06-15 07:37 | PC.NURSE ---
End of Shift [id number] ? Pt alert, oriented, and cooperative. Pt not up out of bed during shift, used urinal in bed with maximum assistance. Pt experienced nocturnal incontinence x2 in brief. Pt tolerated RA during shift but needed 1L O2 while sleeping to maintain saturation above 88% per MD orders. VSS, afebrile. Pt observed to sleep during shift. Appears to be resting comfortably at end of shift. ?
[2023-06-15] MEDS: LACTOBACILLUS ACIDOPHILUS 1 TABLET 1 TAB PO ×2 (08:20→14:53)
[2023-06-15] MEDS: POTASSIUM CHLORIDE 10 MEQ CAPSULE ER PO (08:20)
[2023-06-15] MEDS: cephALEXin 500 MG CAPSULE 1000 MG PO ×2 (08:20→21:06)
[2023-06-15] MEDS: AMLODIPINE 5 MG TABLET PO (08:20)
[2023-06-15] MEDS: ENOXAPARIN 30 MG/0.3ML INJ SUBCUT (08:21)
--- NOTE | 2023-06-15 18:23 | P.IMPN_ITS ---
Progress Note: A&P Assessment and plan (1) Complicated urinary tract infection: Problem details: - markedly abnormal urinalysis with a 11mm stone in the left renal pelvis - discuss with urologist at [facility] who recommended 2-3 days of IV antibiotics followed by 2 weeks of oral antibiotics, plus see urologist for consultation for elective removal of stone due to stone now being colonized. - received IV ceftriaxone initially while in the ED. This was broadened to Zosyn for 48 hours. He is back to ceftriaxone based on sensitivities. as of 06/13 on oral Keflex. Today is day 3 of 14 for oral antibiotics. Status: Acute (2) LESLI (acute kidney injury): Problem details: Creatinine 2.7 upon presentation. Previous baseline 1.0 Cr 2 today. His BUN is normal. Renal ultrasound attempted, but not able to be done yesterday due to habitus. At this point, I think he will be able to discharge and see nephrology as an outpatient. Due to complicated discharge, I will work with SW tomorrow to ensure a good discharge plan is in place. Urinary sediment is bland. Initial imaging showed no hydronephrosis. Continue to hydrate and treat underlying infection Renal diet; low phosphorus intake. Status: Acute (3) Morbid obesity: Problem details: - admission weight 229.5; was down to 211kg on 01/21; wt 202.3 kg 06/14 - 1500/day calorie restricted diet: working with multidisciplinary team regarding this, tolerating well Status: Chronic (4) BRANDY (obstructive sleep apnea): Problem details: -needs outpatient sleep study -NC 1-2L to keep sats at >88% while sleeping. Status: Suspected (5) Physical debility: Problem details: Cont PT/OT Status: Acute (6) Anemia: Problem details: Normocytic, stable. Status: Acute (7) HTN (hypertension): Problem details: - Losartan is on hold due to elevated creatinine. - continue amlodipine. Patient is on torsemide as well, which is on hold due to elevated Cr. Status: Chronic Subjective Time Seen by Provider: 13:20 Date Seen: 06/15/23 Interval history: Xavier feels pretty well. He has no more chills, but does feel a bit chilly most of the day. He has no other complaints. Exam Narrative: Exam Narrative: General: No acute distress. Morbidly obese. Awake, alert, oriented. No pallor. No jaundice. Oropharynx: Clear. Mucous membranes slightly dry. Cardiovascular: Regular rate and rhythm. No murmurs, gallops, or rubs. Respiratory: Clear to auscultation bilaterally. No wheezes or crackles. Const: Vital Signs, click to edit/add: Vital Signs - 24 hr 06/14/23 19:45 06/14/23 22:35 06/14/23 23:00 Temperature 98.2 F 98.4 F Pulse Rate [Left P ulse Oximeter] 70 70 Respiratory Rate 20 22 Blood Pressure [Ri ght Arm] 134/68 144/57 H Pulse Oximetry 95 90 90 Oxygen Delivery Me thod Room Air Room Air Room Air Oxygen Flow Rate 06/15/23 03:00 06/15/23 07:35 06/15/23 07:35 Temperature 97.0 F L Pulse Rate [Left P ulse Oximeter] 74 66 Respiratory Rate 20 20 Blood Pressure [Ri ght Arm] 138/72 Pulse Oximetry 95 91 Oxygen Delivery Me thod Nasal Cannula Room Air Oxygen Flow Rate 1 06/15/23 07:35 06/15/23 11:44 06/15/23 15:00 Temperature 97.8 F 97.7 F Pulse Rate [Left P ulse Oximeter] 66 69 Respiratory Rate 20 20 20 Blood Pressure [Ri ght Arm] 127/75 142/69 H Pulse Oximetry 91 94 95 Oxygen Delivery Me thod Room Air Room Air Room Air Oxygen Flow Rate 06/15/23 15:00 Temperature 97.1 F L Pulse Rate [Left P ulse Oximeter] 66 Respiratory Rate 20 Blood Pressure [Ri ght Arm] 143/65 H Pulse Oximetry 94 Oxygen Delivery Me thod Room Air Oxygen Flow Rate Labs Labs: Laboratory Results - last 24 hr 06/15/23 06:10 Sodium 139 Potassium 3.9 Chloride 104 Carbon Dioxide 28 Anion Gap 7 BUN 26 Creatinine 2.0 H Estimated Creat Clear 30.40 Estimated GFR 34 Glucose 100 Calcium 8.4
[2023-06-15] MEDS: MUPIROCIN 1 GM PACKET 1 APPLIC TOPICAL ×2 (19:26→21:06)
[2023-06-15] MEDS: MAGNESIUM OXIDE 400 MG TABLET PO (21:06)
[2023-06-15] MEDS: NYSTATIN POWDER 1 APPLIC TOPICAL (21:06)
[2023-06-15] MEDS: TAMSULOSIN HCL 0.4 MG CAPSULE PO (21:06)
[2023-06-15] MEDS: NYSTATIN CREAM 30 GM 1 APPLIC TOPICAL (21:06)
[2023-06-16 02:22] VITALS: BP 151/53; PULSE 67; RESP 20; TEMP 36.5; O2SAT 92
--- NOTE | 2023-06-16 05:45 | PC.NURSE ---
[id number]: Patient cooperative with cares. Requires 1 Lt NC overnight to maintain sats >88. Rates flank pain 2/10 and declined pain medications. Frequent urination with incontinent of B&B x1.
[2023-06-16 07:00] VITALS: BP 166/57; PULSE 71; RESP 20; TEMP 36.5; O2SAT 94
[2023-06-16 07:01] LABS: Chloride* 104 mmol/L (96-114)
[2023-06-16 07:02] LABS: Sodium* 139 mmol/L (135-149)
[2023-06-16 07:04] LABS: Anion Gap 3 mEq/L (7-15); Carbon Dioxide* 32 mmol/L (20-32); Creatinine* 1.6 mg/dL (0.5-1.5); Estimated Glomerular Filt Rate 44 ml/min
[2023-06-16 07:05] LABS: Blood Urea Nitrogen* 25 mg/dL (7-30); Calcium* 8.3 mg/dL (8.4-10.6); Glucose* 99 mg/dL (60-115)
[2023-06-16] MEDS: ENOXAPARIN 30 MG/0.3ML INJ SUBCUT (09:01)
[2023-06-16] MEDS: NYSTATIN CREAM 30 GM 1 APPLIC TOPICAL (09:01)
[2023-06-16] MEDS: LACTOBACILLUS ACIDOPHILUS 1 TABLET 1 TAB PO (09:01)
[2023-06-16] MEDS: NYSTATIN POWDER 1 APPLIC TOPICAL (09:01)
[2023-06-16] MEDS: MUPIROCIN 1 GM PACKET 1 APPLIC TOPICAL (09:01)
[2023-06-16] MEDS: cephALEXin 500 MG CAPSULE 1000 MG PO (09:01)
[2023-06-16] MEDS: AMLODIPINE 5 MG TABLET PO (09:01)
[2023-06-16] MEDS: POTASSIUM CHLORIDE 10 MEQ CAPSULE ER PO (09:08)
--- NOTE | 2023-06-16 09:26 | P.DS_ITS ---
DS: Providers Provider Time Seen by Provider: 07:37 Date Seen: 06/16/23 Date of admission: 06/11/23 00:37 Primary care physician: EVERTON DURON DO Admitting Clinician: Jorge Irizarry MD Consults: 06/11/23 00:37 Consult to Nutrition [CONS] Routine Comment: Reason for consult:: Miscellaneous Consult to Occupational Therapy [CONS] Routine Comment: Reason(s) for OT Consult:: Evaluate and Treat Any Restrictions?:: No Restrictions Consult to Physical Therapy [CONS] Routine Comment: Reason(s) for PT Consult:: Evaluate and Treat Any Restrictions?:: No Restrictions Consult to Funeral Planning Counselor [CONS] Routine Comment: Reason for Consult:: Discharge Planning Needs Attending Physician on discharge: Jennifer Conner MD Date of Discharge: 06/16/23 DS: Diagnosis Discharge Diagnosis (1) Complicated urinary tract infection: Status: Acute Problem details: - markedly abnormal urinalysis with a 11mm stone in the left renal pelvis - discuss with urologist at [facility] who recommended 2-3 days of IV antibiotics followed by 2 weeks of oral antibiotics, plus see urologist for consultation for elective removal of stone due to stone now being colonized. - received IV ceftriaxone initially while in the ED. This was broadened to Zosyn for 48 hours. He is back to ceftriaxone based on sensitivities. as of 06/13 on oral Keflex. Today is day 4 of 14 for oral antibiotics. (2) LESLI (acute kidney injury): Status: Acute Problem details: Creatinine 2.7 upon presentation. Previous baseline 1.0 Cr 1.6 today on discharge. His BUN is normal. Renal ultrasound attempted, but not able to be done yesterday due to habitus. Discharge home. F/u with PCP. Urinary sediment is bland. Initial imaging showed no hydronephrosis. Continue to hydrate and treat underlying infection Renal diet; low phosphorus intake. (3) Morbid obesity: Status: Chronic Problem details: - admission weight 229.5; was down to 211kg on 01/21; wt 202.3 kg 06/14 - 1500/day calorie restricted diet: working with multidisciplinary team regarding this, tolerating well (4) BRANDY (obstructive sleep apnea): Status: Suspected Problem details: -needs outpatient sleep study -NC 1-2L to keep sats at >88% while sleeping. (5) Physical debility: Status: Acute Problem details: Cont PT/OT (6) Anemia: Status: Acute Problem details: Normocytic, stable. (7) HTN (hypertension): Status: Chronic Problem details: - Losartan is on hold due to elevated creatinine. - continue amlodipine. Patient is on torsemide as well, which is on hold due to elevated Cr. Restart torsemide on discharge. F/u with PCP. (8) Hypocalcemia: Status: Acute Problem details: Improved. (9) Advanced directives, counseling/discussion: Status: Acute Problem details: Patient has clarified his POLST. He is DNR and DNI but would like aggressive treatment and hospitalization for other medical illnesses short of cardiac arrest or respiratory failure. (10) Sepsis: Status: Resolved Problem details: - in association with complicated urinary tract infection 06/10/2023 -resolved DS: Summary Hospital Course Hospital Course: This is a 77-year-old male with morbid obesity presented with 3 week history of intermittent chills and worsening fatigue along with more recently intermittent left flank pain. He did not have dysuria, frequency, urgency, or hematuria. He has longstanding urinary incontinence. Although he has a history of a scrotal ulcer that has been healed for several months and he has no other open wounds. Upon presentation to the ED he was found to have a complicated urinary tract infection with a left renal calculus 11 mm. Consultation with Urology 8 over to [facility] recommended 2-3 days of IV antibiotics followed by 2 weeks of oral antibiotics plus outpatient Urology referral to discuss elective removal of the stone due to now being colonized. This regimen has been followed in patient is discharged today in improved condition on oral Keflex. Also of note is that patient came in with acute kidney injury likely secondary to urinary tract infection and volume depletion. This has slowly been in improving. Have patient follow-up with his primary care provider to recheck labs and ensure ongoing improvement. Note to PCP: Please note that this patient's losartan is still on hold due to persistently elevated creatinine. Creatinine is improving and I think it was likely secondary to acute kidney injury. If his creatinine has improved back to baseline by the time he sees you in clinic, you could consider restarting losartan and rechecking creatinine after that. If his creatinine does not improve, consideration could be given to referral to Nephrology. I had held his torsemide for about a day in the hospital, but restarted at discharge. Time Spent with Patient Time attestation: Total time spent providing and/or coordinating discharge services: Exam Narrative: Exam Narrative: General: No acute distress. Morbidly obese. Awake, alert, oriented. No pallor. No jaundice. Oropharynx: Clear. Mucous membranes slightly dry. Cardiovascular: Regular rate and rhythm. No murmurs, gallops, or rubs. Respiratory: Clear to auscultation bilaterally. No wheezes or crackles. Const: Vital Signs, click to edit/add: Vital Signs - 24 hr 06/15/23 11:44 06/15/23 15:00 06/15/23 15:00 Temperature 97.7 F 97.1 F L Pulse Rate [Left P ulse Oximeter] 69 66 Respiratory Rate 20 20 20 Blood Pressure [Ri ght Arm] 142/69 H 143/65 H Pulse Oximetry 94 95 94 Oxygen Delivery Me thod Room Air Room Air Room Air Oxygen Flow Rate 06/15/23 20:25 06/15/23 22:13 06/15/23 22:22 Temperature 98.3 F 97.9 F Pulse Rate [Left P ulse Oximeter] 71 72 Respiratory Rate 20 20 20 Blood Pressure [Ri ght Arm] 144/63 H 144/62 H Pulse Oximetry 92 92 94 Oxygen Delivery Me thod Room Air Room Air Nasal Cannula Oxygen Flow Rate 1.0 06/16/23 02:22 06/16/23 07:00 06/16/23 07:00 Temperature 97.7 F 97.7 F Pulse Rate [Left P ulse Oximeter] 67 71 Respiratory Rate 20 20 20 Blood Pressure [Ri ght Arm] 151/53 H 166/57 H Pulse Oximetry 92 94 94 Oxygen Delivery Me thod Nasal Cannula Room Air Room Air Oxygen Flow Rate 1.0 DS: Data Data Completed and Pending Completed studies during hospitalization: Ordering Physician: Hector Blackman M.D. Date of Service: 06/10/23 Procedure(s): CT abdomen pelvis wo con Accession Number(s): [id number] cc: Hector Blackman M.D.; EVERTON DURON D.O.~ For Patients: As a result of the Cures Act, medical imaging exams and procedure reports are released immediately into your electronic medical record. You may view this report before your referring provider. If you have questions, please contact your health care provider. INDICATION: Left flank pain TECHNIQUE: CT abdomen and pelvis without contrast. COMPARISON: CT abdomen/pelvis on October 21, 2014 FINDINGS: Visualized lower thorax shows mild cardiomegaly; otherwise, unremarkable. The liver, spleen, pancreas, and bilateral adrenal glands are within normal limits. Status post cholecystectomy. There is an 11 millimeter stone at the interpolar region of the left kidney without appreciable hydronephrosis. The right kidney is unremarkable in appearance. The bladder is decompressed with no appreciable bladder wall masses or lesions. No evidence of bowel obstruction or inflammation. Colonic diverticulosis without CT evidence of acute diverticulitis. No free fluid or free air. No pathologically enlarged lymph nodes throughout the abdomen or pelvis. No abdominal aortic aneurysm. Status post midline hernia repair with likely small chronic seroma. There are multilevel degenerative changes throughout the spine. No suspicious osseous lesions. IMPRESSION: 1. There is an 11 millimeter renal calculus at the interpolar region of the left kidney without appreciable hydronephrosis. 2. Additional incidental findings as detailed above. Please note that all CT scans at this facility use dose modulation, iterative reconstruction, and/or weight-based dosing when appropriate to reduce radiation dose to as low as reasonably achievable. Dictated by Seth Pelletier MD @ 06/10/2023 1:43:46 PM (Electronically Signed) Labs on day of discharge: Labs from last 24 hours 06/16/23 05:49 Sodium 139 Potassium 4.0 Chloride 104 Carbon Dioxide 32 Anion Gap 3 L BUN 25 Creatinine 1.6 H Estimated Creat Clear 38.00 Estimated GFR 44 Glucose 99 Calcium 8.3 L Discharge Plan Discharge Disposition: Home, Self-Care Date of Admission: 06/11/23 00:37 Attending Provider on Discharge: Jennifer Conner Primary Care Provider: EVERTON DURON Condition: Improved Anticipated Discharge Date/Time: 06/16/23 10:30 Discharge Medications: New cephalexin 500 mg Capsule 1,000 mg PO BID 10 Days Qty: 42 0RF nystatin 100,000 unit/gram Cream 1 applic topical BID Qty: 30 0RF Continued amlodipine 5 mg tablet 5 mg PO DAILY potassium chloride 10 mEq Capsule, Extended Release 10 meq PO DAILY Qty: 30 0RF tamsulosin 0.4 mg Capsule 0.4 mg PO HS Qty: 30 0RF torsemide 5 mg Tablet 10 mg PO DAILY@0800 Qty: 60 0RF nystatin 100,000 unit/gram Powder 1 applic topical BID Qty: 60 0RF Lactobacillus acidophilus 0.5 mg (100 million cell) Tablet 1,000 mmu cells PO TIDWM Qty: 90 0RF mupirocin 2 % ointment 1 applic topical 3XD sennosides-docusate sodium [Senna-S] 8.6-50 mg tablet 1 tab-cap PO DAILY PRN melatonin 3 mg tablet 3 mg PO HS PRN magnesium oxide 400 mg magnesium tablet 400 mg PO HS Held losartan 100 mg tablet 100 mg PO DAILY Hold Instructions: Resume on 06/23/23. Until seen by PCP Discontinued naproxen sodium [Aleve] 220 mg capsule 440 mg PO BID PRN Discharge Orders: Discharge Order (Routine); Ordered 06/16/23 Ordered By: Jennifer Conner Patient Education: Kidney Stones (DC), Urinary Tract Infection in Men (ED) Additional Instructions: Home care PT. Activity Level: Activity as Tolerated and Use Walker Discharge Diet: Renal and Other Diet Detail: Low Phos, 1500 calorie per day restricted diet Follow Up Appointments: Barry Khalil MD [Referring] - 06/20/23 (hospital f/u - complicated UTI; nephrolithiasis ) EVERTON DURON DO [Primary Care Provider] - 06/20/23 (3-5 days, BMP, INR) Becky Mukherjee MD [Referring] - 06/19/23 8:15 am (hospital f/u - complicated UTI; nephrolithiasis ) Hector Osborne MD [Referring] - Forms: [facility] Info Instructions
--- NOTE | 2023-06-16 11:22 | PC.NURSE ---
Discharge: Patient pleasant and cooperative, up with SBA and own walker. Vitals stable and WNL. Skin care performed prior to discharge, creams and powder sent home with patient. No IV present at time of discharge. Patient changed into own clothes. Discharge instructions given, follow up reviewed, new medications reviewed. Patient discharged via EMS non-emergent transfer @ 1122, sent home.
--- NOTE | 2023-06-16 15:53 | PC.SOCIAL ---
Discharge planning: Referred pt to [facility] for physical therapy. [facility] accepted the pt and all the needed documents were sent over to [facility]. Pt discharged from the hospital today. No other social media content specialist follow-up is needed at this time.
== END 2023-06-16 11:22 | disposition home or self-care (01) | DRG 689 ==
LOC: ED 20:32 → MEDSURG 23:13
PROVIDERS: Emergency Medicine; Family Medicine; Admitting Provider Internal Medicine; Emergency Provider Emergency Medicine Emergency Medical Services; PCP Student in an Organized Health Care Education/Training Program; Visit Provider Internal Medicine
DX: N39.0 Urinary tract infection, site not specified (principal); A41.9 Sepsis, unspecified organism; Z68.44 Body mass index [BMI] 60.0-69.9, adult; N17.9 Acute kidney failure, unspecified; B96.20 Unspecified Escherichia coli [E. coli] as the cause of diseases classified elsewhere; N20.0 Calculus of kidney; E66.01 Morbid (severe) obesity due to excess calories; I89.0 Lymphedema, not elsewhere classified; R60.1 Generalized edema; G47.33 Obstructive sleep apnea (adult) (pediatric); I10 Essential (primary) hypertension; D64.9 Anemia, unspecified; E83.51 Hypocalcemia; R32 Unspecified urinary incontinence; M10.9 Gout, unspecified
CPT/HCPCS: 36415; 74176; 76775; 80048; 80053; 80069; 80076; 81001; 82330; 82550; 82803; 83036; 83605; 83690; 83735; 83880; 84145; 84484; 85025; 85027; 85048; 85610; 86140; 87040; 87086; 87186; 87631; 97110; 97116; 97162; 97166; 97530; 97535; 99284; A9270; J0696; J1650; J2543; J7030; J7050

== ENCOUNTER 2023-06-16 11:05 | Outpatient (CLI) | payer MEDICARE, BC, SELFPAY | END 2023-06-16 11:06 | disposition home or self-care (01) | LOC: AMB 06-17 09:15 | PROVIDERS: PCP Student in an Organized Health Care Education/Training Program; Visit Provider Family Medicine | DX: R53.1 Weakness (principal); J43.9 Emphysema, unspecified; E66.01 Morbid (severe) obesity due to excess calories | CPT/HCPCS: A0425; A0428 ==

== ENCOUNTER 2024-07-23 10:46 | Outpatient (CLI) | payer MEDICARE, BC, SELFPAY | END 2024-07-23 10:47 | disposition home or self-care (01) | LOC: AMB 08-04 19:10 | PROVIDERS: PCP Student in an Organized Health Care Education/Training Program; Visit Provider Internal Medicine | DX: R53.1 Weakness (principal); R06.2 Wheezing | CPT/HCPCS: A0425; A0427 ==

== ENCOUNTER 2024-07-23 11:37 | Inpatient (IN) | payer MEDICARE, BC, SELFPAY ==
[2024-07-23] VITALS (26 sets, daily range): BP systolic 111–167; BP diastolic 55–100; PULSE 55–79; RESP 16–22; TEMP 36.4–36.9; O2SAT 92–100; BMI 73.0; BMI 79.1
--- NOTE | 2024-07-23 11:57 | ED_ITS ---
HPI - General Adult General Chief complaint: Shortness of Breath/Dyspnea Stated complaint: Weakness/Covid+ Time Seen by Provider: 07/23/24 11:52 Source: patient and EMS Mode of arrival: EMS Limitations: no limitations History of Present Illness HPI narrative: 78-year-old male presents to the ED by EMS with increased dyspnea, weakness involving over the last 5-6 days. Vaccinated against COVID and influenza. Unsu re if he is running a fever. No vomiting. No diarrhea. Admitted he was hospitalized last year with a cellulitis of the abdominal pannus. EMS reporting that his O2 sats were 85% on room air upon their arrival. They did have a couple of blood pressures that were sub 100 systolic but improved after IV fluid. No falls or injury. Does not take any anticoagulants. No dysuria. No localizing symptoms of infection. Does admit that he had some loose stools this morning but nonbloody. Has been eating and drinking normally but getting progressively weaker. He could briefly pivot transfer for the EMS team. Did not try any interventions to help with symptoms. He is homebound but he has a rehab nursing tech come in to wash underneath his abdominal pannus and apply nystatin powder. No obvious illness exposures. No history of chronic lung disease. Did seem to improve quite a bit with a DuoNeb per EMS. Past medical history notable for hypertension, super morbid obesity with a large abdominal pannus with chronic lymphedema of the abdominal pannus and the legs. He is a nonsmoker, does live in a private home has some home health services. Uses a walker at baseline. Reports that his only home medications are amlodipine, losartan and tamsulosin as well as a potassium supplement. ROS is notable for the generalized and respiratory symptoms as above, otherwise denies times 12 systems. Related Data Home Medications ?Medication ?Instructions ?Recorded ?Confirmed amlodipine 5 mg tablet 5 mg PO DAILY 12/30/22 06/10/23 losartan 100 mg tablet 100 mg PO DAILY 12/30/22 06/10/23 mupirocin 2 % topical ointment 1 applic topical 3XD 06/10/23 06/10/23 magnesium oxide 400 mg PO HS 06/11/23 06/11/23 melatonin 3 mg tablet 3 mg PO HS PRN 06/11/23 06/11/23 sennosides 8.6 mg-docusate sodium 1 tab-cap PO DAILY PRN 06/11/23 06/11/23 50 mg tablet (Senna-S) Previous Rx's ?Medication ?Instructions ?Recorded Lactobacillus acidophilus 0.5 mg 1,000 mmu cells PO TIDWM #90 tabs 01/21/23 (100 million cell) tablet nystatin 100,000 unit/gram topical 1 applic topical BID #60 grams 01/21/23 powder potassium chloride 10 mEq 10 meq PO DAILY #30 caps 01/21/23 capsule,extended release tamsulosin 0.4 mg capsule 0.4 mg PO HS #30 caps 01/21/23 torsemide 5 mg tablet 10 mg (2 x 5 mg) PO DAILY@0800 #60 01/21/23 tabs cephalexin 500 mg capsule 1,000 mg (2 x 500 mg) PO BID 10 06/16/23 days #42 caps nystatin 100,000 unit/gram topical 1 applic topical BID #30 grams 06/16/23 cream Allergies Allergy/AdvReac Type Severity Reaction Status Date / Time No Known Drug Allergies Allergy Verified 07/23/24 12:00 [facility] Medical History (Updated 07/23/24 @ 14:36 by Kelsey Khan MD) HTN (hypertension) ?I10 - Essential (primary) hypertension (ICD-10) Advanced directives, counseling/discussion ?Z71.89 - Other specified counseling (ICD-10) Morbid obesity ?E66.01 - Morbid (severe) obesity due to excess calories (ICD-10) Right shoulder pain ?M25.511 - Pain in right shoulder (ICD-10) Leukocytosis ?D72.829 - Elevated white blood cell count, unspecified (ICD-10) Intertrigo ?L30.4 - Erythema intertrigo (ICD-10) Weakness ?R53.1 - Weakness (ICD-10) Lymphedema ?I89.0 - Lymphedema, not elsewhere classified (ICD-10) Urinary retention ?R33.9 - Retention of urine, unspecified (ICD-10) Arthritis of knee, left ?M17.12 - Unilateral primary osteoarthritis, left knee (ICD-10) Anasarca ?R60.1 - Generalized edema (ICD-10) Durable power of criminal attorney for healthcare POLST (Physician Orders for Life-Sustaining Treatment) ?Z78.9 - Other specified health status (ICD-10) BRANDY (obstructive sleep apnea) ?G47.33 - Obstructive sleep apnea (adult) (pediatric) (ICD-10) Elevated blood uric acid level ?E79.0 - Hyperuricemia without signs of inflammatory arthritis and tophaceous disease (ICD-10) Impaired fasting glucose ?R73.01 - Impaired fasting glucose (ICD-10) Gout ?M10.9 - Gout, unspecified (ICD-10) Adenomatous colon polyp (~2015) ?D12.6 - Benign neoplasm of colon, unspecified (ICD-10) Ventral hernia ?K43.9 - Ventral hernia without obstruction or gangrene (ICD-10) Incarcerated umbilical hernia (~2014) ?K42.0 - Umbilical hernia with obstruction, without gangrene (ICD-10) Dyslipidemia ?E78.5 - Hyperlipidemia, unspecified (ICD-10) Hernia ?K46.9 - Unspecified abdominal hernia without obstruction or gangrene (ICD- 10) Gallbladder attack ?K82.9 - Disease of gallbladder, unspecified (ICD-10) Surgical History H/O hernia repair (~2014) ?Z98.890 - Other specified postprocedural states (ICD-10) ?Z87.19 - Personal history of other diseases of the digestive system (ICD-10) Hx of cholecystectomy (~1985) ?Z90.49 - Acquired absence of other specified parts of digestive tract (ICD- 10) H/O colonoscopy ?Z98.890 - Other specified postprocedural states (ICD-10) Family History Father Cardiovascular disease Myocardial infarction Mother High blood pressure Sister Sarcoma Social History Narrative: Lives in a newly built house that is accessible. 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 Worked for [employer]. Retired 10 years ago. What is your current living situation?: I presently have a place to live Problems where you live: no known problems Problems where you live details: NA In the past 12 months, utilities in danger of being shut off: no In past 12 months, lack of transportation kept you from medical appts, meetings, work, or getting things needed for daily living: yes In the past 12 mos, have been you worried that your food would run out before you had money to buy more?: never true In the past 12 mos, the food you bought just didn't last and you didn't have money to buy more?: never true Highest level of school completed/degree received: Associate degree: occupational, technical, vocational program Smoking Status: Never smoker Do you use any of these nicotine containing products: None Second hand tobacco smoke exposure: No How often do you have a drink containing alcohol: never How often do you have six or more drinks on one occasion: Never AUDIT-C Alcohol total score: 0 Non-prescribed substance use: denies use Caffeine: No How often does anyone, including family, friends and others, physically hurt you : rarely How often does anyone, including family, friends and others, insult or talk down to you: rarely How often does anyone, including family, friends and others, threaten you with harm: rarely How often does anyone, including family, friends and others, scream or curse at you: rarely service: No Health Related Social Needs: transportation insecurity (Z59.82) and Other personal risk factors, not elsewhere classified (Z91.89) Exam Const: Vital Signs, click to edit/add: Vital Signs - 24 hr 07/23/24 12:00 07/23/24 12:03 07/23/24 12:03 Temperature 98.4 F Pulse Rate Pulse Rate [Pulse Oximeter] 77 Respiratory Rate 16 Blood Pressure Blood Pressure [Le ft Forearm] 167/75 H Pulse Oximetry 97 97 97 Oxygen Delivery Me thod Nasal Cannula Nasal Cannula Oxygen Flow Rate 4 4 07/23/24 12:07 07/23/24 12:15 07/23/24 12:30 Temperature Pulse Rate 75 68 73 Pulse Rate [Pulse Oximeter] Respiratory Rate Blood Pressure Blood Pressure [Le ft Forearm] Pulse Oximetry 98 97 98 Oxygen Delivery Me thod Nasal Cannula Nasal Cannula Nasal Cannula Oxygen Flow Rate 3 3 3 07/23/24 12:32 07/23/24 12:51 07/23/24 13:00 Temperature Pulse Rate 71 76 63 Pulse Rate [Pulse Oximeter] Respiratory Rate Blood Pressure 125/55 L Blood Pressure [Le ft Forearm] Pulse Oximetry 96 97 96 Oxygen Delivery Me thod Nasal Cannula Nasal Cannula Nasal Cannula Oxygen Flow Rate 2 2 2 07/23/24 13:05 07/23/24 13:15 07/23/24 13:30 Temperature Pulse Rate 67 64 73 Pulse Rate [Pulse Oximeter] Respiratory Rate Blood Pressure Blood Pressure [Le ft Forearm] Pulse Oximetry 97 98 97 Oxygen Delivery Me thod Nasal Cannula Nasal Cannula Nasal Cannula Oxygen Flow Rate 2 2 2 Documenting provider has reviewed patient's vital signs: yes Common normals: no apparent distress Other: From Bessie cooperative, visually short of breath. Smell strongly of urine. HENMT: Common normals: normocephalic, moist oral mucous membranes, oropharynx normal and dentition normal Head and scalp: normocephalic Face and sinus: normal facial exam Mouth: oral and palatal mucosa normal Throat: posterior oropharynx normal Eye: Common normals: conjunctivae normal General eye: normal appearance of both eyes Conjunctiva: conjunctiva(e) normal Neck & C-Spine: Common normals: full ROM and no lymphadenopathy General: normal visual inspection Resp: Other: Breath sounds are very decreased at the bases but it is difficult to tell if this is an accurate exam or if this is due to body habitus. He does have coarse upper airway sounds and some prolongation of expiration. Cardio: Common normals: regular rate, regular rhythm, S1 normal heart sound, S2 normal heart sound and no murmurs Rate: regular rate Rhythm: regular rhythm Heart sounds: S1 normal and S2 normal Other: Heart sounds are also quite distant but no obvious murmur. GI: Other: Large midline and right rib margins surgical incisions. He reports that the right rib margin is from an open cholecystectomy in the mid 80s and the midline was from a laparotomy for a bowel verses urinary obstruction. Together, we lift the abdominal pannus and do see a significant amount of dependent edema and some mild erythema no big open sores or redness. There is certainly a strong yeast smell underneath the abdominal folds. A few superficial irritated spots but no large open or reddened areas. Extremity: Other: 3+ edema with chronic lymphedema changes . No obvious cellulitis of lower extremities. Symmetric. Neuro: Other: He can bear weight on his legs and pivot transfer onto the bed but require significant assistance to left him onto the bed. Psych: Attitude: engaged Activity/motor behavior: appropriate eye contact Insight: insight good Judgement: judgment good Skin: Narrative: Hit irritated yeasty skin folds but no other areas of open ulcerations. Course Course ED Course: 78-year-old male with acute a partial respiratory failure likely secondary to respiratory illness. Low blood pressures from EMS team that improved after IV f luid bolus suspicious for sepsis. Most likely COVID her influenza a cannot exclude a cellulitis of the abdominal pannus, pneumonia, intestinal obstruction, urinary tract infection, amongst many others. I do think that x-rays will be very difficult to interpret because of his morbid obesity. I do not think that we can get him in a good position and I think that his inspiratory effort would be so poor because of the pressure from his abdomen that I will not get adequate visualization. Because of this I do think moving straight to CT is a better use of resources. Viral swabs, typical labs, cardiac workup CT of the chest abdomen and pelvis and urinalysis ordered. Will continue bolus normal saline to maintain adequate blood pressures, repeat DuoNeb. Reevaluation(s) Time of Reevaluation #1: 14:37 Reevaluation #1: Counseled patient on findings. I would have liked to obtain the CT of the chest abdomen and pelvis but unfortunately, his weight restrictions do not allow is to use the CT scanner. Catheterized urine sample has been collected. Patient is improving somewhat with his hypoxia but is still requiring oxygen at 2 L. Did have some improvement from the DuoNebs as well and is feeling better after IV fluids. Chest x-ray reflecting pneumonia versus pulmonary edema but BNP, tropo nins and remainder of clinical picture not suggestive of fluid overload. I do suspect that this is pneumonia. Potential false negative of the viral swabs discussed with patient. I am recommending inpatient admission for treatment of his pneumonia, hypoxia. You will require some skin cares, special cleaning and nystatin for his abdominal fold but I do not think that this is a source of cellulitis at the moment. Will give single dose of IV steroid for pulmonary inflammation, antibiotic started with Rocephin and azithromycin. May require rehab facility upon discharge depending on clinical condition. Vital Signs Vital signs: Initial Vital Signs Temperature 98.4 F 07/23/24 12:00 Temperature Source Temporal Artery Scan 07/23/24 12:00 Pulse Rate 77 07/23/24 12:00 Respiratory Rate 16 07/23/24 12:00 Blood Pressure 167/75 H 07/23/24 12:00 Blood Pressure Mean 105 07/23/24 12:00 Blood Pressure Position Semi-Fowlers 07/23/24 12:00 Pulse Oximetry 97 07/23/24 12:00 Oxygen Delivery Method Nasal Cannula 07/23/24 12:00 Oxygen Flow Rate 4 07/23/24 12:00 Vital Signs Temperature 98.4 F 07/23/24 12:00 Pulse Rate 77 07/23/24 12:00 Respiratory Rate 16 07/23/24 12:00 Blood Pressure 167/75 H 07/23/24 12:00 Pulse Oximetry 97 07/23/24 12:00 Oxygen Delivery Method Nasal Cannula 07/23/24 12:00 Oxygen Flow Rate 4 07/23/24 12:00 Temperature 98.4 F 07/23/24 12:00 Pulse Rate 73 07/23/24 13:30 Respiratory Rate 16 07/23/24 12:00 Blood Pressure 125/55 L 07/23/24 12:32 Pulse Oximetry 97 07/23/24 13:30 Oxygen Delivery Method Nasal Cannula 07/23/24 13:30 Oxygen Flow Rate 2 07/23/24 13:30 Medications Administered Medications: Generic Name Dose Route Start Last Admin Trade Name Freq PRN Reason Stop Dose Admin Sodium Chloride 1,000 mls @ 500 mls/hr 07/23/24 12:41 07/23/24 13:20 0.9 % Sodium Chloride 1000 Ml IV 07/23/24 14:40 500 mls/hr .Q2H CLARE Administration Discontinued Medications Generic Name Dose Route Start Last Admin Trade Name Freq PRN Reason Stop Dose Admin Albuterol/Ipratropium 1 neb 07/23/24 12:02 07/23/24 12:29 Iprat-Albut 0.5-2.5 Mg/3 Ml Neb IH 07/23/24 12:03 1 neb ONCE ONE Administration Ceftriaxone Sodium 1 gm/ 100 mls @ 200 mls/hr 07/23/24 12:56 07/23/24 14:00 Sodium Chloride IVPB 07/23/24 12:57 Infused ONCE ONE Infusion Azithromycin 500 mg/ Sodium 255 mls @ 255 mls/hr 07/23/24 12:56 07/23/24 14:25 Chloride IVPB 07/23/24 12:57 255 mls/hr ONCE ONE Administration Medical Decision Making Lab Data Lab results reviewed: Yes I reviewed the patient's lab results Lab results narrative: No overwhelming leukocytosis but there is a little bit of a left shift. Creatinine stable for patient, electrolytes normal. ProBNP is normal, making the diagnosis of heart failure less likely as the etiology of his dyspnea. CRP mildly elevated, liver enzymes reassuring. Troponins normal. Viral swab is negative. Labs: Lab Results 07/23/24 07/23/24 07/23/24 Range/Units 11:52 11:55 12:00 WBC (4.50-11.00) K/uL RBC (4.30-5.90) m/uL Hgb (13.5-17.5) gm/dL Hct (37.0-53.0) % MCV (80-100) fL MCH (26-34) pg MCHC (32-36) gm/dL RDW Coeff of Rosalee (11.5-15.5) % Plt Count (140-440) K/uL Neut % (Auto) (42.0-72.0) % Lymph % (Auto) (20-44) % [place] % (Auto) (0.0-11.0) % Eos % (Auto) (0.0-7.0) % Baso % (Auto) (0.0-3.0) % Neut # (Auto) (1.7-7.0) K/uL Lymph # (Auto) (0.90-2.90) K/uL [place] # (Auto) (0.00-0.90) K/UL Eos # (Auto) (0.00-0.50) K/uL Baso # (Auto) (0.00-0.30) K/uL Abs Immat Gran (auto) (0.00-0.30) K/uL Imm/Tot Granulo (auto) % Sodium (135-149) mmol/L Potassium (3.6-5.1) mmol/L Chloride (96-114) mmol/L Carbon Dioxide (20-32) mmol/L Anion Gap (7-15) mEq/L BUN (7-30) mg/dL Creatinine (0.5-1.5) mg/dL Estimated Creat Clear Estimated GFR ml/min Glucose (60-115) mg/dL Lactate (0.5-1.9) mmol/L Calcium (8.4-10.6) mg/dL Total Bilirubin (0.1-1.5) mg/dL AST (12-35) U/L ALT (4-50) U/L Alkaline Phosphatase (40-150) U/L C-Reactive Protein (0.5-1.0) mg/dL NT-Pro-B Natriuret Pep pg/mL Total Protein (6.0-8.3) g/dL Albumin (3.3-5.0) g/dL SARS-CoV-2 (PCR) Negative SARS-CoV-2 (Negative) Influenza Type A (PCR) Negative PCR FLU A (Negative) Influenza Type B (PCR) Negative PCR FLU B (Negative) RSV (PCR) Negative PCR RSV (Negative) POC Creatinine 1.4 H (0.6-1.3) mg/dl POC Troponin I 0.00 L (0.01-0.04) ng/ml 07/23/24 Range/Units 12:14 WBC 8.88 (4.50-11.00) K/uL RBC 4.51 (4.30-5.90) m/uL Hgb 11.9 L (13.5-17.5) gm/dL Hct 40.0 (37.0-53.0) % MCV 89 (80-100) fL MCH 26 (26-34) pg MCHC 30 L (32-36) gm/dL RDW Coeff of Rosalee 15.7 H (11.5-15.5) % Plt Count 194 (140-440) K/uL Neut % (Auto) 77.7 H (42.0-72.0) % Lymph % (Auto) 12.3 L (20-44) % [place] % (Auto) 6.9 (0.0-11.0) % Eos % (Auto) 2.7 (0.0-7.0) % Baso % (Auto) 0.2 (0.0-3.0) % Neut # (Auto) 6.90 (1.7-7.0) K/uL Lymph # (Auto) 1.10 (0.90-2.90) K/uL [place] # (Auto) 0.60 (0.00-0.90) K/UL Eos # (Auto) 0.24 (0.00-0.50) K/uL Baso # (Auto) 0.02 (0.00-0.30) K/uL Abs Immat Gran (auto) 0.02 (0.00-0.30) K/uL Imm/Tot Granulo (auto) 0.2 % Sodium 144 (135-149) mmol/L Potassium 4.5 (3.6-5.1) mmol/L Chloride 109 (96-114) mmol/L Carbon Dioxide 28 (20-32) mmol/L Anion Gap 7 (7-15) mEq/L BUN 32 H (7-30) mg/dL Creatinine 1.3 (0.5-1.5) mg/dL Estimated Creat Clear 46.04 Estimated GFR 57 ml/min Glucose 97 (60-115) mg/dL Lactate 2.0 H (0.5-1.9) mmol/L Calcium 8.6 (8.4-10.6) mg/dL Total Bilirubin 0.7 (0.1-1.5) mg/dL AST 18 (12-35) U/L ALT 14 (4-50) U/L Alkaline Phosphatase 154 H (40-150) U/L C-Reactive Protein 3.8 H (0.5-1.0) mg/dL NT-Pro-B Natriuret Pep 514 pg/mL Total Protein 7.4 (6.0-8.3) g/dL Albumin 3.6 (3.3-5.0) g/dL SARS-CoV-2 (PCR) (Negative) Influenza Type A (PCR) (Negative) Influenza Type B (PCR) (Negative) RSV (PCR) (Negative) POC Creatinine (0.6-1.3) mg/dl POC Troponin I (0.01-0.04) ng/ml Imaging Data Chest x-ray: Attestation: I have reviewed the pertinent imaging results. My impression: Poor quality x-ray due to body habitus but pulmonary edema verses atypical pneumonia bilateral infiltrates, no pneumothorax, no pleural effusion Radiologist's impression: IMPRESSION: Enlarged heart. Moderate multifocal airspace process. This could be related to pulmonary edema or a diffuse inflammatory process. Dictated by Dirk Berg MD @ 07/23/2024 1:37:46 PM ECG Data Attestation: I personally reviewed and interpreted this ECG as follows: Prior ECG tracings: available for review Interpretation: Comparison EKG 12/30/2022. Right bundle-branch block is unchanged from previous. Appears to be in a bigeminy rhythm which is new. Does have a left axis deviation otherwise normal intervals. No new ischemic changes Discharge Plan Discharge Clinical Impression: Acute hypoxic respiratory failure, Community acquired pneumonia, Candidal intertrigo, Lymphedema associated with obesity, Morbid obesity with BMI of 70 and over, adult Patient Disposition: Admitted As Inpatient
[2024-07-23] MEDS: IPRAT-ALBUT 0.5-2.5 MG/3 ML NEB 1 NEB IH (12:29)
[2024-07-23 12:35] LABS: Hemoglobin* 11.9 gm/dL (13.5-17.5); Lymphocytes Percent Auto 12.3 % (20-44); Mean Corpuscular HGB Conc 30 gm/dL (32-36); Mean Corpuscular Hemoglobin 26 pg (26-34); Mean Corpuscular Volume 89 fL (80-100); Monocytes Percent Auto 6.9 % (0.0-11.0); Neutrophils Percent Auto 77.7 % (42.0-72.0); Platelet Count* 194 K/uL (140-440); RDW Coefficient of Variation % 15.7 % (11.5-15.5); Red Blood Count 4.51 m/uL (4.30-5.90); White Blood Count* 8.88 K/uL (4.50-11.00)
[2024-07-23 12:35] LABS: Creatinine, Point-of-Care* 1.4 mg/dl (0.6-1.3)
[2024-07-23 12:36] LABS: Basophils Absolute Auto 0.02 K/uL (0.00-0.30); Basophils Percent Auto 0.2 % (0.0-3.0); Eosinophils Absolute Auto 0.24 K/uL (0.00-0.50); Eosinophils Percent Auto 2.7 % (0.0-7.0); Immature Granulocytes Abs Auto 0.02 K/uL (0.00-0.30); Immature Granulocytes Pct Auto 0.2 %
[2024-07-23 12:40] LABS: Slide Review Reflex No
[2024-07-23 12:53] LABS: Albumin* 3.6 g/dL (3.3-5.0); Chloride* 109 mmol/L (96-114); Sodium* 144 mmol/L (135-149)
[2024-07-23 12:54] LABS: Potassium* 4.5 mmol/L (3.6-5.1)
[2024-07-23 12:56] LABS: Alanine Aminotransferase* 14 U/L (4-50); Alkaline Phosphatase* 154 U/L (40-150); Anion Gap 7 mEq/L (7-15); Aspartate Amino Transferase* 18 U/L (12-35); Bilirubin Total* 0.7 mg/dL (0.1-1.5); Blood Urea Nitrogen* 32 mg/dL (7-30); Carbon Dioxide* 28 mmol/L (20-32); Creatinine* 1.3 mg/dL (0.5-1.5); Est. Creatinine Clearance* 46.04; Estimated Glomerular Filt Rate 57 ml/min; Total Protein* 7.4 g/dL (6.0-8.3)
--- NOTE | 2024-07-23 12:56 | CRLHL7_ITS ---
For Patients: As a result of the Century Cures Act, medical imaging exams and procedure reports are released immediately into your electronic medical record. You may view this report before your referring provider. If you have questions, please contact your health care provider. INDICATION: Dyspnea COMPARISON: None TECHNIQUE: Single view examination FINDINGS: TUBES AND LINES: None. HEART AND MEDIASTINUM: Enlarged heart. LUNGS AND PLEURAL SPACES: Moderate multifocal airspace process bilaterally. This could be related to pulmonary edema or a diffuse inflammatory process.The pleural spaces are unremarkable. OSSEOUS STRUCTURES: Age-appropriate appearance. No acute focal finding. IMPRESSION: Enlarged heart. Moderate multifocal airspace process. This could be related to pulmonary edema or a diffuse inflammatory process. Dictated by Dirk Berg MD @ 07/23/2024 1:37:46 PM (Electronically Signed)
[2024-07-23 12:57] LABS: Calcium* 8.6 mg/dL (8.4-10.6); Glucose* 97 mg/dL (60-115)
[2024-07-23 12:59] LABS: C Reactive Protein* 3.8 mg/dL (0.5-1.0)
[2024-07-23 13:06] LABS: NT Pro B Type NatriureticPept* 514 pg/mL
[2024-07-23 13:18] LABS: PCR FLU A Negative PCR FLU A (Negative); PCR FLU B Negative PCR FLU B (Negative); PCR RSV Negative PCR RSV (Negative); SARS PCR* Negative SARS-CoV-2 (Negative)
[2024-07-23] MEDS: 0.9 % SODIUM CHLORIDE 1000 ml 1,000 ML 500 ML IV (13:20)
[2024-07-23] MEDS: cefTRIAXone 1 GM in 0.9 % SODIUM CHLORIDE Mini-bag 100 ML IVPB (13:22)
[2024-07-23] MEDS: AZITHROMYCIN 500 MG in 0.9 % SODIUM CHLORIDE 250 ml 250 ML 255 MG IVPB (14:25)
[2024-07-23 14:40] LABS: Appearance Urine Slightly Cloudy (Clear); Bilirubin Urine Negative (Negative); Blood Urine Trace-intact (Negative); Color Urine Yellow (Yellow); Glucose Urine Negative (Negative); Ketones Urine Negative (Negative); Leukocyte Esterase Urine Negative (Negative); Nitrite Urine Negative (Negative); Protein Urine 1+ (Negative); Specific Gravity Urine >= 1.030 (1.000-1.030); Urobilinogen Urine 0.2 (0.2-1.0); pH Urine 5.5 (5.0-8.5)
[2024-07-23 14:59] LABS: Bacteria Urine Few; Mucus Urine Few; RBC Urine 0-2 (0-2); Squamous Epithelial Cell Urine Few (None-Few)
[2024-07-23 15:01] LABS: Fine Granular Casts Urine Few
[2024-07-23] MEDS: METHYLPREDNISOLONE SOD SUCC 62.5 MG/ML (125) 40 MG IVP (15:06)
--- NOTE | 2024-07-23 17:10 | P.IMHP_ITS ---
Hospitalist- H&P: HPI History of Present Illness Date Seen: 07/23/24 Chief complaint: sob Narrative: Xavier Damon is a 78 year old male with past medical history of morbid obesity, lymphedema, Hx of kidney stones who presents to the ED d/t generalized malaise & shortness of breath that he is not exactly sure when it started, might be couple of weeks he said but he is not sure. He states that because of his morbid obesity he is unable to walk around or do any other exercise, he gets tired easily but he noticed that recently he is more short of breath and he noticed wheezing. Patient denies fevers or chills, denies chest pain or coughing/ Phlegm, no orthopnea. He states that he does not have history of any cardiac problems and no asthma or COPD. At the ED patient was hemodynamically stable, CXR pulmonary edema. lactate 2.0, dropped to 1.0 after 1.5 L IVF. Review of Systems Status of ROS: Reports: 6 or more systems reviewed and unremarkable except as noted in History and below [facility] Medical History (Updated 07/23/24 @ 20:21 by Yelena Price MD) HTN (hypertension) ?I10 - Essential (primary) hypertension (ICD-10) Advanced directives, counseling/discussion ?Z71.89 - Other specified counseling (ICD-10) Morbid obesity ?E66.01 - Morbid (severe) obesity due to excess calories (ICD-10) Right shoulder pain ?M25.511 - Pain in right shoulder (ICD-10) Leukocytosis ?D72.829 - Elevated white blood cell count, unspecified (ICD-10) Intertrigo ?L30.4 - Erythema intertrigo (ICD-10) Weakness ?R53.1 - Weakness (ICD-10) Lymphedema ?I89.0 - Lymphedema, not elsewhere classified (ICD-10) Urinary retention ?R33.9 - Retention of urine, unspecified (ICD-10) Arthritis of knee, left ?M17.12 - Unilateral primary osteoarthritis, left knee (ICD-10) Anasarca ?R60.1 - Generalized edema (ICD-10) Durable power of prosecuting attorney for healthcare POLST (Physician Orders for Life-Sustaining Treatment) ?Z78.9 - Other specified health status (ICD-10) BRANDY (obstructive sleep apnea) ?G47.33 - Obstructive sleep apnea (adult) (pediatric) (ICD-10) Elevated blood uric acid level ?E79.0 - Hyperuricemia without signs of inflammatory arthritis and tophaceous disease (ICD-10) Impaired fasting glucose ?R73.01 - Impaired fasting glucose (ICD-10) Gout ?M10.9 - Gout, unspecified (ICD-10) Adenomatous colon polyp (~2015) ?D12.6 - Benign neoplasm of colon, unspecified (ICD-10) Ventral hernia ?K43.9 - Ventral hernia without obstruction or gangrene (ICD-10) Incarcerated umbilical hernia (~2014) ?K42.0 - Umbilical hernia with obstruction, without gangrene (ICD-10) Dyslipidemia ?E78.5 - Hyperlipidemia, unspecified (ICD-10) Hernia ?K46.9 - Unspecified abdominal hernia without obstruction or gangrene (ICD- 10) Gallbladder attack ?K82.9 - Disease of gallbladder, unspecified (ICD-10) Surgical History H/O hernia repair (~2014) ?Z98.890 - Other specified postprocedural states (ICD-10) ?Z87.19 - Personal history of other diseases of the digestive system (ICD-10) Hx of cholecystectomy (~1985) ?Z90.49 - Acquired absence of other specified parts of digestive tract (ICD- 10) H/O colonoscopy ?Z98.890 - Other specified postprocedural states (ICD-10) Family History Father Cardiovascular disease Myocardial infarction Mother High blood pressure Sister Sarcoma Social History Narrative: Lives in a newly built house that is accessible. 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 Retired 10 years ago. What is your current living situation?: I presently have a place to live Problems where you live: no known problems Problems where you live details: none In the past 12 months, utilities in danger of being shut off: no In past 12 months, lack of transportation kept you from medical appts, meetings, work, or getting things needed for daily living: no In the past 12 mos, have been you worried that your food would run out before you had money to buy more?: never true In the past 12 mos, the food you bought just didn't last and you didn't have money to buy more?: never true Highest level of school completed/degree received: Associate degree: occupational, technical, vocational program Smoking Status: Never smoker Do you use any of these nicotine containing products: None Second hand tobacco smoke exposure: No How often do you have a drink containing alcohol: never How often do you have six or more drinks on one occasion: Never AUDIT-C Alcohol total score: 0 Non-prescribed substance use: denies use Caffeine: Yes How often does anyone, including family, friends and others, physically hurt you : never How often does anyone, including family, friends and others, insult or talk down to you: never How often does anyone, including family, friends and others, threaten you with harm: never How often does anyone, including family, friends and others, scream or curse at you: never service: No Meds Home Medications and Allergies Home Medications ?Medication ?Instructions ?Recorded ?Confirmed ?Type amlodipine 5 mg tablet 10 mg PO DAILY 12/30/22 07/23/24 History losartan 100 mg tablet 100 mg PO DAILY 12/30/22 07/23/24 History potassium chloride 10 mEq 10 meq PO DAILY 07/23/24 07/23/24 History tablet,extended release(part/cryst) torsemide 5 mg tablet 20 mg PO DAILY@0800 07/23/24 07/23/24 History Allergies Allergy/AdvReac Type Severity Reaction Status Date / Time No Known Drug Allergies Allergy Verified 07/23/24 12:00 Exam Narrative: Exam Narrative: Physical exam GENERAL: Morbidly obese Comfortable, no acute distress on nasal cannula 2 liters/minute HEAD AND NECK: Atraumatic, normocephalic CARDIOVASCULAR: RRR. Normal S1, S2. No murmurs. lower extremity edema +2 RESPIRATORY: Good air entry B/L. +ve wheezes NEUROLOGY: Alert, awake, oriented X 3. Normal speech. PSYCH: Normal mood, normal affect. Const: Vital Signs, click to edit/add: Vital Signs - 24 hr 07/23/24 12:00 07/23/24 12:03 07/23/24 12:03 Temperature 98.4 F Pulse Rate Pulse Rate [Pulse Oximeter] 77 Respiratory Rate 16 Blood Pressure Blood Pressure [Le ft Forearm] 167/75 H Pulse Oximetry 97 97 97 Oxygen Delivery Me thod Nasal Cannula Nasal Cannula Oxygen Flow Rate 4 4 07/23/24 12:07 07/23/24 12:15 07/23/24 12:30 Temperature Pulse Rate 75 68 73 Pulse Rate [Pulse Oximeter] Respiratory Rate Blood Pressure Blood Pressure [Le ft Forearm] Pulse Oximetry 98 97 98 Oxygen Delivery Me thod Nasal Cannula Nasal Cannula Nasal Cannula Oxygen Flow Rate 3 3 3 07/23/24 12:32 07/23/24 12:51 07/23/24 13:00 Temperature Pulse Rate 71 76 63 Pulse Rate [Pulse Oximeter] Respiratory Rate Blood Pressure 125/55 L Blood Pressure [Le ft Forearm] Pulse Oximetry 96 97 96 Oxygen Delivery Me thod Nasal Cannula Nasal Cannula Nasal Cannula Oxygen Flow Rate 2 2 2 07/23/24 13:05 07/23/24 13:15 07/23/24 13:30 Temperature Pulse Rate 67 64 73 Pulse Rate [Pulse Oximeter] Respiratory Rate Blood Pressure Blood Pressure [Le ft Forearm] Pulse Oximetry 97 98 97 Oxygen Delivery Me thod Nasal Cannula Nasal Cannula Nasal Cannula Oxygen Flow Rate 2 2 2 07/23/24 13:45 07/23/24 14:00 07/23/24 14:02 Temperature Pulse Rate 65 65 69 Pulse Rate [Pulse Oximeter] Respiratory Rate Blood Pressure 128/85 Blood Pressure [Le ft Forearm] Pulse Oximetry 96 92 97 Oxygen Delivery Me thod Nasal Cannula Nasal Cannula Nasal Cannula Oxygen Flow Rate 2 2 2 07/23/24 14:15 07/23/24 14:30 07/23/24 14:35 Temperature Pulse Rate 72 64 75 Pulse Rate [Pulse Oximeter] Respiratory Rate Blood Pressure 111/92 H Blood Pressure [Le ft Forearm] Pulse Oximetry 97 96 96 Oxygen Delivery Me thod Nasal Cannula Nasal Cannula Nasal Cannula Oxygen Flow Rate 2 2 2 07/23/24 14:45 07/23/24 15:00 07/23/24 15:01 Temperature Pulse Rate 79 56 L 55 L Pulse Rate [Pulse Oximeter] Respiratory Rate Blood Pressure 122/100 H Blood Pressure [Le ft Forearm] Pulse Oximetry 97 98 100 Oxygen Delivery Me thod Nasal Cannula Nasal Cannula Nasal Cannula Oxygen Flow Rate 2 2 2 07/23/24 15:15 Temperature Pulse Rate 74 Pulse Rate [Pulse Oximeter] Respiratory Rate Blood Pressure Blood Pressure [Le ft Forearm] Pulse Oximetry 97 Oxygen Delivery Me thod Nasal Cannula Oxygen Flow Rate 2 Hospitalist - H&P: Result Labs Labs: Short CBC 07/23/24 Range/Units 12:14 WBC 8.88 (4.50-11.00) K/uL Hgb 11.9 L (13.5-17.5) gm/dL Hct 40.0 (37.0-53.0) % Plt Count 194 (140-440) K/uL BMP 07/23/24 12:14 Sodium 144 Potassium 4.5 Chloride 109 Carbon Dioxide 28 BUN 32 H Creatinine 1.3 Glucose 97 Calcium 8.6 Liver Function 07/23/24 Range/Units 12:14 Total Bilirubin 0.7 (0.1-1.5) mg/dL AST 18 (12-35) U/L ALT 14 (4-50) U/L Alkaline Phosphatase 154 H (40-150) U/L Albumin 3.6 (3.3-5.0) g/dL Urine 07/23/24 Range/Units 14:10 Urine Color Yellow (Yellow) Urine Appearance Slightly Cloudy A (Clear) Urine pH 5.5 (5.0-8.5) Ur Specific [place] >= 1.030 (1.000-1.030) Urine Protein 1+ A (Negative) Urine Glucose (UA) Negative (Negative) ECG Attestation: I personally reviewed and interpreted this ECG as follows: ECG interpretation date: 07/23/24 Interpretation: Sinus arrhythmia, Right bundle branch block Imaging Chest x-ray: Attestation: I have reviewed the pertinent imaging results. Radiologist's impression: INDICATION: Dyspnea COMPARISON: None TECHNIQUE: Single view examination FINDINGS: TUBES AND LINES: None. HEART AND MEDIASTINUM: Enlarged heart. LUNGS AND PLEURAL SPACES: Moderate multifocal airspace process bilaterally. This could be related to pulmonary edema or a diffuse inflammatory process.The pleural spaces are unremarkable. OSSEOUS STRUCTURES: Age-appropriate appearance. No acute focal finding. IMPRESSION: Enlarged heart. Moderate multifocal airspace process. This could be related to pulmonary edema or a diffuse inflammatory process. Dictated by Dirk Berg MD @ 07/23/2024 1:37:46 PM Assessment and Plan Assessment and plan (1) Community acquired pneumonia: Problem comment: -CXR: Enlarged heart. Moderate multifocal airspace process. This could be related to pulmonary edema or a diffuse inflammatory process. -BNP in the 500s, but it could be low secondary to his morbid obesity -Ordered an echo to rule out reduced ejection fraction, his chest x-ray suggests congestion, in addition to his worsening shortness of breath over couple of weeks rather than days. -EKG RBBB -patient is not hypoxic or tachycardic, no history of recent abdominal or orthopedic surgery, no recent travel, PE is not likely. -lactate on admission was 2, patient was given a total of 1.5 L by both EMS and ED. resolved. -started ceftriaxone and azithromycin -patient was not septic on admission so blood cultures were not done. Status: Suspected (2) Morbid obesity: Problem comment: BMI above 70 Status: Chronic (3) BRANDY (obstructive sleep apnea): Problem comment: -needs outpatient sleep study -NC 1-2L to keep sats at >88% while sleeping. Status: Suspected (4) Physical debility: Problem comment: Ordered PT/OT Status: Acute (5) Lymphedema associated with obesity: Status: Acute (6) HTN (hypertension): Problem comment: -home meds: Losartan & amlodipine in addition to torsemide Status: Chronic (7) Anemia: Problem comment: Normocytic, stable. Status: Acute Plan As above Total Time Spent Total Time Spent: Time spent: Today I spent 75 minutes seeing the patient, discussing the patient with ER staff, reviewing Expanse and EPIC notes/diagnostics, discussing the care plan with our care time that includes social work, PT/OT, pharmacy, RT, custodial and documenting my impressions and plan in the medical record. He
--- NOTE | 2024-07-23 19:39 | PC.NURSE ---
End of Shift: Patient pleasant and cooperative, A&O. VSS, afebrile. SpO2 maintained above 90% on 2L via nasal cannula. Patient denies pain this shift. Tolerating regular diet.
[2024-07-23] MEDS: ENOXAPARIN 40 MG/0.4 ML INJ 60 MG SUBCUT (22:36)
[2024-07-23] MEDS: TAMSULOSIN HCL 0.4 MG CAPSULE PO (22:36)
[2024-07-23] MEDS: NYSTATIN POWDER 1 APPLIC TOPICAL (22:36)
[2024-07-24] VITALS (9 sets, daily range): BP systolic 121–136; BP diastolic 50–96; PULSE 60–78; RESP 18–24; TEMP 36.6–36.8; O2SAT 90–94
--- NOTE | 2024-07-24 06:13 | PC.NURSE ---
19-7: The patient is alert and orientated and cooperative with cares. VSS, O2 need to maintain saturations. No reports of pain. The patient reports that he feels better, afebrile. The patient refused to get up to void, was turned and assisted to use the urinal. The patient has a hard time beginning his stream. He turns well in bed. Yeasty pannus and scrotum, araseli care was completed and nystatin was applied. Call light within reach. Debbie VARMA BSN
[2024-07-24 06:37] LABS: Hematocrit 39.3 % (37.0-53.0); Hemoglobin* 11.6 gm/dL (13.5-17.5); Mean Corpuscular HGB Conc 30 gm/dL (32-36); Mean Corpuscular Hemoglobin 26 pg (26-34); Mean Corpuscular Volume 89 fL (80-100); Platelet Count* 180 K/uL (140-440); White Blood Count* 10.01 K/uL (4.50-11.00)
[2024-07-24 06:58] LABS: Chloride* 110 mmol/L (96-114); Potassium* 5.3 mmol/L (3.6-5.1); Slide Review Reflex No; Sodium* 141 mmol/L (135-149)
[2024-07-24 07:01] LABS: Anion Gap 3 mEq/L (7-15); Blood Urea Nitrogen* 33 mg/dL (7-30); Carbon Dioxide* 28 mmol/L (20-32); Creatinine* 1.4 mg/dL (0.5-1.5); Est. Creatinine Clearance* 42.75; Estimated Glomerular Filt Rate 52 ml/min; Glucose* 152 mg/dL (60-115)
[2024-07-24 07:02] LABS: Calcium* 8.5 mg/dL (8.4-10.6); Magnesium* 2.6 mg/dL (1.5-2.6)
[2024-07-24] MEDS: PERFLUTREN LIPID MICROSPHERES 2 ML VIAL IVP (08:25)
[2024-07-24] MEDS: POTASSIUM CHLORIDE 10 MEQ CAPSULE ER PO (09:14)
[2024-07-24] MEDS: TORSEMIDE 5 MG TABLET 20 MG PO (09:14)
[2024-07-24] MEDS: SODIUM CHLORIDE 0.9 % (FLUSH) 10 ML SYRINGE 5 ML IVF ×3 (09:15→21:37)
[2024-07-24] MEDS: NYSTATIN POWDER 1 APPLIC TOPICAL ×2 (09:15→21:37)
--- NOTE | 2024-07-24 09:42 | RESP.RT ---
Patient lying flat in bed on NC 1 Lpm with SaO2 92%, BBS present, equal with fair air movement, with slight end expiratory wheeze noted in lower lobes. Goal to wean Oxygen today.
[2024-07-24] MEDS: cefTRIAXone 1 GM in 0.9 % SODIUM CHLORIDE Mini-bag 100 ML IVPB (13:41)
--- NOTE | 2024-07-24 13:49 | PM.IMPN1 ---
Progress Note: A&P Assessment and plan (1) Community acquired pneumonia: Problem details: - Patient has been afebrile and has had no leukocytosis. Imaging is more suggestive of heart failure, which is supported by the BNP and echocardiogram results. I suspect elevated lactate is secondary to poor perfusion from heart failure rather than infection. Will stop antibiotics. Status: Ruled-out (2) Heart failure with preserved ejection fraction: Problem details: -CXR: Enlarged heart. Moderate multifocal airspace process. This could be related to pulmonary edema or a diffuse inflammatory process. -BNP in the 500s, but it could be low secondary to his morbid obesity -worsening shortness of breaths over weeks -EKG RBBB -no leukocytosis -patient is not hypoxic or tachycardic, no history of recent abdominal or orthopedic surgery, no recent travel, PE is not likely. 07/24/24 ECHO Technically limited exam, very poor image quality. LV function is likely normal but endocardial definition is poor. Right ventricular cavity size is not well visualized, global systolic RV function is not well visualized. The ascending aorta is dilated with maximal diameter 4.3 cm. Inferior vena cava is dilated, respiratory size variation is less than 50%. 07/24: Already on losartan (ARB). Stop amlodipine (this may be contributing to LE edema). Start diuresis with IV lasix (hold daily torsemide). Status: Acute (3) Morbid obesity: Problem details: BMI above 70 - 07/24 recommended patient talk with PCP about weight loss Status: Chronic (4) BRANDY (obstructive sleep apnea): Problem details: -needs outpatient sleep study -NC 1-2L to keep sats at >88% while sleeping. - 07/24 recommended patient get outpatient sleep study Status: Suspected (5) Physical debility: Problem details: - Acute on chronic - Continue PT/OT Status: Acute (6) Lymphedema associated with obesity: Status: Chronic (7) HTN (hypertension): Problem details: -continue losartan. Stopping amlodipine as above. Status: Chronic (8) Anemia: Problem details: Normocytic, stable. Status: Chronic (9) Lactic acid increased: Problem details: -lactate on admission was 2, patient was given a total of 1.5 L by both EMS and ED. resolved. Status: Resolved (10) Ascending aorta dilatation: Problem details: 07/24/24 ECHO: The ascending aorta is dilated with maximal diameter 4.3 cm. - will need annual outpatient f/u Status: Acute (11) CKD (chronic kidney disease): Problem details: - stage 3 - baseline Cr is 1.2 - Cr here 1.3-1.4 - continue losartan, diurese, monitor Status: Acute Time Spent With Patient Total time spent: Today I spent 50 minutes seeing the patient, reviewing Expanse and EPIC notes/diagnostics/labs, discussing the care plan with our care team that includes social work, PT/OT, pharmacy, RT, [place] [facility] and documenting my impressions and plan in the medical record. Subjective Time Seen by Provider: 11:23 Date Seen: 07/24/24 Interval history: Xavier tells me he is feeling better, but hasn't been up much because the floor is too slippery and he is concerned he will fall using the walker. We discussed pneumonia, heart failure, obesity, BRANDY, lymphedema. Exam Narrative: Exam Narrative: General: Morbidly obese. No acute distress. Awake, alert, oriented x3. No pallor. No jaundice. Oropharynx: Clear. Mucous membranes moist. Cardiovascular: Regular rate and rhythm. No murmurs, gallops, or rubs. Respiratory: Diminished at bases. No wheezes, no crackles. Abdomen: Large pannus with massive lymphedema at the dependent portion. Bowel sounds present. Soft, nondistended, nontender. Extremities: Massive lower extremity lymphedema and taut edema. Const: Vital Signs, click to edit/add: Vital Signs - 24 hr 07/23/24 14:00 07/23/24 14:02 07/23/24 14:15 Temperature Pulse Rate 65 69 72 Pulse Rate [Left P ulse Oximeter] Respiratory Rate Blood Pressure 128/85 Blood Pressure [Le ft Arm] Pulse Oximetry 92 97 97 Oxygen Delivery Me thod Nasal Cannula Nasal Cannula Nasal Cannula Oxygen Flow Rate 2 2 2 07/23/24 14:30 07/23/24 14:35 07/23/24 14:45 Temperature Pulse Rate 64 75 79 Pulse Rate [Left P ulse Oximeter] Respiratory Rate Blood Pressure 111/92 H Blood Pressure [Le ft Arm] Pulse Oximetry 96 96 97 Oxygen Delivery Me thod Nasal Cannula Nasal Cannula Nasal Cannula Oxygen Flow Rate 2 2 2 07/23/24 15:00 07/23/24 15:01 07/23/24 15:15 Temperature Pulse Rate 56 L 55 L 74 Pulse Rate [Left P ulse Oximeter] Respiratory Rate Blood Pressure 122/100 H Blood Pressure [Le ft Arm] Pulse Oximetry 98 100 97 Oxygen Delivery Me thod Nasal Cannula Nasal Cannula Nasal Cannula Oxygen Flow Rate 2 2 2 07/23/24 17:08 07/23/24 19:00 07/23/24 19:01 Temperature 98.3 F 97.6 F Pulse Rate Pulse Rate [Left P ulse Oximeter] 64 74 Respiratory Rate 18 22 18 Blood Pressure Blood Pressure [Le ft Arm] 142/72 H 122/76 Pulse Oximetry 95 92 95 Oxygen Delivery Me thod Room Air Nasal Cannula Nasal Cannula Oxygen Flow Rate 2 2 2 07/23/24 19:32 07/23/24 23:00 07/23/24 23:00 Temperature 98.0 F Pulse Rate 62 61 Pulse Rate [Left P ulse Oximeter] 60 Respiratory Rate 22 Blood Pressure Blood Pressure [Le ft Arm] 128/56 L Pulse Oximetry 92 Oxygen Delivery Me thod Nasal Cannula Oxygen Flow Rate 2 07/24/24 03:00 07/24/24 09:25 07/24/24 09:41 Temperature 98.3 F 97.9 F Pulse Rate Pulse Rate [Left P ulse Oximeter] 65 78 Respiratory Rate 22 18 22 Blood Pressure Blood Pressure [Le ft Arm] 121/50 L 127/96 H Pulse Oximetry 94 92 92 Oxygen Delivery Me thod Nasal Cannula Nasal Cannula Nasal Cannula Oxygen Flow Rate 2 1.5 1 07/24/24 09:46 07/24/24 10:12 07/24/24 13:26 Temperature 98.0 F Pulse Rate 62 Pulse Rate [Left P ulse Oximeter] 78 60 Respiratory Rate 18 18 Blood Pressure Blood Pressure [Le ft Arm] 130/65 Pulse Oximetry 93 Oxygen Delivery Me thod Nasal Cannula Oxygen Flow Rate 1.5 Labs Labs: Laboratory Results - last 24 hr 07/23/24 07/23/24 07/24/24 14:10 14:34 05:47 WBC 10.01 RBC 4.40 Hgb 11.6 L Hct 39.3 MCV 89 MCH 26 MCHC 30 L Plt Count 180 Sodium 141 Potassium 5.3 H Chloride 110 Carbon Dioxide 28 Anion Gap 3 L BUN 33 H Creatinine 1.4 Estimated Creat Clear 42.75 Estimated GFR 52 Glucose 152 H Lactate 1.0 Calcium 8.5 Magnesium 2.6 Urine Color Yellow Urine Appearance Slightly Cloudy A Urine pH 5.5 Ur Specific [place] >= 1.030 Urine Protein 1+ A Urine Glucose (UA) Negative Urine Ketones Negative Urine Blood Trace-intact A Urine Nitrite Negative Urine Bilirubin Negative Urine Urobilinogen 0.2 Ur Leukocyte Esterase Negative Urine RBC 0-2 Urine WBC 2-5 Ur Squamous Epith Cells Few Urine Bacteria Few A Fine Granular Casts Few A Urine Mucus Few A
--- NOTE | 2024-07-24 15:26 | PC.NURSE ---
End of Shift: Patient pleasant and cooperative, A&O. VSS, afebrile. SpO2 maintained above 90% on 1.5L via nasal cannula. Patient reports he feels much better today. Pt denies pain this shift. ECHO completed this shift. Patient did not get out of bed this shift but he is a 2A to the edge of the bed. Tolerating regular diet.
[2024-07-24] MEDS: FUROSEMIDE 10 MG/ML inj 60 MG IVP (15:44)
[2024-07-24] MEDS: TAMSULOSIN HCL 0.4 MG CAPSULE PO (21:36)
[2024-07-24] MEDS: ENOXAPARIN 40 MG/0.4 ML INJ SUBCUT (21:37)
--- NOTE | 2024-07-24 22:16 | PC.NURSE ---
Shift note: Large voids after Lasix throughout this shift, incontinent, occasionally continent. No new complains, per pt he feels much better today
[2024-07-25] VITALS (7 sets, daily range): BP systolic 119–141; BP diastolic 59–70; PULSE 58–90; RESP 18–22; TEMP 36.1–36.9; O2SAT 90–96
--- NOTE | 2024-07-25 05:16 | PC.NURSE ---
[id number] Pt slept well during night, required 1.5 LPM NC to help maintain O2 >88%, periods of apnea noted while sleeping with desats to low 80's. woke pt up and encouraged pt to take deep breaths and cough. denies SOB, difficulty breathing, chest pain, light headed or dizziness. incontinent/continent of urine.
[2024-07-25 06:57] LABS: Chloride* 107 mmol/L (96-114); Potassium* 4.5 mmol/L (3.6-5.1); Sodium* 142 mmol/L (135-149)
[2024-07-25 07:00] LABS: Anion Gap 5 mEq/L (7-15); Carbon Dioxide* 30 mmol/L (20-32); Creatinine* 1.7 mg/dL (0.5-1.5); Est. Creatinine Clearance* 35.21; Estimated Glomerular Filt Rate 41 ml/min
[2024-07-25 07:01] LABS: Blood Urea Nitrogen* 43 mg/dL (7-30); Calcium* 8.4 mg/dL (8.4-10.6); Glucose* 112 mg/dL (60-115)
[2024-07-25] MEDS: FUROSEMIDE 10 MG/ML inj 60 MG IVP ×2 (08:11→16:18)
[2024-07-25] MEDS: LOSARTAN POTASSIUM 50 MG TABLET 100 MG PO (09:13)
[2024-07-25] MEDS: SODIUM CHLORIDE 0.9 % (FLUSH) 10 ML SYRINGE 5 ML IVF ×3 (09:13→21:17)
[2024-07-25] MEDS: POTASSIUM CHLORIDE 10 MEQ CAPSULE ER PO (09:13)
[2024-07-25] MEDS: NYSTATIN POWDER 1 APPLIC TOPICAL ×2 (09:13→21:17)
--- NOTE | 2024-07-25 15:09 | PC.NURSE ---
End of Shift: Patient pleasant and cooperative, A&O. VSS, afebrile. SpO2 maintained above 90% on 1.5L via nasal cannula. Denies pain this shift. Tolerating regular diet.?Patient walked the halls with PT and OT this shift. ?
--- NOTE | 2024-07-25 16:27 | PM.IMPN1 ---
Progress Note: A&P Assessment and plan (1) Heart failure with preserved ejection fraction: Problem details: -CXR: Enlarged heart. Moderate multifocal airspace process. This could be related to pulmonary edema or a diffuse inflammatory process. -BNP in the 500s, but it could be low secondary to his morbid obesity -worsening shortness of breaths over weeks -EKG RBBB -no leukocytosis -patient is not hypoxic or tachycardic, no history of recent abdominal or orthopedic surgery, no recent travel, PE is not likely. 07/24/24 ECHO Technically limited exam, very poor image quality. LV function is likely normal but endocardial definition is poor. Right ventricular cavity size is not well visualized, global systolic RV function is not well visualized. The ascending aorta is dilated with maximal diameter 4.3 cm. Inferior vena cava is dilated, respiratory size variation is less than 50%. 07/24: Already on losartan (ARB). Stop amlodipine (this may be contributing to LE edema). Start diuresis with IV lasix (hold daily torsemide). 07/25: Cr mildly elevated. Continue losartan, lasix. Check HgbA1C (pt has h/o impaired fasting glucose). May benefit from SGLT inh and semaglutide for HF and wt loss. Status: Acute (2) Morbid obesity: Problem details: BMI above 70 - 07/24 recommended patient talk with PCP about weight loss - 07/25 discussed weight loss again, patient had previously declined surgery, but is now wondering about panniculectomy. Discussed that without changing eating habits weight and other related diseases will continue to be problematic, discussed wt loss medications, but these may be cost prohibitive. Status: Chronic (3) CKD (chronic kidney disease): Problem details: - stage 3 - baseline Cr is 1.2 - 07/24 Cr here 1.3-1.4, continue losartan, start lasix IV - 07/25 Cr 1.7, likely due to diuresis. Continue lasix IV at current doses, recheck in am Status: Acute (4) BRANDY (obstructive sleep apnea): Problem details: -needs outpatient sleep study -MO 1-2L to keep sats at >88% while sleeping. - 07/24 recommended patient get outpatient sleep study Status: Suspected (5) Physical debility: Problem details: - Acute on chronic, improving - Continue PT/OT Status: Acute (6) Lymphedema associated with obesity: Status: Chronic (7) HTN (hypertension): Problem details: -continue losartan. Stopped amlodipine as above. Status: Chronic (8) Anemia: Problem details: Normocytic, stable. Status: Chronic (9) Ascending aorta dilatation: Problem details: 07/24/24 ECHO: The ascending aorta is dilated with maximal diameter 4.3 cm. - will need annual outpatient f/u Status: Acute (10) Lactic acid increased: Problem details: -lactate on admission was 2, patient was given a total of 1.5 L by both EMS and ED. resolved. Status: Resolved Time Spent With Patient Total time spent: Today I spent 50 minutes seeing the patient, reviewing Expanse and EPIC notes/diagnostics/labs, discussing the care plan with our care team that includes social work, PT/OT, pharmacy, RT, usp and documenting my impressions and plan in the medical record. Subjective Time Seen by Provider: 14:30 Date Seen: 07/25/24 Interval history: Xavier tells me he fells better each day. His breathing is easier. He had a lot of questions about heart failure. We discussed causes, treatment, obesity, prediabetes, diet, wt loss, age. He notes a lot of UO after getting lasix. Wt is up 7 kg overnight, which I think is inacurate. Exam Narrative: Exam Narrative: General: Morbidly obese. No acute distress. Awake, alert, oriented x3. No pallor. No jaundice. Oropharynx: Clear. Mucous membranes moist. Cardiovascular: Regular rate and rhythm. No murmurs, gallops, or rubs. Respiratory: Diminished at bases. No wheezes, no crackles. Abdomen: Large pannus with massive lymphedema at the dependent portion. Bowel sounds present. Soft, nondistended, nontender. Extremities: Massive lower extremity lymphedema and taut edema, slight improvement from yesterday. Skin: dry, no weeping or blisters. Const: Vital Signs, click to edit/add: Vital Signs - 24 hr 07/24/24 19:00 07/24/24 19:00 07/24/24 23:00 Temperature 98.1 F Pulse Rate 69 Pulse Rate [Left P ulse Oximeter] 64 64 Respiratory Rate 20 24 Blood Pressure [Le ft Arm] 130/60 Pulse Oximetry 93 Oxygen Delivery Me thod Nasal Cannula Oxygen Flow Rate 1.5 01/18/25 23:00 07/24/24 23:00 07/25/24 03:00 Temperature 97.9 F 97.0 F L Pulse Rate 60 Pulse Rate [Left P ulse Oximeter] 63 64 Respiratory Rate 24 20 Blood Pressure [Le ft Arm] 136/71 141/70 H Pulse Oximetry 90 91 Oxygen Delivery Me thod Nasal Cannula Nasal Cannula Oxygen Flow Rate 1.5 1.5 07/25/24 08:00 07/25/24 08:00 07/25/24 09:22 Temperature 98.2 F Pulse Rate 70 Pulse Rate [Left P ulse Oximeter] 90 90 Respiratory Rate 18 18 Blood Pressure [Le ft Arm] 119/70 Pulse Oximetry 93 Oxygen Delivery Me thod Nasal Cannula Oxygen Flow Rate 1.5 07/25/24 12:13 07/25/24 15:00 07/25/24 15:00 Temperature 97.6 F Pulse Rate 68 Pulse Rate [Left P ulse Oximeter] 58 L 58 L Respiratory Rate 18 18 Blood Pressure [Le ft Arm] 133/61 Pulse Oximetry 92 Oxygen Delivery Me thod Nasal Cannula Oxygen Flow Rate 1.5 07/25/24 15:00 Temperature 98.4 F Pulse Rate Pulse Rate [Left P ulse Oximeter] 66 Respiratory Rate 22 Blood Pressure [Le ft Arm] 134/62 Pulse Oximetry 96 Oxygen Delivery Me thod Nasal Cannula Oxygen Flow Rate 1 Labs Labs: Laboratory Results - last 24 hr 07/25/24 06:13 Sodium 142 Potassium 4.5 Chloride 107 Carbon Dioxide 30 Anion Gap 5 L BUN 43 H Creatinine 1.7 H Estimated Creat Clear 35.21 Estimated GFR 41 Glucose 112 Calcium 8.4
[2024-07-25] MEDS: TAMSULOSIN HCL 0.4 MG CAPSULE PO (21:17)
[2024-07-25] MEDS: ENOXAPARIN 40 MG/0.4 ML INJ SUBCUT (21:17)
--- NOTE | 2024-07-25 22:48 | PC.NURSE ---
Shift note: No additional complains, pale clear urine, frequent voids
[2024-07-26 05:00] VITALS: BP 136/65; PULSE 62; RESP 18; TEMP 36.6; O2SAT 90
[2024-07-26 06:51] LABS: Chloride* 102 mmol/L (96-114); Potassium* 4.2 mmol/L (3.6-5.1); Sodium* 142 mmol/L (135-149)
[2024-07-26 06:54] LABS: Anion Gap 3 mEq/L (7-15); Blood Urea Nitrogen* 44 mg/dL (7-30); Carbon Dioxide* 37 mmol/L (20-32); Creatinine* 1.6 mg/dL (0.5-1.5); Est. Creatinine Clearance* 37.41; Estimated Glomerular Filt Rate 44 ml/min; Glucose* 112 mg/dL (60-115)
[2024-07-26 06:55] LABS: Calcium* 8.3 mg/dL (8.4-10.6)
[2024-07-26 07:00] VITALS: BP 124/71; PULSE 72; RESP 18; TEMP 36.6; O2SAT 90
[2024-07-26 07:15] LABS: Hemoglobin A1C* 5.7 % (0-5.6)
[2024-07-26 08:00] VITALS: PULSE 68
[2024-07-26] MEDS: FUROSEMIDE 10 MG/ML inj 60 MG IVP (08:10)
[2024-07-26] MEDS: NYSTATIN POWDER 1 APPLIC TOPICAL (09:49)
[2024-07-26] MEDS: LOSARTAN POTASSIUM 50 MG TABLET 100 MG PO (09:49)
[2024-07-26] MEDS: POTASSIUM CHLORIDE 10 MEQ CAPSULE ER PO (09:49)
[2024-07-26] MEDS: SODIUM CHLORIDE 0.9 % (FLUSH) 10 ML SYRINGE 5 ML IVF (09:50)
[2024-07-26 11:00] VITALS: BP 128/71; PULSE 68; RESP 18; TEMP 36.4; O2SAT 92
--- NOTE | 2024-07-26 11:11 | PC.SOCIAL ---
Addendum entered by YOANA Cordero 07/26/24 14:10: [facility] confirming [facility] will accept pt for home care PT/OT and start services 07/29/24. Original Note: Discharge planning Met with pt who is planning to return home today by non-emergency ambulance. He states he has always been discharged home with the ambulance and that it has been covered by his insurance in the past. Pt is requested home care PT/OT be set up with [facility] with MD order. Pt states he has had [facility] home care in the past and this was a good experience. wafer polishing lead worker called [facility] (phone [phone], fax [phone]) and faxed requested order and information to review. Awaiting call back from [facility] with decision on whether they can accept pt for home care. wafer polishing lead worker to follow up as needed.
--- NOTE | 2024-07-26 11:48 | P.DS_ITS ---
DS: Providers Provider Time Seen by Provider: 09:06 Date Seen: 07/26/24 Date of admission: 07/23/24 15:50 Primary care physician: EVERTON DURON DO Admitting Clinician: Silvina Gamez MD Consults: 07/23/24 17:08 Consult to Occupational Therapy [CONS] Routine Comment: Reason(s) for OT Consult:: Evaluate and Treat Any Restrictions?:: No Restrictions Consult to Physical Therapy [CONS] Routine Comment: Reason(s) for PT Consult:: Evaluate and Treat Any Restrictions?:: No Restrictions Attending Physician on discharge: Jennifer Conner MD Date of Discharge: 07/26/24 DS: Diagnosis Discharge Diagnosis (1) Heart failure with preserved ejection fraction: Status: Acute Problem details: -CXR: Enlarged heart. Moderate multifocal airspace process. This could be related to pulmonary edema or a diffuse inflammatory process. -BNP in the 500s, but it could be low secondary to his morbid obesity -worsening shortness of breaths over weeks -EKG RBBB -no leukocytosis -patient is not hypoxic or tachycardic, no history of recent abdominal or orthopedic surgery, no recent travel, PE is not likely. 07/24/24 ECHO Technically limited exam, very poor image quality. LV function is likely normal but endocardial definition is poor. Right ventricular cavity size is not well visualized, global systolic RV function is not well visualized. The ascending aorta is dilated with maximal diameter 4.3 cm. Inferior vena cava is dilated, respiratory size variation is less than 50%. 07/24: Already on losartan (ARB). Stop amlodipine (this may be contributing to LE edema). Start diuresis with IV lasix (hold daily torsemide). 07/25: Cr mildly elevated. Continue losartan, lasix. Check HgbA1C (pt has h/o impaired fasting glucose). (2) Morbid obesity: Status: Chronic Problem details: BMI above 70 - 07/24 recommended patient talk with PCP about weight loss - 07/25 discussed weight loss again, patient had previously declined surgery, but is now wondering about panniculectomy. Discussed that without changing eating habits weight and other related diseases will continue to be problematic, discussed wt loss medications, but these may be cost prohibitive. (3) CKD (chronic kidney disease): Status: Acute Problem details: - stage 3 - baseline Cr is 1.2 - 07/24 Cr here 1.3-1.4, continue losartan, start lasix IV - 07/25 Cr 1.7, likely due to diuresis. Continue lasix IV at current doses, recheck in am - 07/26 Cr 1.6 stable. D/c home on increased torsemide (4) BRANDY (obstructive sleep apnea): Status: Suspected Problem details: -needs outpatient sleep study -[place] 1-2L to keep sats at >88% while sleeping. - 07/24 recommended patient get outpatient sleep study (5) Physical debility: Status: Acute Problem details: - Acute on chronic, improving - Continue PT/OT (6) Lymphedema associated with obesity: Status: Chronic (7) HTN (hypertension): Status: Chronic Problem details: -continue losartan. Stopped amlodipine as above. (8) Anemia: Status: Chronic Problem details: Normocytic, stable. (9) Ascending aorta dilatation: Status: Acute Problem details: 07/24/24 ECHO: The ascending aorta is dilated with maximal diameter 4.3 cm. - will need annual outpatient f/u (10) Community acquired pneumonia: Status: Ruled-out Problem details: - Patient has been afebrile and has had no leukocytosis. Imaging is more suggestive of heart failure, which is supported by the BNP and echocardiogram results. I suspect elevated lactate is secondary to poor perfusion from heart failure rather than infection. Will stop antibiotics. (11) Lactic acid increased: Status: Resolved Problem details: -lactate on admission was 2, patient was given a total of 1.5 L by both EMS and ED. resolved. (12) Candidal intertrigo: Status: Chronic Problem details: - continue nystatin DS: Summary Hospital Course Hospital Course: NOTE TO PCP: May benefit from addition of spironolactone, SGLT inh and semaglutide for HF and wt loss if renal function allows in a week. Per H and P: Xavier Damon is a 78 year old male with past medical history of morbid obesity, lymphedema, Hx of kidney stones who presents to the ED d/t generalized malaise & shortness of breath that he is not exactly sure when it started, might be couple of weeks he said but he is not sure. He states that because of his morbid obesity he is unable to walk around or do any other exercise, he gets tired easily but he noticed that recently he is more short of breath and he noticed wheezing. Patient denies fevers or chills, denies chest pain or coughing/ Phlegm, no orthopnea. He states that he does not have history of any cardiac problems and no asthma or COPD. At the ED patient was hemodynamically stable, CXR pulmonary edema. lactate 2.0, dropped to 1.0 after 1.5 L IVF. Xavier said that now that he has thought about a, he thinks the shortness of breath has been going on for a few weeks, most noticeable when he gets up to walk to the bathroom with his walker. This has improved since he has gotten Lasix for diuresis. He was initially started on antibiotics, but these were discontinued as it appeared to be more consistent with heart failure. His white count was within normal limits he, he has remained afebrile, and he denies cough or chills. Starting Lasix has increase his BUN and creatinine slightly, it is stabilized at 1.6 which is near to his baseline of 1.4. He is discharged home today on oral Lasix in stable and improved condition. Will have him follow-up with his primary care provider to discuss screening for BRANDY, weight loss, and ongoing management of heart failure. Time Spent with Patient Time attestation: Total time spent providing and/or coordinating discharge services: Exam Narrative: Exam Narrative: General: Morbidly obese. No acute distress. Awake, alert, oriented x3. No pallor. No jaundice. Oropharynx: Clear. Mucous membranes moist. Cardiovascular: Regular rate and rhythm. No murmurs, gallops, or rubs. Respiratory: Diminished at bases. No wheezes, no crackles. Abdomen: Large pannus with massive lymphedema at the dependent portion. Extremities: Massive lower extremity lymphedema and taut edema, slight improvement. Skin: dry, no weeping or blisters. Const: Vital Signs, click to edit/add: Vital Signs - 24 hr 07/25/24 12:13 07/25/24 15:00 07/25/24 15:00 Temperature 97.6 F Pulse Rate 68 Pulse Rate [Left P ulse Oximeter] 58 L 58 L Respiratory Rate 18 18 Blood Pressure [Le ft Arm] 133/61 Pulse Oximetry 92 Oxygen Delivery Me thod Nasal Cannula Oxygen Flow Rate 1.5 07/25/24 15:00 07/25/24 19:00 07/25/24 23:00 Temperature 98.4 F 96.9 F L Pulse Rate Pulse Rate [Left P ulse Oximeter] 66 69 67 Respiratory Rate 22 22 Blood Pressure [Le ft Arm] 134/62 135/59 L 128/62 Pulse Oximetry 96 90 90 Oxygen Delivery Me thod Nasal Cannula Nasal Cannula Room Air Oxygen Flow Rate 1 1 07/26/24 05:00 07/26/24 07:00 07/26/24 07:00 Temperature 97.8 F 97.9 F Pulse Rate Pulse Rate [Left P ulse Oximeter] 62 72 72 Respiratory Rate 18 18 18 Blood Pressure [Le ft Arm] 136/65 124/71 Pulse Oximetry 90 90 Oxygen Delivery Me thod Nasal Cannula Nasal Cannula Oxygen Flow Rate 1 1.5 DS: Data Data Completed and Pending Completed studies during hospitalization: 07/23/2024 EKG: Sinus rhythm marked sinus arrhythmia, 60 beats per minute, left axis deviation, right bundle-branch block, possible lateral infarct, age undetermined. 07/24/2024 EKG: Sinus rhythm with PACs, 65 beats per minute, right bundle-branch block, left anterior fascicular block, bifascicular block. 07/24/2024 echocardiogram: Technically limited exam, very poor image quality. Left ventricular function is likely normal but endocardial definition is poor. Right ventricular cavity size is not well visualized, rugal systolic RV function is not well visualized. Ascending aorta is dilated with a maximal diameter 4.3 cm. Inferior vena cava is dilated, respiratory size variation is less than 50%. Echo contrast was administered to enhance visualization of all left ventricular segments. Ordering Physician: Kelsey Khan M.D. Date of Service: 07/23/24 Procedure(s): XR chest 1V portable Accession Number(s): [id number] cc: EVERTON DURON D.O.; Kelsey Khan M.D.~ For Patients: As a result of the 21st Century Cures Act, medical imaging exams and procedure reports are released immediately into your electronic medical record. You may view this report before your referring provider. If you have questions, please contact your health care provider. INDICATION: Dyspnea COMPARISON: None TECHNIQUE: Single view examination FINDINGS: TUBES AND LINES: None. HEART AND MEDIASTINUM: Enlarged heart. LUNGS AND PLEURAL SPACES: Moderate multifocal airspace process bilaterally. This could be related to pulmonary edema or a diffuse inflammatory process.The pleural spaces are unremarkable. OSSEOUS STRUCTURES: Age-appropriate appearance. No acute focal finding. IMPRESSION: Enlarged heart. Moderate multifocal airspace process. This could be related to pulmonary edema or a diffuse inflammatory process. Dictated by Dirk Berg MD @ 07/23/2024 1:37:46 PM (Electronically Signed) Labs on day of discharge: Labs from last 24 hours 07/26/24 06:14 Sodium 142 Potassium 4.2 Chloride 102 Carbon Dioxide 37 H Anion Gap 3 L BUN 44 H Creatinine 1.6 H Estimated Creat Clear 37.41 Estimated GFR 44 Glucose 112 Hemoglobin A1c 5.7 H Calcium 8.3 L Discharge Plan Discharge Disposition: Home, Self-Care Date of Admission: 07/23/24 15:50 Attending Provider on Discharge: Jennifer Conner Primary Care Provider: EVERTON DUORN Condition: Improved Anticipated Discharge Date/Time: 07/26/24 15:00 Discharge Medications: New torsemide 40 mg tablet 40 mg PO DAILY Qty: 30 0RF Continued amlodipine 5 mg tablet 10 mg PO DAILY losartan 100 mg tablet 100 mg PO DAILY tamsulosin 0.4 mg Capsule 0.4 mg PO HS Qty: 30 0RF nystatin 100,000 unit/gram Powder 1 applic topical BID Qty: 60 0RF Lactobacillus acidophilus 0.5 mg (100 million cell) Tablet 1,000 mmu cells PO TIDWM Qty: 90 0RF potassium chloride 10 mEq tablet,ER particles/crystals 10 meq PO DAILY Discontinued torsemide 5 mg Tablet 20 mg PO DAILY@0800 Discharge Orders: Discharge Order (Routine); Ordered 07/26/24 Ordered By: Jennifer Conner Activity Level: Activity as Tolerated and Use Walker Discharge Diet: Heart Healthy (2 gm sodium, low fat) Follow Up Appointments: EVERTON DURON DO [Primary Care Provider] - (1 week, [facility]) Forms: [employer] Info Instructions
--- NOTE | 2024-07-26 14:42 | PC.NURSE ---
78 year old male who comes from home and lives alone. VSS. Alert and oriented. Took oxygen off at approximately 1300. On room air with O2 sat% around 92-97%. Assist of 2. Can stand and ambulate for a short period of time. Uses urinal to urinate and commode for bowel movements. On tele. Redness and yeast noted in abdominal and groin folds. Treated with Nystatin powder. IV infiltrated and removed this morning. Another IV was not placed as patient is being discharged this afternoon.
--- NOTE | 2024-07-26 16:57 | PC.NURSE ---
Discharge paperwork reviewed with patient. Voiding without difficulty. States he has everything set up at home to get around. Needs non-emergent transport back to home. Waiting fo them to be available. Patient has f/u with PCP on 08/03. A friend will be picking up his new prescription at [facility]. PIVs are taken out. Patient tolerating PO food and fluids. Denies pain.
--- NOTE | 2024-07-26 18:16 | PC.NURSE ---
End of shift note. Patient was discharged around 1600. Patient requires non emergent EMS to get home due to his size. Patient understands that 911 emergencies come first. Continues to wait for ride. Denies pain. Tolerating PO food. Alert and oriented. No PIV so unable to give IV lasix. Patient pleasant and cooperative.
--- NOTE | 2024-07-26 21:07 | PC.NURSE ---
Pt discharged by EMS @ 1949. Pt AxOx4, stable condition. No nausea, no pain. 4 wheel Walker sent with Pt.
== END 2024-07-26 19:50 | disposition home or self-care (01) | DRG 291 ==
LOC: ED 14:36 → MEDSURG 16:47
PROVIDERS: Family Medicine; Admitting Provider Student in an Organized Health Care Education/Training Program; Emergency Provider Family Medicine; PCP Student in an Organized Health Care Education/Training Program; Visit Provider Family Medicine
DX: I50.31 Acute diastolic (congestive) heart failure (principal); J18.9 Pneumonia, unspecified organism; Z68.45 Body mass index [BMI] 70 or greater, adult; I13.0 Hypertensive heart and chronic kidney disease with heart failure and stage 1 through stage 4 chronic kidney disease, or unspecified chronic kidney disease; E87.20 Acidosis, unspecified; E66.01 Morbid (severe) obesity due to excess calories; G47.33 Obstructive sleep apnea (adult) (pediatric); I89.0 Lymphedema, not elsewhere classified; D64.9 Anemia, unspecified; R53.81 Other malaise; N18.30 Chronic kidney disease, stage 3 unspecified; R06.03 Acute respiratory distress; L30.4 Erythema intertrigo; R53.1 Weakness; I77.810 Thoracic aortic ectasia
CPT/HCPCS: 36415; 71045; 80048; 80053; 81001; 82565; 83036; 83605; 83735; 83880; 84484; 85025; 85027; 86140; 87086; 87631; 93005; 93306; 94761; 97116; 97161; 97165; 97530; 97535; 99284; 99285; A9270; J0456; J0696; J1650; J1940; J2919; J7030; J7050; Q9957

== ENCOUNTER 2024-07-26 19:41 | Outpatient (CLI) | payer MEDICARE, BC, SELFPAY | END 2024-07-26 19:42 | disposition home or self-care (01) | LOC: AMB 08-06 04:03 | PROVIDERS: PCP Student in an Organized Health Care Education/Training Program; Visit Provider Emergency Medicine Emergency Medical Services | DX: J18.9 Pneumonia, unspecified organism (principal) | CPT/HCPCS: A0425; A0428 ==

== ENCOUNTER 2024-11-25 09:17 | Outpatient (CLI) | payer MEDICARE, BC, SELFPAY | END 2024-11-25 09:18 | disposition home or self-care (01) | LOC: AMB 11-26 10:14 | PROVIDERS: PCP Student in an Organized Health Care Education/Training Program; Visit Provider Emergency Medicine | DX: R53.1 Weakness (principal) | CPT/HCPCS: A0425; A0429 ==

== ENCOUNTER 2024-11-25 10:26 | Emergency (ER) | payer MEDICARE, BC, SELFPAY ==
--- OUTSIDE RECORDS SUMMARY | 2024-11-25 10:14 | XMS_ITS ---
Author Organization [employer] Support Name Relationship Address Phone Xavier Damon Guarantor [address], [place] [phone] Xavier Damon Agent [address], [place] [phone] LaurenminaAltagracia Emergency Contact Unknown IngSid enriquez Emergency Contact Unknown [phone] Allergies and adverse reactions No Known Allergies Immunizations Immunization Status Vaccine Details Vaccine Code CodeSystem Date Notes TB 2 Step Mantoux Skin Test completed tuberculin skin test; unspecified formulation lotNumber: [id number] expiry: 03/10/2024 Mfg: PAR Pharm Given Left Forearm intradermally Step 2 of Multi-step with next step required 98 CVX created date: 02/06/2023 consent date: 02/06/2023 administere d date: 02/04/2023 TB 2 Step Mantoux Skin Test completed tuberculin skin test; unspecified formulation lotNumber: [id number] expiry: 03/10/2024 Mfg: PAR [employer] Given 0.1 ml Right Forearm intradermally Step 1 of Multi-step with next step required 98 CVX created date: 01/21/2023 consent date: 01/21/2023 administere d date: 01/21/2023 Bivalent Booster completed SARS-COV-2 (COVID-19) vaccine, mRNA, spike protein, LNP, bivalent, preservative free, 30 mcg/0.3 mL dose, edelmira-sucrose formulation 300 CVX created date: 02/18/2023 administere d date: 05/13/2022 Influenza - High Dose Fluad completed Influenza, high-dose, split virus, quadrivalent, injectable, preservative free 197 CVX created date: 02/18/2023 administere d date: 04/18/2022 Mental Status Section Date Assessment Total Score Description 02/20/2023 BIMS 15 cognitively int act CAM 0 No delirium ind icated PHQ-9 00 01/27/2023 BIMS 14 cognitively int act CAM 0 No delirium ind icated PHQ-9 00 Problems Problem # Description Date of onset Resolved Date Code CodeSystem Concern Status 1 GOUT, UNSPECIFIED 01/21/[address] active 2 MORBID (SEVERE) OBESITY DUE TO EXCESS CALORIES 01/21/[address] active 3 STRAIN OF MUSCLE(S) AND TENDON(S) OF THE ROTATOR CUFF OF RIGHT SHOULDER, SUBSEQUENT ENCOUNTER 01/21/[address] active 4 UMBILICAL HERNIA WITH OBSTRUCTION, WITHOUT GANGRENE 01/21/[address] active 5 UNILATERAL PRIMARY OSTEOARTHRITIS, LEFT KNEE 01/21/[address] active 6 VENTRAL HERNIA WITHOUT OBSTRUCTION OR GANGRENE 01/21/[address] active Reason for Referral No Reasons for Referral Entered Social History Social History Observation Description Start Date End Date Code Code System Current Smoking Status Tobacco smoking consumption unknown 782345848 SNOMED CT Sex Assigned At Male 1945 14814-4 [facility] Gender Identity Vital Signs Code Code System Vitals Name Values and Units Timing Information 9279-1 [facility] Respiratory Rate Value=18.0 Units=/m in 02/20/2023 8462-4 [facility] Blood Pressure-Diastolic Value=65 Un its=mmHg 02/20/2023 8480-6 [facility] Blood Pressure-Systolic Cvvdp=192 Un its=mmHg 02/20/2023 8310-5 [facility] Body Temperature Value=98.0 Units= F 02/20/2023 8867-4 [facility] Heart rate Value=55.0 Units=/min 05625-7 [facility] O2 % BldC Oximetry Value=96.0 Units= % 02/20/2023 30039-9 [facility] Pain Level Value=6.0 02/20/2023 93798-9 [facility] Weight Hyyhq=108.5 Units=Lbs 8302-2 LOINC Height Value=68.0 Units=Inches 01/21/2023
--- OUTSIDE RECORDS SUMMARY | 2024-11-25 10:14 | XMS_ITS | Clinical Summary ---
Author Organization [facility] Address [address] [place] [address] Care Team Providers Care Mechanic Sound Technician Name Role Phone Arsenio Colon MD Unavailable [phone] Unavailable Unavailable Morelia Zapata NP Unavailable [phone] Rafael Narayanan DO Primary Care Provider [phone] Natalie Dueñas Unavailable [phone] Unavailable [phone] Allergies No known active allergies Medications Walker - 4 wheelsIndication s:Difficulty walking With seat. For home use. 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 Active potassium chloride (KLOR-CON M10) 10 mEq extended-release tablet (part/cryst)Zohreh cations:Hypokale linda Take 1 Tablet (10 mEq) by mouth once daily with a meal. 90 Tablet 3 4 11/29/19 25 Active tamsulosin (FLOMAX) 0.4 mg capsuleIndicatio ns:BPH with urinary obstruction Take 1 Capsule (0.4 mg) by mouth once daily after a meal. 90 Capsule 3 4 Active losartan (COZAAR) 100 mg tabletIndication s:HTN (hypertension) TAKE ONE TABLET BY MOUTH EVERY DAY 90 Tablet 3 4 Active Nystop powderIndication s:Intertrigo Apply 1 Strip topically to affected area(s) two times daily. 60 g 11 4 Active amLODIPine (NORVASC) 5 mg tabletIndication s:HTN (hypertension) Take 2 Tablets (10 mg) by mouth once daily. 180 Tablet 3 4 Active carvediloL (COREG) 3.125 mg tabletIndication s:Acute diastolic heart failure (HC),HTN (hypertension) Take 1 Tablet (3.125 mg) by mouth two times daily with meals. 180 Tablet 3 5 Active mupirocin 2% ointment 5 Active torsemide 20 mg tabletIndication s:Peripheral edema Take 1 Tablet (20 mg) by mouth once daily. 90 Tablet 5 Active Zinc Oxide 13 % topical creamIndications :Intertrigo,Exce ss skin Apply 1 Application topically to affected area(s) two times daily. 113 g 5 01/06/20 25 Active Active Problems Problem Noted Date Diagnosed Date Mass of right parotid gland 12/19/2023 Other specified health status 06/23/2023 Physical debility 06/23/2023 LESLI (acute kidney injury) 06/23/2023 Durable power of litigation attorney associate [facility] exists but copy not available 05/15/2023 POLST (Physician Orders for Life-Sustaining Hazel tment) 03/05/2023 Neck mass 03/05/2023 Anasarca 03/05/2023 Gout, unspecified 01/21/2023 Arthritis of knee, left 01/21/2023 Prediabetes 05/13/2022 History of gout 04/30/2021 Advanced directives, counseling/discussion 01/01 Adenomatous colon polyp 01/23/2016 Overview (01/23/2016): Colonoscopy 01/2016 polyp repeat in 5 years Hyperglycemia 10/22/2014 Umbilical hernia with obstruction, without gangr uyen 10/21/2014 Sepsis 10/21/2014 Ventral hernia without obstruction or gangrene 0 10/21/2014 Overview (03/05/2023): Superior to umbilicus with colon in it. Healthcare maintenance 04/28/2012 Overview (04/28/2012): Colonoscopy 2006 - repeat in 10 years Morbid (severe) obesity due to excess calories 0 12/19/2009 Dyslipidemia (high LDL; low HDL) 12/19/2009 HTN (hypertension) 01/21/2007 Resolved Problems Problem Noted Date Diagnosed Date Resolved Date SBO (small bowel obstruction) 10/21/2014 12/31/2016 Overview (10/21/2014): In umbilical hernia Small bowel ischemia 10/21/2014 017 Lactic acid acidosis 10/21/2014 017 Encounters Date Type Department Care Team Description 11/17/[address] [address] Pcp, No Appointment (HST RESCHEDULE ) 10/07/2024 10:35 AM CDT Office Visit [address] [address] Rafael Narayanan DO Cellulitis; Derm Problem (Skin folds ) 10/07/2024 Travel 10/01/[address] [address] Rafael Narayanan DO Derm Problem 10/01/2024 Nurse Triage [address] [address] Rafael Narayanan DO Rash 09/27/[address] [address] Rafael Narayanan DO Refill Request; TORSEMIDE 09/13/2024 9:45 AM CDT Telemedicine [address] [address] Rafael Narayanan DO Telehealth (Virtual visit - no vitals ) 09/13/2024 Travel 09/02/2024 Telephone [facility] [address] [place] [address] Rafael Narayanan DO Results 09/01/2024 8:30 AM ORACLE SOA CONSULTANT Orders Only [facility] [address] [place] [address] Lab, [place] 09/01/2024 Travel from Last 3 Months Immunizations Immunization Administration Dates Next Due AMB Influenza, IIV3 (Age >=3 years)(Flu Clinic Only) 05/27/2013 COVID-19 VACCINE SPIKEVAX (M ODERNA 50MCG/0.5ML) 12YO+ PFS 06/22/2024,05/15/2023 COVID-19 vaccine (Pfizer-Bio NTech 30mcg/0.3mL) 12YO+ BIVALENT PF, MDV 05/13/2022 Influenza Virus, Unspecified 05/07/2012 Influenza, High-dose Inactivated 019,05/06/2018,05/01/2017,07/10,05/10/2014 Influenza, High-dose Quadriv alent Inactivated 04/18/2022,04/03/2021,03/27/2020 Influenza, IIV3 (Age >=3 years) 05/08/2012,04/05,05/26/2008 Influenza, Inactivated AIIV4 (Age 65+ Years) Preserv Free 05/15/2023,03/27/2020 Influenza, Inactivated IIV3 (Age 65+ Years) Preserv Free 06/22/2024 Pneumococcal Poly,23-Valent (Pneumovax) 04/28/2012,02/05/2012 Pneumococcal conj 13-Valent (Prevnar 13) 09/27/2014 Td (Age >=7 Years) 10/12/1996 Tdap 05/01/2017,01/21/2007 01/21/2017 Tuberculin Skin Test, Unspecified 02/04/2023, Zoster (Zostavax-ZVL, live) 04/28/2012 Family History Medical History Relation Name Comments Coronary artery disease Father Heart attack Father Hypertension Mother Other Sister 1 sarcoma Relation Name Status Comments Brother Alive Father (Age 89) Maternal Grandfather (Age 56) Maternal Grandmother (Age 87) Mother (Age 97) Paternal Grandfather (Age 93) Paternal Grandmother (Age 96) Sister 1 Alive Sister 2 Alive Social History Tobacco Use Types Packs/Day Years Used Date Smoking Tobacco: Never Passive Smoke Exposure: Never Smokeless Tobacco: Never Tobacco Cessation:Counseling Given: Yes Alcohol Use Standard Drinks/Week Comments Not Currently 0 (1 standard drink = 0.6 oz pure alcohol) rarely, one small glass on a weekend PHQ-2 Answer Date Recorded PHQ-2 TOTAL SCORE 0 06/22/2024 Social Connections Answer Date Recorded Do you often feel lonely or isolated from those around you? 4 12/19/2023 Financial Resource Strain Answer Date R ecorded Difficulty of Paying Living Expenses 3 08/08/2023 Difficulty of Paying Living Expenses Not on file 08/08/2023 Food Insecurity Answer Date Recorded Do you worry your food will run out before you are able to buy more? 1 12/19/2023 Transportation Needs Answer Date Record ed Does lack of transportation keep you from medica l appointments? 1 12/19/2023 Does lack of transportation keep you from work, meetings or getting things that you need? 1 12/19/2023 Housing Stability Answer Date Recorded What is your housing situation today? 1 12/19/2023 Interpersonal Safety Answer Date Record ed Are you being hit, kicked, p ushed or yelled at (see row info)? No 12/19/2023 Interpersonal Safety Abuse 12 - 18 Not on file 12/19/2023 Interpersonal Safety Ambulatory Vulnerability No t on file 12/19/2023 Utilities Answer Date Recorded Do you have trouble paying f or utilities (for example, heat, electricity, water, phone)? 1 12/19/2023 Sex and Gender Information Value Date Recorded Sex Assigned at Not on file Legal Sex Male 5:24 AM ORACLE SOA CONSULTANT Gender Identity Not on file Sexual Orientation Not on file Obstetrics History Last Filed Vital Signs Vital Sign Reading Time Taken Comments Blood Pressure 152/70 10/07/2024 11:01 AM CDT Pulse 60 10/07/2024 10:40 AM CDT Temperature 37.2 C (98.9 F) 12/20/2023 8:00 AM CDT Respiratory Rate 20 12/20/2023 8:00 AM CDT Oxygen Saturation 93% 10/07/2024 10:40 AM CDT Inhaled Oxygen Concentration - - Weight 213.2 kg (470 lb) 12/19/2023 6:36 AM CDT Height 170.2 cm (5' 7) 08/29/2023 8:48 AM ORACLE SOA CONSULTANT Body Mass Index 73.61 08/29/2023 8:48 AM ORACLE SOA CONSULTANT Plan of Treatment Upcoming Encounters Date Type Department Care Team (Late st Contact Info) Description 12/28/2024 11:00 AM CDT Telemedicine [facility] [address] [place] [address] Rafael Narayanan DO [address] [place] [address] 01/13/2025 9:00 AM CDT Office Visit [address] [phone] Natalie Dueñas PA [address] [place] [address] 01/13/2025 10:30 AM CDT Nutrition/Briefcase Sewer [address] [address] [place] [address] 02/07/2025 2:00 PM CDT Nurse/Clinic Staff Only [facility] [address] [place] [address] 02/08/2025 7:30 AM CDT Nurse/Clinic Staff Only [facility] [address] [place] [address] 03/01/2025 2:30 PM CDT Office Visit [facility] [address] [place] [address] Jovani Alejandre MD [address] [place] [address] Health Maintenance Due Date Last Done Comments Zoster (shingles) series for age 50+ (2 of 3) 06/23/2012 04/28/2012 RSV vaccine for adults or (1 - 1-dose 75+ series) 2021 BMI (ht and wt on same day) for age 18+ 07/25/2024 07/25/2023, 05/13/2022, 04/30/2021, Additional history exists COVID-19 vaccine series ( season) 2024 06/22/2024, 05/15/2023, 05/13/2022, Additional history exists Depression screening for age 12+ 06/22/2025 06/22/2024 Medicare Wellness for age 65+ 06/23/2025 06/22/2024, 05/15/2023, 05/13/2022, Additional history exists Tetanus booster 05/01/2027 05/01/2017, 01/04, 10/12/1996 Pneumococcal series for age 50+ Completed 09/27/2014, 04/28/2012, 02/05/2012 Tdap Completed 05/01/2017, 01/21/2007 Hepatitis C screening for age 18-79 Completed 01/20/2019 Influenza Vaccine Completed 06/22/2024, , 03/27/2020, Additional history exists Hepatitis B series for 19+ Aged Out N o longer eligible based on patient's age to complete this topic Medical Devices Implanted Type Area Collet Maker Device Identifier Shelf Expiration Date Model / Serial / Lot Mesh Ventral 6.1x10.1in Ventrio - [id number] Implanted:Qty: 1 on 10/21/2014 at [facility] N/A: Abdomen [employer] [id number] / / [id number] Stent Uret [id number] Percuflex Hydroplus - [id number] Implanted:Qty: 1 on 08/08/2023 by Robert Galloway MD at [facility] Left: Ureter C Urology 01/29/2026 [id number] / / [id number] Stent Uret [id number] Percuflex Hydroplus - [id number] Implanted:Qty: 1 on 08/29/2023 by Becky Mukherjee MD at [facility] Left: Ureter [facility] 03/18/2026 [id number] / / [id number] Procedures Procedure Name Priority Date/Time Associated Diagnosis Comments CREATININE Routine 10/07/2024 11:21 AM CDT HTN (hypertension) Elevated serum creatinine WHITE BLOOD COUNT Routine 10/07/2024 11: 21 AM CDT Cellulitis of skin BASIC METABOLIC PANEL Routine 09/01/2024 8:09 AM ORACLE SOA CONSULTANT Elevated serum creatinine ANTI HCV Routine 01/20/2019 9:00 AM CDT Need for hepatitis C screening test from Last 3 Months or Most Recently Relevant to Health Maintenance Results * WHITE BLOOD COUNT (10/07/2024 11:21 AM CDT) WHITE BLOOD CELL COUNT 8.6 3.8 - 10.8 Thousand/u L [employer] sudhakar Gaxiola Blood BLOOD SPECIMEN / Unknown 10/07/2024 11:21 AM CDT 10/07/2024 11:22 AM CDT Rafael Narayanan DO HEMATOLOGY Final Result [employer] [facility] [address] [place] [address], [facility] [address] [place] [address] * (ABNORMAL) CREATININE (10/07/2024 11:21 AM CDT) CREATININE 1.51(H) 0.70 - 1.28 mg/dL [employer] EGFR 47(L) > OR = 60 mL/min/1.73 m2 [facility] [employer] [facility] Blood BLOOD SPECIMEN / Unknown 10/07/2024 11:21 AM CDT 10/07/2024 11:22 AM CDT Adei Shaqra DO CHEMISTRY Final Result Performing Organization Address City/[facility]/ZIP Co de Phone Number [employer] [facility] [address] [place] [address], [place] [phone] [employer] [address] [place] [address] * (ABNORMAL) BASIC METABOLIC PANEL (09/01/2024 8:09 AM ORACLE SOA CONSULTANT) GLUCOSE 104(H) 65 - 99 mg/dL [facility] Comment: Fasting reference interval For someone without known diabetes, a glucose value between 100 and 125 mg/dL is consistent with prediabetes and should be confirmed with a follow-up test. UREA NITROGEN (BUN) 31(H) 7 - 25 mg/dL [facility] CREATININE 1.50(H) 0.70 - 1.28 mg/dL [facility] EGFR 48(L) > OR = 60 mL/min/1.7 3m2 [facility] BUN/CREATININE RATIO 21 6 - 22 (calc) [facility] SODIUM 140 135 - 146 mmol/L [facility] POTASSIUM 4.3 3.5 - 5.3 mmol/L [facility] CHLORIDE 102 98 - 110 mmol/L [facility] CARBON DIOXIDE 26 20 - 32 mmol/L [facility] ELECTROLYTE BALANCE 12 7 - 17 mmol/L (calc) [facility] CALCIUM 9.0 8.6 - 10.3 mg/dL [facility] Blood BLOOD SPECIMEN / Unknown 09/01/2024 8:09 AM ORACLE SOA CONSULTANT 09/01/2024 8:10 AM ORACLE SOA CONSULTANT Rafael Easonq DO CHEMISTRY Final Result Performing Organization Address City/[facility]/ZIP Co de Phone Number [employer] [facility] [address] [place] [address], [place] [phone] [employer] [address] [place] [address] * ANTI HCV (01/20/2019 9:00 AM CDT) HEPATITIS C ANTIBODY Non-React otis Non-React otis 01/20/2019 6:46 PM CDT [facility] Comment:Antibodies to HCV no t detected; does not exclude the possibility of exposure to HCV. Blood BLOOD SPECIMEN / Unknown Venipuncture / Unknown 01/20/2019 9:00 AM CDT 01/20/2019 9:52 AM CDT us Maile Fuentes MD SEND OUTS Final Result [facility] [address] [place] [address], [place] from Last 3 Months or Most Recently Relevant to Health Maintenance Insurance [employer] [place] [place] BL[place] PB ONLY MEDICARE PART B HB ONLY [place] BLUE HB ONLY MEDICARE PART A HB ONLY [facility] MEDICARE ADVANTAGE MR Advance Directives Documents on File Type Date Recorded Patient Dispersion Mixer Expl anation Healthcare Directive 08/08/2023 11:12 AM Healthcare Directive 02/03/2018 3:06 PM HE ALTHCARE DIRECTIVE, [facility], 01/14/18 * Full Code (Latest Code Status on File) Date Activated Date Inactivated Comments 12/19/2023 6:03 AM 12/20/2023 6:34 PM Question Answer Comments Code Status Discussion: Reviewed Preferences * Full Code Date Activated Date Inactivated Comments 08/29/2023 8:15 AM 08/30/2023 3:25 PM Should be di scussed pre operatively with anesthesia or surgeon Question Answer Comments Code Status Discussion: Not Discussed * Full Code Date Activated Date Inactivated Comments 08/08/2023 11:08 AM 08/09/2023 5:16 PM Should be dis cussed pre operatively with anesthesia or surgeon Question Answer Comments Code Status Discussion: Not Discussed * Full Code Date Activated Date Inactivated Comments 10/22/2014 3:35 AM 10/27/2014 4:13 PM * Full Code Date Activated Date Inactivated Comments 10/21/2014 9:17 PM 10/22/2014 3:35 AM Care Teams Mechanic Sound Technician Relationship Specialty Start Date End Date Rafael Narayanan DO [address] [place] [address] PCP - General Family Practice 03/05/23 Arsenio Colon MD Otolaryngology Surgery - Otolaryngology 07/16/[address] Registered Dietitian [employer] 03/10/19 Morelia Zapata NP Consulting Physician Nurse Practitioner 03/10/19 Natalie Dueñas PA [address] [place] [address] Physician Biomedical Analytical Scientist 11/17/[address] [place] [address] Gas And Oil Checker 11/17/24
[2024-11-25 10:26] VITALS: BP 127/68; PULSE 63; RESP 22; TEMP 36.1; O2SAT 95
--- NOTE | 2024-11-25 11:24 | ED.GENADULT ---
HPI - General Adult General Chief complaint: Weakness Stated complaint: weakness Time Seen by Provider: 11/25/24 10:57 Source: patient Mode of arrival: EMS Limitations: no limitations History of Present Illness HPI narrative: 78-year-old male presenting today with concerns about cellulitis of his pannus. Patient states that week ago touched his pannus and felt a warm area that was tender. He feels that this has resolved. However, his home health nurse was there yesterday doing his cleaning which she does every other day, and she stated that she felt that he might have cellulitis and recommended he come to the emergency department for evaluation. He states that for approximately 1 week he has felt slightly more tired than usual. He describes it as just a slight decrease in energy. He denies chest pain or shortness of breath above his baseline. He denies fevers or chills. He does not feel nauseated. He denies vomiting. He states that his appetite is normal. He denies diarrhea or changes in his urinary habits such as increased frequency, urgency or dysuria. Patient does state that he has gained approximately 10 lb in the last few months. He states that he likes to eat dessert multiple times throughout the day, likes to order pizza regularly and drinks a lot of soda. Patient does live independently. Uses a walker to get around. He states that he still able to do his activities of daily living as usual, and he has a home health nurse that comes every other day to do hygiene and cleaning of his pannus. Related Data Home Medications ?Medication ?Instructions ?Recorded ?Confirmed amlodipine 5 mg tablet 10 mg PO DAILY 12/30/22 07/23/24 losartan 100 mg tablet 100 mg PO DAILY 12/30/22 07/23/24 potassium chloride 10 mEq 10 meq PO DAILY 07/23/24 07/23/24 tablet,extended release(part/cryst) Previous Rx's ?Medication ?Instructions ?Recorded Lactobacillus acidophilus 0.5 mg 1,000 mmu cells PO TIDWM #90 tabs 01/21/23 (100 million cell) tablet nystatin 100,000 unit/gram topical 1 applic topical BID #60 grams 01/21/23 powder tamsulosin 0.4 mg capsule 0.4 mg PO HS #30 caps 01/21/23 torsemide 40 mg tablet 40 mg PO DAILY #30 tabs 07/26/24 Allergies Allergy/AdvReac Type Severity Reaction Status Date / Time No Known Drug Allergies Allergy Verified 07/23/24 12:00 Review of Systems Status of ROS: Reports: 10 or more systems reviewed and unremarkable except as noted in History and below [facility] Medical History Acute hypoxic respiratory failure ?J96.01 - Acute respiratory failure with hypoxia (ICD-10) Neck mass ?R22.1 - Localized swelling, mass and lump, neck (ICD-10) Complicated urinary tract infection ?N39.0 - Urinary tract infection, site not specified (ICD-10) Hypocalcemia ?E83.51 - Hypocalcemia (ICD-10) LESLI (acute kidney injury) ?N17.9 - Acute kidney failure, unspecified (ICD-10) HTN (hypertension) ?I10 - Essential (primary) hypertension (ICD-10) Advanced directives, counseling/discussion ?Z71.89 - Other specified counseling (ICD-10) Morbid obesity ?E66.01 - Morbid (severe) obesity due to excess calories (ICD-10) Right shoulder pain ?M25.511 - Pain in right shoulder (ICD-10) Leukocytosis ?D72.829 - Elevated white blood cell count, unspecified (ICD-10) Intertrigo ?L30.4 - Erythema intertrigo (ICD-10) Weakness ?R53.1 - Weakness (ICD-10) Lymphedema ?I89.0 - Lymphedema, not elsewhere classified (ICD-10) Urinary retention ?R33.9 - Retention of urine, unspecified (ICD-10) Arthritis of knee, left ?M17.12 - Unilateral primary osteoarthritis, left knee (ICD-10) Anasarca ?R60.1 - Generalized edema (ICD-10) Durable power of instructional leader for healthcare POLST (Physician Orders for Life-Sustaining Treatment) ?Z78.9 - Other specified health status (ICD-10) BRANDY (obstructive sleep apnea) ?G47.33 - Obstructive sleep apnea (adult) (pediatric) (ICD-10) Elevated blood uric acid level ?E79.0 - Hyperuricemia without signs of inflammatory arthritis and tophaceous disease (ICD-10) Impaired fasting glucose ?R73.01 - Impaired fasting glucose (ICD-10) Gout ?M10.9 - Gout, unspecified (ICD-10) Adenomatous colon polyp (~2015) ?D12.6 - Benign neoplasm of colon, unspecified (ICD-10) Ventral hernia ?K43.9 - Ventral hernia without obstruction or gangrene (ICD-10) Incarcerated umbilical hernia (~2014) ?K42.0 - Umbilical hernia with obstruction, without gangrene (ICD-10) Dyslipidemia ?E78.5 - Hyperlipidemia, unspecified (ICD-10) Hernia ?K46.9 - Unspecified abdominal hernia without obstruction or gangrene (ICD-10) Gallbladder attack ?K82.9 - Disease of gallbladder, unspecified (ICD-10) Surgical History H/O hernia repair (~2014) ?Z98.890 - Other specified postprocedural states (ICD-10) ?Z87.19 - Personal history of other diseases of the digestive system (ICD-10) Hx of cholecystectomy (~1985) ?Z90.49 - Acquired absence of other specified parts of digestive tract (ICD-10) H/O colonoscopy ?Z98.890 - Other specified postprocedural states (ICD-10) Family History Father Cardiovascular disease Myocardial infarction Mother High blood pressure Sister Sarcoma Social History Narrative: Lives in a newly built house that is accessible. Was in the [employer] business. Worked for [employer]. Retired 10 years ago. What is your current living situation?: I presently have a place to live Problems where you live: no known problems Problems where you live details: none In the past 12 months, utilities in danger of being shut off: no In past 12 months, lack of transportation kept you from medical appts, meetings, work, or getting things needed for daily living: no In the past 12 mos, have been you worried that your food would run out before you had money to buy more?: never true In the past 12 mos, the food you bought just didn't last and you didn't have money to buy more?: never true Highest level of school completed/degree received: Associate degree: occupational, technical, vocational program Smoking Status: Never smoker Do you use any of these nicotine containing products: None Second hand tobacco smoke exposure: No How often do you have a drink containing alcohol: never How often do you have six or more drinks on one occasion: Never AUDIT-C Alcohol total score: 0 Non-prescribed substance use: denies use Caffeine: Yes How often does anyone, including family, friends and others, physically hurt you: never How often does anyone, including family, friends and others, insult or talk down to you: never How often does anyone, including family, friends and others, threaten you with harm: never How often does anyone, including family, friends and others, scream or curse at you: never service: No Exam Narrative: Exam Narrative: Morbidly obese, elderly patient in no acute distress. Alert and oriented x3. Answers questions appropriately. Mood and affect are appropriate, patient is in a great mood, he is talkative and happy.. Thoughts are goal oriented and rational. No tangential or magical thinking noted. Patient speaks in full sentences without needing to catch his breath. HEENT: Normocephalic atraumatic. Pupils are equally round reactive to light. Extraocular muscles are intact. Conjunctivae are moist without any icterus noted. Moist mucous membranes. Cardiovascular: Heart is regular rate and rhythm S1 and S2 are present without any murmurs. Heart sounds are distant secondary to body habitus. Lungs: Decreased breath sounds bilaterally. Abdomen: Soft and nontender nondistended. Normal bowel sounds. Patient has a very large pannus with chronic edematous changes at the distal end of the pannus. We were able to elevate the entire pannus with 2 other people, there is absolutely no evidence of infection visualized. Skin cares have been appropriate. On the left side there is a very small ulceration, approximately 9 mm in diameter. There is no evidence of infection surrounding this ulcer. Extremities: Bilateral lower extremities are have chronic edematous changes, no evidence of infection. Skin: Well perfused. : Scrotum does not appear infected. Const: Vital Signs, click to edit/add: Vital Signs - 24 hr 11/25/24 10:26 Temperature 96.9 F L Pulse Rate [Right Pulse Oximeter] 63 Respiratory Rate 22 Blood Pressure [Ri ght Forearm] 127/68 Pulse Oximetry 95 Oxygen Delivery Me thod Room Air Course Course ED Course: Patient reassured that I do not see any evidence of infection of the pannus or surrounding areas. At this time, he did request further workup to make sure nothing else was going on with him causing the slight increase of fatigue he has felt over the last week. EKG, read by me, shows sinus bradycardia with a pulse of 51, left axis deviation which is not new for the patient, right bundle-branch block which is also not new. Normal QTC and [place] intervals. CBC showed mild anemia with a hemoglobin of 12.4. Patient does not have an elevated white blood cell count. Chemistries were unremarkable. LFTs unremarkable. Normal troponin. BNP 403. Urinalysis was normal. Negative COVID. TSH is normal. Vital Signs Vital signs: Initial Vital Signs Temperature 96.9 F L 11/25/24 10:26 Temperature Source Temporal Artery Scan 11/25/24 10:26 Pulse Rate 63 11/25/24 10:26 Pulse Rhythm Regular 11/25/24 10:26 Pulse Strength 3+ Normal 11/25/24 10:26 Respiratory Rate 22 11/25/24 10:26 Blood Pressure 127/68 11/25/24 10:26 Blood Pressure Mean 87 11/25/24 10:26 Blood Pressure Position Sitting 11/25/24 10:26 Pulse Oximetry 95 11/25/24 10:26 Oxygen Delivery Method Room Air 11/25/24 10:26 Vital Signs Temperature 96.9 F L 11/25/24 10:26 Pulse Rate 63 11/25/24 10:26 Respiratory Rate 22 11/25/24 10:26 Blood Pressure 127/68 11/25/24 10:26 Pulse Oximetry 95 11/25/24 10:26 Oxygen Delivery Method Room Air 11/25/24 10:26 Temperature 96.9 F L 11/25/24 10:26 Pulse Rate 63 11/25/24 10:26 Respiratory Rate 22 11/25/24 10:26 Blood Pressure 127/68 11/25/24 10:26 Pulse Oximetry 95 11/25/24 10:26 Oxygen Delivery Method Room Air 11/25/24 10:26 Medical Decision Making MDM Narrative Medical decision making narrative: 78-year-old male with unspecified increase in fatigue over the last week. Factors contributing to fatigue are numerous and we discussed reasons for follow-up. Patient reassured that there is no evidence of cellulitis today on his examination. Again, he does have a small ulcer on the left pannus, continue current wound cares. Lab Data Lab results reviewed: Yes I reviewed the patient's lab results Labs: Lab Results 11/25/24 11/25/24 11/25/24 Range/Units 11:21 11:37 12:10 WBC 8.75 (4.50-11.00) K/uL RBC 4.53 (4.30-5.90) m/uL Hgb 12.4 L (13.5-17.5) gm/dL Hct 40.8 (37.0-53.0) % MCV 90 (80-100) fL MCH 27 (26-34) pg MCHC 30 L (32-36) gm/dL RDW Coeff of Rosalee 14.8 (11.5-15.5) % Plt Count 203 (140-440) K/uL Neut % (Auto) 76.4 H (42.0-72.0) % Lymph % (Auto) 13.0 L (20-44) % Spencer % (Auto) 6.9 (0.0-11.0) % Eos % (Auto) 3.3 (0.0-7.0) % Baso % (Auto) 0.2 (0.0-3.0) % Neut # (Auto) 6.70 (1.7-7.0) K/uL Lymph # (Auto) 1.10 (0.90-2.90) K/uL Spencer # (Auto) 0.60 (0.00-0.90) K/UL Eos # (Auto) 0.29 (0.00-0.50) K/uL Baso # (Auto) 0.02 (0.00-0.30) K/uL Abs Immat Gran (auto) 0.02 (0.00-0.30) K/uL Imm/Tot Granulo (auto) 0.2 % Sodium 143 (135-149) mmol/L Potassium 4.5 (3.6-5.1) mmol/L Chloride 106 (96-114) mmol/L Carbon Dioxide 31 (20-32) mmol/L Anion Gap 6 L (7-15) mEq/L BUN 25 (7-30) mg/dL Creatinine 1.2 (0.5-1.5) mg/dL Estimated GFR 62 ml/min Glucose 101 (60-115) mg/dL Lactate 1.3 (0.5-1.9) mmol/L Calcium 8.9 (8.4-10.6) mg/dL Total Bilirubin 0.6 (0.1-1.5) mg/dL Direct Bilirubin 0.3 (0.0-0.5) mg/dL AST 19 (12-35) U/L ALT 10 (4-50) U/L Alkaline Phosphatase 144 (40-150) U/L Troponin I < 0.01 (0.01-0.04) ng/mL C-Reactive Protein 1.8 H (0.5-1.0) mg/dL NT-Pro-B Natriuret Pep 403 pg/mL Total Protein 7.3 (6.0-8.3) g/dL Albumin 3.6 (3.3-5.0) g/dL TSH 1.550 (0.270-4.20) uIU/mL Urine Color Yellow (Yellow) Urine Appearance Clear (Clear) Urine pH 7.0 (5.0-8.5) Ur Specific [place] 1.015 (1.000-1.030) Urine Protein Negative (Negative) Urine Glucose (UA) Negative (Negative) Urine Ketones Negative (Negative) Urine Blood Negative (Negative) Urine Nitrite Negative (Negative) Urine Bilirubin Negative (Negative) Urine Urobilinogen 0.2 (0.2-1.0) Ur Leukocyte Esterase Negative (Negative) Urine RBC 0-2 (0-2) Urine WBC 0-2 (0-5) Ur Squamous Epith Cells None (None-Few) Urine Bacteria None (None) SARS-CoV-2 (PCR) Negative SARS-CoV-2 (Negative) ECG Data Attestation: I personally reviewed and interpreted this ECG as follows: Discharge Plan Discharge Clinical Impression: Fatigue, Skin ulcer Patient Disposition: Home, Self-Care Condition: Stable Additional Instructions: There is a small ulceration on the left side of the abdomen underneath the pannus. Continue current wound cares. No evidence of infection was found today. Blood work was unremarkable. If you feel like you are getting worse over the next week, recommend returning to the ER for re-evaluation, otherwise you can follow-up with your primary care provider for any concerns. Prescriptions: No Action amlodipine 5 mg tablet 10 mg PO DAILY losartan 100 mg tablet 100 mg PO DAILY tamsulosin 0.4 mg Capsule 0.4 mg PO HS Qty: 30 0RF nystatin 100,000 unit/gram Powder 1 applic topical BID Qty: 60 0RF Lactobacillus acidophilus 0.5 mg (100 million cell) Tablet 1,000 mmu cells PO TIDWM Qty: 90 0RF potassium chloride 10 mEq tablet,ER particles/crystals 10 meq PO DAILY torsemide 40 mg tablet 40 mg PO DAILY Qty: 30 0RF Follow Up/Referrals: EVERTON DURON DO [Primary Care Provider, Family Practice] Stand Alone Forms: MyHealth Info Instructions
[2024-11-25 11:43] LABS: Lactate* 1.3 mmol/L (0.5-1.9)
[2024-11-25 11:47] LABS: Basophils Absolute Auto 0.02 K/uL (0.00-0.30); Basophils Percent Auto 0.2 % (0.0-3.0); Eosinophils Absolute Auto 0.29 K/uL (0.00-0.50); Eosinophils Percent Auto 3.3 % (0.0-7.0); Hematocrit 40.8 % (37.0-53.0); Hemoglobin* 12.4 gm/dL (13.5-17.5); Immature Granulocytes Abs Auto 0.02 K/uL (0.00-0.30); Immature Granulocytes Pct Auto 0.2 %; Mean Corpuscular HGB Conc 30 gm/dL (32-36); Mean Corpuscular Hemoglobin 27 pg (26-34); Mean Corpuscular Volume 90 fL (80-100); Monocytes Percent Auto 6.9 % (0.0-11.0); Neutrophils Percent Auto 76.4 % (42.0-72.0); Platelet Count* 203 K/uL (140-440); RDW Coefficient of Variation % 14.8 % (11.5-15.5); Red Blood Count 4.53 m/uL (4.30-5.90); White Blood Count* 8.75 K/uL (4.50-11.00)
--- OUTSIDE RECORDS SUMMARY | 2024-11-25 11:53 | XMS_ITS ---
Author Organization [employer] Support Name Relationship Address Phone Xavier Damon Guarantor [address], [place] [id number] Xavier Damon Agent [address], [place] [id number] LaurenminaAltagracia Emergency Contact Unknown IngSid enriquez Emergency Contact Unknown [phone] Allergies and adverse reactions No Known Allergies Immunizations Immunization Status Vaccine Details Vaccine Code CodeSystem Date Notes TB 2 Step Mantoux Skin Test completed tuberculin skin test; unspecified formulation lotNumber: [id number] expiry: 03/10/2024 Mfg: PAR Pharm Given Left Forearm intradermally Step 2 of Multi-step with next step required 98 CVX created date: 02/06/2023 consent date: 02/06/2023 administere d date: 02/04/2023 TB 2 Step Mantoux Skin Test completed tuberculin skin test; unspecified formulation lotNumber: [id number] expiry: 03/10/2024 Mfg: PAR [employer] Given 0.1 [...] CodeSystem Concern Status 1 GOUT, UNSPECIFIED 01/21/[address] active 2 MORBID (SEVERE) OBESITY DUE TO EXCESS CALORIES 01/21/[address] active 3 STRAIN OF MUSCLE(S) AND TENDON(S) OF THE ROTATOR CUFF OF RIGHT SHOULDER, SUBSEQUENT ENCOUNTER 01/21/[address] active 4 UMBILICAL HERNIA WITH OBSTRUCTION, WITHOUT GANGRENE 01/21/[address] active 5 UNILATERAL PRIMARY OSTEOARTHRITIS, LEFT KNEE 01/21/[address] active 6 VENTRAL HERNIA WITHOUT OBSTRUCTION OR GANGRENE 01/21/[address] active Reason for Referral No Reasons for Referral Entered Social History Social History Observation Description Start Date End Date Code Code System Current Smoking Status Tobacco smoking consumption unknown 531546832 SNOMED CT Sex Assigned At Male 1945 35118-0 [facility] Gender Identity Vital Signs Code Code System Vitals Name Values and Units Timing Information 9279-1 [facility] Respiratory Rate Value=18.0 Units=/m in 02/20/2023 8462-4 [facility] Blood Pressure-Diastolic Value=65 Un its=mmHg 02/20/2023 8480-6 [facility] Blood Pressure-Systolic Viiah=230 Un its=mmHg 02/20/2023 8310-5 [facility] Body Temperature Value=98.0 Units= F 02/20/2023 8867-4 [facility] Heart rate Value=55.0 Units=/min 17632-3 [facility] O2 % BldC Oximetry Value=96.0 Units= % 02/20/2023 44565-3 [facility] Pain Level Value=6.0 02/20/2023 89937-0 [facility] Weight Jchji=815.5 Units=Lbs 8302-2 LOINC Height Value=68.0 Units=Inches 01/21/2023
[2024-11-25 11:56] LABS: Slide Review Reflex No
[2024-11-25 12:09] LABS: SARS PCR* Negative SARS-CoV-2 (Negative)
[2024-11-25 12:12] LABS: Appearance Urine Clear (Clear); Bilirubin Urine Negative (Negative); Blood Urine Negative (Negative); Color Urine Yellow (Yellow); Glucose Urine Negative (Negative); Ketones Urine Negative (Negative); Leukocyte Esterase Urine Negative (Negative); Nitrite Urine Negative (Negative); Protein Urine Negative (Negative); Specific Gravity Urine 1.015 (1.000-1.030); Urobilinogen Urine 0.2 (0.2-1.0)
[2024-11-25 12:19] LABS: RBC Urine 0-2 (0-2); WBC Urine 0-2 (0-5)
[2024-11-25 12:38] LABS: Albumin* 3.6 g/dL (3.3-5.0); Chloride* 106 mmol/L (96-114)
[2024-11-25 12:39] LABS: Potassium* 4.5 mmol/L (3.6-5.1); Sodium* 143 mmol/L (135-149)
[2024-11-25 12:41] LABS: Blood Urea Nitrogen* 25 mg/dL (7-30); Creatinine* 1.2 mg/dL (0.5-1.5); Estimated Glomerular Filt Rate 62 ml/min
[2024-11-25 12:42] LABS: Alanine Aminotransferase* 10 U/L (4-50); Alkaline Phosphatase* 144 U/L (40-150); Anion Gap 6 mEq/L (7-15); Aspartate Amino Transferase* 19 U/L (12-35); Bilirubin Direct* 0.3 mg/dL (0.0-0.5); Bilirubin Total* 0.6 mg/dL (0.1-1.5); Calcium* 8.9 mg/dL (8.4-10.6); Carbon Dioxide* 31 mmol/L (20-32); Glucose* 101 mg/dL (60-115); Total Protein* 7.3 g/dL (6.0-8.3)
[2024-11-25 12:45] LABS: C Reactive Protein* 1.8 mg/dL (0.5-1.0)
[2024-11-25 12:50] LABS: NT Pro B Type NatriureticPept* 403 pg/mL
[2024-11-25 12:55] LABS: Troponin I* < 0.01 ng/mL (0.01-0.04)
[2024-11-25 16:30] VITALS: BP 140/96
== END 2024-11-25 16:53 | disposition home or self-care (01) ==
PROVIDERS: Emergency Provider Family Medicine; PCP Student in an Organized Health Care Education/Training Program
DX: L98.491 Non-pressure chronic ulcer of skin of other sites limited to breakdown of skin (principal); R53.83 Other fatigue; R63.5 Abnormal weight gain; R00.1 Bradycardia, unspecified; I45.10 Unspecified right bundle-branch block
CPT/HCPCS: 36415; 80048; 80076; 81001; 83605; 83880; 84443; 84484; 85025; 86140; 87086; 87635; 93005; 99284

== ENCOUNTER 2024-12-23 08:29 | Outpatient (CLI) | payer MEDICARE, BC, SELFPAY ==
--- OUTSIDE RECORDS SUMMARY | 2006-02-14 03:22 | XMS_ITS | Continuity of Care Document ---
Author Organization [facility] Address [address] [address] [place] [address] Phone Care Team Providers Care Senior Software Tester Name Role Phone Unavailable Unavailable Unavailable Procedures Procedure Date Colonoscopy Flex; Dx (mar Pro) Advance Directives Directive Yes / No Effective Date File Name No Information Encounters Encounter Description Practice Location Reason(s) For Visit Diagnoses Date Provider Providers Copied on Encounter [facility], [address] [address], [place], [place], [id number], tel:[phone] [facility] No Information No Information Referring Provider: Jas Lewis MD M, Richard Arce , [place], [address]. tel:[phone] Family History Family Member Type Diagnosis Age At Onset No Information Payers Payer name Insurance type Covered libertarian ID Authoriza tiaman(s) Blue Cross Of [facility] [id number] Social History Type Description Quantity Date Captured [...]
--- OUTSIDE RECORDS SUMMARY | 2024-12-24 11:46 | XMS_ITS ---
Author Organization [employer] Support Name Relationship Address Phone Xavier Damon Guarantor [address] [place], [place] [phone] Xavier Damon Agent [address] [place], [place] [phone] LaurenminaAltagracia Emergency Contact Unknown [phone] IngSid enriquez Emergency Contact Unknown [phone] Allergies and adverse reactions No Known Allergies Immunizations Immunization Status Vaccine Details Vaccine Code CodeSystem Date Notes TB 2 Step Mantoux Skin Test completed tuberculin skin test; unspecified formulation lotNumber: [id number] expiry: 03/10/2024 Mfg: PAR Pharm Given Left Forearm intradermally Step 2 of Multi-step with next step required 98 CVX created date: 02/06/2023 consent date: 02/06/2023 administere d date: 02/04/2023 TB 2 Step Mantoux Skin Test completed tuberculin skin test; unspecified formulation lotNumber: [id number] expiry: 03/10/2024 Mfg: PAR Pharmaceutical Given 0.1 [...] CodeSystem Concern Status 1 GOUT, UNSPECIFIED 01/21/[address] active 2 MORBID (SEVERE) OBESITY DUE TO EXCESS CALORIES 01/21/[address] active 3 STRAIN OF MUSCLE(S) AND TENDON(S) OF THE ROTATOR CUFF OF RIGHT SHOULDER, SUBSEQUENT ENCOUNTER 01/21/[address] active 4 UMBILICAL HERNIA WITH OBSTRUCTION, WITHOUT GANGRENE 01/21/[address] active 5 UNILATERAL PRIMARY OSTEOARTHRITIS, LEFT KNEE 01/21/[address] active 6 VENTRAL HERNIA WITHOUT OBSTRUCTION OR GANGRENE 01/21/[address] active Reason for Referral No Reasons for Referral Entered Social History Social History Observation Description Start Date End Date Code Code System Current Smoking Status Tobacco smoking consumption unknown 752524051 SNOMED CT Sex Assigned At Male 1945 92782-2 [facility] Gender Identity Vital Signs Code Code System Vitals Name Values and Units Timing Information 9279-1 [facility] Respiratory Rate Value=18.0 Units=/m in 02/20/2023 8462-4 [facility] Blood Pressure-Diastolic Value=65 Un its=mmHg 02/20/2023 8480-6 [facility] Blood Pressure-Systolic Njjao=090 Un its=mmHg 02/20/2023 8310-5 [facility] Body Temperature Value=98.0 Units= F 02/20/2023 8867-4 [facility] Heart rate Value=55.0 Units=/min 79618-7 [facility] O2 % BldC Oximetry Value=96.0 Units= % 02/20/2023 82635-6 [facility] Pain Level Value=6.0 02/20/2023 51820-4 [facility] Weight Qlaux=107.5 Units=Lbs 8302-2 LOINC Height Value=68.0 Units=Inches 01/21/2023
--- OUTSIDE RECORDS SUMMARY | 2024-12-24 11:46 | XMS_ITS | Clinical Summary ---
Author Organization [facility] Address [address] [place] [address] Care Team Providers Care Lcac Radar Operator/Navigator Name Role Phone Arsenio Colon MD Unavailable Evelin Barraza RD Unavailable Unavailable Morelia Zapata NP Unavailable [phone] Rafael Narayanan DO Primary Care Provider Natalie Dueñas Unavailable [phone] Unavailable [phone] Allergies No known active allergies Medications Walker - 4 wheelsIndicati ons:Difficulty walking With seat. For home use. Length of need: 99 1 Device 0 12/24/19 14 Active medication order composerIndica tions:Weakness generalized Teacher Learning Disabled/grippe r 1 Device 0 11/02/19 15 Active [...] (acute kidney injury) 06/23/2023 Durable power of state's attorney fo r healthcare exists but copy not available 05/15/2023 POLST [...] Encounters Date Type Department Care Team Description 12/23/2024 Orders Only [facility] Scanner 1 scan: (1-Ord) [facility], XR CHEST 1V PORTABLE, 12/23/2024 12/06/2024 [facility] [address] [place] [address] Rafael Narayanan, Refill Request (Potassium Chloride, Tamsulosin, Mupirocin) 11/17/2024 Telephone [facility] [address] [facility] [place] [address] Pcp, No Appointment (HST RESCHEDULE ) 10/07/2024 10:35 AM CDT Office [facility] [address] [facility] [place] [address] Rafael Narayanan DO Cellulitis; Derm Problem (Skin folds ) 10/07/2024 Travel 10/01/2024 Telephone [facility] [address] [facility] [place] [address] Rafael Narayanan DO Derm Problem 10/01/2024 Nurse Triage [facility] [address] [facility] [place] [address] Rafael Narayanan DO Rash 09/27/2024 Refill [facility] [address] [facility] [place] [address] Rafael Narayanan DO Refill Request; TORSEMIDE from [...] on file Legal Sex Male 5:24 AM 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 Gender Identity Not on file Sexual Orientation [...] 170.2 cm (5' 7) 08/29/2023 8:48 AM PET STORE 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 Body Mass Index 73.61 08/29/2023 8:48 AM PET STORE 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 Plan of Treatment Upcoming Encounters Date Type Department Care Team (Late st Contact Info) Description 12/28/2024 11:00 AM CDT Telemedicine [facility] [address] [place] [address] Rafael Narayanan DO [address] [place] [address] 01/13/2025 9:00 AM CDT Office Visit [address] [phone] Natalie Dueñas PA [address] [place] [address] 01/13/2025 10:30 AM CDT Nutrition/Bead Machine Operator [address] [phone] [place] [address] 02/07/2025 2:00 PM CDT Nurse/Clinic Staff Only [facility] [address] [place] [address] 02/08/2025 7:30 AM CDT Nurse/Clinic Staff Only [facility] [address] [place] [address] 03/01/2025 2:30 PM CDT Office Visit [facility] [address] [facility] [address] Jovani Alejandre MD [address] [facility] [address] Health Maintenance Due Date Last Done Comments [...] this topic Medical Devices Implanted Type Area Wharf Worker Device Identifier Shelf Expiration Date Model / Serial / Lot Mesh Ventral 6.1x10.1in Ventrio - [id number] Implanted:Qty: 1 on 10/21/2014 at [facility] N/A: Abdomen [employer] [id number]# / / [id number] Stent Uret [id number] Percuflex Hydroplus - [id number] Implanted:Qty: 1 on 08/08/2023 by Robert Galloway MD at [facility] Left: Ureter [facility] 01/29/2026 175-26 4 / / [id number] Stent Uret [id number] Percuflex Hydroplus - [id number] Implanted:Qty: 1 on 08/29/2023 by Becky Mukherjee MD at [facility] Left: Ureter [facility] 03/18/2026 175-263 / / [id number] Procedures Procedure Name Priority Date/Time Associated Diagnosis Comments SCAN-RADIOLOGY REPORT 12/23/2024 12:00 AM CDT CREATININE Routine 10/07/2024 11:21 AM CDT HTN (hypertension) Elevated serum creatinine WHITE BLOOD COUNT Routine 10/07/2024 11: 21 AM CDT Cellulitis of skin ANTI HCV Routine 01/20/2019 9:00 AM CDT Need for hepatitis C screening test from Last 3 Months or Most Recently Relevant to Health Maintenance Results * SCAN-RADIOLOGY REPORT (12/23/2024 12:00 AM CDT) Anatomical Region Laterality Modality Other us Scanner OTHER Final Result * WHITE BLOOD COUNT (10/07/2024 11:21 AM CDT) WHITE BLOOD CELL COUNT 8.6 3.8 - 10.8 Thousand/u L [email or web address] Blood BLOOD SPECIMEN / Unknown 10/07/2024 11:21 AM CDT 10/07/2024 11:22 AM CDT us Adei Shaqra DO HEMATOLOGY Final Result Performing Organization Address [facility]/ZIP Co de Phone Number [facility] [address] [place] [address], [place] [phone] [email or web address] [address] [place] [address] * (ABNORMAL) CREATININE (10/07/2024 11:21 AM CDT) [facility] CREATININE 1.51(H) 0.70 - 1.28 mg/dL [facility] EGFR 47(L) > OR = 60 mL/min/1.73 m2 [facility] Blood BLOOD SPECIMEN / Unknown 10/07/2024 11:21 AM CDT 10/07/2024 11:22 AM CDT Lauryn Jenaroanum DO CHEMISTRY Final Result Performing Organization Address [facility] de Phone Number [facility] [address] [place] [address], [facility] [address] [place] [address] * ANTI HCV (01/20/2019 9:00 AM CDT) [facility] HEPATITIS C ANTIBODY Non-React otis Non-React otis 01/20/2019 6:46 PM CDT [facility] Comment:Antibodies to HCV no t detected; does not exclude the possibility of exposure to HCV. Blood BLOOD SPECIMEN / Unknown Venipuncture / Unknown 01/20/2019 9:00 AM CDT 01/20/2019 9:52 AM CDT Maile Fuentes MD SEND OUTS Final Result Performing Organization Address [facility] [address]/ZIP Co de Phone Number [facility] [address] [place] [address], [place] from Last 3 Months or Most Recently Relevant to Health Maintenance Insurance BLUE [place] BLUE MR PB ONLY MEDICARE PART B HB ONLY [place] BLUE HB ONLY MEDICARE PART A HB ONLY UCARE MEDICARE ADVANTAGE MR Advance Directives Documents on File Type Date Recorded Patient Cuprous Chloride Operator Expl anation Healthcare Directive 08/08/2023 11:12 AM Healthcare Directive 02/03/2018 3:06 PM HE ALTHCARE DIRECTIVE, HONORING CHOICES [place], 01/14/18 * Full Code (Latest Code Status [...] 9:17 PM 10/22/2014 3:35 AM Care Teams Lcac Radar Operator/Navigator Relationship Specialty Start Date End Date Rafael Nar[place] [address] PCP - General Family Practice 03/05/23 Arsenio Colon MD Otolaryngology Surgery - Otolaryngology 07/16/[address] Registered Dietitian Health Associate 03/10/19 Morelia Zapata NP Consulting Physician Nurse Practitioner 03/10/19 Natalie Dueñas PA [address] [facility] [place] [address] Physician Child Adolescent Care 11/17/[address] [facility] [place] [address] Health Associate 11/17/24
== END 2024-12-23 08:30 | disposition home or self-care (01) ==
PROVIDERS: PCP Student in an Organized Health Care Education/Training Program; Visit Provider Family Medicine
DX: R53.1 Weakness (principal)
CPT/HCPCS: A0425; A0429

== ENCOUNTER 2024-12-23 09:36 | Emergency (ER) | payer MEDICARE, BC, SELFPAY ==
--- NOTE | 2024-12-23 09:40 | ED.GENADULT ---
HPI - General Adult General Time Seen by Provider: 09:40 Date Seen: 12/23/24 Chief complaint: Weakness Stated complaint: weakness Time Seen by Provider: 12/23/24 09:38 Source: patient, EMS, RN notes reviewed and old records reviewed Mode of arrival: EMS Limitations: no limitations History of Present Illness HPI narrative: This 79-year-old male is brought in by EMS after he called with episode of weakness. He was getting out of the shower, was moving to sit on the bench to dry himself off, sits on a bench after showering. He states his legs would not turn for him to sit on the bench. He did go to the ground reportedly but no injuries. EMS did note some old bruising on his left chest wall but the patient is unaware of any trauma there, is having no pain. Did not hit his head, no loss of consciousness, has no back pain. He just feels his legs have been getting progressively globally weak. He admits that he has gained significant weight, was hospitalized sometime ago and lost a lot of weight. It sounds as if he may have went to the fdc here in the hospital which is no longer in place. He was following a 1200 calorie diet and did lose a lot of weight. Since going home, he has progressively been having a poor diet, admits to ordering pizza, drinking pop again. EMS has significant concerns with this patient, they are going to be filing a vulnerable adult. His house is more disheveled since they were there in November. Patient admits he does not feel like he can care for himself. He does not have any home services, does have 2 vehicles at his house but is not driving right now. He is having difficulty moving around, difficulty with ADLs. He does have somebody that he pays himself to come into the house a few times a week to help clean himself, clean his skin folds. He denies feeling ill, no fevers, no cough or cold symptoms. Related Data Home Medications ?Medication ?Instructions ?Recorded ?Confirmed amlodipine 5 mg tablet 10 mg PO DAILY 12/30/22 12/23/24 losartan 100 mg tablet 100 mg PO DAILY 12/30/22 12/23/24 potassium chloride 10 mEq 10 meq PO DAILY 07/23/24 12/23/24 tablet,extended release(part/cryst) carvedilol 3.125 mg tablet 3.125 mg PO BID 12/23/24 12/23/24 mupirocin 2 % topical ointment 1 applic topical BID-TID 12/23/24 12/23/24 Previous Rx's ?Medication ?Instructions ?Recorded Lactobacillus acidophilus 0.5 mg 1,000 mmu cells PO TIDWM #90 tabs 01/21/23 (100 million cell) tablet nystatin 100,000 unit/gram topical 1 applic topical BID #60 grams 01/21/23 powder tamsulosin 0.4 mg capsule 0.4 mg PO HS #30 caps 01/21/23 torsemide 40 mg tablet 40 mg PO DAILY #30 tabs 07/26/24 Allergies Allergy/AdvReac Type Severity Reaction Status Date / Time No Known Drug Allergies Allergy Verified 12/23/24 09:53 Review of Systems Status of ROS: Reports: 6 or more systems reviewed and unremarkable except as noted in History and below [facility] Medical History Acute hypoxic respiratory failure ?J96.01 - Acute respiratory failure with hypoxia (ICD-10) Neck mass ?R22.1 - Localized swelling, mass and lump, neck (ICD-10) Complicated urinary tract infection ?N39.0 - Urinary tract infection, site not specified (ICD-10) Hypocalcemia ?E83.51 - Hypocalcemia (ICD-10) LESLI (acute kidney injury) ?N17.9 - Acute kidney failure, unspecified (ICD-10) HTN (hypertension) ?I10 - Essential (primary) hypertension (ICD-10) Advanced directives, counseling/discussion ?Z71.89 - Other specified counseling (ICD-10) Morbid obesity ?E66.01 - Morbid (severe) obesity due to excess calories (ICD-10) Right shoulder pain ?M25.511 - Pain in right shoulder (ICD-10) Leukocytosis ?D72.829 - Elevated white blood cell count, unspecified (ICD-10) Intertrigo ?L30.4 - Erythema intertrigo (ICD-10) Weakness ?R53.1 - Weakness (ICD-10) Lymphedema ?I89.0 - Lymphedema, not elsewhere classified (ICD-10) Urinary retention ?R33.9 - Retention of urine, unspecified (ICD-10) Arthritis of knee, left ?M17.12 - Unilateral primary osteoarthritis, left knee (ICD-10) Anasarca ?R60.1 - Generalized edema (ICD-10) Durable power of assistant city attorney for healthcare POLST (Physician Orders for Life-Sustaining Treatment) ?Z78.9 - Other specified health status (ICD-10) BRANDY (obstructive sleep apnea) ?G47.33 - Obstructive sleep apnea (adult) (pediatric) (ICD-10) Elevated blood uric acid level ?E79.0 - Hyperuricemia without signs of inflammatory arthritis and tophaceous disease (ICD-10) Impaired fasting glucose ?R73.01 - Impaired fasting glucose (ICD-10) Gout ?M10.9 - Gout, unspecified (ICD-10) Adenomatous colon polyp (~2015) ?D12.6 - Benign neoplasm of colon, unspecified (ICD-10) Ventral hernia ?K43.9 - Ventral hernia without obstruction or gangrene (ICD-10) Incarcerated umbilical hernia (~2014) ?K42.0 - Umbilical hernia with obstruction, without gangrene (ICD-10) Dyslipidemia ?E78.5 - Hyperlipidemia, unspecified (ICD-10) Hernia ?K46.9 - Unspecified abdominal hernia without obstruction or gangrene (ICD-10) Gallbladder attack ?K82.9 - Disease of gallbladder, unspecified (ICD-10) Surgical History H/O hernia repair (~2014) ?Z98.890 - Other specified postprocedural states (ICD-10) ?Z87.19 - Personal history of other diseases of the digestive system (ICD-10) Hx of cholecystectomy (~1985) ?Z90.49 - Acquired absence of other specified parts of digestive tract (ICD-10) H/O colonoscopy ?Z98.890 - Other specified postprocedural states (ICD-10) Family History Father Cardiovascular disease Myocardial infarction Mother High blood pressure Sister Sarcoma Social History Narrative: Lives in a newly built house that is accessible. 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 Worked for [employer]. Retired 10 years ago. What is your current living situation?: I presently have a place to live Problems where you live: no known problems Problems where you live details: none In the past 12 months, utilities in danger of being shut off: no In past 12 months, lack of transportation kept you from medical appts, meetings, work, or getting things needed for daily living: no In the past 12 mos, have been you worried that your food would run out before you had money to buy more?: never true In the past 12 mos, the food you bought just didn't last and you didn't have money to buy more?: never true Highest level of school completed/degree received: Associate degree: occupational, technical, vocational program Smoking Status: Never smoker Do you use any of these nicotine containing products: None Second hand tobacco smoke exposure: No How often do you have a drink containing alcohol: never How often do you have six or more drinks on one occasion: Never AUDIT-C Alcohol total score: 0 Non-prescribed substance use: denies use Caffeine: Yes How often does anyone, including family, friends and others, physically hurt you: never How often does anyone, including family, friends and others, insult or talk down to you: never How often does anyone, including family, friends and others, threaten you with harm: never How often does anyone, including family, friends and others, scream or curse at you: never service: No Exam Const: Vital Signs, click to edit/add: Vital Signs - 24 hr 12/23/24 09:47 12/23/24 09:50 12/23/24 12:04 Temperature 97.1 F L Pulse Rate [Pulse Oximeter] 59 L 49 L Respiratory Rate 24 16 Blood Pressure [Le ft Forearm] 125/54 L 137/58 L Pulse Oximetry 93 93 93 Oxygen Delivery Me thod Room Air Room Air The patient is alert and interactive, sitting in bed, very pleasant and conversive. Morbidly obese. Sclera clear conjugate gaze, face atraumatic. Neck is thick, fully mobile, no pain with range of motion. Has some dark bruising left anterolateral chest wall which is not tender, there is no underlying crepitus, no underlying chest wall pain. Lungs clear anteriorly, no tachypnea. CV regular rate and rhythm no murmur. Abdomen is obese but soft, nontender, body habitus makes any assessment of underlying masses or organomegaly difficult. His lower pannus obscures visualization of his genitalia. His lower extremities are thickened, no erythema. His groin folds are quite deep but do not appreciate any erythema at this time that is concerning for cellulitis. Documenting provider has reviewed patient's vital signs: yes Course Course ED Course: This 79-year-old male is brought in by ambulance with weakness in his legs but no evidence of illness. He notes functional weakness that is been progressive, do wonder if this could be obesity and generalized decline related. Will talk to the hospitalist right away, look at a chest x-ray, full complement of labs to ensure no new medical changes. EMS will be doing a vulnerable adult on him. Reevaluation(s) Time of Reevaluation #1: 10:41 Reevaluation #1: X-ray did report that they could not do a two view chest x-ray due to his obesity, his current bed is unable to fit into the x-ray room. It took 7 people to get him out of the ambulance in into the current bed. We do not feel it is safe for him to be transferring to a new bed that will fit into the x-ray room. Will try portable chest x-ray. He really is not having any significant chest symptoms but we will just do a portable. He is not having chest wall pain that would indicate fractures. I have already talked to the hospitalist, they have spoken with him. His goal is to come into the hospital to lose weight which is not a covered necessity for his insurance nor medically necessary. We have social media coordinator consult in to see what we may be can put in place. If he does want placement to a fdc, it will definitely be an [id number] payment situation. We will see what social services coordinator comes up with upon working with him. Ultimately if this patient really does not feel safe returning home we will observe that and see what we can do but he most definitely at this time does not have a hospitalize double condition meeting medical necessity. Time of Reevaluation #2: 11:28 Reevaluation #2: Hospitalist Kristin Ramirez did complete her consult, patient is to be discharged to home. Environmental Protection Officer evaluated patient, they have PT and OT set up for him. They have provided him a number for healthy food delivery. Patient is reported to have friends scheduled to check on him throughout the weekend. He will be discharged to home. Will update EMS. Time of Reevaluation #3: 11:49 Reevaluation #3: Have reviewed with patient that the hospitalist will not have a qualifying admitting diagnoses. If patient does tell me he is not safe to go home, he certainly can be put in on observation but this will not get him the 3 day qualifying stay to meet criteria for Medicare patent fdc stay. He is not able to pay for fdc he states. He tells me that he does not feel unsafe in his house. There is the question of will he be able to continue to ambulate. Regardless if he can not, this is not in admittable diagnosis and again we are still with the problem that he does not have a qualifying stay for fdc placement. He is wanting to go home. I have contacted EMS, updated them on the situation. They will have to call a bariatric truck for transfer. Vital Signs Vital signs: Initial Vital Signs Temperature 97.1 F L 12/23/24 09:47 Temperature Source Temporal Artery Scan 12/23/24 09:47 Pulse Rate 59 L 12/23/24 09:47 Respiratory Rate 24 12/23/24 09:47 Blood Pressure 125/54 L 12/23/24 09:47 Blood Pressure Mean 77 12/23/24 09:47 Pulse Oximetry 93 12/23/24 09:47 Oxygen Delivery Method Room Air 12/23/24 09:47 Vital Signs Temperature 97.1 F L 12/23/24 09:47 Pulse Rate 59 L 12/23/24 09:47 Respiratory Rate 24 12/23/24 09:47 Blood Pressure 125/54 L 12/23/24 09:47 Pulse Oximetry 93 12/23/24 09:47 Oxygen Delivery Method Room Air 12/23/24 09:47 Temperature 97.1 F L 12/23/24 09:47 Pulse Rate 49 L 12/23/24 12:04 Respiratory Rate 16 12/23/24 12:04 Blood Pressure 137/58 L 12/23/24 12:04 Pulse Oximetry 93 12/23/24 12:04 Oxygen Delivery Method Room Air 12/23/24 12:04 Medical Decision Making Lab Data Lab results reviewed: Yes I reviewed the patient's lab results Lab results narrative: TSH was normal in November. Labs: Lab Results 12/23/24 12/23/24 Range/Units 10:10 12:16 WBC 7.33 (4.50-11.00) K/uL RBC 4.48 (4.30-5.90) m/uL Hgb 12.4 L (13.5-17.5) gm/dL Hct 40.8 (37.0-53.0) % MCV 91 (80-100) fL MCH 28 (26-34) pg MCHC 30 L (32-36) gm/dL RDW Coeff of Rosalee 15.1 (11.5-15.5) % Plt Count 190 (140-440) K/uL Neut % (Auto) 76.5 H (42.0-72.0) % Lymph % (Auto) 13.0 L (20-44) % [place] % (Auto) 6.7 (0.0-11.0) % Eos % (Auto) 3.4 (0.0-7.0) % Baso % (Auto) 0.1 (0.0-3.0) % Neut # (Auto) 5.60 (1.7-7.0) K/uL Lymph # (Auto) 1.00 (0.90-2.90) K/uL [place] # (Auto) 0.50 (0.00-0.90) K/UL Eos # (Auto) 0.25 (0.00-0.50) K/uL Baso # (Auto) 0.01 (0.00-0.30) K/uL Abs Immat Gran (auto) 0.02 (0.00-0.30) K/uL Imm/Tot Granulo (auto) 0.3 % Sodium 142 (135-149) mmol/L Potassium 5.0 (3.6-5.1) mmol/L Chloride 105 (96-114) mmol/L Carbon Dioxide 32 (20-32) mmol/L Anion Gap 5 L (7-15) mEq/L BUN 22 (7-30) mg/dL Creatinine 1.4 (0.5-1.5) mg/dL Estimated Creat Clear 42.07 Estimated GFR 51 ml/min Glucose 106 (60-115) mg/dL Calcium 9.1 (8.4-10.6) mg/dL Magnesium 2.3 (1.5-2.6) mg/dL Total Bilirubin 0.7 (0.1-1.5) mg/dL AST 21 (12-35) U/L ALT 13 (4-50) U/L Alkaline Phosphatase 149 (40-150) U/L Troponin I < 0.01 (0.01-0.04) ng/mL NT-Pro-B Natriuret Pep 572 H (See Note) pg/mL Total Protein 7.3 (6.0-8.3) g/dL Albumin 3.6 (3.3-5.0) g/dL Procalcitonin 0.04 (<0.50) ng/mL Urine Color Yellow (Yellow) Urine Appearance Clear (Clear) Urine pH 5.5 (5.0-8.5) Ur Specific [place] 1.020 (1.000-1.030) Urine Protein Negative (Negative) Urine Glucose (UA) Negative (Negative) Urine Ketones Negative (Negative) Urine Blood Negative (Negative) Urine Nitrite Negative (Negative) Urine Bilirubin Negative (Negative) Urine Urobilinogen 0.2 (0.2-1.0) Ur Leukocyte Esterase Negative (Negative) Urine RBC 0-2 (0-2) Urine WBC 0-2 (0-5) Ur Squamous Epith Cells None (None-Few) Urine Bacteria None (None) SARS-CoV-2 (PCR) Negative SARS-CoV-2 (Negative) Influenza Type A (PCR) Negative PCR FLU A (Negative) Influenza Type B (PCR) Negative PCR FLU B (Negative) RSV (PCR) Negative PCR RSV (Negative) Imaging Data Chest x-ray: Attestation: I have reviewed the pertinent imaging results. Radiologist's impression: Patient: CAROL COX Facility:?[facility] Patient ID:?[id number] Site Patient ID:?[id number]. Site :?[id number] Study:?XRay-Chest 1V PORTABLE-12/23/2024 11:12:25 AM Ordering Physician:Aaron Flanagan Final Report: Indication: Weakness, left anterior chest wall bruising Technique: Chest 1 view Comparison: Chest x-ray 07/23/2024 Findings/Impression: Cardiovascular and mediastinum: Mild cardiomegaly with aortic tortuosity. Lungs and pleural space: No pleural effusion or pneumothorax. No focal consolidation. Mild pulmonary cephalization. Bones and soft tissues: No acute findings. Dictated by Zheng Marques MD @ 12/23/2024 11:21:08 AM (Electronic Signature) ECG Data Attestation: I personally reviewed and interpreted this ECG as follows: (Sinus bradycardia, 50 beats per minute. Right bundle branch block, intra conduction delay elsewhere, nonspecific. No change from prior EKG in October.) Prior ECG tracings: available for review Discharge Plan Discharge Clinical Impression: Bilateral leg weakness, Morbid obesity Patient Disposition: Home, Self-Care Condition: Stable Instructions: Weight Management (ED), Weakness (ED) Additional Instructions: Environmental Protection Officer has set up physical therapy and occupational therapy, highly recommend that you follow through with this. Try a to work for healthier diet, social services coordinator also provided you with the phone number for the healthy food delivery. Unfortunately, hospitalization for weight loss is not covered and the hospitalist is not finding any criteria for admission. Recommend that you follow-up with your primary care provider as soon as possible, recommend discussion of weight loss therapies with them. Activity Level: Activity as Tolerated Prescriptions: No Action amlodipine 5 mg tablet 10 mg PO DAILY losartan 100 mg tablet 100 mg PO DAILY tamsulosin 0.4 mg Capsule 0.4 mg PO HS Qty: 30 0RF nystatin 100,000 unit/gram Powder 1 applic topical BID Qty: 60 0RF Lactobacillus acidophilus 0.5 mg (100 million cell) Tablet 1,000 mmu cells PO TIDWM Qty: 90 0RF potassium chloride 10 mEq tablet,ER particles/crystals 10 meq PO DAILY torsemide 40 mg tablet 40 mg PO DAILY Qty: 30 0RF carvedilol 3.125 mg tablet 3.125 mg PO BID mupirocin 2 % ointment 1 applic topical BID-TID Follow Up/Referrals: EVERTON DURON DO [Primary Care Provider, Family Practice] Stand Alone Forms: MyHealth Info Instructions
--- OUTSIDE RECORDS SUMMARY | 2024-12-23 09:41 | XMS_ITS ---
Author Organization [employer] Support Name Relationship Address Phone Xavier Damon Guarantor [address] [place] [address] Xavier Damon Agent [address], [place] [id number] LaurenminaAltagracia Emergency Contact Unknown [phone] IngSid enriquez Emergency Contact Unknown [phone] Allergies and adverse reactions No Known Allergies Immunizations Immunization Status Vaccine Details Vaccine Code CodeSystem Date Notes TB 2 Step Mantoux Skin Test completed tuberculin skin test; unspecified formulation lotNumber: [id number] expiry: 03/10/2024 Mfg: PAR Pharm Given Left Forearm intradermally Step 2 of Multi-step with next step required 98 CVX created date: 02/06/2023 consent date: 02/06/2023 administere d date: 02/04/2023 TB 2 Step Mantoux Skin Test completed tuberculin skin test; unspecified formulation lotNumber: [id number] expiry: 03/10/2024 Mfg: PAR Pharmaceutical Given 0.1 [...] CodeSystem Concern Status 1 GOUT, UNSPECIFIED 01/21/[address] active 2 MORBID (SEVERE) OBESITY DUE TO EXCESS CALORIES 01/21/[address] active 3 STRAIN OF MUSCLE(S) AND TENDON(S) OF THE ROTATOR CUFF OF RIGHT SHOULDER, SUBSEQUENT ENCOUNTER 01/21/[address] active 4 UMBILICAL HERNIA WITH OBSTRUCTION, WITHOUT GANGRENE 01/21/[address] active 5 UNILATERAL PRIMARY OSTEOARTHRITIS, LEFT KNEE 01/21/[address] active 6 VENTRAL HERNIA WITHOUT OBSTRUCTION OR GANGRENE 01/21/[address] active Reason for Referral No Reasons for Referral Entered Social History Social History Observation Description Start Date End Date Code Code System Current Smoking Status Tobacco smoking consumption unknown 596214694 SNOMED CT Sex Assigned At Male 1945 51851-0 [facility] Gender Identity Vital Signs Code Code System Vitals Name Values and Units Timing Information 9279-1 [facility] Respiratory Rate Value=18.0 Units=/m in 02/20/2023 8462-4 [facility] Blood Pressure-Diastolic Value=65 Un its=mmHg 02/20/2023 8480-6 [facility] Blood Pressure-Systolic Zssui=686 Un its=mmHg 02/20/2023 8310-5 [facility] Body Temperature Value=98.0 Units= F 02/20/2023 8867-4 [facility] Heart rate Value=55.0 Units=/min 63293-9 [facility] O2 % BldC Oximetry Value=96.0 Units= % 02/20/2023 09442-3 [facility] Pain Level Value=6.0 02/20/2023 20257-6 [facility] Weight Pbywu=615.5 Units=Lbs 8302-2 LOINC Height Value=68.0 Units=Inches 01/21/2023
--- OUTSIDE RECORDS SUMMARY | 2024-12-23 09:41 | XMS_ITS | Clinical Summary ---
Author Organization [facility] Address [address] [place] [address] Care Team Providers Care Membership Administrator Name Role Phone Arsenio Colon MD Unavailable Evelin Barraza RD Unavailable Unavailable Morelia Zapata NP Unavailable [phone] Rafael Narayanan DO Primary Care Provider Natalie Dueñas Unavailable [phone] Unavailable Allergies No known active allergies Medications Walker - 4 wheelsIndicati ons:Difficulty walking With seat. For home use. Length of need: 99 1 Device 0 12/24/19 14 Active medication order composerIndica tions:Weakness generalized Special Agent/grippe r 1 Device 0 11/02/19 15 Active durable medical equipment (DME)Indicatio ns:Morbid (severe) obesity due to excess calories (HC),Physical deconditioning ,Difficulty walking XL wheel chair 1 Each 03/05/20 23 Active naproxen (Aleve) 220 mg tablet Take 220 mg by mouth every 12 hours if needed. Active losartan (COZAAR) 100 mg tabletIndicati ons:HTN (hypertension) TAKE ONE TABLET BY MOUTH EVERY DAY 90 Tablet 3 02/10/20 24 Active Nystop powderIndicati ons:Intertrigo Apply 1 Strip topically to affected area(s) two times daily. 60 g 11 06/22/20 24 Active amLODIPine (NORVASC) 5 mg tabletIndicati ons:HTN (hypertension) Take 2 Tablets (10 mg) by mouth once daily. 180 Tablet 3 06/22/20 24 Active carvediloL (COREG) 3.125 mg tabletIndicati ons:Acute diastolic heart failure (HC),HTN (hypertension) Take 1 Tablet (3.125 mg) by mouth two times daily with meals. 180 Tablet 3 08/03/19 25 Active torsemide 20 mg tabletIndicati ons:Peripheral edema Take 1 Tablet (20 mg) by mouth once daily. 90 Tablet 10/01/19 25 Active Zinc Oxide 13 % topical creamIndicatio ns:Intertrigo, Excess skin Apply 1 Application topically to affected area(s) two times daily. 113 g 10/08/19 25 025 Active potassium chloride 10 mEq extended-relea se tablet (part/cryst)In dications:Hypo kalemia TAKE ONE TABLET BY MOUTH ONCE DAILY WITH A MEAL. 90 Tablet 3 12/08/19 25 Active mupirocin 2% ointmentIndica tions:Intertri go APPLY TOPICALLY TO AFFECTED AREA(S) 3 TIMES DAILY FOR 5 DAYS 30 g 3 12/08/19 25 Active tamsulosin 0.4 mg capsuleIndicat ions:BPH with urinary obstruction Take 1 Capsule (0.4 mg) by mouth once daily after a meal. 90 Capsule 2 12/08/19 25 Active potassium chloride (KLOR-CON M10) 10 mEq extended-relea se tablet (part/cryst)In dications:Hypo kalemia Take 1 Tablet (10 mEq) by mouth once daily with a meal. 90 Tablet 3 12/04/19 24 025 Discontinued tamsulosin (FLOMAX) 0.4 mg capsuleIndicat ions:BPH with urinary obstruction Take 1 Capsule (0.4 mg) by mouth once daily after a meal. 90 Capsule 3 12/04/19 24 025 Discontinued mupirocin 2% ointment 08/06/19 25 025 Discontinued tamsulosin 0.4 mg capsuleIndicat ions:BPH with urinary obstruction TAKE ONE CAPSULE BY MOUTH ONCE DAILY AFTER A MEAL. 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 Healthcare maintenance 04/28/2012 Overview (04/28/2012): Colonoscopy 2005 - repeat in 10 years Morbid (severe) obesity due to excess calories 0 12/19/2009 Dyslipidemia (high LDL; low HDL) 12/19/2009 HTN (hypertension) 01/21/2007 Resolved Problems Problem Noted Date Diagnosed Date Resolved Date SBO (small bowel obstruction) 10/21/2014 12/31/2016 Overview (10/21/2014): In umbilical hernia Small bowel ischemia 10/21/2014 017 Lactic acid acidosis 10/21/2014 017 Encounters Date Type Department Care Team Description 12/06/2024 Refill [facility] [address] [place] [address] Rafael Narayanan, Refill Request (Potassium Chloride, Tamsulosin, Mupirocin) 11/17/2024 Telephone [facility] [address] [place] [address] Pcp, No Appointment (HST RESCHEDULE ) 10/07/2024 10:35 AM CDT Office Visit [facility] [address] [facility] [place] [address] Rafael Narayanan, Cellulitis; Derm Problem (Skin folds ) 10/07/2024 Travel 10/01/2024 Telephone [facility] [address] [place] [address] Rafael Narayanan DO Derm Problem 10/01/2024 Nurse Triage [facility] [address] [place] [address] Rafael Narayanan DO Rash 09/27/2024 Refill [facility] [address] [place] [address] Rafael Narayanan DO Refill Request; TORSEMIDE from Last 3 Months Immunizations Immunization Administration [...] on file Legal Sex Male 5:24 AM [employer] Gender Identity Not on file Sexual Orientation [...] 170.2 cm (5' 7) 08/29/2023 8:48 AM [employer] Body Mass Index 73.61 08/29/2023 8:48 AM [employer] Plan of Treatment Upcoming Encounters Date Type Department Care Team (Late st Contact Info) Description 12/28/2024 11:00 AM CDT Telemedicine [facility] [address] [place] [address] Rafael Narayanan DO [address] [place] [address] 01/13/2025 9:00 AM CDT Office Visit [address] [address] Natalie Dueñas PA [address] [place] [address] 01/13/2025 10:30 AM CDT Nutrition/Linux System Admin [address] [address] [place] [address] 02/07/2025 2:00 PM CDT Nurse/Clinic Staff Only [facility] [address] [place] [address] 02/08/2025 7:30 AM CDT Nurse/Clinic Staff Only [facility] [address] [place] [address] 03/01/2025 2:30 PM CDT Office Visit [facility] [address] [facility] [address] Jovani Alejandre MD [address] [place] [address] Health Maintenance Due Date Last Done Comments Zoster (shingles) series for age 50+ (2 of 3) 06/23/2012 04/28/2012 RSV vaccine for adults or (1 - 1-dose 75+ series) 2021 BMI (ht and wt on same day) for age 18+ 07/25/2024 07/25/2023, 05/13/2022, 04/30/2021, Additional history exists COVID-19 vaccine series () 12/21/2024 06/22/2024, 05/15/2023, 05/13/2022, Additional history exists Depression screening for age 12+ 06/22/2025 06/22/2024, 05/16/2023, 05/15/2023, Additional history exists Medicare Wellness for age 65+ 06/23/2025 06/22/2024, [...] this topic Medical Devices Implanted Type Area Budget Assistant Device Identifier Shelf Expiration Date Model / Serial / Lot Mesh Ventral 6.1x10.1in Ventrio - [id number] Implanted:Qty: 1 on 10/21/2014 at [facility] N/A: Abdomen [employer] [id number] / / [id number] Stent Uret [id number] Percuflex Hydroplus - [id number] Implanted:Qty: 1 on 08/08/2023 by Robert Galloway MD at [facility] Left: Ureter [facility] 01/29/2026 [id number] / / [id number] Stent Uret [id number] Percuflex Hydroplus - [id number] Implanted:Qty: 1 on 08/29/2023 by Becky Mukherjee MD at [facility] Left: Ureter [facility] 03/18/2026 [id number] / / [id number] Procedures Procedure Name Priority Date/Time Associated Diagnosis Comments CREATININE Routine 10/07/2024 11:21 AM CDT HTN (hypertension) Elevated serum creatinine WHITE BLOOD COUNT Routine 10/07/2024 11: 21 AM CDT Cellulitis of skin ANTI HCV Routine 01/20/2019 9:00 AM CDT Need for hepatitis C screening test from Last 3 Months or Most Recently Relevant to Health Maintenance Results * WHITE BLOOD COUNT (10/07/2024 11:21 AM CDT) Pathologist [facility] WHITE BLOOD CELL COUNT 8.6 3.8 - 10.8 Thousand/u L [facility] Blood BLOOD SPECIMEN / Unknown 10/07/2024 11:21 AM CDT 10/07/2024 11:22 AM CDT us Adei Jenaroqra DO HEMATOLOGY Final Result [facility] [facility] [address] [place] [address], [facility] [address] [place] [address] * (ABNORMAL) CREATININE (10/07/2024 11:21 AM CDT) [facility] CREATININE 1.51(H) 0.70 - 1.28 mg/dL [facility] EGFR 47(L) > OR = 60 mL/min/1.73 m2 [facility] Blood BLOOD SPECIMEN / Unknown 10/07/2024 11:21 AM CDT 10/07/2024 11:22 AM CDT Rafael Narayanan DO CHEMISTRY Final Result [employer] [facility] [address] [place] [address], [facility] [address] [place] [address] * ANTI HCV (01/20/2019 9:00 AM CDT) HEPATITIS C ANTIBODY Non-React otis Non-React otis 01/20/2019 6:46 PM CDT [facility] [employer] [facility] TR[facility]ORATORY Comment:Antibodies to HCV no t detected; does not exclude the possibility of exposure to HCV. Blood BLOOD SPECIMEN / Unknown Venipuncture / Unknown 01/20/2019 9:00 AM CDT 01/20/2019 9:52 AM CDT Maile Fuentes MD SEND OUTS Final Result Performing Organization Address City/[facility]/ZIP Co de Phone Number [facility] 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 Healthcare Directive 08/08/2023 11:12 AM Healthcare Directive 02/03/2018 3:06 PM HE ALTHCARE DIRECTIVE, [employer] [place], 01/14/18 * Full Code (Latest Code Status [...] 9:17 PM 10/22/2014 3:35 AM Care Teams Membership Administrator Relationship Specialty Start Date End Date Rafael Narayanan [place] [address] PCP - General Family Practice 03/05/23 Arsenio Colon MD Otolaryngology Surgery - Otolaryngology 07/16/[address] Registered Dietitian Senior Manufacturing Technician 03/10/19 Morelia Zapata NP Consulting Physician Nurse Practitioner 03/10/19 Natalie Dueñas PA [address] [place] [address] Physician Metal Mockup Maker 11/17/[address] [place] [address] Senior Manufacturing Technician 11/17/24
[2024-12-23 09:47] VITALS: BP 125/54; PULSE 59; RESP 24; TEMP 36.2; O2SAT 93; BMI 82.1
[2024-12-23 09:50] VITALS: O2SAT 93
--- NOTE | 2024-12-23 09:50 | CRLHL7_ITS ---
For Patients: As a result of the Century Cures Act, medical imaging exams and procedure reports are released immediately into your electronic medical record. You may view this report before your referring provider. If you have questions, please contact your health care provider. Indication: Weakness, left anterior chest wall bruising Technique: Chest 1 view Comparison: Chest x-ray 07/23/2024 Findings/Impression: Cardiovascular and mediastinum: Mild cardiomegaly with aortic tortuosity. Lungs and pleural space: No pleural effusion or pneumothorax. No focal consolidation. Mild pulmonary cephalization. Bones and soft tissues: No acute findings. Dictated by Zheng Marques MD @ 12/23/2024 11:21:08 AM (Electronically Signed)
[2024-12-23 10:14] LABS: Basophils Absolute Auto 0.01 K/uL (0.00-0.30); Basophils Percent Auto 0.1 % (0.0-3.0); Eosinophils Absolute Auto 0.25 K/uL (0.00-0.50); Eosinophils Percent Auto 3.4 % (0.0-7.0); Hematocrit 40.8 % (37.0-53.0); Hemoglobin* 12.4 gm/dL (13.5-17.5); Immature Granulocytes Abs Auto 0.02 K/uL (0.00-0.30); Immature Granulocytes Pct Auto 0.3 %; Mean Corpuscular HGB Conc 30 gm/dL (32-36); Mean Corpuscular Hemoglobin 28 pg (26-34); Mean Corpuscular Volume 91 fL (80-100); Monocytes Percent Auto 6.7 % (0.0-11.0); Neutrophils Percent Auto 76.5 % (42.0-72.0); Platelet Count* 190 K/uL (140-440); RDW Coefficient of Variation % 15.1 % (11.5-15.5); Red Blood Count 4.48 m/uL (4.30-5.90); White Blood Count* 7.33 K/uL (4.50-11.00)
[2024-12-23 10:15] LABS: Slide Review Reflex No
[2024-12-23 10:26] LABS: Albumin* 3.6 g/dL (3.3-5.0); Chloride* 105 mmol/L (96-114); Sodium* 142 mmol/L (135-149)
[2024-12-23 10:29] LABS: Alanine Aminotransferase* 13 U/L (4-50); Alkaline Phosphatase* 149 U/L (40-150); Anion Gap 5 mEq/L (7-15); Aspartate Amino Transferase* 21 U/L (12-35); Bilirubin Total* 0.7 mg/dL (0.1-1.5); Blood Urea Nitrogen* 22 mg/dL (7-30); Calcium* 9.1 mg/dL (8.4-10.6); Carbon Dioxide* 32 mmol/L (20-32); Creatinine* 1.4 mg/dL (0.5-1.5); Est. Creatinine Clearance* 42.07; Estimated Glomerular Filt Rate 51 ml/min; Glucose* 106 mg/dL (60-115); Total Protein* 7.3 g/dL (6.0-8.3)
[2024-12-23 10:30] LABS: Magnesium* 2.3 mg/dL (1.5-2.6)
[2024-12-23 10:46] LABS: Procalcitonin* 0.04 ng/mL (<0.50)
[2024-12-23 10:48] LABS: NT Pro B Type NatriureticPept* 572 pg/mL (See Note); Troponin I* < 0.01 ng/mL (0.01-0.04)
[2024-12-23 10:58] LABS: PCR FLU A Negative PCR FLU A (Negative); PCR FLU B Negative PCR FLU B (Negative); PCR RSV Negative PCR RSV (Negative); SARS PCR* Negative SARS-CoV-2 (Negative)
--- OUTSIDE RECORDS SUMMARY | 2024-12-23 11:11 | XMS_ITS ---
Author Organization [employer] Support Name Relationship Address Phone Xavier Damon Guarantor [address] [place] [address] Xavier Damon Agent [address] [place], [place] [id number] LaurenminaAltagracia Emergency Contact Unknown IngSid enriquez Emergency Contact Unknown [phone] Allergies and adverse reactions No Known Allergies Immunizations Immunization Status Vaccine Details Vaccine Code CodeSystem Date Notes TB 2 Step Mantoux Skin Test completed tuberculin skin test; unspecified formulation lotNumber: [id number] expiry: 03/10/2024 Mfg: PAR Pharm Given Left Forearm intradermally Step 2 of Multi-step with next step required 98 CVX created date: 02/06/2023 consent date: 02/06/2023 administere d date: 02/04/2023 TB 2 Step Mantoux Skin Test completed tuberculin skin test; unspecified formulation lotNumber: [id number] expiry: 03/10/2024 Mfg: PAR [employer] Given 0.1 [...] CodeSystem Concern Status 1 GOUT, UNSPECIFIED 01/21/[address] active 2 MORBID (SEVERE) OBESITY DUE TO EXCESS CALORIES 01/21/[address] active 3 STRAIN OF MUSCLE(S) AND TENDON(S) OF THE ROTATOR CUFF OF RIGHT SHOULDER, SUBSEQUENT ENCOUNTER 01/21/[address] active 4 UMBILICAL HERNIA WITH OBSTRUCTION, WITHOUT GANGRENE 01/21/[address] active 5 UNILATERAL PRIMARY OSTEOARTHRITIS, LEFT KNEE 01/21/[address] active 6 VENTRAL HERNIA WITHOUT OBSTRUCTION OR GANGRENE 01/21/[address] active Reason for Referral No Reasons for Referral Entered Social History Social History Observation Description Start Date End Date Code Code System Current Smoking Status Tobacco smoking consumption unknown 649587372 SNOMED CT Sex Assigned At Male 1945 [address]69-2 [facility] Gender Identity Vital Signs Code Code System Vitals Name Values and Units Timing Information 9279-1 [facility] Respiratory Rate Value=18.0 Units=/m in 02/20/2023 8462-4 [facility] Blood Pressure-Diastolic Value=65 Un its=mmHg 02/20/2023 8480-6 [facility] Blood Pressure-Systolic Taspo=261 Un its=mmHg 02/20/2023 8310-5 [facility] Body Temperature Value=98.0 Units= F 02/20/2023 8867-4 [facility] Heart rate Value=55.0 Units=/min 32593-0 [facility] O2 % BldC Oximetry Value=96.0 Units= % 02/20/2023 45246-7 [facility] Pain Level Value=6.0 02/20/2023 97382-7 [facility] Weight Bizje=387.5 Units=Lbs 8302-2 LOINC Height Value=68.0 Units=Inches 01/21/2023
--- NOTE | 2024-12-23 11:44 | PC.SOCIAL ---
Addendum entered by YOANA Cordero 12/23/24 12:46: Social work: Faxed note, face sheet and [id number] home care order form to [facility] for follow up. Original Note: Met with pt. with the hospitalist to discuss discharge plans. Pt. lives alone in his own home and has someone assist him with ADL's a few times a week. Pt. is 540lb. Pt. has had [facility] multiple times in the past and likes the staff. Discussed shelter placement. Pt. hates the place he was sent to a couple of year ago which was [facility]. Discussed that nursing homes nursing homes that accept bariatric patients are very limited. Pt. only wants a shelter if his insurance will pay for it with a 3-day stay. Pt. has an appointment set up with his primary next week and with Carmen in [facility] in a month for a weight loss assessment. Pt. states he has just been ordering pizza's and needs to find a healthier alternative. Gave pt. a list of area meal delivery options and suggested MOMS meals which pt. plans to look into and call. Called [facility] and they are booked and cannot accept a new patient. [employer] @ [phone], fax#[phone] is able to accept a referral for a new patient for PT and OT. Pt. also has friends and a neighbor lined up to check on him through out the day. Updated patient's nurse to fax therapy orders over to [employer] when the physician writes the orders and dictates the final ED report.
[2024-12-23 12:04] VITALS: BP 137/58; PULSE 49; RESP 16; O2SAT 93
[2024-12-23 12:21] LABS: Appearance Urine Clear (Clear); Bilirubin Urine Negative (Negative); Blood Urine Negative (Negative); Color Urine Yellow (Yellow); Glucose Urine Negative (Negative); Ketones Urine Negative (Negative); Leukocyte Esterase Urine Negative (Negative); Nitrite Urine Negative (Negative); Protein Urine Negative (Negative); Urobilinogen Urine 0.2 (0.2-1.0); pH Urine 5.5 (5.0-8.5)
[2024-12-23 12:32] LABS: RBC Urine 0-2 (0-2); WBC Urine 0-2 (0-5)
--- NOTE | 2024-12-23 15:38 | W.PM.CROSSCO ---
Subjective Subjective Date Seen: 12/23/24 Interval history: Patient brought to the ED after fall at home. Initial concern was unsafe to return to home. In reviewing EMR, CBC and BMP unremarkable, UA unremarkable, troponin < 0.01, EKG unchanged from previous. Concerns that due to patient's obesity he was at risk for further falls. Patient's weight has been stable around 245 kg for out least the last 6 months. Patient tells me he has benches every 15 ft or so in his home so he can sit and rest. Admits he previously lost weight while in the hospital but then gained it back in rehab because they served bad food. He admits he orders pizza at home for convenience. Ambulatory with a walker. Feels as though his legs have been more fatigued over the last 5-6 weeks. Has an upcoming appointment for weight management options. Previously had PT/OT in his home and found this helpful. Previously had wound cares in his home, his cellulitis and intertrigo in all rashes have since cleared up. Patient tells me his hope is that he could be hospitalized to lose weight. When informed this is not an appropriate medical need for hospitalization, he asks if he can get have weight loss shot in the ER. Meme, social sciences department chair, at bedside. Discusses reinstating home therapies and suggests order delivery of healthy home meals. Option for assisted placement would be self pay, [phone] dollars per month. patient reports he cannot afford this. Objective Objective Data Details: Lying in bed. Morbidly obese. Very pleasant, conversant. Alert and oriented Assessment and Plan Assessment and plan (1) Morbid obesity: Problem comment: Patient has outpatient PCP support and upcoming weight management consult. career services assistant has provided him with a phone number to call for delivery of healthy meals. Status: Acute (2) Bilateral leg weakness: Problem comment: career services assistant able to reinstate home therapies. Patient reports he has lined up friends to assist him over the next several days at home. Status: Acute Plan Discussed recommendations with ED provider. Total Time Spent Total Time Spent: Today I spent 30 minutes seeing the patient, reviewing Expanse and EPIC notes/diagnostics, discussing the care plan with our care time that includes social work, PT/OT, pharmacy, RT, senior care and documenting my impressions and plan in the medical record.
== END 2024-12-23 14:59 | disposition home or self-care (01) ==
PROVIDERS: Emergency Provider Family Medicine; PCP Student in an Organized Health Care Education/Training Program
DX: R53.1 Weakness (principal); E66.01 Morbid (severe) obesity due to excess calories
CPT/HCPCS: 36415; 71045; 80053; 81001; 83735; 83880; 84145; 84484; 85025; 87631; 93005; 94761; 99284; 99285

== ENCOUNTER 2024-12-23 14:40 | Outpatient (CLI) | payer MEDICARE, BC, SELFPAY ==
--- OUTSIDE RECORDS SUMMARY | 2006-02-14 03:22 | XMS_ITS | Continuity of Care Document ---
Author Organization [facility] Address [address] [address] [place] [address] Phone Care Team Providers Care Windows Server Administrator Name Role Phone Unavailable Unavailable Unavailable Procedures Procedure Date Colonoscopy Flex; Dx (mar Pro) Advance Directives Directive Yes / No Effective Date File Name No Information Encounters Encounter Description Practice Location Reason(s) For Visit Diagnoses Date Provider Providers Copied on Encounter [facility], [address] [address], [place], [place], [id number], tel:[phone] [facility] No Information No Information Referring Provider: Jas Lewis MD M, Richard Arce , [place], [address]. tel:[phone] Family History Family Member Type Diagnosis Age At Onset No Information Payers Payer name Insurance type Covered alliance party ID Authoriza tiaman(s) Blue Cross Of [facility] [id number] Social History Type Description Quantity Date Captured Comments Sex Male Smoking Status No Information Chief Complaint And Reason For Visit No Information Reason For Referral Reason For Referral No Information History Of Present Illness Encounter Date Complaint History Of Prese nt Illness No Information Functional Status Date Functional Assessmen t No Information Instructions Date Instruction Additional Infor mation No Information Assessments Type Assessment Date No Information Patient Care Teams Name Effective Dates (start - stop) Status Members No Information
--- OUTSIDE RECORDS SUMMARY | 2006-02-14 03:22 | XMS_ITS | Continuity of Care Document ---
Author Organization [facility] Address [address] [address] [place] [address] Phone Care Team Providers Care Regulatory Compliance Coordinator Name Role Phone Unavailable Unavailable Unavailable Procedures Procedure Date Colonoscopy Flex; Dx (mar Pro) Advance Directives Directive Yes / No Effective Date File Name No Information Encounters Encounter Description Practice Location Reason(s) For Visit Diagnoses Date Provider Providers Copied on Encounter [facility], [address] [address], [place], [place], [id number], tel:[phone] [facility] No Information No Information Referring Provider: Jas Lewis MD M, Richard Arce , [place], [address]. tel:[phone] Family History Family Member Type Diagnosis Age At Onset No Information Payers Payer name Insurance type Covered republican ID Authoriza tiaman(s) Blue Cross Of [facility] [id number] Social History Type Description Quantity Date Captured [...]
--- OUTSIDE RECORDS SUMMARY | 2024-12-24 15:47 | XMS_ITS ---
Author Organization [employer] Support Name Relationship Address Phone Xavier Damon Guarantor [address] [place], [place] [id number] Xavier Damon Agent [address] [place], [place] [phone] LaurenminaAltagracia Emergency Contact Unknown IngSid enriquez Emergency Contact Unknown Allergies and adverse reactions No Known Allergies Immunizations Immunization Status Vaccine Details Vaccine Code CodeSystem Date Notes TB 2 Step Mantoux Skin Test completed tuberculin skin test; unspecified formulation lotNumber: [id number] expiry: 03/10/2024 Mfg: PAR Pharm Given Left Forearm intradermally Step 2 of Multi-step with next step required 98 CVX created date: 02/06/2023 consent date: 02/06/2023 administere d date: 02/04/2023 TB 2 Step Mantoux Skin Test completed tuberculin skin test; unspecified formulation lotNumber: [id number] expiry: 03/10/2024 Mfg: PAR Pharmaceutical Given 0.1 [...] CodeSystem Concern Status 1 GOUT, UNSPECIFIED 01/21/[address] active 2 MORBID (SEVERE) OBESITY DUE TO EXCESS CALORIES 01/21/[address] active 3 STRAIN OF MUSCLE(S) AND TENDON(S) OF THE ROTATOR CUFF OF RIGHT SHOULDER, SUBSEQUENT ENCOUNTER 01/21/[address] active 4 UMBILICAL HERNIA WITH OBSTRUCTION, WITHOUT GANGRENE 01/21/[address] active 5 UNILATERAL PRIMARY OSTEOARTHRITIS, LEFT KNEE 01/21/[address] active 6 VENTRAL HERNIA WITHOUT OBSTRUCTION OR GANGRENE 01/21/[address] active Reason for Referral No Reasons for Referral Entered Social History Social History Observation Description Start Date End Date Code Code System Current Smoking Status Tobacco smoking consumption unknown 456498947 SNOMED CT Sex Assigned At Male 1945 97010-4 [facility] Gender Identity Vital Signs Code Code System Vitals Name Values and Units Timing Information 9279-1 [facility] Respiratory Rate Value=18.0 Units=/m in 02/20/2023 8462-4 [facility] Blood Pressure-Diastolic Value=65 Un its=mmHg 02/20/2023 8480-6 [facility] Blood Pressure-Systolic Paynp=702 Un its=mmHg 02/20/2023 8310-5 [facility] Body Temperature Value=98.0 Units= F 02/20/2023 8867-4 [facility] Heart rate Value=55.0 Units=/min 95299-0 [facility] O2 % BldC Oximetry Value=96.0 Units= % 02/20/2023 79485-4 [facility] Pain Level Value=6.0 02/20/2023 68133-6 [facility] Weight Uwlje=837.5 Units=Lbs 8302-2 LOINC Height Value=68.0 Units=Inches 01/21/2023
--- OUTSIDE RECORDS SUMMARY | 2024-12-25 00:16 | XMS_ITS ---
Author Organization [employer] Support Name Relationship Address Phone Xavier Damon Guarantor [address] [place], [place] [phone] Xavier Damon Agent [address] [place], [place] [phone] LaurenminaAltagracia Emergency Contact Unknown [phone] IngSid enriquez Emergency Contact Unknown [phone] Allergies and adverse reactions No Known Allergies Immunizations Immunization Status Vaccine Details Vaccine Code CodeSystem Date Notes TB 2 Step Mantoux Skin Test completed tuberculin skin test; unspecified formulation lotNumber: [id number] expiry: 03/10/2024 Mfg: PAR Pharm Given Left Forearm intradermally Step 2 of Multi-step with next step required 98 CVX created date: 02/06/2023 consent date: 02/06/2023 administere d date: 02/04/2023 TB 2 Step Mantoux Skin Test completed tuberculin skin test; unspecified formulation lotNumber: [id number] expiry: 03/10/2024 Mfg: PAR Pharmaceutical Given 0.1 [...] CodeSystem Concern Status 1 GOUT, UNSPECIFIED 01/21/[address] active 2 MORBID (SEVERE) OBESITY DUE TO EXCESS CALORIES 01/21/[address] active 3 STRAIN OF MUSCLE(S) AND TENDON(S) OF THE ROTATOR CUFF OF RIGHT SHOULDER, SUBSEQUENT ENCOUNTER 01/21/[address] active 4 UMBILICAL HERNIA WITH OBSTRUCTION, WITHOUT GANGRENE 01/21/[address] active 5 UNILATERAL PRIMARY OSTEOARTHRITIS, LEFT KNEE 01/21/[address] active 6 VENTRAL HERNIA WITHOUT OBSTRUCTION OR GANGRENE 01/21/[address] active Reason for Referral No Reasons for Referral Entered Social History Social History Observation Description Start Date End Date Code Code System Current Smoking Status Tobacco smoking consumption unknown 468445634 SNOMED CT Sex Assigned At Male 1945 28557-2 [facility] Gender Identity Vital Signs Code Code System Vitals Name Values and Units Timing Information 9279-1 [facility] Respiratory Rate Value=18.0 Units=/m in 02/20/2023 8462-4 [facility] Blood Pressure-Diastolic Value=65 Un its=mmHg 02/20/2023 8480-6 [facility] Blood Pressure-Systolic Wgazs=303 Un its=mmHg 02/20/2023 8310-5 [facility] Body Temperature Value=98.0 Units= F 02/20/2023 8867-4 [facility] Heart rate Value=55.0 Units=/min 96400-1 [facility] O2 % BldC Oximetry Value=96.0 Units= % 02/20/2023 53986-0 [facility] Pain Level Value=6.0 02/20/2023 16706-2 [facility] Weight Komwg=248.5 Units=Lbs 8302-2 LOINC Height Value=68.0 Units=Inches 01/21/2023
--- OUTSIDE RECORDS SUMMARY | 2024-12-25 00:16 | XMS_ITS | Clinical Summary ---
Author Organization [facility] Address [address] [place] [address] Care Team Providers Care Garbage Collector Driver Name Role Phone Arsenio Colon MD Unavailable [phone] Unavailable Unavailable Morelia Zapata NP Unavailable [phone] Rafael Narayanan DO Primary Care Provider Natalie Dueñas Unavailable [phone] Unavailable [phone] Allergies No known active allergies Medications Walker - 4 wheelsIndicati ons:Difficulty walking With seat. For home use. Length of need: 99 1 Device 0 12/24/19 14 Active medication order composerIndica tions:Weakness generalized Child Care Lead Teacher/grippe r 1 Device 0 11/02/19 15 Active [...] (acute kidney injury) 06/23/2023 Durable power of securities attorney fo r healthcare exists but copy [...] Department Care Team Description 12/23/2024 Orders Only [facility] Scanner 1 scan: (1-Ord) [facility], XR CHEST 1V PORTABLE, 12/23/2024 12/06/2024 Refill [facility] [address] [place] [address] Rafael Narayanan, Refill Request (Potassium Chloride, Tamsulosin, Mupirocin) 11/17/2024 Telephone [facility] [address] [place] [address] Pcp, No Appointment (HST RESCHEDULE ) 10/07/2024 10:35 AM CDT Office Visit [facility] [address] [place] [address] Rafael Narayanan DO Cellulitis; Derm Problem (Skin folds ) 10/07/2024 Travel 10/01/2024 Telephone [facility] [address] [place] [address] Rafael Narayanan DO Derm Problem 10/01/2024 Nurse Triage [facility] [address] [place] [address] Rafael Narayanan DO Rash 09/27/2024 Refill [facility] [address] [place] [address] Rafael Narayanan DO Refill Request; TORSEMIDE from [...] on file Legal Sex Male 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 Gender Identity Not on file Sexual Orientation [...] 170.2 cm (5' 7) 08/29/2023 8:48 AM NEWSPAPER PUBLISHER Body Mass Index 73.61 08/29/2023 8:48 AM NEWSPAPER PUBLISHER Plan of Treatment Upcoming Encounters Date Type Department Care Team (Late st Contact Info) Description 12/28/2024 11:00 AM CDT Telemedicine [facility] [address] [place] [address] Rafael Narayanan DO [address] [place] [address] 01/13/2025 9:00 AM CDT Office Visit [address] [phone] Natalie Dueñas PA [address] [place] [address] 01/13/2025 10:30 AM CDT Nutrition/Turning Machine Set Up Operator [address] [phone] [place] [address] 02/07/2025 2:00 PM CDT Nurse/Clinic Staff Only [facility] [address] [place] [address] 02/08/2025 7:30 AM CDT Nurse/Clinic Staff Only [facility] [address] [place] [address] 03/01/2025 2:30 PM CDT Office Visit [facility] [address] [facility] [address] Jovani Alejandre MD [address] [facility] [address] Health Maintenance Due Date Last Done Comments [...] this topic Medical Devices Implanted Type Area Transplant Case Manager Device Identifier Shelf Expiration Date Model / Serial / Lot Mesh Ventral 6.1x10.1in Ventrio - [id number] Implanted:Qty: 1 on 10/21/2014 at [facility] N/A: Abdomen [employer] Inc [id number]# / / [id number] Stent Uret [id number] Percuflex Hydroplus - [id number] Implanted:Qty: 1 on 08/08/2023 by Robert Galloway MD at [facility] Left: Ureter [facility] 01/29/2026 175-26 4 / / [id number] Stent Uret [id number] Percuflex Hydroplus - [id number] Implanted:Qty: 1 on 08/29/2023 by Becky Mukherjee MD at [facility] Left: Ureter [facility] 03/18/2026 175-263 / / [id number] Procedures Procedure Name Priority Date/Time Associated Diagnosis [...] COUNT 8.6 3.8 - 10.8 Thousand/u L [facility] Blood BLOOD SPECIMEN / Unknown 10/07/2024 11:21 AM CDT 10/07/2024 11:22 AM CDT us Adei Shaqra DO HEMATOLOGY Final Result Performing Organization Address [facility]/ZIP Co de Phone Number [employer] [facility] [address] [place] [address], [place] [phone] [facility] [address] [place] [address] * (ABNORMAL) CREATININE (10/07/2024 11:21 AM CDT) [facility] CREATININE 1.51(H) 0.70 - 1.28 mg/dL [facility] EGFR 47(L) > OR = 60 mL/min/1.73 m2 [facility] Blood BLOOD SPECIMEN / Unknown 10/07/2024 11:21 AM CDT 10/07/2024 11:22 AM CDT Lauryn Jenaroanum DO CHEMISTRY Final Result Performing Organization Address [facility] de Phone Number [employer] [facility] [address] [place] [address], [facility] [address] [place] [address] * ANTI HCV (01/20/2019 9:00 AM CDT) [facility] HEPATITIS C ANTIBODY Non-React otis Non-React otis 01/20/2019 6:46 PM CDT [facility] Comment:Antibodies to HCV no t detected; does not exclude the possibility of exposure to HCV. Blood BLOOD SPECIMEN / Unknown Venipuncture / Unknown 01/20/2019 9:00 AM CDT 01/20/2019 9:52 AM CDT Maile Fuentes MD SEND OUTS Final Result Performing Organization Address [facility]/ZIP Co de Phone Number [facility] [address] [place] [address], [place] from Last 3 Months or Most Recently Relevant to Health Maintenance Insurance [place] BLUE MR PB ONLY MEDICARE PART B HB ONLY [place] BLUE HB ONLY MEDICARE PART A HB ONLY [employer] MEDICARE ADVANTAGE MR Advance Directives Documents on File Type Date Recorded Patient Armed Security Officer Expl anation Healthcare Directive 08/08/2023 11:12 AM Healthcare Directive 02/03/2018 3:06 PM HE ALTHCARE DIRECTIVE, HONORING CHOICES [place], 01/14/18 * Full Code (Latest Code Status [...] 9:17 PM 10/22/2014 3:35 AM Care Teams Garbage Collector Driver Relationship Specialty Start Date End Date Rafael Narayanan [place] [address] PCP - General Family Practice 03/05/23 Arsenio Colon MD Otolaryngology Surgery - Otolaryngology 07/16/[address] Registered Dietitian Supervisor [employer] 03/10/19 Morelia Zapata NP Consulting Physician Nurse Practitioner 03/10/19 Natalie Dueñas PA 100 [facility] [place] [address] Physician Gas Engine Mechanic 11/17/[address] [facility] [place] [address] Supervisor [employer] 11/17/24
== END 2024-12-23 14:41 | disposition home or self-care (01) ==
PROVIDERS: PCP Student in an Organized Health Care Education/Training Program; Visit Provider Family Medicine
DX: R29.898 Other symptoms and signs involving the musculoskeletal system (principal)
CPT/HCPCS: A0425; A0428

== ENCOUNTER 2025-01-05 08:09 | Outpatient (CLI) | payer MEDICARE, BC, SELFPAY | END 2025-01-05 08:10 | disposition home or self-care (01) | LOC: AMB 01-10 08:35 | PROVIDERS: PCP Student in an Organized Health Care Education/Training Program; Visit Provider Family Medicine | DX: R53.1 Weakness (principal) | CPT/HCPCS: A0998 ==

== ENCOUNTER 2025-01-05 13:19 | Outpatient (CLI) | payer MEDICARE, BC, SELFPAY | END 2025-01-05 13:20 | disposition home or self-care (01) | PROVIDERS: PCP Student in an Organized Health Care Education/Training Program; Visit Provider Family Medicine | DX: R53.1 Weakness (principal) | CPT/HCPCS: A0425; A0429 ==

== ENCOUNTER 2025-01-05 14:30 | Emergency (ER) | payer MEDICARE, BC, SELFPAY ==
--- OUTSIDE RECORDS SUMMARY | 2025-01-05 14:33 | XMS_ITS | Clinical Summary ---
Author Organization [employer] [facility] Address [address] [place] [address] Care Team Providers Care Combat Systems Officer Name Role Phone Arsenio Colon MD Unavailable [phone] Unavailable Unavailable Morelia Zapata NP Unavailable [phone] Rafael Narayanan DO Primary Care Provider Natalie Dueñas Unavailable [phone] Unavailable [phone] Allergies No known active allergies Medications Walker - 4 wheelsIndicati ons:Difficulty walking With seat. For home use. Length of need: 99 1 Device 0 12/24/19 14 Active medication order composerIndica tions:Weakness generalized Tile Designer/grippe r 1 Device 0 11/02/19 15 Active [...] specified health status 06/23/2023 Physical debility 06/23/2023 Durable power of attorney recruiter [facility] [employer] exists but copy not available 05/15/2023 POLST (Physician Orders for Life-Sustaining Hazel tment) 03/05/2023 Neck mass 03/05/2023 Anasarca 03/05/2023 Gout, unspecified 01/21/2023 Arthritis of knee, left 01/21/2023 Prediabetes 05/13/2022 History of gout 04/30/2021 Advanced directives, counseling/discussion 01/01 Adenomatous colon polyp 01/23/2016 Overview (01/23/2016): Colonoscopy 01/2016 polyp repeat in 5 years Hyperglycemia 10/22/2014 Umbilical hernia with obstruction, without gangr uyen 10/21/2014 Ventral hernia without obstruction or gangrene 0 10/21/2014 Overview (03/05/2023): Superior to umbilicus with colon in it. Healthcare maintenance 04/28/2012 Overview (04/28/2012): Colonoscopy 2005 - repeat in 10 years Morbid (severe) obesity due to excess calories 0 12/19/2009 Dyslipidemia (high LDL; low HDL) 12/19/2009 HTN (hypertension) 01/21/2007 Resolved Problems Problem Noted Date Diagnosed Date Resolved Date LESLI (acute kidney injury) 06/23/2023 Sepsis 10/21/2014 12/28/2024 SBO (small bowel obstruction) 10/21/2014 12/31/2016 Overview (10/21/2014): In umbilical hernia Small bowel ischemia 10/21/2014 017 Lactic acid acidosis 10/21/2014 017 Encounters Date Type Department Care Team Description 01/05/2025 Nurse Triage [facility] [address] [place] [address] Rafael Narayanan, DO Follow Up (Fall) 01/05/2025 Nurse Triage [facility] [address] [place] [address] Rafael Narayanan DO Error-please disregard 12/28/2024 11:00 AM CDT Telemedicine [facility] [address] [place] [address] Rafael Narayanan DO Telehealth (Follow up ); Medication Management 12/23/2024 Orders Only [facility] Scanner 1 scan: (1-Ord) [facility], XR CHEST 1V PORTABLE, 12/23/2024 12/06/2024 Refill [facility] [address] [place] [address] Rfaael Narayanan DO Refill Request (Potassium Chloride, Tamsulosin, Mupirocin) 11/17/2024 Telephone [facility] [address] [place] [address] Pcp, No Appointment (HST RESCHEDULE ) 10/07/2024 10:35 AM CDT Office Visit [facility] [address] [place] [address] Rafael Narayanan DO Cellulitis; Derm Problem (Skin folds ) 10/07/2024 Travel from Last 3 Months Immunizations Immunization [...] on file Legal Sex Male 5:24 AM VMWARE ADMINISTRATOR Gender Identity Not on file Sexual Orientation [...] 170.2 cm (5' 7) 08/29/2023 8:48 AM VMWARE ADMINISTRATOR Body Mass Index 73.61 08/29/2023 8:48 AM VMWARE ADMINISTRATOR Plan of Treatment Upcoming Encounters Date Type Department Care Team (Late st Contact Info) Description 01/13/2025 9:00 AM CDT Office Visit [address] [address] Natalie Dueñas PA [address] [place] [address] 01/13/2025 10:30 AM CDT Nutrition/Dietici an [address] [address] [place] [address] 02/07/2025 2:00 PM CDT Nurse/Clinic Staff Only [facility] [place] [address] 02/08/2025 7:30 AM CDT Nurse/Clinic Staff Only [facility] [address] [place] [address] 03/01/2025 2:30 PM CDT Office Visit [facility] [address] [place] [address] Jovani Alejandre MD [address] [place] [address] Health Maintenance Due Date Last Done Comments Zoster (shingles) series for age 50+ (2 of 3) 06/23/2012 04/28/2012 RSV vaccine for adults or (1 - 1-dose 75+ series) 2021 BMI (ht and wt on same day) for age 18+ 07/25/2024 07/25/2023, 05/13/2022, 04/30/2021, Additional history exists COVID-19 vaccine series ( season) 2024 06/22/2024, 05/15/2023, 05/13/2022, Additional history exists Influenza Vaccine (#1) 2025 , 05/15/2023, 03/27/2020, Additional history exists Depression screening for age 12+ 06/22/2025 06/22/2024, 05/16/2023, 05/15/2023, Additional history exists Medicare Wellness for age 65+ 06/23/2025 06/22/2024, 05/15/2023, 05/13/2022, Additional history exists Tetanus booster 05/01/2027 05/01/2017, 01/04, 10/12/1996 Pneumococcal series for age 50+ Completed 09/27/2014, 04/28/2012, 02/05/2012 Hepatitis C screening for age 18-79 Completed 01/20/2019 Hepatitis B series for 19+ Aged Out N o longer eligible based on patient's age to complete this topic Medical Devices Implanted Type Area Preparation Plant Supervisor Device Identifier Shelf Expiration Date Model / Serial / Lot Mesh Ventral 6.1x10.1in Ventrio - [id number] Implanted:Qty: 1 on 10/21/2014 at [facility] N/A: Abdomen [employer] [id number] / / [id number] Stent Uret [id number] Percuflex Hydroplus - [id number] Implanted:Qty: 1 on 08/08/2023 by Robert Galloway MD at [facility] Left: Ureter [facility] 01/29/2026 [id number] / / [id number] Stent Uret [id number] Percuflex Hydroplus - [id number] Implanted:Qty: 1 on 08/29/2023 by Becky Mukherjee MD at [facility] Left: Ureter [facility] 03/18/2026 [id number] / / [id number] Procedures Procedure Name Priority Date/Time Associated Diagnosis [...] COUNT 8.6 3.8 - 10.8 Thousand/u L [facility]ar Gaxiola Blood BLOOD SPECIMEN / Unknown 10/07/2024 11:21 AM CDT 10/07/2024 11:22 AM CDT us Adei Lady DO HEMATOLOGY Final Result [facility] [address] [place] [address], [facility] [address] [place] [address] * (ABNORMAL) CREATININE (10/07/2024 11:21 AM CDT) Pathologist [facility] CREATININE 1.51(H) 0.70 - 1.28 mg/dL [facility] EGFR 47(L) > OR = 60 mL/min/1.73 m2 [facility] Blood BLOOD SPECIMEN / Unknown 10/07/2024 11:21 AM CDT 10/07/2024 11:22 AM CDT Rafael Narayanan DO CHEMISTRY Final Result [facility] [address] [place] [address], [facility] [address] [place] [address] * ANTI HCV (01/20/2019 9:00 AM CDT) Pathologist [facility] HEPATITIS C ANTIBODY Non-React otis Non-React otis 01/20/2019 6:46 PM CDT [facility] Comment:Antibodies to HCV no t detected; does not exclude the possibility of exposure to HCV. Blood BLOOD SPECIMEN / Unknown Venipuncture / Unknown 01/20/2019 9:00 AM CDT 01/20/2019 9:52 AM CDT Maile Fuentes MD SEND OUTS Final Result [facility] [address] [place] [address], [place] from Last 3 Months or Most Recently Relevant to Health Maintenance Insurance [place] BL[place] PB ONLY MEDICARE PART B HB ONLY [place] BL[place] HB ONLY MEDICARE PART A HB ONLY [facility] MEDICARE ADVANTAGE Advance Directives Documents on File Type Date Recorded Patient Manager Stylist Expl anation Healthcare Directive 08/08/2023 11:12 AM [...] 9:17 PM 10/22/2014 3:35 AM Care Teams Combat Systems Officer Relationship Specialty Start Date End Date Rafael Narayanan DO [address] [place] [address] PCP - General Family Practice 03/05/23 Arsenio Colon MD Otolaryngology Surgery - Otolaryngology 07/16/[address] Registered Dietitian Liability Claims Representative 03/10/19 Morelia Zapata NP Consulting Physician Nurse Practitioner 03/10/19 Natalie Dueñas PA [address] [place] [address] Physician District Manager 11/17/[address] [facility] [place] [place] [address] Liability Claims Representative 11/17/24
--- OUTSIDE RECORDS SUMMARY | 2025-01-05 14:33 | XMS_ITS ---
Author Organization [employer] Name Relationship Address Phone Xavier Damon Guarantor [address], [place] [phone] Xavier Damon Agent [address], [place] [phone] LaurenminaAltagracia Emergency Contact Unknown IngSid enriquez Emergency Contact Unknown [phone] Allergies and adverse reactions No Known Allergies Immunizations Immunization Status Vaccine Details Vaccine Code CodeSystem Date Notes TB 2 Step Mantoux Skin Test completed tuberculin skin test; unspecified formulation lotNumber: [id number] expiry: 03/10/2024 Mfg: PAR Pharm Given Left Forearm intradermally Step 2 of Multi-step with next step required 98 CVX created date: 02/06/2023 consent date: 02/06/2023 administere d date: 02/04/2023 TB 2 Step Mantoux Skin Test completed tuberculin skin test; unspecified formulation lotNumber: [id number] expiry: 03/10/2024 Mfg: PAR Pharmaceutical Given 0.1 [...] CodeSystem Concern Status 1 GOUT, UNSPECIFIED 01/21/[address] active 2 MORBID (SEVERE) OBESITY DUE TO EXCESS CALORIES 01/21/[address] active 3 STRAIN OF MUSCLE(S) AND TENDON(S) OF THE ROTATOR CUFF OF RIGHT SHOULDER, SUBSEQUENT ENCOUNTER 01/21/[address] active 4 UMBILICAL HERNIA WITH OBSTRUCTION, WITHOUT GANGRENE 01/21/[address] active 5 UNILATERAL PRIMARY OSTEOARTHRITIS, LEFT KNEE 01/21/[address] active 6 VENTRAL HERNIA WITHOUT OBSTRUCTION OR GANGRENE 01/21/[address] active Reason for Referral No Reasons for Referral Entered Social History Social History Observation Description Start Date End Date Code Code System Current Smoking Status Tobacco smoking consumption unknown 752180168 SNOMED CT Sex Assigned At Male 1945 00083-4 [facility] Gender Identity Vital Signs Code Code System Vitals Name Values and Units Timing Information 9279-1 [facility] Respiratory Rate Value=18.0 Units=/m in 02/20/2023 8462-4 [facility] Blood Pressure-Diastolic Value=65 Un its=mmHg 02/20/2023 8480-6 [facility] Blood Pressure-Systolic Hauoo=731 Un its=mmHg 02/20/2023 8310-5 [facility] Body Temperature Value=98.0 Units= F 02/20/2023 8867-4 [facility] Heart rate Value=55.0 Units=/min 84092-2 [facility] O2 % BldC Oximetry Value=96.0 Units= % 02/20/2023 94754-3 [facility] Pain Level Value=6.0 02/20/2023 42935-9 [facility] Weight Lpgba=995.5 Units=Lbs 8302-2 LOINC Height Value=68.0 Units=Inches 01/21/2023
[2025-01-05 14:49] VITALS: BP 137/63; PULSE 61; RESP 24; TEMP 36.9; O2SAT 92; BMI 82.0
--- NOTE | 2025-01-05 15:36 | CRLHL7_ITS ---
For Patients: As a result of the Century Cures Act, medical imaging exams and procedure reports are released immediately into your electronic medical record. You may view this report before your referring provider. If you have questions, please contact your health care provider. INDICATION: Wheezing. TECHNIQUE: Chest, 2 portable frontal views. COMPARISON: 12/23/2024. FINDINGS: No pneumothorax or pleural effusion. Lungs are clear. Stable cardiac and mediastinal contours. No pulmonary edema. Upper abdomen and osseous structures as imaged show no acute abnormality. IMPRESSION: No evidence of acute cardiopulmonary disease. Dictated by Elian Lange MD @ 01/05/2025 4:02:42 PM (Electronically Signed)
--- NOTE | 2025-01-05 15:37 | ED.WEAKNESS ---
HPI - Weakness General Chief complaint: Weakness Stated complaint: Weakness Time Seen by Provider: 01/05/25 14:44 History of Present Illness HPI Narrative: This 79-year-old male comes in by ambulance because of weakness. He is morbidly obese weighing 540 lb. He states that he has lost about 10 lb in the last couple weeks because he started to eat better. He had been also taking Lasix but has discontinued this. He does have bilateral pedal edema. He was up to the bathroom this morning and in that process slid out of his bench that he was sitting on onto the floor. He called the ambulance because he needed help getting up. He declined transport at that time. At that time of that initial assessment the EMT person said that it seemed like his lung sounds on the left side where a bit diminished compared to the right. He called the ambulance later this day and comes in now because of that concern about his breathing. He lives alone at home and states that sometimes he has trouble getting around mostly due to his weight. He is interested in getting into a weight loss program of sorts and does have an appointment next week in [place] with a heavy equipment sales associate and a physician who specializes in these challenges. He does not report any fevers or cough. He was seen 2 weeks ago with somewhat similar circumstances where he slid to the ground and had trouble getting up. At that time his labs are all normal and he was okay to be discharged home. He does have a arrangements now for physical therapy to come to his home and 1 is scheduled to occur tomorrow. Related Data Home Medications ?Medication ?Instructions ?Recorded ?Confirmed amlodipine 5 mg tablet 10 mg PO DAILY 12/30/22 12/23/24 losartan 100 mg tablet 100 mg PO DAILY 12/30/22 12/23/24 potassium chloride 10 mEq 10 meq PO DAILY 07/23/24 12/23/24 tablet,extended release(part/cryst) carvedilol 3.125 mg tablet 3.125 mg PO BID 12/23/24 12/23/24 mupirocin 2 % topical ointment 1 applic topical BID-TID 12/23/24 12/23/24 Previous Rx's ?Medication ?Instructions ?Recorded Lactobacillus acidophilus 0.5 mg 1,000 mmu cells PO TIDWM #90 tabs 01/21/23 (100 million cell) tablet nystatin 100,000 unit/gram topical 1 applic topical BID #60 grams 01/21/23 powder tamsulosin 0.4 mg capsule 0.4 mg PO HS #30 caps 01/21/23 torsemide 40 mg tablet 40 mg PO DAILY #30 tabs 07/26/24 Allergies Allergy/AdvReac Type Severity Reaction Status Date / Time No Known Drug Allergies Allergy Verified 12/23/24 09:53 Review of Systems Status of ROS: Reports: 10 or more systems reviewed and unremarkable except as noted in History and below Narrative: Constitutional: No fevers. Eyes: No discharge. No vision changes. HENT: No congestion, no sore throat, no ear pain. Cardiovascular: No chest pain, no palpitations. Respiratory: No shortness of breath, no wheezes, no cough. Gastrointestinal: No abdominal pain, no vomiting, no diarrhea. Genitourinary: No dysuria, no hematuria. Musculoskeletal: Normal range of motion. Skin: No rashes, no pruritis. Neurological: No dizziness, sensory change, speech change. Generalized weakness due to morbid obesity. Endo/Heme/Allergies: No bruising or bleeding. No polydipsia. Pysch: no suicidality, no anxiety, no insomnia. All other systems reviewed and are negative. [facility] Medical History Acute hypoxic respiratory failure ?J96.01 - Acute respiratory failure with hypoxia (ICD-10) Neck mass ?R22.1 - Localized swelling, mass and lump, neck (ICD-10) Complicated urinary tract infection ?N39.0 - Urinary tract infection, site not specified (ICD-10) Hypocalcemia ?E83.51 - Hypocalcemia (ICD-10) LESLI (acute kidney injury) ?N17.9 - Acute kidney failure, unspecified (ICD-10) HTN (hypertension) ?I10 - Essential (primary) hypertension (ICD-10) Advanced directives, counseling/discussion ?Z71.89 - Other specified counseling (ICD-10) Morbid obesity ?E66.01 - Morbid (severe) obesity due to excess calories (ICD-10) Right shoulder pain ?M25.511 - Pain in right shoulder (ICD-10) Leukocytosis ?D72.829 - Elevated white blood cell count, unspecified (ICD-10) Intertrigo ?L30.4 - Erythema intertrigo (ICD-10) Weakness ?R53.1 - Weakness (ICD-10) Lymphedema ?I89.0 - Lymphedema, not elsewhere classified (ICD-10) Urinary retention ?R33.9 - Retention of urine, unspecified (ICD-10) Arthritis of knee, left ?M17.12 - Unilateral primary osteoarthritis, left knee (ICD-10) Anasarca ?R60.1 - Generalized edema (ICD-10) Durable power of civil attorney for healthcare POLST (Physician Orders for Life-Sustaining Treatment) ?Z78.9 - Other specified health status (ICD-10) BRANDY (obstructive sleep apnea) ?G47.33 - Obstructive sleep apnea (adult) (pediatric) (ICD-10) Elevated blood uric acid level ?E79.0 - Hyperuricemia without signs of inflammatory arthritis and tophaceous disease (ICD-10) Impaired fasting glucose ?R73.01 - Impaired fasting glucose (ICD-10) Gout ?M10.9 - Gout, unspecified (ICD-10) Adenomatous colon polyp (~2015) ?D12.6 - Benign neoplasm of colon, unspecified (ICD-10) Ventral hernia ?K43.9 - Ventral hernia without obstruction or gangrene (ICD-10) Incarcerated umbilical hernia (~2014) ?K42.0 - Umbilical hernia with obstruction, without gangrene (ICD-10) Dyslipidemia ?E78.5 - Hyperlipidemia, unspecified (ICD-10) Hernia ?K46.9 - Unspecified abdominal hernia without obstruction or gangrene (ICD-10) Gallbladder attack ?K82.9 - Disease of gallbladder, unspecified (ICD-10) Surgical History H/O hernia repair (~2014) ?Z98.890 - Other specified postprocedural states (ICD-10) ?Z87.19 - Personal history of other diseases of the digestive system (ICD-10) Hx of cholecystectomy (~1985) ?Z90.49 - Acquired absence of other specified parts of digestive tract (ICD-10) H/O colonoscopy ?Z98.890 - Other specified postprocedural states (ICD-10) Family History Father Cardiovascular disease Myocardial infarction Mother High blood pressure Sister Sarcoma Social History Narrative: Lives in a newly built house that is accessible. Was in the [employer] business. Worked for [employer]. Retired 10 years ago. What is your current living situation?: I presently have a place to live Problems where you live: no known problems Problems where you live details: none In the past 12 months, utilities in danger of being shut off: no In past 12 months, lack of transportation kept you from medical appts, meetings, work, or getting things needed for daily living: no In the past 12 mos, have been you worried that your food would run out before you had money to buy more?: never true In the past 12 mos, the food you bought just didn't last and you didn't have money to buy more?: never true Highest level of school completed/degree received: Associate degree: occupational, technical, vocational program Smoking Status: Never smoker Do you use any of these nicotine containing products: None Second hand tobacco smoke exposure: No How often do you have a drink containing alcohol: never How often do you have six or more drinks on one occasion: Never AUDIT-C Alcohol total score: 0 Non-prescribed substance use: denies use Caffeine: Yes How often does anyone, including family, friends and others, physically hurt you: never How often does anyone, including family, friends and others, insult or talk down to you: never How often does anyone, including family, friends and others, threaten you with harm: never How often does anyone, including family, friends and others, scream or curse at you: never service: No Exam Narrative: Exam Narrative: Constitutional: Morbid obesity. No acute distress. HEENT: Normocephalic, atraumatic. Neck: Normal range of motion. Nontender. Supple. Heart: Regular. No murmurs. Normal rate. Intact distal pulses. Lungs: Clear to auscultation bilaterally. No chest discomfort. No wheezes, rhonchi, or rales. Abdomen: Normal bowel sounds. Nontender. No rebound tenderness. Genitalia: Deferred. Back: No midline tenderness. Normal range of motion. Extremities: Normal range of motion. No injury. Bilateral pedal edema. Skin: Intact. No rash. Warm. No erythema or pallor. Neurologic: No altered sensation. No weakness. Alert and oriented. Psychiatric: No suicidality. No anxiety or depression. No insomnia. Nursing notes and vitals signs are reviewed. Const: Vital Signs, click to edit/add: Vital Signs - 24 hr 01/05/25 14:49 01/05/25 16:50 Temperature 98.4 F 97.1 F L Pulse Rate [Pulse Oximeter] 61 54 L Respiratory Rate 24 18 Blood Pressure [Ri ght Upper Arm] 137/63 133/56 L Pulse Oximetry 92 91 Oxygen Delivery Me thod Room Air Room Air Course Vital Signs Vital signs: Initial Vital Signs Temperature 98.4 F 01/05/25 14:49 Temperature Source Temporal Artery Scan 01/05/25 14:49 Pulse Rate 61 01/05/25 14:49 Respiratory Rate 24 01/05/25 14:49 Blood Pressure 137/63 01/05/25 14:49 Blood Pressure Mean 87 01/05/25 14:49 Blood Pressure Position Supine 01/05/25 14:49 Pulse Oximetry 92 01/05/25 14:49 Oxygen Delivery Method Room Air 01/05/25 14:49 Vital Signs Temperature 98.4 F 01/05/25 14:49 Pulse Rate 61 01/05/25 14:49 Respiratory Rate 24 01/05/25 14:49 Blood Pressure 137/63 01/05/25 14:49 Pulse Oximetry 92 01/05/25 14:49 Oxygen Delivery Method Room Air 01/05/25 14:49 Temperature 97.1 F L 01/05/25 16:50 Pulse Rate 54 L 01/05/25 16:50 Respiratory Rate 18 01/05/25 16:50 Blood Pressure 133/56 L 01/05/25 16:50 Pulse Oximetry 91 01/05/25 16:50 Oxygen Delivery Method Room Air 01/05/25 16:50 MDM - Weakness MDM Narrative Medical decision making narrative: This patient comes in by ambulance stating that he feels some increased weakness. He is morbidly obese weighing 540 lb. He states that he has lost about 10 lb in the last couple weeks. He had a chest x-ray and labs done here in these returned with reassuring findings. He is okay to be discharged back home. I encouraged him to stay active and to continue modifying his diet for weight loss. He states that he has a physical therapist coming to his home tomorrow. This was recently set up and happens to be the 1st visit to his home. Additionally he has an appointment next week with a heavy equipment sales associate and a weight loss physician. Lab Data Labs: Lab Results 01/05/25 Range/Units 16:00 WBC 8.81 (4.50-11.00) K/uL RBC 4.90 (4.30-5.90) m/uL Hgb 13.3 L (13.5-17.5) gm/dL Hct 43.7 (37.0-53.0) % MCV 89 (80-100) fL MCH 27 (26-34) pg MCHC 30 L (32-36) gm/dL RDW Coeff of Rosalee 15.3 (11.5-15.5) % Plt Count 202 (140-440) K/uL Neut % (Auto) 74.1 H (42.0-72.0) % Lymph % (Auto) 12.9 L (20-44) % [place] % (Auto) 8.3 (0.0-11.0) % Eos % (Auto) 3.4 (0.0-7.0) % Baso % (Auto) 0.1 (0.0-3.0) % Neut # (Auto) 6.50 (1.7-7.0) K/uL Lymph # (Auto) 1.10 (0.90-2.90) K/uL [place] # (Auto) 0.70 (0.00-0.90) K/UL Eos # (Auto) 0.30 (0.00-0.50) K/uL Baso # (Auto) 0.01 (0.00-0.30) K/uL Abs Immat Gran (auto) 0.11 (0.00-0.30) K/uL Imm/Tot Granulo (auto) 1.2 % Sodium 142 (135-149) mmol/L Potassium 4.1 (3.6-5.1) mmol/L Chloride 102 (96-114) mmol/L Carbon Dioxide 32 (20-32) mmol/L Anion Gap 8 (7-15) mEq/L BUN 17 (7-30) mg/dL Creatinine 1.2 (0.5-1.5) mg/dL Estimated Creat Clear 49.08 Estimated GFR 62 ml/min Glucose 103 (60-115) mg/dL Calcium 9.2 (8.4-10.6) mg/dL Imaging Data Chest x-ray: Radiologist's impression: No evidence of acute cardiopulmonary disease. Discharge Plan Discharge Clinical Impression: Morbid obesity, Weakness Patient Disposition: Home, Self-Care Condition: Stable Additional Instructions: Continue weight loss measures. Okay to resume Lasix until follow-up appointment with primary physician as scheduled. Continue with physical therapy as scheduled. Prescriptions: No Action amlodipine 5 mg tablet 10 mg PO DAILY losartan 100 mg tablet 100 mg PO DAILY tamsulosin 0.4 mg Capsule 0.4 mg PO HS Qty: 30 0RF nystatin 100,000 unit/gram Powder 1 applic topical BID Qty: 60 0RF Lactobacillus acidophilus 0.5 mg (100 million cell) Tablet 1,000 mmu cells PO TIDWM Qty: 90 0RF potassium chloride 10 mEq tablet,ER particles/crystals 10 meq PO DAILY torsemide 40 mg tablet 40 mg PO DAILY Qty: 30 0RF carvedilol 3.125 mg tablet 3.125 mg PO BID mupirocin 2 % ointment 1 applic topical BID-TID Follow Up/Referrals: EVERTON DURON DO [Primary Care Provider, Family Practice] Stand Alone Forms: MyHealth Info Instructions
--- OUTSIDE RECORDS SUMMARY | 2025-01-05 15:46 | XMS_ITS ---
Author Organization [facility] Support Name Relationship Address Phone Xavier Damon Guarantor [address], [place] [phone] Xavier Damon Agent [address], [place] [phone] LaurenminaAltagracia Emergency Contact Unknown IngSid enriquez Emergency Contact Unknown Allergies and adverse reactions No Known Allergies Immunizations Immunization Status Vaccine Details Vaccine Code CodeSystem Date Notes TB 2 Step Mantoux Skin Test completed tuberculin skin test; unspecified formulation lotNumber: [id number] expiry: 03/10/2024 Mfg: PAR Pharm Given Left Forearm intradermally Step 2 of Multi-step with next step required 98 CVX created date: 02/06/2023 consent date: 02/06/2023 administere d date: 02/04/2023 TB 2 Step Mantoux Skin Test completed tuberculin skin test; unspecified formulation lotNumber: [id number] expiry: 03/10/2024 Mfg: PAR Pharmaceutical Given 0.1 [...] CodeSystem Concern Status 1 GOUT, UNSPECIFIED 01/21/[address] active 2 MORBID (SEVERE) OBESITY DUE TO EXCESS CALORIES 01/21/[address] active 3 STRAIN OF MUSCLE(S) AND TENDON(S) OF THE ROTATOR CUFF OF RIGHT SHOULDER, SUBSEQUENT ENCOUNTER 01/21/[address] active 4 UMBILICAL HERNIA WITH OBSTRUCTION, WITHOUT GANGRENE 01/21/[address] active 5 UNILATERAL PRIMARY OSTEOARTHRITIS, LEFT KNEE 01/21/[address] active 6 VENTRAL HERNIA WITHOUT OBSTRUCTION OR GANGRENE 01/21/[address] active Reason for Referral No Reasons for Referral Entered Social History Social History Observation Description Start Date End Date Code Code System Current Smoking Status Tobacco smoking consumption unknown 201972169 SNOMED CT Sex Assigned At Male 1945 63490-7 [facility] Gender Identity Vital Signs Code Code System Vitals Name Values and Units Timing Information 9279-1 [facility] Respiratory Rate Value=18.0 Units=/m in 02/20/2023 8462-4 [facility] Blood Pressure-Diastolic Value=65 Un its=mmHg 02/20/2023 8480-6 [facility] Blood Pressure-Systolic Lnolq=015 Un its=mmHg 02/20/2023 8310-5 [facility] Body Temperature Value=98.0 Units= F 02/20/2023 8867-4 [facility] Heart rate Value=55.0 Units=/min 26914-3 [facility] O2 % BldC Oximetry Value=96.0 Units= % 02/20/2023 88698-6 [facility] Pain Level Value=6.0 02/20/2023 37260-8 [facility] Weight Oipfw=064.5 Units=Lbs 8302-2 LOINC Height Value=68.0 Units=Inches 01/21/2023
[2025-01-05 16:08] LABS: Hematocrit 43.7 % (37.0-53.0); Hemoglobin* 13.3 gm/dL (13.5-17.5); Immature Granulocytes Abs Auto 0.11 K/uL (0.00-0.30); Immature Granulocytes Pct Auto 1.2 %; Mean Corpuscular HGB Conc 30 gm/dL (32-36); Mean Corpuscular Hemoglobin 27 pg (26-34); Mean Corpuscular Volume 89 fL (80-100); RDW Coefficient of Variation % 15.3 % (11.5-15.5); Red Blood Count 4.90 m/uL (4.30-5.90); White Blood Count* 8.81 K/uL (4.50-11.00)
[2025-01-05 16:21] LABS: Chloride* 102 mmol/L (96-114); Potassium* 4.1 mmol/L (3.6-5.1); Sodium* 142 mmol/L (135-149)
[2025-01-05 16:22] LABS: Lymphocytes Absolute Auto 1.10 K/uL (0.90-2.90); Slide Review Reflex No
[2025-01-05 16:24] LABS: Anion Gap 8 mEq/L (7-15); Blood Urea Nitrogen* 17 mg/dL (7-30); Carbon Dioxide* 32 mmol/L (20-32); Creatinine* 1.2 mg/dL (0.5-1.5); Est. Creatinine Clearance* 49.08; Estimated Glomerular Filt Rate 62 ml/min
[2025-01-05 16:25] LABS: Calcium* 9.2 mg/dL (8.4-10.6); Glucose* 103 mg/dL (60-115)
[2025-01-05 16:50] VITALS: BP 133/56; PULSE 54; RESP 18; TEMP 36.2; O2SAT 91
== END 2025-01-05 19:01 | disposition home or self-care (01) ==
PROVIDERS: Emergency Provider Emergency Medicine Emergency Medical Services; PCP Student in an Organized Health Care Education/Training Program
DX: R53.1 Weakness (principal); E66.01 Morbid (severe) obesity due to excess calories; R60.9 Edema, unspecified
CPT/HCPCS: 36415; 71045; 80048; 85025; 99284

== ENCOUNTER 2025-01-09 18:20 | Outpatient (CLI) | payer MEDICARE, BC, SELFPAY | END 2025-01-09 18:21 | disposition home or self-care (01) | LOC: AMB 01-13 08:46 | PROVIDERS: PCP Student in an Organized Health Care Education/Training Program; Visit Provider Student in an Organized Health Care Education/Training Program | DX: R19.7 Diarrhea, unspecified (principal); R53.1 Weakness | CPT/HCPCS: A0425; A0429 ==

== ENCOUNTER 2025-01-09 19:29 | Observation (INO) | payer MEDICARE, BC, SELFPAY ==
[2025-01-09] VITALS (19 sets, daily range): BP systolic 115–138; BP diastolic 44–83; PULSE 49–60; RESP 12–111; TEMP 36.4; O2SAT 88–95
--- OUTSIDE RECORDS SUMMARY | 2025-01-09 19:32 | XMS_ITS ---
Author Organization [employer] Support Name Relationship Address Phone Xavier Damon Guarantor [address], [place] [phone] Xavier Damon Agent [address], [place] [phone] LaurenminaAltagracia Emergency Contact Unknown IngSid enriquez Emergency Contact Unknown Allergies and adverse reactions No Known Allergies Immunizations Immunization Status Vaccine Details Vaccine Code CodeSystem Date Notes TB 2 Step Mantoux Skin Test completed tuberculin skin test; unspecified formulation lotNumber: [id number] expiry: 03/10/2024 Mfg: PAR Pharm Given Left Forearm intradermally Step 2 of Multi-step with next step required 98 CVX created date: 02/06/2023 consent date: 02/06/2023 administere d date: 02/04/2023 TB 2 Step Mantoux Skin Test completed tuberculin skin test; unspecified formulation lotNumber: [id number] expiry: 03/10/2024 Mfg: PAR Pharmaceutical Given 0.1 [...] CodeSystem Concern Status 1 GOUT, UNSPECIFIED 01/21/[address] active 2 MORBID (SEVERE) OBESITY DUE TO EXCESS CALORIES 01/21/[address] active 3 STRAIN OF MUSCLE(S) AND TENDON(S) OF THE ROTATOR CUFF OF RIGHT SHOULDER, SUBSEQUENT ENCOUNTER 01/21/[address] active 4 UMBILICAL HERNIA WITH OBSTRUCTION, WITHOUT GANGRENE 01/21/[address] active 5 UNILATERAL PRIMARY OSTEOARTHRITIS, LEFT KNEE 01/21/[address] active 6 VENTRAL HERNIA WITHOUT OBSTRUCTION OR GANGRENE 01/21/[address] active Reason for Referral No Reasons for Referral Entered Social History Social History Observation Description Start Date End Date Code Code System Current Smoking Status Tobacco smoking consumption unknown 563302117 SNOMED CT Sex Assigned At Male 1945 04980-7 [facility] Gender Identity Vital Signs Code Code System Vitals Name Values and Units Timing Information 9279-1 [facility] Respiratory Rate Value=18.0 Units=/m in 02/20/2023 8462-4 [facility] Blood Pressure-Diastolic Value=65 Un its=mmHg 02/20/2023 8480-6 [facility] Blood Pressure-Systolic Mgyou=112 Un its=mmHg 02/20/2023 8310-5 [facility] Body Temperature Value=98.0 Units= F 02/20/2023 8867-4 [facility] Heart rate Value=55.0 Units=/min 66944-4 [facility] O2 % BldC Oximetry Value=96.0 Units= % 02/20/2023 57971-9 [facility] Pain Level Value=6.0 02/20/2023 20583-7 [facility] Weight Ouxbt=605.5 Units=Lbs 8302-2 LOINC Height Value=68.0 Units=Inches 01/21/2023
--- OUTSIDE RECORDS SUMMARY | 2025-01-09 19:32 | XMS_ITS | Clinical Summary ---
Author Organization [facility] Address [address] [place] [address] Care Team Providers Care Psych Tech Name Role Phone Arsenio Colon MD Unavailable Evelin Barraza RD Unavailable Unavailable Morelia Zapata NP Unavailable [phone] Rafael Narayanan DO Primary Care Provider [phone] Natalie Dueñas Unavailable [phone] Unavailable Allergies No known active allergies Medications Walker - 4 wheelsIndicatio ns:Difficulty walking With seat. For home use. 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 Active losartan (COZAAR) 100 mg tabletIndicatio ns:HTN (hypertension) TAKE ONE TABLET BY MOUTH EVERY DAY 90 Tablet 3 4 Active Nystop powderIndicatio ns:Intertrigo Apply 1 Strip topically to affected area(s) two times daily. 60 g 11 4 Active amLODIPine (NORVASC) 5 mg tabletIndicatio ns:HTN (hypertension) Take 2 Tablets (10 mg) by mouth once daily. 180 Tablet 3 4 Active carvediloL (COREG) 3.125 mg tabletIndicatio ns:Acute diastolic heart failure (HC),HTN (hypertension) Take 1 Tablet (3.125 mg) by mouth two times daily with meals. 180 Tablet 3 5 Active torsemide 20 mg tabletIndicatio ns:Peripheral edema Take 1 Tablet (20 mg) by mouth once daily. 90 Tablet 5 Active potassium chloride 10 mEq extended-releas e tablet (part/cryst)Ind ications:[place] lemia TAKE ONE TABLET BY MOUTH ONCE DAILY WITH A MEAL. 90 Tablet 3 5 Active mupirocin 2% ointmentIndicat ions:Intertrigo APPLY TOPICALLY TO AFFECTED AREA(S) 3 TIMES DAILY FOR 5 DAYS 30 g 3 5 Active tamsulosin 0.4 mg capsuleIndicati ons:BPH with urinary obstruction Take 1 Capsule (0.4 mg) by mouth once daily after a meal. 90 Capsule 2 5 Active Zinc Oxide 13 % topical creamIndication s:Intertrigo,Ex cess skin Apply 1 Application topically to affected area(s) two times daily. 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 Other specified health status 06/23/2023 Physical debility 06/23/2023 Durable power of rehab trainer [facility] exists but copy not available 05/15/2023 [...] Encounters Date Type Department Care Team Description 01/06/2025 Telephone [facility] [address] [place] [address] Rafael Narayanan, Outside Order (care home; social work ) 01/05/2025 Orders Only [facility] Scanner 1 scan: (1-Ord) [facility], XR CHEST 1V PORTABLE, 01/05/2025 01/05/2025 Nurse Triage [facility] [address] [place] [address] Rafael Narayanan, Follow Up (Fall) 01/05/2025 Nurse Triage [facility] [address] [place] [address] Rafael Narayanan, Error-please disregard 12/28/2024 11:00 AM CDT Telemedicine [facility] [address] [place] [address] Rafael Narayanan, Telehealth (Follow up ); Medication Management 12/23/2024 Orders Only [facility] Scanner 1 scan: (1-Ord) [facility], XR CHEST 1V PORTABLE, 12/23/2024 12/06/2024 Refill [facility] [address] [facility] [place] [address] Rafael Narayanan DO Refill Request (Potassium Chloride, Tamsulosin, Mupirocin) 11/17/2024 Telephone [facility] [address] [facility] [place] [address] Pcp, No Appointment (HST RESCHEDULE ) from Last 3 Months Immunizations Immunization Administration [...] on file Legal Sex Male 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 Gender Identity Not on file Sexual Orientation [...] 170.2 cm (5' 7) 08/29/2023 8:48 AM VISUAL ASSOCIATE Body Mass Index 73.61 08/29/2023 8:48 AM VISUAL ASSOCIATE Plan of Treatment Upcoming Encounters Date Type Department Care Team (Late st Contact Info) Description 01/10/2025 11:25 AM CDT Telemedicine [facility] [address] [facility] [place] [address] Rafael Narayanan DO [address] [place] [address] 01/13/2025 9:00 AM CDT Office Visit [address] [address] Natalie Dueñas PA [address] [place] [address] 01/13/2025 10:30 AM CDT Nutrition/Vp Of Customer Experience Strategy [address] [address] [place] [address] 02/07/2025 2:00 PM CDT Nurse/Clinic Staff Only [facility] [address] [place] [address] 02/08/2025 7:30 AM CDT Nurse/Clinic Staff Only [facility] [address] [place] [address] 03/01/2025 2:30 PM CDT Office Visit [facility] [address] [place] [address] Jovani Alejandre MD [address] [place] [address] Health Maintenance Due Date Last Done Comments [...] this topic Medical Devices Implanted Type Area Piano Refinisher Device Identifier Shelf Expiration Date Model / Serial / Lot Mesh Ventral 6.1x10.1in Ventrio - [id number] Implanted:Qty: 1 on 10/21/2014 at [facility] N/A: Abdomen [employer] [id number] / / [id number] Stent Uret [id number] Percuflex Hydroplus - [id number] Implanted:Qty: 1 on 08/08/2023 by Robert Galloway MD at [facility] Left: Ureter [facility] 01/29/2026 [id number] / / [id number] Stent Uret [id number] Percuflex Hydroplus - [id number] Implanted:Qty: 1 on 08/29/2023 by Becky Mukherjee MD at [facility] Left: Ureter [facility] 03/18/2026 [id number] / / [id number] Procedures Procedure Name Priority Date/Time Associated Diagnosis Comments SCAN-RADIOLOGY REPORT 01/05/2025 12:00 AM CDT SCAN-RADIOLOGY REPORT 12/23/2024 12:00 AM CDT ANTI HCV Routine 01/20/2019 9:00 AM CDT Need for hepatitis C screening test from Last 3 Months or Most Recently Relevant to Health Maintenance Results * SCAN-RADIOLOGY REPORT (01/05/2025 12:00 AM CDT) Only the most recent of2 resultswithin the time period is included. Anatomical Region Laterality Modality Other us Scanner OTHER Final Result * ANTI HCV (01/20/2019 9:00 AM CDT) HEPATITIS C ANTIBODY Non-React otis Non-React otis 01/20/2019 6:46 PM CDT [facility] Comment:Antibodies to HCV no t detected; does not exclude the possibility of exposure to HCV. Blood BLOOD SPECIMEN / Unknown Venipuncture / Unknown 01/20/2019 9:00 AM CDT 01/20/2019 9:52 AM CDT us Maile Fuentes MD SEND OUTS Final Result [facility] [address] [place] [address], [place] from Last 3 Months or Most Recently Relevant to Health Maintenance Insurance BLUE CROSS BLACKFEET BLUE MR PB ONLY MEDICARE PART B HB ONLY BLUE CROSS BLACKFEET BLUE HB ONLY MEDICARE PART A HB ONLY [employer] MEDICARE ADVANTAGE Advance Directives Documents on File Type Date Recorded Patient Blocker Automatic Expl anation Healthcare Directive 08/08/2023 11:12 AM Healthcare Directive 02/03/2018 3:06 PM HE ALTHCARE DIRECTIVE, HONORING CHOICES [place], 01/14/18 * Full Code (Latest Code Status [...] 9:17 PM 10/22/2014 3:35 AM Care Teams Psych Tech Relationship Specialty Start Date End Date Rafael Nar[place] [address] [place] [address] PCP - General Family Practice 03/05/23 Arsenio Colon MD Otolaryngology Surgery - Otolaryngology 07/16/[address] Registered Dietitian Deputy Sheriff/Investigator 03/10/19 Morelia Zapata NP Consulting Physician Nurse Practitioner 03/10/19 Natalie Dueñas PA [address] [place] [address] Physician Student Success Advisor 11/17/[address] [place] [address] [place] [address] Deputy Sheriff/Investigator 11/17/24
--- NOTE | 2025-01-09 20:11 | ED.GENADULT ---
HPI - General Adult General Date Seen: 01/09/25 Chief complaint: Weakness Stated complaint: Fall,Weakness Time Seen by Provider: 01/09/25 19:46 History of Present Illness HPI narrative: 79-year-old male brought to the ER today by EMS from his home, in done thus. Brought to the ER today after he had a mechanical fall that was related to generalized weakness. He has a past medical history of morbid obesity. Current weight is 540 lb. He is up about 100 lb from last year. He is also currently doing topical nystatin for a yeast infection in the skin fold behind his right knee. He also has a history of CHF, lymphedema, Danya, hypertension, physical debility, sleep apnea, chronic kidney disease. History from the patient is that he has been working hard to try to lose weight but is having lot of trouble. For the past 3 weeks or so he has noted that he has just been generally getting weaker. He is having more trouble walking around his home. No clear other symptoms drive the weakness. No fever. No cough. No new difficulty breathing (he does have chronic dyspnea which he attributes to his weight). No chest pain. No abdominal pain. For the past few days( perhaps 3-5 days, patient is quite sure) he has been noting diarrhea. He has been having loose stools that are probably yellow colored. 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 He has not noticed any mucus or any visible blood. He has not had a fever. He had some abdominal cramping a couple of days ago but that is gone now. Appetite has been normal. He has been trying to eat less because he has been trying to lose weight. He is not vomiting. He notes that the diarrhea tends to be more problematic in the morning. He has been able to get himself into the shower to clean off after has diarrhea. He notes that he is chronically incontinent of urine overnight so sleeps on a Chux pad and showers every morning when he wakes up. He is continent of urine during the day. No new urine urinary symptoms. He has not been on any antibiotics at the past few months. No known history of C diff. He reports that he was here in the ER a few days ago for the weakness and had a workup that apparently showed normal x-ray and labs. Although the diarrhea was happening at that time, he does not think he mentioned it to his doctors during that visit. Per records he was seen here in the ER on 01/05 for generalized weakness. Workup in the ER showed a white count of 8.8, hemoglobin 13.3, platelet count 202. Sodium 142, potassium 4.1, chloride 102, bicarb 32, BUN 17, creatinine 1.2, glucose 103, calcium 9.2. Chest x-ray showed no evidence for acute cardiopulmonary disease.. Patient notes that he has just been getting a little bit weaker every day and has been weaker since he was here in the ER few days ago. Today he was able to get up and take his normal shower in the morning and had an episode where he got weak and almost fell after getting out of the shower. He did not fall however. This afternoon he felt the urge to have diarrhea. He was getting up to go to the bathroom before he can get far he had a large yellow incontinent liquid stool. After having the incontinent liquid scope stool he was apprised trying to hurry to the bathroom to get cleaned up when he lost his balance and fell forward. He landed on his hands and knees but does not think he was injured. He was not able to get himself up. He emailed his friends who called 911. Paramedics brought him here. Was also seen in the ER on December 23 for weakness. Had hospitalist consult during that ER visit and was ultimately discharged home. From hospitalist consult note... Date Seen: 12/23/24 Interval history: Patient brought to the ED after fall at home. Initial concern was unsafe to return to home. In reviewing EMR, CBC and BMP unremarkable, UA unremarkable, troponin < 0.01, EKG unchanged from previous. Concerns that due to patient's obesity he was at risk for further falls. Patient's weight has been stable around 245 kg for out least the last 6 months. Patient tells me he has benches every 15 ft or so in his home so he can sit and rest. Admits he previously lost weight while in the hospital but then gained it back in rehab because they served bad food. He admits he orders pizza at home for convenience. Ambulatory with a walker. Feels as though his legs have been more fatigued over the last 5-6 weeks. Has an upcoming appointment for weight management options. Previously had PT/OT in his home and found this helpful. Previously had wound cares in his home, his cellulitis and intertrigo in all rashes have since cleared up. Patient tells me his hope is that he could be hospitalized to lose weight. When informed this is not an appropriate medical need for hospitalization, he asks if he can get have weight loss shot in the ER. Meme, social media marketing specialist, at bedside. Discusses reinstating home therapies and suggests order delivery of healthy home meals. Option for half-way placement would be self pay, [phone] dollars per month. patient reports he cannot afford this. Related Data Home Medications ?Medication ?Instructions ?Recorded ?Confirmed amlodipine 5 mg tablet 10 mg PO DAILY 12/30/22 12/23/24 losartan 100 mg tablet 100 mg PO DAILY 12/30/22 12/23/24 potassium chloride 10 mEq 10 meq PO DAILY 07/23/24 12/23/24 tablet,extended release(part/cryst) carvedilol 3.125 mg tablet 3.125 mg PO BID 12/23/24 12/23/24 mupirocin 2 % topical ointment 1 applic topical BID-TID 12/23/24 12/23/24 Previous Rx's ?Medication ?Instructions ?Recorded Lactobacillus acidophilus 0.5 mg 1,000 mmu cells PO TIDWM #90 tabs 01/21/23 (100 million cell) tablet nystatin 100,000 unit/gram topical 1 applic topical BID #60 grams 01/21/23 powder tamsulosin 0.4 mg capsule 0.4 mg PO HS #30 caps 01/21/23 torsemide 40 mg tablet 40 mg PO DAILY #30 tabs 07/26/24 Allergies Allergy/AdvReac Type Severity Reaction Status Date / Time No Known Drug Allergies Allergy Verified 12/23/24 09:53 [facility] Medical History Acute hypoxic respiratory failure ?J96.01 - Acute respiratory failure with hypoxia (ICD-10) Neck mass ?R22.1 - Localized swelling, mass and lump, neck (ICD-10) Complicated urinary tract infection ?N39.0 - Urinary tract infection, site not specified (ICD-10) Hypocalcemia ?E83.51 - Hypocalcemia (ICD-10) LESLI (acute kidney injury) ?N17.9 - Acute kidney failure, unspecified (ICD-10) HTN (hypertension) ?I10 - Essential (primary) hypertension (ICD-10) Advanced directives, counseling/discussion ?Z71.89 - Other specified counseling (ICD-10) Morbid obesity ?E66.01 - Morbid (severe) obesity due to excess calories (ICD-10) Right shoulder pain ?M25.511 - Pain in right shoulder (ICD-10) Leukocytosis ?D72.829 - Elevated white blood cell count, unspecified (ICD-10) Intertrigo ?L30.4 - Erythema intertrigo (ICD-10) Weakness ?R53.1 - Weakness (ICD-10) Lymphedema ?I89.0 - Lymphedema, not elsewhere classified (ICD-10) Urinary retention ?R33.9 - Retention of urine, unspecified (ICD-10) Arthritis of knee, left ?M17.12 - Unilateral primary osteoarthritis, left knee (ICD-10) Anasarca ?R60.1 - Generalized edema (ICD-10) Durable power of regulatory attorney for healthcare POLST (Physician Orders for Life-Sustaining Treatment) ?Z78.9 - Other specified health status (ICD-10) BRANDY (obstructive sleep apnea) ?G47.33 - Obstructive sleep apnea (adult) (pediatric) (ICD-10) Elevated blood uric acid level ?E79.0 - Hyperuricemia without signs of inflammatory arthritis and tophaceous disease (ICD-10) Impaired fasting glucose ?R73.01 - Impaired fasting glucose (ICD-10) Gout ?M10.9 - Gout, unspecified (ICD-10) Adenomatous colon polyp (~2015) ?D12.6 - Benign neoplasm of colon, unspecified (ICD-10) Ventral hernia ?K43.9 - Ventral hernia without obstruction or gangrene (ICD-10) Incarcerated umbilical hernia (~2014) ?K42.0 - Umbilical hernia with obstruction, without gangrene (ICD-10) Dyslipidemia ?E78.5 - Hyperlipidemia, unspecified (ICD-10) Hernia ?K46.9 - Unspecified abdominal hernia without obstruction or gangrene (ICD-10) Gallbladder attack ?K82.9 - Disease of gallbladder, unspecified (ICD-10) Surgical History H/O hernia repair (~2014) ?Z98.890 - Other specified postprocedural states (ICD-10) ?Z87.19 - Personal history of other diseases of the digestive system (ICD-10) Hx of cholecystectomy (~1985) ?Z90.49 - Acquired absence of other specified parts of digestive tract (ICD-10) H/O colonoscopy ?Z98.890 - Other specified postprocedural states (ICD-10) Family History Father Cardiovascular disease Myocardial infarction Mother High blood pressure Sister Sarcoma Social History Narrative: Lives in a newly built house that is accessible. 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 Retired 10 years ago. What is your current living situation?: I presently have a place to live Problems where you live: no known problems Problems where you live details: none In the past 12 months, utilities in danger of being shut off: no In past 12 months, lack of transportation kept you from medical appts, meetings, work, or getting things needed for daily living: no In the past 12 mos, have been you worried that your food would run out before you had money to buy more?: never true In the past 12 mos, the food you bought just didn't last and you didn't have money to buy more?: never true Highest level of school completed/degree received: Associate degree: occupational, technical, vocational program Smoking Status: Never smoker Do you use any of these nicotine containing products: None Second hand tobacco smoke exposure: No How often do you have a drink containing alcohol: never How often do you have six or more drinks on one occasion: Never AUDIT-C Alcohol total score: 0 Non-prescribed substance use: denies use Caffeine: Yes How often does anyone, including family, friends and others, physically hurt you: never How often does anyone, including family, friends and others, insult or talk down to you: never How often does anyone, including family, friends and others, threaten you with harm: never How often does anyone, including family, friends and others, scream or curse at you: never service: No Exam Narrative: Exam Narrative: Constitutional: Appears well-developed and over-nourished. Patient tells me he weighs 540 lb. Alert. Conversant. Very polite. Non toxic. HENT: Head: Atraumatic. No depressed skull fracture, Raccoon Eyes, Pan's sign, or hemotympanum. Face normal. Nose: Nose normal. Mouth/Throat: Oral mucosa is clear and moist. no trismus. Pharynx normal. Tonsils symmetric. No tonsillar enlargement, erythema, or exudate. Eyes: Conjunctivae normal. EOM normal. Pupils equal, round, and reactive to light. No scleral icterus. Neck: Normal range of motion. Neck supple. No tracheal deviation present. No posterior midline tenderness or step-off. Cardiovascular: Normal rate, regular rhythm. No gallop. No friction rub. No murmur heard. Symmetric radial artery pulses Pulmonary/Chest: Effort normal. No stridor. No respiratory distress. No wheezes. No rales. No rhonchi . No tenderness. Abdominal: Soft. Bowel sounds normal. Protuberant due to body habitus but no distension. No mass. No tenderness. No rebound. No guarding. Musculoskeletal: RUE: Normal range of motion. No tenderness. No deformity LUE: Normal range of motion. No tenderness. No deformity RLE: Normal range of motion. No edema. No tenderness. No deformity LLE: Normal range of motion. No edema. No tenderness. No deformity Lymph: No cervical adenopathy. Neurological: Alert and oriented to person, place, and time. Normal strength. CN II-VII intact. No sensory deficit. GCS eye subscore is 4. GCS verbal subscore is 5. GCS motor subscore is 6. Normal coordination Skin: Skin is warm and dry. No rash noted. No pallor. Normal capillary refill. Dry yellow liquidy stool on both lower extremities. Patient does have some erythema and skin breakdown in the right popliteal fossa behind his knee which is likely reflective of a Danya rash in that area. Left knee looks normal. Psychiatric: Normal mood. Normal affect. Const: Vital Signs, click to edit/add: Vital Signs - 24 hr 01/09/25 19:44 01/09/25 20:15 01/09/25 20:30 Temperature 97.6 F Pulse Rate 57 L Pulse Rate [Right Pulse Oximeter] 60 Respiratory Rate 20 18 23 Blood Pressure Blood Pressure [Le ft Upper Arm] 138/52 L Pulse Oximetry 92 91 Oxygen Delivery Me thod Room Air 01/09/25 20:56 01/09/25 20:58 01/09/25 21:00 Temperature Pulse Rate 51 L 51 L 49 L Pulse Rate [Right Pulse Oximeter] Respiratory Rate 12 16 Blood Pressure 133/57 L Blood Pressure [Le ft Upper Arm] Pulse Oximetry 90 92 91 Oxygen Delivery Me thod 01/09/25 21:15 01/09/25 21:21 01/09/25 21:30 Temperature Pulse Rate 51 L 51 L 52 L Pulse Rate [Right Pulse Oximeter] Respiratory Rate 23 22 21 Blood Pressure 119/47 L Blood Pressure [Le ft Upper Arm] Pulse Oximetry 95 91 92 Oxygen Delivery Me thod 01/09/25 21:32 01/09/25 21:33 01/09/25 21:45 Temperature Pulse Rate 55 L 50 L 55 L Pulse Rate [Right Pulse Oximeter] Respiratory Rate 12 13 18 Blood Pressure 127/83 Blood Pressure [Le ft Upper Arm] Pulse Oximetry 94 93 94 Oxygen Delivery Me thod 01/09/25 22:00 01/09/25 22:03 Temperature Pulse Rate 54 L 53 L Pulse Rate [Right Pulse Oximeter] Respiratory Rate 17 111 H Blood Pressure 115/52 L Blood Pressure [Le ft Upper Arm] Pulse Oximetry 88 91 Oxygen Delivery Me thod Course Course ED Course: Recheck-nurses had him stand at the bedside to try to do very care and clean the diarrhea off his legs. He was able to stand at the bedside but legs were very shaky and he was not able to take any steps. Within about 1 or 2 minutes he became weak and had to sit back down. Nurses report that he is truly not able to walk. They feel that he is a risk for falling if discharged to home. Reevaluation(s) Reevaluation #1: Recheck-IV fluid bolus bleed. Still weak. Unable to ambulate. Hemodynamically stable. Reevaluation #2: Recheck-discussed with patient options for disposition. At this point with his weakness he and I agree that staying in the hospital is in his best interest. Nurses report that they feel he is very high risk for falls if discharge to home. However based on his lab workup so far, we do not have a clear explanation for the weakness and therefore we do not have an admittable diagnosis that would qualify him for ?inpatient? status. We agree that he needs to be admitted but unfortunately his admission will probably be under ?observation. ?. Discussed with our hospitalist Dr. Conner and she agrees that the patient needs observation status, not inpatient. The patient is disappointed by the obstetrics because he would like to be inpatient which apparently would help in qualify for benefits for half-way stay. Vital Signs Vital signs: Initial Vital Signs Temperature 97.6 F 01/09/25 19:44 Temperature Source Temporal Artery Scan 01/09/25 19:44 Pulse Rate 60 01/09/25 19:44 Respiratory Rate 20 01/09/25 19:44 Blood Pressure 138/52 L 01/09/25 19:44 Blood Pressure Mean 80 01/09/25 19:44 Blood Pressure Position Semi-Fowlers 01/09/25 19:44 Pulse Oximetry 92 01/09/25 19:44 Oxygen Delivery Method Room Air 01/09/25 19:44 Vital Signs Temperature 97.6 F 01/09/25 19:44 Pulse Rate 60 01/09/25 19:44 Respiratory Rate 20 01/09/25 19:44 Blood Pressure 138/52 L 01/09/25 19:44 Pulse Oximetry 92 01/09/25 19:44 Oxygen Delivery Method Room Air 01/09/25 19:44 Temperature 97.6 F 01/09/25 19:44 Pulse Rate 53 L 01/09/25 22:03 Respiratory Rate 111 H 01/09/25 22:03 Blood Pressure 115/52 L 01/09/25 22:03 Pulse Oximetry 91 01/09/25 22:03 Oxygen Delivery Method Room Air 01/09/25 19:44 Medications Administered Medications: Discontinued Medications Generic Name Dose Route Start Last Admin Trade Name Freq PRN Reason Stop Dose Admin Sodium Chloride 1,000 mls @ 1,000 mls/hr 01/09/25 20:00 01/09/25 21:15 0.9 % Sodium Chloride 1000 Ml IV 01/09/25 20:59 1,000 mls/hr .Q1H CLARE Administration Medical Decision Making MDM Narrative Medical decision making narrative: 79-year-old gentleman brought to the ER today by EMS after he had a ground level fall due to weakness at his home. He does have a complicated past medical history notable for previous episodes of generalized weakness which are thought to have been related to his morbid obesity with previous long hospitalizations for weakness. He has been developing progressive generalized weakness for the past 3 weeks or so in particular coming to a head over the past couple of days. There is no focal component to his weakness to raise concern for acute CVA. No seizure activity. Metabolic evaluation shows normal electrolytes, potassium, sodium and no clear explanation for weakness from that standpoint. Blood sugar is normal. Kidney function is normal. He has had diarrhea over the past few days or so. It is mostly watery and yellow. It is possible that the diarrhea is contributing to dehydration weakness. He denies any recent antibiotics to raise risk for C diff but I have ordered a stool culture and C diff if he has more diarrhea. He is not having any stool that can be sent for lab analysis here in the ER. No bloody or mucousy diarrhea. He is not have any abdominal pain to raise concern for severe intra-abdominal infection or fulminant colitis. I do not think CT scan is indicated at this point. However because of the patient's weight, he would not be able to undergo a CT scan here in [place] if it were to become necessary. Labs do show a new thrombocytopenia. Unclear etiology. Other cell counts are normal. Is it possible this is an acute phase reactant?. He is not having any symptoms of bleeding or epistaxis or unusual bruising. From a trauma standpoint he denies any painful injuries from his fall. He describes getting weak and falling forward onto his hands and knees. He does not have any signs of anterior bruising on his knees, lower extremities and no evidence for injury to his hands. He does have some erythema and skin breakdown in the skin folds of his right posterior knee which would be consistent with intertriginous Danya. He has already been doing topical nystatin for that. I do not see any signs of disseminated candidiasis or other rashes. He is not febrile. White blood cell count is normal. Discussed with our hospitalist, Dr. Conner. She accepts this patient to the hospitalist service. At this point looks like he will be admitted under ?observation? status. Lab Data Labs: Lab Results 01/09/25 Range/Units 20:32 WBC 9.83 (4.50-11.00) K/uL RBC 5.03 (4.30-5.90) m/uL Hgb 13.7 (13.5-17.5) gm/dL Hct 45.2 (37.0-53.0) % MCV 90 (80-100) fL MCH 27 (26-34) pg MCHC 30 L (32-36) gm/dL RDW Coeff of Rosalee 15.0 (11.5-15.5) % Plt Count 90 L (140-440) K/uL Neut % (Auto) 77.6 H (42.0-72.0) % Lymph % (Auto) 10.3 L (20-44) % Mercer % (Auto) 8.2 (0.0-11.0) % Eos % (Auto) 3.4 (0.0-7.0) % Baso % (Auto) 0.3 (0.0-3.0) % Neut # (Auto) 7.60 H (1.7-7.0) K/uL Lymph # (Auto) 1.00 (0.90-2.90) K/uL Mercer # (Auto) 0.80 (0.00-0.90) K/UL Eos # (Auto) 0.33 (0.00-0.50) K/uL Baso # (Auto) 0.03 (0.00-0.30) K/uL Abs Immat Gran (auto) 0.02 (0.00-0.30) K/uL Imm/Tot Granulo (auto) 0.2 % Sodium 142 (135-149) mmol/L Potassium 4.0 (3.6-5.1) mmol/L Chloride 106 (96-114) mmol/L Carbon Dioxide 31 (20-32) mmol/L Anion Gap 5 L (7-15) mEq/L BUN 21 (7-30) mg/dL Creatinine 1.2 (0.5-1.5) mg/dL Estimated GFR 62 ml/min Glucose 110 (60-115) mg/dL Lactate 2.2 H (0.5-1.9) mmol/L Calcium 9.1 (8.4-10.6) mg/dL Total Bilirubin 0.7 (0.1-1.5) mg/dL AST 25 (12-35) U/L ALT 15 (4-50) U/L Alkaline Phosphatase 143 (40-150) U/L Troponin I 0.01 (0.01-0.04) ng/mL Total Protein 7.4 (6.0-8.3) g/dL Albumin 3.7 (3.3-5.0) g/dL ECG Data Attestation: I personally reviewed and interpreted this ECG as follows: Interpretation: Sinus bradycardia with sinus arrhythmia Rate 54 AK interval 198 Left axis deviation. No pathologic Q-waves. Right bundle branch block pattern. No ST segment elevation or depression. Nonspecific T-wave flattening. QTC 432 Discharge Plan Discharge Clinical Impression: Generalized weakness, Fall, Diarrhea, Thrombocytopenia, Candidiasis, intertriginous Patient Disposition: Admitted As Observation
--- OUTSIDE RECORDS SUMMARY | 2025-01-09 20:46 | XMS_ITS ---
Author Organization [employer]) Support Name Relationship Address Phone Xavier Damon Guarantor [address], [place] [address] Xavier Damon Agent [address], [place] [id number] [facility] Emergency Contact Unknown IngSid enriquez Emergency Contact Unknown Allergies and adverse reactions No Known Allergies Immunizations Immunization Status Vaccine Details Vaccine Code CodeSystem Date Notes TB 2 Step Mantoux Skin Test completed tuberculin skin test; unspecified formulation lotNumber: [id number] expiry: 03/10/2024 Mfg: PAR Pharm Given Left Forearm intradermally Step 2 of Multi-step with next step required 98 CVX created date: 02/06/2023 consent date: 02/06/2023 administere d date: 02/04/2023 TB 2 Step Mantoux Skin Test completed tuberculin skin test; unspecified formulation lotNumber: [id number] expiry: 03/10/2024 Mfg: PAR [employer]aceutical Given 0.1 [...] CodeSystem Concern Status 1 GOUT, UNSPECIFIED 01/21/[address] active 2 MORBID (SEVERE) OBESITY DUE TO EXCESS CALORIES 01/21/[address] active 3 STRAIN OF MUSCLE(S) AND TENDON(S) OF THE ROTATOR CUFF OF RIGHT SHOULDER, SUBSEQUENT ENCOUNTER 01/21/[id number] active 4 UMBILICAL HERNIA WITH OBSTRUCTION, WITHOUT GANGRENE 01/21/[address] active 5 UNILATERAL PRIMARY OSTEOARTHRITIS, LEFT KNEE 01/21/[address] active 6 VENTRAL HERNIA WITHOUT OBSTRUCTION OR GANGRENE 01/21/[address] active Reason for Referral No Reasons for Referral Entered Social History Social History Observation Description Start Date End Date Code Code System Current Smoking Status Tobacco smoking consumption unknown 174887205 SNOMED CT Sex Assigned At Male 1945 02927-4 [facility] Gender Identity Vital Signs Code Code System Vitals Name Values and Units Timing Information 9279-1 [facility] Respiratory Rate Value=18.0 Units=/m in 02/20/2023 8462-4 [facility] Blood Pressure-Diastolic Value=65 Un its=mmHg 02/20/2023 8480-6 [facility] Blood Pressure-Systolic Ssalp=071 Un its=mmHg 02/20/2023 8310-5 [facility] Body Temperature Value=98.0 Units= F 02/20/2023 8867-4 [facility] Heart rate Value=55.0 Units=/min 66618-7 [facility] O2 % BldC Oximetry Value=96.0 Units= % 02/20/2023 13600-2 [facility] Pain Level Value=6.0 02/20/2023 01345-2 [facility] Weight Hpkgr=396.5 Units=Lbs 8302-2 [facility] Height Value=68.0 Units=Inches 01/21/2023
[2025-01-09 20:56] LABS: Lactate* 2.2 mmol/L (0.5-1.9)
[2025-01-09 21:01] LABS: Hematocrit 45.2 % (37.0-53.0); Hemoglobin* 13.7 gm/dL (13.5-17.5); Immature Granulocytes Abs Auto 0.02 K/uL (0.00-0.30); Immature Granulocytes Pct Auto 0.2 %; Mean Corpuscular HGB Conc 30 gm/dL (32-36); Mean Corpuscular Hemoglobin 27 pg (26-34); Mean Corpuscular Volume 90 fL (80-100); RDW Coefficient of Variation % 15.0 % (11.5-15.5); Red Blood Count 5.03 m/uL (4.30-5.90); White Blood Count* 9.83 K/uL (4.50-11.00)
[2025-01-09 21:02] LABS: Lymphocytes Absolute Auto 1.00 K/uL (0.90-2.90); Slide Review Reflex No
[2025-01-09 22:00] LABS: Albumin* 3.7 g/dL (3.3-5.0); Chloride* 106 mmol/L (96-114)
[2025-01-09 22:01] LABS: Potassium* 4.0 mmol/L (3.6-5.1); Sodium* 142 mmol/L (135-149)
[2025-01-09 22:03] LABS: Alanine Aminotransferase* 15 U/L (4-50); Alkaline Phosphatase* 143 U/L (40-150); Anion Gap 5 mEq/L (7-15); Aspartate Amino Transferase* 25 U/L (12-35); Bilirubin Total* 0.7 mg/dL (0.1-1.5); Blood Urea Nitrogen* 21 mg/dL (7-30); Carbon Dioxide* 31 mmol/L (20-32); Creatinine* 1.2 mg/dL (0.5-1.5); Estimated Glomerular Filt Rate 62 ml/min; Total Protein* 7.4 g/dL (6.0-8.3)
[2025-01-09 22:04] LABS: Calcium* 9.1 mg/dL (8.4-10.6); Glucose* 110 mg/dL (60-115)
--- NOTE | 2025-01-09 23:39 | P.IMHP_ITS ---
Assessment and Plan Assessment and plan (1) Fall: Problem comment: - Suspect due to weakness from diarrhea and deconditioning - BP mildly low, hold amlodipine, obtain orthostatic VS - History, exam and labs do not suggest any acute medical condition - Unable to ambulate in ER, admit for Obs, PT and OT to evaluate Status: Acute (2) Physical debility: Problem comment: - Acute on chronic - PT/OT Status: Acute (3) Diarrhea: Problem comment: - mild dehydration may have contributed to weakness and fall - Stool studies ordered - Precautions - If Cdiff negative, start imodium Status: Acute (4) Thrombocytopenia: Problem comment: - new, no active bleeding, recheck in am. If persistent, consider peripheral smear Status: Acute (5) CKD (chronic kidney disease): Problem comment: - stage 3 - baseline Cr is 1.2 - torsemide recently stopped due to worsening renal function Status: Acute (6) Heart failure with preserved ejection fraction: Problem comment: 07/24/24 ECHO Technically limited exam, very poor image quality. LV function is likely normal but endocardial definition is poor. Right ventricular cavity size is not well visualized, global systolic RV function is not well visualized. The ascending aorta is dilated with maximal diameter 4.3 cm. Inferior vena cava is dilated, respiratory size variation is less than 50%. - 01/09/25 stable, no exacerbation Status: Acute (7) Lymphedema associated with obesity: Status: Chronic (8) Candidal intertrigo: Problem comment: - h/o intertrigo - continue nystatin Status: Chronic (9) HTN (hypertension): Problem comment: -continue losartan. Stopped amlodipine as above. Status: Chronic (10) Morbid obesity: Problem comment: BMI almost 80 - Patient has initial appointment with outpatient weight management clinic this week. Status: Chronic (11) BRANDY (obstructive sleep apnea): Problem comment: -needs outpatient sleep study -NC 1-2L to keep sats at >88% while sleeping. - 07/24 recommended patient get outpatient sleep study - 01/09 has not yet followed up about this Status: Suspected Total Time Spent Total Time Spent: Time spent: Today I spent 80 minutes seeing the patient, discussing the patient with ER staff, reviewing Expanse and EPIC notes/diagnostics, discussing the care plan with our care team that includes social work, PT/OT, pharmacy, RT, long term and documenting my impressions and plan in the medical record. Hospitalist- H&P: HPI History of Present Illness Time Seen by Provider: 23:44 Date Seen: 01/09/25 Chief complaint: Fall,Weakness Narrative: Xavier Damon is a 79 year old male with morbid obesity and lymphedema who is well known to me from previous admissions presented through the emergency department today too weak to ambulate with his walker. He tells me that he had not been watching his diet and gained quite a bit of weight back went 3 weeks ago he suddenly could not get his feet turned after getting out of the shower and fell. He came to the emergency department and a workup was essentially negative, so he was discharged home. He cut out all pop and candy upon returning home and has not had any of that since. He then started having diarrhea which has been getting worse. The same thing happened again last week after shower and again the workup was negative in the emergency department. Home therapies were ordered from the ER. He has already seen the PT at his house twice, but the nursing portion has not started yet. He feels like he is getting weaker every day. Today the same thing happened after a shower, but he was able to sit down on the bench nearby and prevent himself from falling. Then later in the day he had an episode of explosive diarrhea on the way to the bathroom which caused him to fall. He tells me that he does not feel safe going home because of all the falling and feeling like he is getting weaker every day. He wants to go somewhere where they can monitor his diet and have therapies work with him so he can get stronger and lose weight. He has been in touch with his primary care provider via video and got set up with an outpatient weight management program in [place] that will start on . He denies any fevers or chills. He denies urinary symptoms. He is not having any chest pain or shortness of breath. He denies any cellulitis and notes that his skin folds are better than they ever have been before because he takes a shower every morning and has been hiring someone to come out to his house to help him put powder in his skin folds. Review of Systems Status of ROS: Reports: 10 or more systems reviewed and unremarkable except as noted in History and below Medical Decision Making Medical Decision Making Code Status: Full code, no terminal operations manager life support Has patient completed a Health Care Directive: Yes During This Stay, Who Would You Like To Make Decisions For You In The Event You Are Unable To Make Them For Yourself?: Fallon Ordonez Barb [phone] [facility] Medical History (Updated 01/10/25 @ 01:06 by Jennifer Conner MD) Acute hypoxic respiratory failure ?J96.01 - Acute respiratory failure with hypoxia (ICD-10) Neck mass ?R22.1 - Localized swelling, mass and lump, neck (ICD-10) Complicated urinary tract infection ?N39.0 - Urinary tract infection, site not specified (ICD-10) Hypocalcemia ?E83.51 - Hypocalcemia (ICD-10) LESLI (acute kidney injury) ?N17.9 - Acute kidney failure, unspecified (ICD-10) HTN (hypertension) ?I10 - Essential (primary) hypertension (ICD-10) Advanced directives, counseling/discussion ?Z71.89 - Other specified counseling (ICD-10) Morbid obesity ?E66.01 - Morbid (severe) obesity due to excess calories (ICD-10) Right shoulder pain ?M25.511 - Pain in right shoulder (ICD-10) Leukocytosis ?D72.829 - Elevated white blood cell count, unspecified (ICD-10) Intertrigo ?L30.4 - Erythema intertrigo (ICD-10) Weakness ?R53.1 - Weakness (ICD-10) Lymphedema ?I89.0 - Lymphedema, not elsewhere classified (ICD-10) Urinary retention ?R33.9 - Retention of urine, unspecified (ICD-10) Arthritis of knee, left ?M17.12 - Unilateral primary osteoarthritis, left knee (ICD-10) Anasarca ?R60.1 - Generalized edema (ICD-10) Durable power of criminal attorney for healthcare POLST (Physician Orders for Life-Sustaining Treatment) ?Z78.9 - Other specified health status (ICD-10) BRANDY (obstructive sleep apnea) ?G47.33 - Obstructive sleep apnea (adult) (pediatric) (ICD-10) Elevated blood uric acid level ?E79.0 - Hyperuricemia without signs of inflammatory arthritis and tophaceous disease (ICD-10) Impaired fasting glucose ?R73.01 - Impaired fasting glucose (ICD-10) Gout ?M10.9 - Gout, unspecified (ICD-10) Adenomatous colon polyp (~2015) ?D12.6 - Benign neoplasm of colon, unspecified (ICD-10) Ventral hernia ?K43.9 - Ventral hernia without obstruction or gangrene (ICD-10) Incarcerated umbilical hernia (~2014) ?K42.0 - Umbilical hernia with obstruction, without gangrene (ICD-10) Dyslipidemia ?E78.5 - Hyperlipidemia, unspecified (ICD-10) Hernia ?K46.9 - Unspecified abdominal hernia without obstruction or gangrene (ICD- 10) Gallbladder attack ?K82.9 - Disease of gallbladder, unspecified (ICD-10) Surgical History H/O hernia repair (~2014) ?Z98.890 - Other specified postprocedural states (ICD-10) ?Z87.19 - Personal history of other diseases of the digestive system (ICD-10) Hx of cholecystectomy (~1985) ?Z90.49 - Acquired absence of other specified parts of digestive tract (ICD- 10) H/O colonoscopy ?Z98.890 - Other specified postprocedural states (ICD-10) Family History Father Cardiovascular disease Myocardial infarction Mother High blood pressure Sister Sarcoma Social History (Updated 01/09/25 @ 23:56 by Jennifer Conner MD) Narrative: Lives in a house that is accessible. Was in the [employer] business. Worked for [employer]. Retired 10 years ago. What is your current living situation?: I presently have a place to live Problems where you live: no known problems Problems where you live details: none In the past 12 months, utilities in danger of being shut off: no In past 12 months, lack of transportation kept you from medical appts, meetings, work, or getting things needed for daily living: no In the past 12 mos, have been you worried that your food would run out before you had money to buy more?: never true In the past 12 mos, the food you bought just didn't last and you didn't have money to buy more?: never true Highest level of school completed/degree received: Associate degree: occupational, technical, vocational program Smoking Status: Never smoker Do you use any of these nicotine containing products: None Second hand tobacco smoke exposure: No How often do you have a drink containing alcohol: never How often do you have six or more drinks on one occasion: Never AUDIT-C Alcohol total score: 0 Non-prescribed substance use: denies use Caffeine: Yes How often does anyone, including family, friends and others, physically hurt you : never How often does anyone, including family, friends and others, insult or talk down to you: never How often does anyone, including family, friends and others, threaten you with harm: never How often does anyone, including family, friends and others, scream or curse at you: never service: No Meds Home Medications and Allergies Home Medications ?Medication ?Instructions ?Recorded ?Confirmed ?Type amlodipine 5 mg tablet 5 mg PO BID 12/30/22 5 History losartan 100 mg tablet 100 mg PO DAILY 12/30/2201/28 History nystatin 100,000 unit/gram topical 1 applic topical BI D #60 grams 01/21/23 01/10/25 Rx powder potassium chloride 10 mEq 10 meq PO DAILY 07/23/2401/28 History tablet,extended release(part/cryst) carvedilol 3.125 mg tablet 3.125 mg PO BID 12/23/24 History mupirocin 2 % topical ointment 1 applic topical BID-TI D 12/23/24 12/23/24 History tamsulosin 0.4 mg capsule 0.4 mg PO DAILY 01/10/2501/28 History Allergies Allergy/AdvReac Type Severity Reaction Status Date / Time No Known Drug Allergies Allergy Verified 12/23/24 09:53 Exam Narrative: Exam Narrative: General: No acute distress. Morbidly obese. Awake alert oriented x3. HEENT: Normocephalic atraumatic, pupils equally round and reactive to light and accommodation. Oropharynx clear. Mucous membranes are moist. No cervical lymphadenopathy, thyromegaly or carotid bruits. No JVD. Cardiovascular: Regular rate and rhythm. No murmurs, gallops, or rubs. Chest: No increased work of breathing. Clear to auscultation bilaterally. No crackles or wheezes. Abdomen: Bowel sounds present. Soft, nondistended, nontender. No hepatosplenomegaly or masses. Pannus as lymphedema, but skin folds are clean and dry and without rash. Extremities: Bilateral lymphedema, better than I have seen on previous visits, no erythema, no cyanosis or clubbing. Skin: No jaundice, no pallor, no rashes. Neuro: Grossly intact. No focal deficits. Const: Vital Signs, click to edit/add: Vital Signs - 24 hr 01/09/25 19:44 01/09/25 20:15 01/09/25 20:30 Temperature 97.6 F Pulse Rate 57 L Pulse Rate [Right Pulse Oximeter] 60 Respiratory Rate 20 18 23 Blood Pressure Blood Pressure [Le ft Upper Arm] 138/52 L Pulse Oximetry 92 [facility] 01/09/25 20:56 01/09/25 20:58 01/09/25 21:00 Temperature Pulse Rate 51 L 51 L 49 L Pulse Rate [Right Pulse Oximeter] Respiratory Rate 12 16 Blood Pressure 133/57 L Blood Pressure [Le ft Upper Arm] Pulse Oximetry 90 92 [facility] 01/09/25 21:15 01/09/25 21:21 01/09/25 21:30 Temperature Pulse Rate 51 L 51 L 52 L Pulse Rate [Right Pulse Oximeter] Respiratory Rate 23 22 21 Blood Pressure 119/47 L Blood Pressure [Le ft Upper Arm] Pulse Oximetry 95 91 [facility] 01/09/25 21:32 01/09/25 21:33 01/09/25 21:45 Temperature Pulse Rate 55 L 50 L 55 L Pulse Rate [Right Pulse Oximeter] Respiratory Rate 12 13 18 Blood Pressure 127/83 Blood Pressure [Le ft Upper Arm] Pulse Oximetry 94 93 94 [facility] 01/09/25 22:00 01/09/25 22:03 01/09/25 22:04 Temperature Pulse Rate 54 L 53 L 54 L Pulse Rate [Right Pulse Oximeter] Respiratory Rate 17 111 H 15 Blood Pressure 115/52 L Blood Pressure [Le ft Upper Arm] Pulse Oximetry 88 91 89 [facility] 01/09/25 22:15 01/09/25 22:30 01/09/25 22:33 Temperature Pulse Rate 56 L 56 L Pulse Rate [Right Pulse Oximeter] Respiratory Rate 17 Blood Pressure 132/44 L Blood Pressure [Le ft Upper Arm] Pulse Oximetry 89 92 Oxygen Delivery [facility] 01/09/25 22:45 Temperature Pulse Rate 53 L Pulse Rate [Right Pulse Oximeter] Respiratory Rate 26 H Blood Pressure Blood Pressure [Le ft Upper Arm] Pulse Oximetry 92 Oxygen Delivery [facility] Hospitalist - H&P: Result Labs Labs: Short CBC 01/09/25 Range/Units 20:32 WBC 9.83 (4.50-11.00) K/uL Hgb 13.7 (13.5-17.5) gm/dL Hct 45.2 (37.0-53.0) % Plt Count 90 L (140-440) K/uL BMP 01/09/25 20:32 Sodium 142 Potassium 4.0 Chloride 106 Carbon Dioxide 31 BUN 21 Creatinine 1.2 Glucose 110 Calcium 9.1 Cardiac Enzymes 01/09/25 Range/Units 20:32 Troponin I 0.01 (0.01-0.04) ng/mL Liver Function 01/09/25 Range/Units 20:32 Total Bilirubin 0.7 (0.1-1.5) mg/dL AST 25 (12-35) U/L ALT 15 (4-50) U/L Alkaline Phosphatase 143 (40-150) U/L Albumin 3.7 (3.3-5.0) g/dL 01/09/2025 EKG: Sinus bradycardia with marked sinus arrhythmia, 54 beats per minute, left axis deviation, right bundle-branch block.
[2025-01-10 00:23] VITALS: BP 132/58; PULSE 53; RESP 22; TEMP 35.9; O2SAT 93; BMI 79.7
[2025-01-10 02:43] VITALS: BP 121/74; PULSE 56; RESP 22; TEMP 35.9; O2SAT 95
--- NOTE | 2025-01-10 06:50 | PC.NURSE ---
Shift note ([id number]): Patient admitted from ED at 2250. Pleasant, alert and oriented. Slide transferred from ED bed to room bed.?Denied pain. Regular diet.?
[2025-01-10 06:57] LABS: Lactate* 0.9 mmol/L (0.5-1.9)
[2025-01-10 07:00] VITALS: BP 173/74; PULSE 63; RESP 16; TEMP 36.3; O2SAT 94
[2025-01-10 07:07] LABS: Hematocrit 40.8 % (37.0-53.0); Hemoglobin* 12.5 gm/dL (13.5-17.5); Immature Granulocytes Abs Auto 0.01 K/uL (0.00-0.30); Immature Granulocytes Pct Auto 0.1 %; Lymphocytes Absolute Auto 1.00 K/uL (0.90-2.90); Mean Corpuscular HGB Conc 31 gm/dL (32-36); Mean Corpuscular Hemoglobin 28 pg (26-34); Mean Corpuscular Volume 90 fL (80-100); RDW Coefficient of Variation % 15.1 % (11.5-15.5); Red Blood Count 4.53 m/uL (4.30-5.90); White Blood Count* 7.52 K/uL (4.50-11.00)
[2025-01-10 07:12] LABS: Slide Review Reflex No
[2025-01-10 07:19] LABS: Chloride* 107 mmol/L (96-114); Sodium* 144 mmol/L (135-149)
[2025-01-10 07:20] LABS: Potassium* 3.6 mmol/L (3.6-5.1)
[2025-01-10 07:22] LABS: Blood Urea Nitrogen* 18 mg/dL (7-30); Creatinine* 1.1 mg/dL (0.5-1.5); Est. Creatinine Clearance* 53.55; Estimated Glomerular Filt Rate 69 ml/min
[2025-01-10 07:23] LABS: Anion Gap 7 mEq/L (7-15); Calcium* 8.9 mg/dL (8.4-10.6); Carbon Dioxide* 30 mmol/L (20-32); Glucose* 106 mg/dL (60-115)
[2025-01-10 09:58] VITALS: BMI 79.3
[2025-01-10] MEDS: LOSARTAN POTASSIUM 50 MG TABLET 100 MG PO (10:20)
[2025-01-10] MEDS: TAMSULOSIN HCL 0.4 MG CAPSULE PO (10:20)
[2025-01-10] MEDS: POTASSIUM CHLORIDE 10 MEQ CAPSULE ER PO (10:21)
[2025-01-10] MEDS: NYSTATIN POWDER 1 APPLIC TOPICAL ×2 (10:22→21:05)
[2025-01-10] MEDS: SODIUM CHLORIDE 0.9 % (FLUSH) 10 ML SYRINGE 5 ML IVF ×2 (10:23→21:04)
[2025-01-10 12:09] LABS: C.Difficile Negative (Negative); CDIFFEPI 027 PRESUMPTIVE NEGATIVE (Negative)
[2025-01-10 12:38] VITALS: BP 145/72; PULSE 53; RESP 16; TEMP 36.2; O2SAT 91
[2025-01-10 15:00] VITALS: BP 143/69; PULSE 53; RESP 16; TEMP 36.6; O2SAT 97
--- NOTE | 2025-01-10 15:08 | P.IMPN_ITS ---
Assessment and Plan Assessment and plan (1) Fall: Problem comment: - Suspect due to weakness from diarrhea and deconditioning - BP mildly low, hold amlodipine, obtain orthostatic VS - History, exam and labs do not suggest any acute medical condition - Unable to ambulate in ER, admit for Obs, PT and OT to evaluate Status: Acute (2) Physical debility: Problem comment: - Acute on chronic - PT/OT Status: Acute (3) Diarrhea: Problem comment: - mild dehydration may have contributed to weakness and fall - Stool studies ordered and negative for C diff - Precautions - If Cdiff negative, start imodium Status: Acute (4) Thrombocytopenia: Problem comment: - new, no active bleeding, recheck in am. If persistent, consider peripheral smear Status: Acute (5) CKD (chronic kidney disease): Problem comment: - stage 3 - baseline Cr is 1.2 - torsemide recently stopped due to worsening renal function Status: Acute (6) Heart failure with preserved ejection fraction: Problem comment: 07/24/24 ECHO Technically limited exam, very poor image quality. LV function is likely normal but endocardial definition is poor. Right ventricular cavity size is not well visualized, global systolic RV function is not well visualized. The ascending aorta is dilated with maximal diameter 4.3 cm. Inferior vena cava is dilated, respiratory size variation is less than 50%. - 01/09/25 stable, no exacerbation Status: Acute (7) Lymphedema associated with obesity: Status: Chronic (8) Candidal intertrigo: Problem comment: - h/o intertrigo - continue nystatin Status: Chronic (9) HTN (hypertension): Problem comment: -continue losartan. Stopped amlodipine as above. Status: Chronic (10) Morbid obesity: Problem comment: BMI almost 80 - Patient has initial appointment with outpatient weight management clinic this week. Status: Chronic (11) BRANDY (obstructive sleep apnea): Problem comment: -needs outpatient sleep study -NC 1-2L to keep sats at >88% while sleeping. - 07/24 recommended patient get outpatient sleep study - 01/09 has not yet followed up about this Status: Suspected Plan 1. Reviewed impression, plan, recommendations with patient 2. Answers question 3. Coordinated with nursing staff, physical therapy, occupational therapy 4. Work in conjunction with licensed master social worker 5. Patient agreeable with above stated plans and recommendations Total Time Spent Total Time Spent: 45 minutes Subjective Date Seen: 01/10/25 Interval history: Admission history of present illness: ?79 year old male with morbid obesity and lymphedema who is well known to me from previous admissions presented through the emergency department today too weak to ambulate with his walker. He tells me that he had not been watching his diet and gained quite a bit of weight back went 3 weeks ago he suddenly could not get his feet turned after getting out of the shower and fell. He came to the emergency department and a workup was essentially negative, so he was di scharged home. He cut out all pop and candy upon returning home and has not had any of that since. He then started having diarrhea which has been getting worse. The same thing happened again last week after shower and again the workup was negative in the emergency department. Home therapies were ordered from the ER. He has already seen the PT at his house twice, but the nursing portion has not started yet. He feels like he is getting weaker every day. Today the same thing happened after a shower, but he was able to sit down on the bench nearby and prevent himself from falling. Then later in the day he had an episode of explosive diarrhea on the way to the bathroom which caused him to fall. He tells me that he does not feel safe going home because of all the falling and feeling like he is getting weaker every day. He wants to go somewhere where they can monitor his diet and have therapies work with him so he can get stronger and lose weight. He has been in touch with his primary care provider via video and got set up with an outpatient weight management program in [place] that will start on . He denies any fevers or chills. He denies urinary symptoms. He is not having any chest pain or shortness of breath. He denies any cellulitis and notes that his skin folds are better than they ever have been before because he takes a shower every morning and has been hiring someone to come out to his house to help him put powder in his skin folds.? Hospital day 2, 01/10/2025: He feels a little less weak today than he did yesterday. Has had progressive loss of ability to safely ambulate having suffered 3 falls in a relatively short period of time and getting out of his chair in bed less than less over the same timeframe due to his fear of falling. Willing to work with physical and occupational therapy to establish a safe discharge disposition plan and recommendations for him. Exam Narrative: Exam Narrative: I examined patient in his hospital room. No acute distress when he sitting there. Alert and oriented x4. Decreased insight about his condition. His focused on will losing weight in thinking that that will resolve his problems with weakness and falling. Lungs are clear to auscultation. Heart tones with regular rhythm. Abdomen is obese with active bowel sounds, soft, nontender. Extremities without edema. No focal motor neurologic deficits. Skin is warm, dry, intact. Const: Vital Signs, click to edit/add: Vital Signs - 24 hr 01/09/25 19:44 01/09/25 20:15 01/09/25 20:30 Temperature 97.6 F Pulse Rate 57 L Pulse Rate [Pulse Oximeter] Pulse Rate [Right Pulse Oximeter] 60 Respiratory Rate 20 18 23 Blood Pressure Blood Pressure [Le ft Upper Arm] 138/52 L Blood Pressure [Ri ght Arm] Pulse Oximetry 92 91 [facility] 01/09/25 20:56 01/09/25 20:58 01/09/25 21:00 Temperature Pulse Rate 51 L 51 L 49 L Pulse Rate [Pulse Oximeter] Pulse Rate [Right Pulse Oximeter] Respiratory Rate 12 16 Blood Pressure 133/57 L Blood Pressure [Le ft Upper Arm] Blood Pressure [Ri ght Arm] Pulse Oximetry 90 92 91 [facility] 01/09/25 21:15 01/09/25 21:21 01/09/25 21:30 Temperature Pulse Rate 51 L 51 L 52 L Pulse Rate [Pulse Oximeter] Pulse Rate [Right Pulse Oximeter] Respiratory Rate 23 22 21 Blood Pressure 119/47 L Blood Pressure [Le ft Upper Arm] Blood Pressure [Ri ght Arm] Pulse Oximetry 95 91 92 [facility] 01/09/25 21:32 01/09/25 21:33 01/09/25 21:45 Temperature Pulse Rate 55 L 50 L 55 L Pulse Rate [Pulse Oximeter] Pulse Rate [Right Pulse Oximeter] Respiratory Rate 12 13 18 Blood Pressure 127/83 Blood Pressure [Le ft Upper Arm] Blood Pressure [Ri ght Arm] Pulse Oximetry 94 93 94 [facility] 01/09/25 22:00 01/09/25 22:03 01/09/25 22:04 Temperature Pulse Rate 54 L 53 L 54 L Pulse Rate [Pulse Oximeter] Pulse Rate [Right Pulse Oximeter] Respiratory Rate 17 111 H 15 Blood Pressure 115/52 L Blood Pressure [Le ft Upper Arm] Blood Pressure [Ri ght Arm] Pulse Oximetry 88 91 89 [facility] 01/09/25 22:15 01/09/25 22:30 01/09/25 22:33 Temperature Pulse Rate 56 L 56 L Pulse Rate [Pulse Oximeter] Pulse Rate [Right Pulse Oximeter] Respiratory Rate 17 Blood Pressure 132/44 L Blood Pressure [Le ft Upper Arm] Blood Pressure [Ri ght Arm] Pulse Oximetry 89 92 Oxygen Delivery [facility] 01/09/25 22:45 01/10/25 00:23 01/10/25 00:23 Temperature 96.7 F L Pulse Rate 53 L Pulse Rate [Pulse Oximeter] 53 L Pulse Rate [Right Pulse Oximeter] Respiratory Rate 26 H 22 Blood Pressure Blood Pressure [Le ft Upper Arm] Blood Pressure [Ri ght Arm] 132/58 L Pulse Oximetry 92 93 Oxygen Delivery [facility] Room Air Room Air 01/10/25 02:43 01/10/25 07:00 01/10/25 12:38 Temperature 96.7 F L 97.4 F L 97.2 F L Pulse Rate Pulse Rate [Pulse Oximeter] 56 L 63 53 L Pulse Rate [Right Pulse Oximeter] Respiratory Rate 22 16 16 Blood Pressure Blood Pressure [Le ft Upper Arm] Blood Pressure [Ri ght Arm] 121/74 173/74 H 145/72 H Pulse Oximetry 95 94 91 Oxygen Delivery [facility] Room Air Room Air Room Air Labs Labs: Laboratory Results - last 24 hr 01/09/25 01/10/25 01/10/25 20:32 06:48 11:16 WBC 9.83 7.52 RBC 5.03 4.53 Hgb 13.7 12.5 L Hct 45.2 40.8 MCV 90 90 MCH 27 28 MCHC 30 L 31 L RDW Coeff of [place] 15.0 15.1 Plt Count 90 L 205 Neut % (Auto) 77.6 H 73.9 H Lymph % (Auto) 10.3 L 13.3 L [place] % (Auto) 8.2 8.2 Eos % (Auto) 3.4 4.1 Baso % (Auto) 0.3 0.4 Neut # (Auto) 7.60 H 5.60 Lymph # (Auto) 1.00 1.00 [place] # (Auto) 0.80 0.60 Eos # (Auto) 0.33 0.31 Baso # (Auto) 0.03 0.03 Abs Immat Gran (auto) 0.02 0.01 Imm/Tot Granulo (auto) 0.2 0.1 Sodium 142 144 Potassium 4.0 3.6 Chloride 106 107 Carbon Dioxide 31 30 Anion Gap 5 L 7 BUN 21 18 Creatinine 1.2 1.1 Estimated Creat Clear 53.55 Estimated GFR 62 69 Glucose 110 106 Lactate 2.2 H 0.9 Calcium 9.1 8.9 Total Bilirubin 0.7 AST 25 ALT 15 Alkaline Phosphatase 143 Troponin I 0.01 Total Protein 7.4 Albumin 3.7 Stl C. diff Tox B Gene Negative Stl C. diff [id number] PRESUMPTIVE NEGATIVE
--- NOTE | 2025-01-10 15:36 | PC.NURSE ---
[id number]: Pt. AOx3. Pt. leaked from pure wick, pure wick replaced. Pure wick removed after working with PT and OT. Pt. able to use commode and void using bucket. Pt. refuses to ambulate to commode. Teaching about mobility reinforced. Bed and brief change x2. Gail- cares performed.
--- NOTE | 2025-01-10 16:29 | PC.SOCIAL ---
Discharge planning- Per therapy, patient recommendation is SNF for STR. Discussed recommendation with patient. Patient is currently in observation status, so will have to privately pay. Patient was made aware of this. SNF's are limited due to patient's weight. Patient requested that health underwriter reach out to [facility] and inquire on weight limit. Patient was previously at [facility]. Patient has home care services (PT/OT) through [employer] [employer]. Patient will reach out to [facility] for home care scheduler care information. The following SNF's were contacted for possible placement. 1. [facility]- Phone call to admissions. They only accept up to 450 lbs, so cannot meet patient's needs. 2. [facility]- Phone call to admissions at [phone]. Admissions states they believe the weight limit is 300 lbs, but they will check with nursing and call back. 3. [facility]- Message to Enrique Goodrich at [facility]. Enrique states that [facility] only can accomodate weight of 400lbs. Enrique checked with all other [facility] facilities and stated that [facility] can accept up to 600 lbs. (550lbs if using lift). Secure emailed referral to Enrique Goodrich to be reviewed. 4. [facility]- They can only accept up to 300 lbs. 5. [facility]- Phone call to admissions, left voicemail. 6. [facility]- Phone call to admissions. They can only accomodate to 350lbs. Received a phone call from Denita at [facility] at [phone]. Patient called inquiring about home care scheduler care (privately paying). Denita was requesting additional information. Secure e-mailed requested information to Denita at [email or web address]. Denita will review and provide update if they can meet patient's needs in home. Patient was requesting 6-8 hours a day of home care scheduler care. Met with patient bedside and provided an update on information received from SNF's. Patient would like to proceed with being reviewed at the [facility]. Back up option is returning home with additional home care scheduler care and additional assistance from family/friends. Social work will continue to follow up as needed.
--- NOTE | 2025-01-10 19:03 | PC.NURSE ---
Nursing Care Hours: [id number] Pt this shift calm and cooperative, alert and oriented. No c/o pain. Agreeable to using BSC to urinate during the day vs using pure wick. Pt using 1-2 assist with walker.
[2025-01-10 20:57] VITALS: BP 152/69; PULSE 56; RESP 20; TEMP 36.4; O2SAT 92
[2025-01-11 00:35] VITALS: BP 158/63; PULSE 61; RESP 19; TEMP 36.3; O2SAT 90
[2025-01-11 04:11] VITALS: BP 158/66; PULSE 62; RESP 20; TEMP 36.3; O2SAT 92
[2025-01-11 07:00] VITALS: BP 137/73; PULSE 64; RESP 16; TEMP 36.3; O2SAT 91
--- NOTE | 2025-01-11 07:36 | PC.NURSE ---
Shift note ([id number]): Patient pleasant, alert and oriented. Patient sounds congested and reports having an?intermittent non-productive cough. Rhonchi in upper lobes. Dr Conner updated. New order for Incentive spirometer obtained.?Denied SOB during night. Denied pain. Regular diet.?
[2025-01-11] MEDS: NYSTATIN POWDER 1 APPLIC TOPICAL (09:00)
[2025-01-11] MEDS: POTASSIUM CHLORIDE 10 MEQ CAPSULE ER PO (09:09)
[2025-01-11] MEDS: SODIUM CHLORIDE 0.9 % (FLUSH) 10 ML SYRINGE 5 ML IVF (09:10)
[2025-01-11] MEDS: LOSARTAN POTASSIUM 50 MG TABLET 100 MG PO (09:10)
[2025-01-11] MEDS: TAMSULOSIN HCL 0.4 MG CAPSULE PO (09:10)
[2025-01-11 11:00] VITALS: BP 149/81; PULSE 54; RESP 18; O2SAT 93
--- NOTE | 2025-01-11 12:45 | P.IMPN_ITS ---
Assessment and Plan Assessment and plan (1) Fall: Problem comment: - Suspect due to weakness from acute diarrhea, mild dehydration, and baseline physically deconditioned state - BP mildly low, hold amlodipine, obtain orthostatic VS - History, exam and labs do not suggest any acute medical condition - Unable to ambulate in ER, admit for Obs, PT and OT to evaluate - Work toward safe discharge plan Status: Acute (2) Physical debility: Problem comment: - Acute on chronic - PT/OT Status: Acute (3) Diarrhea: Problem comment: - mild dehydration may have contributed to weakness and fall - Stool studies ordered and negative for C diff - Precautions - C. diff negative, start imodium PRN Status: Acute (4) Thrombocytopenia: Problem comment: - new, no active bleeding. Improved on re-draw from 90-200 Status: Acute (5) CKD (chronic kidney disease): Problem comment: - stage 3 - baseline Cr is 1.2 - torsemide recently stopped due to worsening renal function Status: Acute (6) Heart failure with preserved ejection fraction: Problem comment: 07/24/24 ECHO Technically limited exam, very poor image quality. LV function is likely normal but endocardial definition is poor. Right ventricular cavity size is not well visualized, global systolic RV function is not well visualized. The ascending aorta is dilated with maximal diameter 4.3 cm. Inferior vena cava is dilated, respiratory size variation is less than 50%. - 01/09/25 stable, no exacerbation Status: Acute (7) Lymphedema associated with obesity: Status: Chronic (8) Candidal intertrigo: Problem comment: - h/o intertrigo - continue nystatin Status: Chronic (9) HTN (hypertension): Problem comment: -continue losartan. Stopped amlodipine as above. Status: Chronic (10) Morbid obesity: Problem comment: BMI almost 80 - Patient has initial appointment with outpatient weight management clinic this week. Status: Chronic (11) BRANDY (obstructive sleep apnea): Problem comment: -needs outpatient sleep study -[place] 1-2L to keep sats at >88% while sleeping. - 07/24 recommended patient get outpatient sleep study - 01/09 has not yet followed up about this Status: Suspected Plan 1. Reviewed impression, plans, recommendations with patient 2. Answered his questions to his satisfaction 3. Continue to work with PT, OT, and social work coordinator 4. His agree with above stated plans and recommendations Total Time Spent Total Time Spent: 40 minutes Subjective Date Seen: 01/11/25 Interval history: Admission history of present illness: ?79 year old male with morbid obesity and lymphedema who is well known to me from previous admissions presented through the emergency department today too weak to ambulate with his walker. He tells me that he had not been watching his diet and gained quite a bit of weight back went 3 weeks ago he suddenly could not get his feet turned after getting out of the shower and fell. He came to the emergency department and a workup was essentially negative, so he was discharged home. He cut out all pop and candy upon returning home and has not had any of that since. He then started having diarrhea which has been getting worse. The same thing happened again last week after shower and again the workup was negative in the emergency department. Home therapies were ordered from the ER. He has already seen the PT at his house twice, but the nursing portion has not started yet. He feels like he is getting weaker every day. Today the same thing happened after a shower, but he was able to sit down on the bench nearby and prevent himself from falling. Then later in the day he had an episode of explosive diarrhea on the way to the bathroom which caused him to fall. He tells me that he does not feel safe going home because of all the falling and feeling like he is getting weaker every day. He wants to go somewhere where they can monitor his diet and have therapies work with him so he can get stronger and lose weight. He has been in touch with his primary care provider via video and got set up with an outpatient weight management program in [place] that will start on . He denies any fevers or chills. He denies urinary symptoms. He is not having any chest pain or shortness of breath. He denies any cellulitis and notes that his skin folds are better than they ever have been before because he takes a shower every morning and has been hiring someone to come out to his house to help him put powder in his skin folds.? Hospital day 2, 01/10/2025: He feels a little less weak today than he did yesterday. Has had progressive loss of ability to safely ambulate having suffered 3 falls in a relatively short period of time and getting out of his chair in bed less than less over the same timeframe due to his fear of falling. Willing to work with physical and occupational therapy to establish a safe discharge disposition plan and recommendations for him. Hospital day 3, 01/11/2025: Overall he is feeling a little better than when he 1st presented. His physical abilities remains stable. Continues to require assist with transfers and ambulation. Ongoing efforts to establish a safe discharge disposition plan including the possibility of short-term correction care for transitional care services verses additional home care services with ocular care technician, home PT and home OT. Patient prefers tcu services if possible. Exam Narrative: Exam Narrative: I again examine patient in his hospital room. No acute distress when he sitting there. Alert and oriented x4. Articulate. Cooperative. His insight about his condition appears to be improving. More accepting of weakness and physical deconditioned state. Lungs are clear to auscultation. Heart tones with regular rhythm. Abdomen is obese with active bowel sounds, soft, nontender. Extremities without edema. No focal motor neurologic deficits. Skin is warm, dry, intact. Const: Vital Signs, click to edit/add: Vital Signs - 24 hr 01/10/25 15:00 01/10/25 15:00 01/10/25 20:57 Temperature 97.9 F 97.5 F L Pulse Rate [Pulse Oximeter] 53 L 53 L 56 L Respiratory Rate 16 16 20 Blood Pressure [Ri ght Arm] 143/69 H 152/69 H Pulse Oximetry 97 92 Oxygen Delivery Me thod Room Air Room Air 01/11/25 00:35 01/11/25 04:11 01/11/25 07:00 Temperature 97.3 F L 97.4 F L 97.3 F L Pulse Rate [Pulse Oximeter] 61 62 64 Respiratory Rate 19 20 16 Blood Pressure [Ri ght Arm] 158/63 H 158/66 H 137/73 Pulse Oximetry 90 92 91 Oxygen Delivery Me thod Room Air Room Air Room Air
--- NOTE | 2025-01-11 13:10 | P.DS_ITS ---
DS: Providers Provider Date Seen: 01/11/25 Date of admission: 01/09/25 22:49 Primary care physician: EVERTON DURON DO Admitting Clinician: Jennifer Conner MD Consults: 01/09/25 23:45 Consult to Nutrition [CONS] Routine Comment: Reason for consult:: Weight Gain Consult to Occupational Therapy [CONS] Routine Comment: Reason(s) for OT Consult:: Evaluate and Treat Any Restrictions?:: No Restrictions Consult to Physical Therapy [CONS] Routine Comment: Reason(s) for PT Consult:: Evaluate and Treat Any Restrictions?:: No Restrictions Consult to [employer] Worker [CONS] Routine Comment: Reason for Consult:: Discharge Planning Needs Attending Physician on discharge: Jorge Irizarry MD Date of Discharge: 01/11/25 DS: Diagnosis Discharge Diagnosis (1) Fall: Status: Acute Problem details: - Suspect due to weakness from acute diarrhea, mild dehydration, and baseline physically deconditioned state - BP mildly low, hold amlodipine, obtain orthostatic VS - History, exam and labs do not suggest any acute medical condition - Unable to ambulate in ER, admit for Obs, PT and OT to evaluate - Work toward safe discharge plan (2) Generalized weakness: Status: Acute (3) Physical debility: Status: Acute Problem details: - Acute on chronic - PT/OT (4) Diarrhea: Status: Acute Problem details: - mild dehydration may have contributed to weakness and fall - Stool studies ordered and negative for C diff - Precautions - C. diff negative, start imodium PRN (5) Morbid obesity: Status: Chronic Problem details: BMI almost 80 - Patient has initial appointment with outpatient weight management clinic this week. (6) Lymphedema associated with obesity: Status: Chronic (7) BRANDY (obstructive sleep apnea): Status: Suspected Problem details: -needs outpatient sleep study -[place] 1-2L to keep sats at >88% while sleeping. - 07/24 recommended patient get outpatient sleep study - 01/09 has not yet followed up about this (8) HTN (hypertension): Status: Chronic Problem details: -continue losartan. Stopped amlodipine as above. (9) Candidal intertrigo: Status: Chronic Problem details: - h/o intertrigo - continue nystatin (10) Heart failure with preserved ejection fraction: Status: Acute Problem details: 07/24/24 ECHO Technically limited exam, very poor image quality. LV function is likely normal but endocardial definition is poor. Right ventricular cavity size is not well visualized, global systolic RV function is not well visualized. The ascending aorta is dilated with maximal diameter 4.3 cm. Inferior vena cava is dilated, respiratory size variation is less than 50%. - 01/09/25 stable, no exacerbation (11) Ascending aorta dilatation: Status: Acute Problem details: 07/24/24 ECHO: The ascending aorta is dilated with maximal diameter 4.3 cm. - will need annual outpatient f/u (12) CKD (chronic kidney disease): Status: Acute Problem details: - stage 3 - baseline Cr is 1.2 - torsemide recently stopped due to worsening renal function (13) Thrombocytopenia: Status: Acute Problem details: - new, no active bleeding. Improved on re-draw from 90-200 DS: Summary Hospital Course Hospital Course: Admission history of present illness: ?79 year old male with morbid obesity and lymphedema who is well known to me from previous admissions presented through the emergency department today too weak to ambulate with his walker. He tells me that he had not been watching his diet and gained quite a bit of weight back went 3 weeks ago he suddenly could not get his feet turned after getting out of the shower and fell. He came to the emergency department and a workup was essentially negative, so he was discharged home. He cut out all pop and candy upon returning home and has not had any of that since. He then started having diarrhea which has been getting worse. The same thing happened again last week after shower and again the workup was negative in the emergency department. Home therapies were ordered from the ER. He has already seen the PT at his house twice, but the nursing portion has not started yet. He feels like he is getting weaker every day. Today the same thing happened after a shower, but he was able to sit down on the bench nearby and prevent himself from falling. Then later in the day he had an episode of explosive diarrhea on the way to the bathroom which caused him to fall. He tells me that he does not feel safe going home because of all the falling and feeling like he is getting weaker every day. He wants to go somewhere where they can monitor his diet and have therapies work with him so he can get stronger and lose weight. He has been in touch with his primary care provider via video and got set up with an outpatient weight management program in [place] that will start on . He denies any fevers or chills. He denies urinary symptoms. He is not having any chest pain or shortness of breath. He denies any cellulitis and notes that his skin folds are better than they ever have been before because he takes a shower every morning and has been hiring someone to come out to his house to help him put powder in his skin folds.? Hospital day 2, 01/10/2025: He feels a little less weak today than he did yesterday. Has had progressive loss of ability to safely ambulate having suffered 3 falls in a relatively short period of time and getting out of his chair in bed less than less over the same timeframe due to his fear of falling. Willing to work with physical and occupational therapy to establish a safe discharge disposition plan and recommendations for him. Hospital day 3, 01/11/2025: Overall he is feeling a little better than when he 1st presented. His physical abilities remains stable. Continues to require assist with transfers and ambulation. Ongoing efforts to establish a safe discharge disposition plan including the possibility of short-term long-term care for transitional care services verses additional home care services with healthcare sales representative, home PT and home OT. Patient prefers tcu services if possible. Status at Discharge Functional status at discharge: uses cane/walker Overall status at discharge: patient is progressing back to baseline Time Spent with Patient Time attestation: Total time spent providing and/or coordinating discharge services: Time spent: Greater than 30 minutes Exam Narrative: Exam Narrative: I again examine patient in his hospital room. No acute distress when he sitting there. Alert and oriented x4. Articulate. Cooperative. His insight about his condition appears to be improving. More accepting of weakness and physical deconditioned state. Lungs are clear to auscultation. Heart tones with regular rhythm. Abdomen is obese with active bowel sounds, soft, nontender. Extremities without edema. No focal motor neurologic deficits. Skin is warm, dry, intact. Const: Vital Signs, click to edit/add: Vital Signs - 24 hr 01/10/25 15:00 01/10/25 15:01/10/25 20:57 Temperature 97.9 F 97.5 F L Pulse Rate [Pulse Oximeter] 53 L 53 L 56 L Respiratory Rate 16 16 20 Blood Pressure [Ri ght Arm] 143/69 H 152/69 H Pulse Oximetry 97 92 Oxygen Delivery Me thod Room Air Room Air 01/11/25 00:35 01/11/25 04:11 01/11/25 07:00 Temperature 97.3 F L 97.4 F L 97.3 F L Pulse Rate [Pulse Oximeter] 61 62 64 Respiratory Rate 19 20 16 Blood Pressure [Ri ght Arm] 158/63 H 158/66 H 137/73 Pulse Oximetry 90 92 91 Oxygen Delivery Me thod Room Air Room Air Room Air DS: Data Data Completed and Pending Completed studies during hospitalization: Procedures Drainage of Bladder with Drainage Device, Via Natural or Artificial Opening (12/31/22) Introduction of Other Gas into Respiratory Tract, Via Natural or Artificial Opening (07/23/24) Discharge Plan Discharge Disposition: [facility] Date of Admission: 01/09/25 22:49 Attending Provider on Discharge: Jorge Irizarry Primary Care Provider: EVERTON DURON Condition: Stable Anticipated Discharge Date/Time: 01/11/25 13:30 Discharge Medications: New loperamide [Imodium A-D] 2 mg capsule 2 mg PO QID PRN (Reason: loose stool) Qty: 14 0RF Continued amlodipine 5 mg tablet 5 mg PO BID losartan 100 mg tablet 100 mg PO DAILY nystatin 100,000 unit/gram Powder 1 applic topical BID Qty: 60 0RF potassium chloride 10 mEq tablet,ER particles/crystals 10 meq PO DAILY tamsulosin 0.4 mg Capsule 0.4 mg PO DAILY carvedilol 3.125 mg tablet 3.125 mg PO BID mupirocin 2 % ointment 1 applic topical BID-TID Discharge Orders: Discharge Order (Routine); Ordered 01/11/25 Ordered By: Jorge Irizarry Activity Level: Activity as Tolerated and Use Walker Discharge Diet: Heart Healthy (2 gm sodium, low fat) Diet Detail: Maximum of 2000 kCal per day Follow Up Appointments: EVERTON DURON DO [Primary Care Provider, Family Practice] Forms: MyHealth Info Instructions Admit to: SNF Discharge Potential: Fair Length of Stay: <30 days Can use facility standing orders?: Yes Code Status: Full Code Rehab Potential: Fair Therapy: Physical Therapy and Occupational Therapy Therapy Orders: Evaluate and Treat Therapy Orders Additional Information: Work toward establishing safe physical reconditioning and strengthening Oxygen: No Urinary Catheter: No Orders are good >30 days: No Signature: Jorge Irizarry
[2025-01-11 15:00] VITALS: BP 173/114; PULSE 62; RESP 18; O2SAT 93
--- NOTE | 2025-01-11 15:38 | PC.NURSE ---
Nursing Care Hours: [id number] Pt this shift calm and cooperative, alert and oriented. No c/o pain. Gail area cleaned and dried. Removed pure wick this AM and encouraged ambulation to BSC. Pt refused x1 and requested urinal. VSS. Up in chair for breakfast, bed for lunch. Nystatin to posterior R knee. IV removed for discharge. Forms signed. Pt taken by EMS in stable condition. Nurse to nurse to the [facility] over the phone done.
--- NOTE | 2025-01-11 15:44 | PC.SOCIAL ---
Discharge planning: Pt was accepted to [facility] for short-term rehab in a private room with a shared bathroom. Pt needs to arrive by 7pm and will be private paying. [facility] requires a $5,000.00 deposit upon admission. The pt is able to pay this with a check, as he had a friend drop off his checkbook at the hospital before he left for [facility]. Pre-admission screening information/confirmation number and discharge orders were secure emailed to Enrique Goodrich at [facility]. [id number]. Pt requested to travel to the facility by non-emergent EMS. The cost would be $400.00, which the pt was willing to pay if insurance did not cover the transport cost. Pt willingly signed the non-emergent EMS wheelchair transportation form and it was given to the charge nurse on duty. utility worker also provided the pt with a copy of the first page of the non-emergent EMS wheelchair form per his request. utility worker calculated the non-emergent EMS transport cost as follows; [id number]([facility] to [facility] is 44 miles per Google maps)= $400.00. Social work to follow-up as needed.
[2025-01-12 02:24] LABS: Campylobacter PCR Not Detected; Enteroaggregative E coli PCR Not Detected; Enteropathogenic E coli PCR Not Detected; Enterotoxigenic E coli PCR Not Detected; Plesiomonas shig PCR Not Detected; Shiga toxin E coli PCR Not Detected
== END 2025-01-11 15:20 ==
LOC: ED 22:33 → MEDSURG 22:50
PROVIDERS: Admitting Provider Family Medicine; Emergency Provider Emergency Medicine; PCP Student in an Organized Health Care Education/Training Program; Visit Provider Family Medicine
DX: R53.1 Weakness (principal); R19.7 Diarrhea, unspecified; E86.0 Dehydration; E66.01 Morbid (severe) obesity due to excess calories; Z68.45 Body mass index [BMI] 70 or greater, adult; I89.0 Lymphedema, not elsewhere classified; G47.33 Obstructive sleep apnea (adult) (pediatric); B37.2 Candidiasis of skin and nail; L30.4 Erythema intertrigo; I13.0 Hypertensive heart and chronic kidney disease with heart failure and stage 1 through stage 4 chronic kidney disease, or unspecified chronic kidney disease; I50.30 Unspecified diastolic (congestive) heart failure; N18.30 Chronic kidney disease, stage 3 unspecified; D69.6 Thrombocytopenia, unspecified; R32 Unspecified urinary incontinence; W19.XXXA Unspecified fall, initial encounter; Y92.009 Unspecified place in unspecified non-institutional (private) residence as the place of occurrence of the external cause; I71.21 Aneurysm of the ascending aorta, without rupture; R10.9 Unspecified abdominal pain
CPT/HCPCS: 36415; 80048; 80053; 83605; 83789; 84484; 85025; 87045; 87046; 87427; 87493; 87507; 93005; 94761; 96360; 97110; 97116; 97161; 97165; 97535; 99284; 99285; A9270; G0378; J7030

== ENCOUNTER 2025-03-11 12:55 | Outpatient (CLI) | payer MEDICARE, BC, SELFPAY | END 2025-03-11 12:56 | disposition home or self-care (01) | LOC: AMB 03-14 10:20 | PROVIDERS: PCP Student in an Organized Health Care Education/Training Program; Visit Provider Family Medicine | DX: R53.1 Weakness (principal); Z99.3 Dependence on wheelchair | CPT/HCPCS: A0425; A0428 ==